=== PATIENT | female | born 1975 | race Caucasian/White ===

== ENCOUNTER 2020-12-31 07:31 | Outpatient (RCR) | payer OTHER, SELFPAY ==
--- NOTE | 2021-01-03 10:24 | PC.NURSE ---
Pt was scheduled to begin the PHP program today, 01/03/21. Pt was not present for community meeting at 9am. Pt was called by TW, phone went to voicemail, unable to leave message as voicemail full. TW called again, waking pt. Pt reported that she began a new medication and she is struggling with it. Tw explained that pt would need to be scheduled for a reassessment as she did not begin program. Pt understood and requested to call TW back once she was up and got herself together. TW will be expecting a call to schedule assessment should pt be interested in attending the program.
== END 2020-12-31 23:55 | disposition home or self-care (01) ==
LOC: HO.PHPA 07:31
PROVIDERS: Visit Provider Psychiatry & Neurology Psychiatry
DX: F31.81 Bipolar II disorder (principal); F43.10 Post-traumatic stress disorder, unspecified
CPT/HCPCS: 90791

== ENCOUNTER 2021-04-05 16:25 | Emergency (ER) | payer MEDICAID, SELFPAY ==
--- NOTE | 2021-04-05 16:53 | ED_ITS ---
HPI - Psych General Chief Complaint: Psychiatric Symptoms Stated Complaint: crisis Time Seen by Provider: 04/05/21 16:52 Source: patient Mode of arrival: ambulatory Limitations: no limitations History of Present Illness MD complaint: suicidal ideation and feels depressed Onset (ago): day(s) Duration: constant and getting worse History of same: Yes Relieving factors: none Exacerbating factors: none Context: significant life stressor Associated psychiatric symptoms: depression and suicidal ideation Associated symptoms: denies other symptoms If self harm: admits thoughts of self harm and has plan (overdose on her trazodone) Related Data Home Medications Medication Instructions Recorded Confirmed lamotrigine 2 tab PO DAILY 04/05/21 04/05/21 ropinirole 1 tab PO BEDTIME 04/05/21 04/05/21 Allergies Allergy/AdvReac Type Severity Reaction Status Date / Time Sulfa (Sulfonamide Allergy Unknown SHORTNESS Unverified 07/01/20 14:52 Antibiotics) OF BREATH [SULFA (SULFONAMIDE ANTIBIOTICS)] mirtazapine [From REMERON] AdvReac Unknown AGITATION Unverified 07/01/20 14:52 quetiapine [From SEROQUEL] AdvReac Unknown AGITATION Unverified 07/01/20 14:52 Review of Systems Review of Systems: Constitutional : No Fever, No Chills ENT/Mouth : No Ear Pain, No Nasal Congestion, No sore throat Eyes: No Eye Pain, No Swelling, No Redness Cardiovascular : No Chest Pain, No SOB Respiratory : No Cough, No Sputum, No Dyspnea Gastrointestinal : No Nausea, No Vomiting, No Diarrhea, No Hematochezia, No Melena Genitourinary : No Dysuria, No Urinary Frequency, No Hematuria Musculoskeletal : No Myalgias Skin : No Skin Lesions, No rash Neuro : No Weakness, No Numbness, No Paresthesias, No Dizziness, No Headache Psych : positive Anxiety, positive Depression, positive SI, no HI Heme/Lymph: No Lymphadenopathy Endocrine : No Polyuria, No Polydipsia All other systems reviewed and are negative [facility] Past Medical History Attestation statement: The following information was validated with the patient. Medical History (Updated 04/05/21 @ 17:29 by Yaquelin Guerrero DO) Depression Social History Social History (Updated 04/05/21 @ 17:26 by Yaquelin Guerrero DO) Household Members: None Alcohol intake: never Patient Tobacco Use Status: Never used Tobacco Advance Directives: No Advance Directives Information Provided: No Patient : No Physical Exam Vital Signs: Vital Signs: Last Vital Signs Temp 97.1 F 04/05/21 16:55 Pulse 67 04/05/21 16:55 Resp 15 04/05/21 16:55 BP 145/70 H 04/05/21 16:55 Pulse Ox 100 04/05/21 16:55 Body Mass Index 30.2 Appearance: Alert. Oriented X3. No acute distress. Eyes: Pupils equal, round and reactive to light. ENT: Pharynx normal. Neck: Normal inspection. Neck supple. CVS: Normal heart rate and rhythm. Pulses normal. Respiratory: No respiratory distress. Breath sounds normal. Abdomen: Soft and nontender. Skin: Skin warm and dry. Normal skin color. Normal skin turgor. Extremities: No lower extremity edema. No calf ttp Neuro: Oriented X 3. No motor deficit. No sensory deficit. CN2-12 intact Psych: pos depression, pos SI, no AH/VH Course Course Course Narrative: Physician observation started at 707pm Patient placed in physician observation because the patient needed more time to see [facility] for potential need for psych admission. At the time observation was started the patient's vitals were stable, patient is alert and oriented, Neuro: nonfocal, CV RRR, Lungs clear Patient seen and cleared by crisis with mom's help and safety robin, the patient doesn't want to go inpatient, declines respite at this time, she does not want to at this time, she is going to start partial on April 14, [facility] will call her at home, mom is on board and plans to stay with the patient. Plan is to follow up with therapist tomorrow. NAD, lungs clear, CV RRR, Abd nontender, Neuro intact. Disposition is for home. Plan to DC home in the AM so patient can be with mom. MDM - Psych MDM Narrative Medical decision making narrative: 46 yo female with prior hx of depression and inpatient mental health care here with depression and SI after losing employment and the loss of a relationship, she plans to overdose on her medications - at this time labs, COVID swab, [facility] consult Lab Data Result diagrams: 04/05/21 17:17 04/05/21 17:17 Labs: Lab Results 04/05/21 04/05/21 04/05/21 Range/Units 17:17 17:17 17:17 WBC 10.9 H (4.8-10.8) X10*3/uL RBC 4.79 (4.20-5.50) X10*6/uL Hgb 13.6 (12.0-16.0) g/dl Hct 41.1 (37-47) % MCV 85.8 (80-98) fL MCH 28.4 (27.0-33.0) pg MCHC 33.1 (31.0-35.0) g/dl RDW 12.5 (11.0-16.0) % Plt Count 314 (160-400) X10*3/uL MPV 9.9 (9.4-12.3) fL Immature Gran % (Auto) 0.4 (0.0-0.4) % Neut % (Auto) 67.7 (45-73) % Lymph % (Auto) 24.5 (20-40) % [place] % (Auto) 5.6 (2-11) % Eos % (Auto) 1.2 (0-4) % Baso % (Auto) 0.6 (0-2) % Lymph # (Auto) 2.7 (1.2-4.9) X10*3/uL [place] # (Auto) 0.6 (0.1-1.2) X10*3/uL Eos # (Auto) 0.1 (0.0-0.4) X10*3/uL Baso # (Auto) 0.1 (0.0-0.2) X10*3/uL Abs Immat Gran (auto) 0.04 H (0.00-0.03) X10*3/uL Absolute Neuts (auto) 7.4 (2.0-8.3) X10*3/uL Absolute Nucleated RBC 0.000 (0.0-0.012) X10*3/uL Nucleated RBC % (auto) 0.0 (0.0-0.2) /100WBC Sodium 139 (135-145) mmol/L Potassium 4.1 (3.3-5.1) mmol/L Chloride 104 (96-108) mmol/L Carbon Dioxide 27 (22-29) mmol/L Anion Gap 12 (12-20) BUN 12 (9-16) mg/dL Creatinine 0.76 (0.5-1.4) mg/dL Estim Creat Clear Calc 106.2 Estimated GFR > 60 Random Glucose 92 (60-115) mg/dL Calcium 9.2 (8.4-10.2) mg/dL Total Bilirubin 0.6 (0.0-1.0) mg/dL Direct Bilirubin 0.2 (0.0-0.5) mg/dL AST 14 (5-31) U/L ALT 9 (0-31) U/L Alkaline Phosphatase 91 (39-117) U/L Total Protein 6.7 (6.5-8.0) g/dL Albumin 3.9 (3.5-5.0) g/dL Ethyl Alcohol mg/dL COVID-19 (JAMIE) Negative (Negative) COVID-19 Clin Com See Note 04/05/21 Range/Units 17:17 WBC (4.8-10.8) X10*3/uL RBC (4.20-5.50) X10*6/uL Hgb (12.0-16.0) g/dl Hct (37-47) % MCV (80-98) fL MCH (27.0-33.0) pg MCHC (31.0-35.0) g/dl RDW (11.0-16.0) % Plt Count (160-400) X10*3/uL MPV (9.4-12.3) fL Immature Gran % (Auto) (0.0-0.4) % Neut % (Auto) (45-73) % Lymph % (Auto) (20-40) % [place] % (Auto) (2-11) % Eos % (Auto) (0-4) % Baso % (Auto) (0-2) % Lymph # (Auto) (1.2-4.9) X10*3/uL [place] # (Auto) (0.1-1.2) X10*3/uL Eos # (Auto) (0.0-0.4) X10*3/uL Baso # (Auto) (0.0-0.2) X10*3/uL Abs Immat Gran (auto) (0.00-0.03) X10*3/uL Absolute Neuts (auto) (2.0-8.3) X10*3/uL Absolute Nucleated RBC (0.0-0.012) X10*3/uL Nucleated RBC % (auto) (0.0-0.2) /100WBC Sodium (135-145) mmol/L Potassium (3.3-5.1) mmol/L Chloride (96-108) mmol/L Carbon Dioxide (22-29) mmol/L Anion Gap (12-20) BUN (9-16) mg/dL Creatinine (0.5-1.4) mg/dL Estim Creat Clear Calc Estimated GFR Random Glucose (60-115) mg/dL Calcium (8.4-10.2) mg/dL Total Bilirubin (0.0-1.0) mg/dL Direct Bilirubin (0.0-0.5) mg/dL AST (5-31) U/L ALT (0-31) U/L Alkaline Phosphatase (39-117) U/L Total Protein (6.5-8.0) g/dL Albumin (3.5-5.0) g/dL Ethyl Alcohol < 10 mg/dL COVID-19 (JAMIE) (Negative) COVID-19 Clin Com Discharge Plan Discharge Clinical Impression: Depression Qualifiers: Depression Type: other depression Qualified Code(s): F32.89 - Other specified depressive episodes Patient Disposition: Home, Self-Care Instructions: Depression (ED) Additional Instructions: return to ED for any worsening symptoms or concerns Prescriptions: No Action lamotrigine 25 mg tablet 2 tab PO DAILY RF: 0 ropinirole 0.5 mg tablet 1 tab PO BEDTIME RF: 0 Stand Alone Forms: Work/School Release
[2021-04-05 16:55] VITALS: BP 145/70; PULSE 67; RESP 15; TEMP 36.2; O2SAT 100
[2021-04-05 17:05] VITALS: BP 144/70; PULSE 70; O2SAT 98; BMI 30.2
[2021-04-05 17:24] LABS: MANUAL DIFF FLAG NO
[2021-04-05 17:27] LABS: Basophils Absolute Auto 0.1 X10*3/uL (0.0-0.2); Basophils Percent Auto 0.6 % (0-2); Eosinophils Absolute Auto 0.1 X10*3/uL (0.0-0.4); Eosinophils Percent Auto 1.2 % (0-4); Hematocrit 41.1 % (37-47); Hemoglobin 13.6 g/dl (12.0-16.0); Imm Gran Abs Auto 0.04 X10*3/uL (0.00-0.03); Imm Gran Pct Auto 0.4 % (0.0-0.4); Lymphocytes Absolute Auto 2.7 X10*3/uL (1.2-4.9); Lymphocytes Percent Auto 24.5 % (20-40); Mean Corpuscular HGB Conc 33.1 g/dl (31.0-35.0); Mean Corpuscular Hemoglobin 28.4 pg (27.0-33.0); Mean Corpuscular Volume 85.8 fL (80-98); Mean Platelet Volume 9.9 fL (9.4-12.3); Monocytes Absolute Auto 0.6 X10*3/uL (0.1-1.2); Monocytes Percent Auto 5.6 % (2-11); Neutrophils Absolute Auto 7.4 X10*3/uL (2.0-8.3); Neutrophils Percent Auto 67.7 % (45-73); Platelet Count 314 X10*3/uL (160-400); Red Blood Count 4.79 X10*6/uL (4.20-5.50); Red Cell Distribution Width 12.5 % (11.0-16.0); White Blood Count 10.9 X10*3/uL (4.8-10.8)
--- NOTE | 2021-04-05 17:35 | PC.NURSE ---
patient has appt with [facility] [place] PHP intake for 04/14/21
[2021-04-05 17:44] LABS: COVID-19 Test Negative (Negative); IDNOW Serial# 9DD0AD1C
[2021-04-05 17:52] LABS: Ethanol < 10 mg/dL
[2021-04-05 17:56] LABS: Alanine Aminotransferase 9 U/L (0-31); Albumin Level 3.9 g/dL (3.5-5.0); Alkaline Phosphatase 91 U/L (39-117); Anion Gap 12 (12-20); Aspartate Amino Transferase 14 U/L (5-31); Bilirubin Direct 0.2 mg/dL (0.0-0.5); Bilirubin Total 0.6 mg/dL (0.0-1.0); Blood Urea Nitrogen 12 mg/dL (9-16); Calcium 9.2 mg/dL (8.4-10.2); Carbon Dioxide 27 mmol/L (22-29); Chloride 104 mmol/L (96-108); Creatinine Clr Calc Pharmacy 106.2; Estimated Glomerular Filt Rate > 60; Glucose Random 92 mg/dL (60-115); Potassium 4.1 mmol/L (3.3-5.1); Sodium 139 mmol/L (135-145); Total Protein 6.7 g/dL (6.5-8.0)
--- NOTE | 2021-04-05 19:10 | PC.NURSE ---
Patient in bed appears sleeping, no distress observed/reported at this time, med rec completed/pending provider's approval, Nathan called/spoke with [facility],confirmed receipt of referral, clinician is on the way to assess the patient.
--- NOTE | 2021-04-05 19:38 | PC.NURSE ---
[facility] at bedside
--- NOTE | 2021-04-05 20:45 | PC.NURSE ---
JEFFERY completed the assessment, disposition updated, patient will be discharged in the morning, mother Maryam will come pick her up, patient will be doing her PHP which is scheduled on April 14, 2021. Patient and provider aware.
[2021-04-05 21:12] LABS: Amphetamine Screen Urine Not Detected (Not Detect); Barbiturates, Urine Not Detected (Not Detect); Benzodiazepines Screen Urine Not Detected (Not Detect); Cannabinoid Screen Urine POSITIVE (Not Detect); Cocaine Screen Urine Not Detected (Not Detect); Opiate Screen Urine Not Detected (Not Detect); Phencyclidine Screen Urine Not Detected (Not Detect)
[2021-04-05 23:43] VITALS: BP 126/58; PULSE 62; RESP 16; TEMP 36.7; O2SAT 100
--- NOTE | 2021-04-06 06:22 | PC.NURSE ---
Patient slept through the night, no distress observed/reported, Mother Maryam called/not responded/message left to call back with ride time, will continue to monitor.
--- NOTE | 2021-04-06 07:05 | PC.NURSE ---
Addendum entered by Pankaj Stringer 04/06/21 08:20: pt has pending partial placement* Original Note: report taken from miki adler pt here for reported si, seen by n crisis and awaiting follow up w pt mother regarding dc planning, pt has pending placement for psychiatric care 04/14/21. appears to be sleeping in bed att, rr even/unlabored. breakfast tray left at bedside.
--- NOTE | 2021-04-06 10:25 | MHC.CARE ---
Patient was assessed by N and cleared for discharge home. CARE Team was able to offer patient an earlier start date for PHP with an intake on 04/12 vs scheduled 04/14, she declined as she cannot wake in time for the 7:30 appointment. Patient?s mother was at bedside and is planning to stay with patient and help support/keep patient busy as long as necessary. They understand to call Crisis or CARE team if the situation becomes more acute.
== END 2021-04-06 09:02 | disposition home or self-care (01) ==
PROVIDERS: Emergency Provider Emergency Medicine; PCP Nurse Practitioner Family
DX: F32.89 Other specified depressive episodes (principal); Z79.899 Other long term (current) drug therapy; Z20.822 Contact with and (suspected) exposure to COVID-19
CPT/HCPCS: 36415; 80048; 80076; 80307; 82077; 85025; 87635; 99284; 99285

== ENCOUNTER 2021-08-21 13:30 | Emergency (ER) | payer MEDICAID, SELFPAY ==
--- NOTE | ~2021-08-21 | XR_ITS ---
EXAMINATION: CHEST 2 VIEWS CLINICAL INFORMATION: cough and weakness . COMPARISON: 12/04/2019. TECHNIQUE: PA and lateral views of the chest obtained. FINDINGS: The lungs are well expanded. No focal infiltrate, effusion, edema, or pneumothorax. Chain staple line at the right lung apex again noted. Cardiac and mediastinal silhouettes are within normal limits for technique. No acute bony abnormality seen XR/XR chest 2V IMPRESSION: No evidence of acute disease
[2021-08-21 13:47] VITALS: BP 140/75; PULSE 106; RESP 16; TEMP 36.5; O2SAT 98; BMI 28.8
--- NOTE | 2021-08-21 13:53 | ED.URI ---
HPI - URI/Sore Throat General Chief Complaint: Upper Respiratory Symptoms Stated Complaint: flu like Time Seen by Provider: 08/21/21 13:49 Source: patient Mode of arrival: ambulatory Limitations: no limitations History of Present Illness HPI Narrative: sore throat, headache, slight cough, with chest tightness for one week. Patient thought she had allergies. Now with bodyaches. Patient is both flu and COVID vaccinated. Patient with nausea and vomiting feels dehydrated. Denies fever at home MD elicited complaint: cough, sore throat and rhinorrhea Onset (ago): week(s) Consistency: constant Severity: moderate Able to tolerate fluids by mouth: No Associated symptoms: myalgias, sore throat, nausea and vomiting Related Data Home Medications Medication Instructions Recorded Confirmed lamotrigine 25 mg tablet 2 tab PO DAILY 04/05/21 04/05/21 ropinirole 0.5 mg tablet 1 tab PO BEDTIME 04/05/21 04/05/21 Previous Rx's Medication Instructions Recorded fluticasone propionate 50 1 spray INTRANASAL BID #16 g 08/21/21 mcg/actuation nasal spray,suspension (Flonase Allergy Relief) ondansetron HCl 4 mg tablet 4 mg PO Q8H PRN #10 tab 08/21/21 (Zofran) Allergies Allergy/AdvReac Type Severity Reaction Status Date / Time Sulfa (Sulfonamide Allergy Unknown SHORTNESS Unverified 07/01/20 14:52 Antibiotics) OF BREATH [SULFA (SULFONAMIDE ANTIBIOTICS)] mirtazapine [From REMERON] AdvReac Unknown AGITATION Unverified 07/01/20 14:52 quetiapine [From SEROQUEL] AdvReac Unknown AGITATION Unverified 07/01/20 14:52 Review of Systems Constitutional: Constitutional: Reports no additional constitutional complaints Eyes: Eyes: Reports no additional eye complaints ENT: Denies dizziness Cardiovascular: Cardiovascular: Reports no additional cardiovascular complaints Respiratory: Respiratory: Reports as per HPI Gastrointestinal: Gastrointestinal: Reports no additional gastrointestinal complaints Genitourinary: Genitourinary: Reports no additional female genitourinary complaints Musculoskeletal: Musculoskeletal: Reports no additional musculoskeletal complaints Integumentary/Breasts: Skin/Breast: Denies rash Neurologic: Reports system reviewed and no additional complaints, except as documented, Denies dizziness and Denies Sensory deficit (Neuro) Psychiatric: Psychiatric: Denies anxiety PMFSH Past Medical History Medical History Depression Social History Social History Household Members: None Alcohol intake: never Patient Tobacco Use Status: Never used Tobacco Use of substances other than those prescribed or required for medical reasons: No Advance Directives: No Physical Exam Vital Signs: Vital Signs: Last Vital Signs Temp 98.8 F 08/21/21 14:12 Pulse 80 08/21/21 14:12 Resp 18 08/21/21 14:12 BP 130/74 08/21/21 14:12 Pulse Ox 96 08/21/21 14:12 Body Mass Index 28.8 Const: General: healthy appearing Nutritional Appearance: average body habitus Orientation/consciousness: oriented to person and patient oriented x3 Limitations: no limitations HENMT: Other: right TM with effusion, no erythema Head: Yes normal to inspection Ears: external ears normal General nose exam: Normal external nose present Mouth: Normal oral and palatal mucosa present and oropharynx normal Throat: Yes posterior oropharynx normal Eyes: General: appearance normal, both eyes and all related structures Neck: Other: supple Neck: Yes normal visual inspection Chest: Chest palpation & inspection: normal inspection of the chest Resp: Auscultation: clear to auscultation bilaterally Cardio: Jugular venous distension: no JVD Rate: regular rate Rhythm: regular rhythm Heart sounds: S1 normal heart sound present and S2 normal heart sound present GI: Inspection: Yes normal to inspection Palpation (GI): Soft to palpation, nontender and No hepatosplenomegaly present Auscultation: normal bowel sounds : General: Yes no CVA tenderness Back/Spine/Pelvis: Back: no CVA tenderness Skin: General skin exam: no rashes or lesions noted Neuro: General: oriented to person and patient oriented x3 Cranial nerves: Yes CN's II-XII intact bilaterally Motor exam (neuro): 5/5 motor strength present throughout Sensory Exam: No Sensory deficit (Neuro) Extrem: General: Yes normal to inspection Psych: Appearance: grossly normal Course Reevaluation(s) Reevaluation #1: COVID negative, chest xray negative, good vitals, rehydrated will dc home on zofran and flonase for sinusitis Time: 15:38 MDM - URI/Sore Throat Lab Data Result diagrams: 11/07/21 14:24 08/21/21 14:24 Labs: Lab Results 08/21/21 08/21/21 08/21/21 Range/Units 14:24 14:24 14:24 WBC 6.1 (4.8-10.8) X10*3/uL RBC 4.57 (4.20-5.50) X10*6/uL Hgb 13.6 (12.0-16.0) g/dl Hct 39.2 (37.0-47.0) % MCV 85.8 (80.0-98.0) fL MCH 29.8 (27.0-33.0) pg MCHC 34.7 (31.0-35.0) g/dl RDW 12.9 (11.0-16.0) % Plt Count 238 (160-400) X10*3/uL MPV 9.8 (9.4-12.3) fL Immature Gran % (Auto) 0.2 (0.0-0.4) % Neut % (Auto) 57.4 (45-73) % Lymph % (Auto) 30.1 (20-40) % [place] % (Auto) 9.8 (2-11) % Eos % (Auto) 1.8 (0-4) % Baso % (Auto) 0.7 (0-2) % Lymph # (Auto) 1.9 (1.2-4.9) X10*3/uL [place] # (Auto) 0.6 (0.1-1.2) X10*3/uL Eos # (Auto) 0.1 (0.0-0.4) X10*3/uL Baso # (Auto) 0.0 (0.0-0.2) X10*3/uL Abs Immat Gran (auto) 0.01 (0.00-0.03) X10*3/uL Absolute Neuts (auto) 3.5 (2.0-8.3) x10*3/uL Absolute Nucleated RBC 0.000 (0.0-0.012) X10*3/uL Nucleated RBC % (auto) 0.0 (0.0-0.2) /100WBC Sodium 140 (135-145) mmol/L Potassium 4.1 (3.3-5.1) mmol/L Chloride 109 H (96-108) mmol/L Carbon Dioxide 24 (22-29) mmol/L Anion Gap 11 L (12-20) BUN 10 (9-16) mg/dL Creatinine 0.81 (0.5-1.4) mg/dL Estim Creat Clear Calc 100.6 Estimated GFR > 60 Random Glucose 122 H (60-115) mg/dL Calcium 8.9 (8.4-10.2) mg/dL Influenza Type A (PCR) NEGATIVE (Negative) Influenza Type B (PCR) NEGATIVE (Negative) RSV RNA Qual (PCR) NEGATIVE (Negative) SARS-CoV-2 RNA (RT-PCR) NEGATIVE (Negative) Imaging Data Chest x-ray: Radiologist's impression: IMPRESSION: No evidence of acute disease ? Discharge Plan Discharge Clinical Impression: Sinusitis Qualifiers: Sinusitis location: frontal Chronicity: subacute Qualified Code(s): J01.10 - Acute frontal sinusitis, unspecified Vomiting Qualifiers: Vomiting type: unspecified Vomiting Intractability: non-intractable Nausea presence: with nausea Qualified Code(s): R11.2 - Nausea with vomiting, unspecified Patient Disposition: Home, Self-Care Instructions: Sinusitis (ED), Acute Nausea and Vomiting (ED) Prescriptions: New ondansetron HCl [Zofran] 4 mg tablet 4 mg PO Q8H PRN (Reason: nausea and vomiting) Qty: 10 RF: 0 fluticasone propionate [Flonase Allergy Relief] 50 mcg/actuation spray,suspension 1 spray intranasal BID Qty: 16 RF: 0 No Action lamotrigine 25 mg tablet 2 tab PO DAILY RF: 0 ropinirole 0.5 mg tablet 1 tab PO BEDTIME RF: 0 Referrals: Mamta Guzmán, [facility] PAVER [Primary Care Provider] - 1 week
[2021-08-21 14:12] VITALS: BP 130/74; PULSE 80; RESP 18; TEMP 37.1; O2SAT 96
[2021-08-21 14:34] LABS: MANUAL DIFF FLAG NO
[2021-08-21 14:35] LABS: Basophils Percent Auto 0.7 % (0-2); Eosinophils Absolute Auto 0.1 X10*3/uL (0.0-0.4); Eosinophils Percent Auto 1.8 % (0-4); Hematocrit 39.2 % (37.0-47.0); Hemoglobin 13.6 g/dl (12.0-16.0); Imm Gran Abs Auto 0.01 X10*3/uL (0.00-0.03); Imm Gran Pct Auto 0.2 % (0.0-0.4); Lymphocytes Absolute Auto 1.9 X10*3/uL (1.2-4.9); Lymphocytes Percent Auto 30.1 % (20-40); Mean Corpuscular HGB Conc 34.7 g/dl (31.0-35.0); Mean Corpuscular Hemoglobin 29.8 pg (27.0-33.0); Mean Corpuscular Volume 85.8 fL (80.0-98.0); Mean Platelet Volume 9.8 fL (9.4-12.3); Monocytes Absolute Auto 0.6 X10*3/uL (0.1-1.2); Monocytes Percent Auto 9.8 % (2-11); Neutrophils Absolute Auto 3.5 x10*3/uL (2.0-8.3); Neutrophils Percent Auto 57.4 % (45-73); Platelet Count 238 X10*3/uL (160-400); Red Blood Count 4.57 X10*6/uL (4.20-5.50); Red Cell Distribution Width 12.9 % (11.0-16.0); White Blood Count 6.1 X10*3/uL (4.8-10.8)
--- NOTE | 2021-08-21 14:36 | PC.NURSE ---
intermittent dry cough, no SOB at rest. pt describes right sided anterior chest pain, intermittent dizziness, persistent fatigue. Skin pwd. nsr on monitor. aware of plan of care.
[2021-08-21] MEDS: ondansetron HCL 4 MG/2 ML VIAL IVPUSH (14:45)
[2021-08-21] MEDS: Ketorolac Tromethamine 15 MG/ML VIAL 30 MG IVPUSH (14:45)
[2021-08-21] MEDS: 0.9 % Sodium Chloride 1,000 ML 999 ML IVCONT (14:45)
[2021-08-21 14:46] LABS: Anion Gap 11 (12-20); Blood Urea Nitrogen 10 mg/dL (9-16); Calcium 8.9 mg/dL (8.4-10.2); Carbon Dioxide 24 mmol/L (22-29); Chloride 109 mmol/L (96-108); Creatinine Clr Calc Pharmacy 100.6; Estimated Glomerular Filt Rate > 60; Glucose Random 122 mg/dL (60-115); Potassium 4.1 mmol/L (3.3-5.1); Sodium 140 mmol/L (135-145)
[2021-08-21 15:21] LABS: Influenza A PCR NEGATIVE (Negative); Influenza B PCR NEGATIVE (Negative); Resp Syncy Virus RNA Qual PCR NEGATIVE (Negative); SARS COV2 PCR INHOUSE NEGATIVE (Negative)
[2021-08-21 15:49] VITALS: BP 134/63; PULSE 68; RESP 16; TEMP 36.7; O2SAT 99
== END 2021-08-21 16:18 | disposition home or self-care (01) ==
PROVIDERS: Emergency Provider Emergency Medicine; PCP Nurse Practitioner Family
DX: J01.10 Acute frontal sinusitis, unspecified (principal); R11.2 Nausea with vomiting, unspecified; J02.9 Acute pharyngitis, unspecified; Z20.822 Contact with and (suspected) exposure to COVID-19
CPT/HCPCS: 0241U; 36415; 71046; 80048; 85025; 96361; 96374; 96375; 99284; J1885; J2405

== ENCOUNTER 2021-09-13 23:46 | Inpatient (IN) | payer OTHER, MEDICAID, SELFPAY ==
--- NOTE | 2021-09-13 23:51 | ED_ITS ---
HPI - Psych General Chief Complaint: Psychiatric Symptoms Stated Complaint: si w/ plan (sec 12) Source: patient and EMS Mode of arrival: EMS Limitations: no limitations History of Present Illness HPI Narrative: 46-year-old female presents via EMS on section 12 for suicidal ideation with plan. MD complaint: suicidal ideation and feels depressed Onset (ago): unknown Duration: constant History of same: Yes Relieving factors: none Context: significant life stressor Associated psychiatric symptoms: depression and suicidal ideation Associated symptoms: denies other symptoms Treatments prior to arrival: placed on mental health hold If self harm: admits thoughts of self harm and has plan Related Data Home Medications Medication Instructions Recorded Confirmed duloxetine 60 mg capsule,delayed 1 cap PO DAILY 09/14/21 09/14/21 release lamotrigine 100 mg tablet 1 tab PO DAILY 09/14/21 09/14/21 Allergies Allergy/AdvReac Type Severity Reaction Status Date / Time Sulfa (Sulfonamide Allergy Unknown SHORTNESS Unverified 07/01/20 14:52 Antibiotics) OF BREATH [SULFA (SULFONAMIDE ANTIBIOTICS)] mirtazapine [From REMERON] AdvReac Unknown AGITATION Unverified 07/01/20 14:52 quetiapine [From SEROQUEL] AdvReac Unknown AGITATION Unverified 07/01/20 14:52 Review of Systems Review of Systems: Constitutional: No Fever, No Chills ENT/Mouth: No Ear Pain, No Nasal Congestion, No sore throat Eyes: No Eye Pain, No Swelling, No Redness Cardiovascular: No Chest Pain, No SOB Respiratory: No Cough, No Sputum, No Dyspnea Gastrointestinal: No Nausea, No Vomiting, No Diarrhea, No Hematochezia, No Melena Genitourinary: No Dysuria, No Urinary Frequency, No Hematuria Musculoskeletal: No Myalgias Skin: No Skin Lesions, No rash Neuro: No Weakness, No Numbness, No Paresthesias, No Dizziness, No Headache Psych: No Anxiety, positive Depression, positive SI Heme/Lymph: No Lymphadenopathy Endocrine: No Polyuria, No Polydipsia Yes all other systems are reviewed and are negative [facility] Past Medical History Attestation statement: The following information was validated with the patient. Source: old records reviewed Medical History Depression Social History Social History Household Members: None Alcohol intake: never Patient Tobacco Use Status: Never used Tobacco Advance Directives: No Advance Directives Information Provided: Yes Patient : No Physical Exam Vital Signs: Vital Signs: Last Vital Signs Temp 97.4 F 09/13/21 23:53 Pulse 65 09/13/21 23:53 Resp 16 09/13/21 23:53 BP 145/69 H 09/13/21 23:53 Pulse Ox 99 09/13/21 23:53 Body Mass Index 26.6 Appearance: Alert. Oriented X3. Moderate emotional distress. Eyes: Pupils equal, round and reactive to light. Sclera nonicteric ENT: Pharynx normal. Moist mucous membranes Neck: Normal inspection. Neck supple. CVS: Normal heart rate and rhythm. Pulses normal. Respiratory: No respiratory distress. Breath sounds normal. Abdomen: Soft and nontender. Skin: Skin warm and dry. Normal skin color. Normal skin turgor. Extremities: Gait well-balanced well coordinated. Neuro: No motor deficit. No sensory deficit. Cranial nerves 2-12 intact. Course Course Course Narrative: 46-year-old female presents via EMS for suicidal ideation with plan. States that she is going through significant life stressor, is in financial distress. Told her daughter earlier today that she was suicidal with plan to overdose on her medications. Patient does have prior history of depression with suicidal ideation and plan to overdose. Patient is on section 12, will order labs and crisis consult. 1:31 a.m. medically cleared. Physician observation started at this time. MDM - Psych Differential Diagnosis Differential diagnosis: Likely suicidal ideation and depression Medical Records Attestation: I reviewed the patient's medical records. Lab Data Attestation: I reviewed the patient's lab results. Result diagrams: 09/14/21 00:23 09/14/21 00:23 Labs: Lab Results 09/14/21 09/14/21 09/14/21 Range/Units 00:09 00:23 00:23 WBC 9.6 (4.8-10.8) X10*3/uL RBC 4.88 (4.20-5.50) X10*6/uL Hgb 14.0 (12.0-16.0) g/dl Hct 42.1 (37.0-47.0) % MCV 86.3 (80.0-98.0) fL MCH 28.7 (27.0-33.0) pg MCHC 33.3 (31.0-35.0) g/dl RDW 12.5 (11.0-16.0) % Plt Count 305 D (160-400) X10*3/uL MPV 10.0 (9.4-12.3) fL Immature Gran % (Auto) 0.2 (0.0-0.4) % Neut % (Auto) 54.0 (45-73) % Lymph % (Auto) 33.5 (20-40) % [place] % (Auto) 8.9 (2-11) % Eos % (Auto) 2.9 (0-4) % Baso % (Auto) 0.5 (0-2) % Lymph # (Auto) 3.2 (1.2-4.9) X10*3/uL [place] # (Auto) 0.9 (0.1-1.2) X10*3/uL Eos # (Auto) 0.3 (0.0-0.4) X10*3/uL Baso # (Auto) 0.1 (0.0-0.2) X10*3/uL Abs Immat Gran (auto) 0.02 (0.00-0.03) X10*3/uL Absolute Neuts (auto) 5.2 (2.0-8.3) x10*3/uL Absolute Nucleated RBC 0.000 (0.0-0.012) X10*3/uL Nucleated RBC % (auto) 0.0 (0.0-0.2) /100WBC Sodium 140 (135-145) mmol/L Potassium 3.9 (3.3-5.1) mmol/L Chloride 108 (96-108) mmol/L Carbon Dioxide 20 L (22-29) mmol/L Anion Gap 16 (12-20) BUN 9 (9-16) mg/dL Creatinine 0.76 (0.5-1.4) mg/dL Estim Creat Clear Calc 103.4 Estimated GFR > 60 Random Glucose 106 (60-115) mg/dL Calcium 9.2 (8.4-10.2) mg/dL Salicylates < 5.0 L (15-30) mg/dL Acetaminophen < 1 (<30) mcg/mL Ethyl Alcohol mg/dL COVID-19 (JAMIE) Negative (Negative) COVID-19 Clin Com See Note 09/14/21 Range/Units 00:23 WBC (4.8-10.8) X10*3/uL RBC (4.20-5.50) X10*6/uL Hgb (12.0-16.0) g/dl Hct (37.0-47.0) % MCV (80.0-98.0) fL MCH (27.0-33.0) pg MCHC (31.0-35.0) g/dl RDW (11.0-16.0) % Plt Count (160-400) X10*3/uL MPV (9.4-12.3) fL Immature Gran % (Auto) (0.0-0.4) % Neut % (Auto) (45-73) % Lymph % (Auto) (20-40) % [place] % (Auto) (2-11) % Eos % (Auto) (0-4) % Baso % (Auto) (0-2) % Lymph # (Auto) (1.2-4.9) X10*3/uL [place] # (Auto) (0.1-1.2) X10*3/uL Eos # (Auto) (0.0-0.4) X10*3/uL Baso # (Auto) (0.0-0.2) X10*3/uL Abs Immat Gran (auto) (0.00-0.03) X10*3/uL Absolute Neuts (auto) (2.0-8.3) x10*3/uL Absolute Nucleated RBC (0.0-0.012) X10*3/uL Nucleated RBC % (auto) (0.0-0.2) /100WBC Sodium (135-145) mmol/L Potassium (3.3-5.1) mmol/L Chloride (96-108) mmol/L Carbon Dioxide (22-29) mmol/L Anion Gap (12-20) BUN (9-16) mg/dL Creatinine (0.5-1.4) mg/dL Estim Creat Clear Calc Estimated GFR Random Glucose (60-115) mg/dL Calcium (8.4-10.2) mg/dL Salicylates (15-30) mg/dL Acetaminophen (<30) mcg/mL Ethyl Alcohol < 10 mg/dL COVID-19 (JAMIE) (Negative) COVID-19 Clin Com Discharge Plan Discharge Clinical Impression: Suicidal ideation Major depression Qualifiers: Major depression recurrence: recurrent Active/Remission status: currently active Major depression episode severity: severe Psychotic features: with psychotic features Qualified Code(s): F33.3 - Major depressive disorder, recurrent, severe with psychotic symptoms Prescriptions: No Action duloxetine 60 mg capsule,delayed release(DR/EC) 1 cap PO DAILY RF: 0 lamotrigine 100 mg tablet 1 tab PO DAILY RF: 0
[2021-09-13 23:53] VITALS: BP 145/69; PULSE 65; RESP 16; TEMP 36.3; O2SAT 99; BMI 26.6
[2021-09-14 00:27] LABS: MANUAL DIFF FLAG NO
[2021-09-14 00:29] LABS: Basophils Absolute Auto 0.1 X10*3/uL (0.0-0.2); Basophils Percent Auto 0.5 % (0-2); Eosinophils Absolute Auto 0.3 X10*3/uL (0.0-0.4); Eosinophils Percent Auto 2.9 % (0-4); Hematocrit 42.1 % (37.0-47.0); Imm Gran Abs Auto 0.02 X10*3/uL (0.00-0.03); Imm Gran Pct Auto 0.2 % (0.0-0.4); Lymphocytes Absolute Auto 3.2 X10*3/uL (1.2-4.9); Lymphocytes Percent Auto 33.5 % (20-40); Mean Corpuscular HGB Conc 33.3 g/dl (31.0-35.0); Mean Corpuscular Hemoglobin 28.7 pg (27.0-33.0); Mean Corpuscular Volume 86.3 fL (80.0-98.0); Monocytes Absolute Auto 0.9 X10*3/uL (0.1-1.2); Monocytes Percent Auto 8.9 % (2-11); Neutrophils Absolute Auto 5.2 x10*3/uL (2.0-8.3); Platelet Count 305 X10*3/uL (160-400); Red Blood Count 4.88 X10*6/uL (4.20-5.50); Red Cell Distribution Width 12.5 % (11.0-16.0); White Blood Count 9.6 X10*3/uL (4.8-10.8)
[2021-09-14 00:40] LABS: COVID-19 Test Negative (Negative)
[2021-09-14 00:56] LABS: Ethanol < 10 mg/dL
[2021-09-14 00:59] LABS: Acetaminophen LAB < 1 mcg/mL (<30); Anion Gap 16 (12-20); Blood Urea Nitrogen 9 mg/dL (9-16); Calcium 9.2 mg/dL (8.4-10.2); Carbon Dioxide 20 mmol/L (22-29); Chloride 108 mmol/L (96-108); Creatinine Clr Calc Pharmacy 103.4; Estimated Glomerular Filt Rate > 60; Glucose Random 106 mg/dL (60-115); Potassium 3.9 mmol/L (3.3-5.1); Salicylate < 5.0 mg/dL (15-30); Sodium 140 mmol/L (135-145)
[2021-09-14 04:10] LABS: Appearance Urine CLEAR; Color Urine YELLOW; Glucose Urine UA NEG (NEG); Leukocyte Esterase Urine NEG (NEG); Nitrite Urine NEG (NEG); Urine Blood NEG (NEG); Urine Ketones NEG (NEG); Urine Protein NEG (NEG-TRACE)
[2021-09-14 04:11] LABS: UPreg QC Valid YES; Urine Pregnancy NEGATIVE (NEGATIVE)
[2021-09-14 04:23] LABS: Amphetamine Screen Urine Not Detected (Not Detect); Barbiturates, Urine Not Detected (Not Detect); Benzodiazepines Screen Urine Not Detected (Not Detect); Cannabinoid Screen Urine POSITIVE (Not Detect); Cocaine Screen Urine Not Detected (Not Detect); Fentanyl, urine Not Detected (Not Detect); Opiate Screen Urine Not Detected (Not Detect); Phencyclidine Screen Urine Not Detected (Not Detect)
[2021-09-14 04:33] LABS: Mucus Urine 1+ /LPF; RBC Urine 0 /HPF (0); Squamous Epithelial Cell Urine 2+ /LPF; WBC Urine 0-2 /HPF (0-4)
--- NOTE | 2021-09-14 05:52 | PC.NURSE ---
Patient slept through the night, no distress observed/reported, patient was fully engaged with N during the evaluation, behavior calm, quiet, and appropriate, med rec completed, disposition per [facility] is section 12 inpatient bed search, patient and provider aware, VSS, will continue to monitor.
--- NOTE | 2021-09-14 10:01 | PC.NURSE ---
OOB TO BR. SECT 12 BEDSEARCH CONTINUES. ALERT AND ORIENTED. PT REFUSING MEDS THIS AM, STATES SHE TAKES THEM AT NIGHT. PHARMACY AWARE, TIMES CHANGED
--- NOTE | 2021-09-14 11:07 | PC.NURSE ---
NURSE TO NURSE TO M5
[2021-09-14 13:28] VITALS: BP 134/72; PULSE 102; RESP 16; TEMP 37.2; O2SAT 99
[2021-09-14] MEDS: Acetaminophen 325 MG TABLET 650 MG PO (14:08)
[2021-09-14 18:00] VITALS: BP 135/64; PULSE 78; RESP 16; TEMP 37.1; O2SAT 98
--- NOTE | 2021-09-14 19:58 | PC.ADMIT ---
46 yo female admitted to [facility] at 1440 today on a CV for psychiatric evaluation. Per crisis report, pt stated she is experiencing several stressors and is completely overwhelmed by it all. States she had broken her ankle in October and needed to be out of work as a result she is 3 months past due on her rent, car may be getting repossessed. States she had not been taking her mood stabilizers and in Oct 2020 stopped her antidepressant Cymbalta to see if she needed to stay on it. Started back on Cymbalta in April of 2021. Pt's mom developed a kidney infection which led her to the SI of overdosing on her pills. Pt texted her daughter I love you, but I cannot do this anymore. Pt's mother and daughter called police. Pt additionally texted daughter No matter what they say, one way or another, I am going to take my life. Pt is A&O, 4/10 anxiety, 8/10 depression, and tearful. Pt reports SI but acknowledges she cannot do anything here. Pt declined to elaborate on thoughts. Pt contracted for safety. Pt reports that she feels a burden to my family and feels as thought she has nothing to offer. Pt denies HI/AVH. Pt denies substance abuse issues. States she uses marijuana daily, 1 joint . Pt dx with Bipolar II, PTSD and Depression with SI. Pt states she has had previous psych admissions at [facility] at ages 16, 25. Pt requests assistance with finding a psychiatrist, a therapist and medications adjustment. Orders obtained, Pt is on 15 min safety checks.
[2021-09-14] MEDS: DULoxetine HCl 30 MG CAPSULE.DR PO (20:47)
[2021-09-14] MEDS: DULoxetine HCl 60 MG CAPSULE.DR PO (20:47)
[2021-09-15 08:39] LABS: Estimated Average Glucose 105 mg/dL; Hemoglobin A1c % 5.3 %
--- NOTE | 2021-09-15 09:06 | HO.PSYADMNOT ---
HPI Date of Service: 09/15/21 Chief Complaint: Recurrent Major Depression W/SI Sources of Information: patient interviewed, chart reviewed and crisis/core team assessment reviewed HPI Subjective Notes: Bucio Warning and Conditional Voluntary Narrative: Ms. Diallo is a 46 year-old woman with hx of MDD. She self presented to [facility] after reporting increased depression, suicidal ideation with plan to OD. In the ED her utox was positive for cannabinoids. This is her first inpatient psychiatric admission. On the unit, Ms. Diallo reports that she has been depressed probably since December of 2020. She reports she first notice avolition, depressed mood, anhedonia, poor sleep/appetite, feeling very tired. She decided to stop cymbalat back in summer because she thought she did not needed. She also had ankle injury that required surgical intervention back in 11/04 that prevent her from working for about 6 months. Pt reports she is behind in rent and car payment. She reports she received eviction notice due to rent being behind. She presents as very hopeless/helpless, does not think she can ever bounce back from current financial stressors. Note that severe depression preceded financial stressors. Pt reports long hx of depression but denies any suicide attempts. Pt denies Hx of VH/AH. She denies periods of increase energy, elated/grandiose mood, risk taking behaviors, decreased need for sleep to suggest s/s of hypomania or cinthia. Past Psychiatric History: Inp: none prior OP: none Suicide attempts: none Past medication trials: cymbalta, wellbutrin, effexor (headache and agitation), remeron, seroquel Medical Evaluation Reviewed: Yes low b12 levels <200, will give cyanocobalamin 1000mcg IM q weekly x 4 weeks. CBC with dif wnl; lipid panel/TSH wnl. A1c 5.3 [facility] Medical History Depression Family History: none Social History: lives alone. 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 Substance History: cannabis: daily. Pt denies use of alcohol, opioid, cocaine, amphetamines. utox neg. Trauma History: denies Diagnostics Vital Signs (24Hr): Vital Signs - 24 hr 09/14/21 18:00 Temperature 98.8 F Pulse Rate 78 Respiratory Rate 16 Blood Pressure 135/64 Pulse Oximetry 98 BMI result Body Mass Index 26.6 Labs Results: 09/14/21 00:23 09/14/21 00:23 Labs: Laboratory Results - last 48 hr 09/14/21 09/14/21 09/14/21 00:09 00:23 00:23 WBC 9.6 RBC 4.88 Hgb 14.0 Hct 42.1 MCV 86.3 MCH 28.7 MCHC 33.3 RDW 12.5 Plt Count 305 D MPV 10.0 Immature Gran % (Auto) 0.2 Neut % (Auto) 54.0 Lymph % (Auto) 33.5 [place] % (Auto) 8.9 Eos % (Auto) 2.9 Baso % (Auto) 0.5 Lymph # (Auto) 3.2 [place] # (Auto) 0.9 Eos # (Auto) 0.3 Baso # (Auto) 0.1 Abs Immat Gran (auto) 0.02 Absolute Neuts (auto) 5.2 Absolute Nucleated RBC 0.000 Nucleated RBC % (auto) 0.0 Sodium 140 Potassium 3.9 Chloride 108 Carbon Dioxide 20 L Anion Gap 16 BUN 9 Creatinine 0.76 Estim Creat Clear Calc 103.4 Estimated GFR > 60 Random Glucose 106 Estimat Average Glucose Hemoglobin A1c % Calcium 9.2 Magnesium Triglycerides Cholesterol LDL Cholesterol, Calc HDL Cholesterol Vitamin B12 Folate TSH Free T4 Urine Color Urine Appearance Urine pH Ur Specific [place] Urine Protein Urine Glucose (UA) Urine Ketones Urine Blood Urine Nitrite Ur Leukocyte Esterase Urine RBC Urine WBC Ur Squamous Epith Cells Urine Bacteria Urine Mucus Urine Test Salicylates < 5.0 L Urine Opiates Screen Urine Fentanyl Screen Acetaminophen < 1 Ur Barbiturates Screen Ur Phencyclidine Scrn Ur Amphetamines Screen U Benzodiazepines Scrn Urine Cocaine Screen U Marijuana (THC) Screen Ethyl Alcohol COVID-19 (JAMIE) Negative COVID-19 Clin Com See Note 09/14/21 09/14/21 09/14/21 00:23 03:50 03:50 WBC RBC Hgb Hct MCV MCH MCHC RDW Plt Count MPV Immature Gran % (Auto) Neut % (Auto) Lymph % (Auto) [place] % (Auto) Eos % (Auto) Baso % (Auto) Lymph # (Auto) [place] # (Auto) Eos # (Auto) Baso # (Auto) Abs Immat Gran (auto) Absolute Neuts (auto) Absolute Nucleated RBC Nucleated RBC % (auto) Sodium Potassium Chloride Carbon Dioxide Anion Gap BUN Creatinine Estim Creat Clear Calc Estimated GFR Random Glucose Estimat Average Glucose Hemoglobin A1c % Calcium Magnesium Triglycerides Cholesterol LDL Cholesterol, Calc HDL Cholesterol Vitamin B12 Folate TSH Free T4 Urine Color Urine Appearance Urine pH Ur Specific [place] Urine Protein Urine Glucose (UA) Urine Ketones Urine Blood Urine Nitrite Ur Leukocyte Esterase Urine RBC Urine WBC Ur Squamous Epith Cells Urine Bacteria Urine Mucus Urine Test NEGATIVE Salicylates Urine Opiates Screen Not Detected Urine Fentanyl Screen Not Detected Acetaminophen Ur Barbiturates Screen Not Detected Ur Phencyclidine Scrn Not Detected Ur Amphetamines Screen Not Detected U Benzodiazepines Scrn Not Detected Urine Cocaine Screen Not Detected U Marijuana (THC) Screen POSITIVE H Ethyl Alcohol < 10 COVID-19 (JAMIE) COVID-[employer] 09/14/21 09/15/21 09/15/21 03:50 08:05 08:05 WBC RBC Hgb Hct MCV MCH MCHC RDW Plt Count MPV Immature Gran % (Auto) Neut % (Auto) Lymph % (Auto) [place] % (Auto) Eos % (Auto) Baso % (Auto) Lymph # (Auto) [place] # (Auto) Eos # (Auto) Baso # (Auto) Abs Immat Gran (auto) Absolute Neuts (auto) Absolute Nucleated RBC Nucleated RBC % (auto) Sodium Potassium Chloride Carbon Dioxide Anion Gap BUN Creatinine Estim Creat Clear Calc Estimated GFR Random Glucose Estimat Average Glucose 105 Hemoglobin A1c % 5.3 Calcium Magnesium 2.1 Triglycerides 147 Cholesterol 203 LDL Cholesterol, Calc 118 HDL Cholesterol 56 Vitamin B12 Folate TSH 1.46 Free T4 0.77 Urine Color YELLOW Urine Appearance CLEAR Urine pH 6.0 Ur Specific [place] 1.020 Urine Protein NEG Urine Glucose (UA) NEG Urine Ketones NEG Urine Blood NEG Urine Nitrite NEG Ur Leukocyte Esterase NEG Urine RBC 0 Urine WBC 0-2 Ur Squamous Epith Cells 2+ Urine Bacteria NONE Urine Mucus 1+ Urine Test Salicylates Urine Opiates Screen Urine Fentanyl Screen Acetaminophen Ur Barbiturates Screen Ur Phencyclidine Scrn Ur Amphetamines Screen U Benzodiazepines Scrn Urine Cocaine Screen U Marijuana (THC) Screen Ethyl Alcohol COVID-19 (JAMIE) COVID-19 [employer] Com 09/15/21 08:05 WBC RBC Hgb Hct MCV MCH MCHC RDW Plt Count MPV Immature Gran % (Auto) Neut % (Auto) Lymph % (Auto) [place] % (Auto) Eos % (Auto) Baso % (Auto) Lymph # (Auto) [place] # (Auto) Eos # (Auto) Baso # (Auto) Abs Immat Gran (auto) Absolute Neuts (auto) Absolute Nucleated RBC Nucleated RBC % (auto) Sodium Potassium Chloride Carbon Dioxide Anion Gap BUN Creatinine Estim Creat Clear Calc Estimated GFR Random Glucose Estimat Average Glucose Hemoglobin A1c % Calcium Magnesium Triglycerides Cholesterol LDL Cholesterol, Calc HDL Cholesterol Vitamin B12 191 L Folate 17.9 TSH Free T4 Urine Color Urine Appearance Urine pH Ur Specific [place] Urine Protein Urine Glucose (UA) Urine Ketones Urine Blood Urine Nitrite Ur Leukocyte Esterase Urine RBC Urine WBC Ur Squamous Epith Cells Urine Bacteria Urine Mucus Urine Test Salicylates Urine Opiates Screen Urine Fentanyl Screen Acetaminophen Ur Barbiturates Screen Ur Phencyclidine Scrn Ur Amphetamines Screen U Benzodiazepines Scrn Urine Cocaine Screen U Marijuana (THC) Screen Ethyl Alcohol COVID-19 (JAMIE) COVID-19 Clin Com Meds/Allergies Meds Home Medications Acetaminophen (Acetaminophen 325 Mg Tablet) 650 mg PO Q6H PRN PRN Reason: Headache/Pain Mild Scale (1-3) Al Hydroxide/Mg Hydroxide (Magnesium Hydrox/Alum Hydrox 30 Ml Oral.Susp) 30 ml PO Q6H PRN PRN Reason: Heartburn/Nausea Cyanocobalamin (Cyanocobalamin (Vitamin B-12) 1,000 Mcg/Ml Vial) 1,000 mcg IM Q7D [facility] Stop: 10/06/21 17:16 Last Admin: 09/15/21 20:46 Dose: 1,000 mcg Documented by: Duloxetine HCl (Duloxetine Hcl 30 Mg Capsule.Dr) 90 mg PO BEDTIME [facility] Last Admin: 09/15/21 20:46 Dose: 90 mg Documented by: Hydroxyzine HCl (Hydroxyzine Hcl 25 Mg Tablet) 25 mg PO BEDTIME PRN PRN Reason: Anxiety [place] Carbonate ([place] Carbonate 300 Mg Tablet) 150 mg PO BID [facility] Last Admin: 09/16/21 08:53 Dose: 150 mg Documented by: Magnesium Hydroxide (Milk Of Magnesia 30 Ml Oral.Susp) 30 ml PO DAILY PRN PRN Reason: Constipation Trazodone HCl (Trazodone Hcl 50 Mg Tablet) 50 mg PO BEDTIME PRN PRN Reason: Insomnia Allergies Allergies Allergy/AdvReac Type Severity Reaction Status Date / Time lamotrigine [From Lamictal] Allergy Unknown Hives Verified 09/14/21 19:38 Sulfa (Sulfonamide Allergy Unknown SHORTNESS Verified 09/14/21 19:37 Antibiotics) OF BREATH [SULFA (SULFONAMIDE ANTIBIOTICS)] mirtazapine [From REMERON] AdvReac Unknown AGITATION Verified 09/14/21 19:37 quetiapine [From SEROQUEL] AdvReac Unknown AGITATION Verified 09/14/21 19:37 Mental Status Exam Mental Status Exam Narrative: Appearance: thin, casually groomed, fair hygiene in NAD Behavior:cooperative psychomotor:no agitation or retardation noted Speech:clear, normal rate/rhythm/volume, spontaneous Thought process:linear Thought content:no signs of psychosis, very hopeless, depressed, suicidal thoughts Mood: depressed Affect: tearful, blunted SI:passive HI:denies VH/AH:none Delusions:none Insight/judgment:fair x 2. Memory/cog: alert, oriented x 3. no formally tested, grossly intact to conversational testing. Assessment & Plan Assessment & Plan (1) MDD (major depressive disorder), recurrent severe, without psychosis: Status: Acute Code(s): F33.2 - Major depressive disorder, recurrent severe without psychotic features Assessment and Plan: Ms. Diallo is a 46 year-old woman with hx of MDD who self presented to [facility] reporting increased depressed mood, suicidal ideation with plan to OD, severely depressed for several months worsened by financial stressors. Pt had ankle surgery after accident at work that require surgery preventing her from working for 6 months. Pt reports as consequence she is behind payments in rent and car and recently received eviction notice. Pt presents as very hopeless, unable to see way to overcome financial stressors now that she was able to return to work. We discussed risks, benefits and alternative treatment options. Pt has had multiple antidepressant trials. Cymbalta partially effective. We disscussed lithium for resistant depression with suicidal thoughts. PLAN: 1. Admit to M5, 15 min checks, CV 2. Start [place] 150mg po BID 3. Continue cymbalta 90mg po qhs. may want to switch to day time if affecting sleep. 4. Obtain collateral information 5. Aftercare planning. Reason for continued inpatient stay Substantial Risk for: harm to self
[2021-09-15 09:18] LABS: Cholesterol 203 mg/dL; HDL Cholesterol 56 mg/dL; LDL Cholesterol Calculated 118 mg/dl; Magnesium 2.1 mg/dL (1.6-2.6); Triglycerides 147 mg/dL
[2021-09-15 09:39] LABS: Free T4 (Free Thyroxine) 0.77 ng/dL (0.71-1.85); Thyroid Stimulating Hormone 1.46 uIU/mL (0.32-4.0)
[2021-09-15 09:51] LABS: Folate 17.9 ng/mL (> or = 4.0); Vitamin B12 191 pg/mL (200-900)
[2021-09-15 18:00] VITALS: BP 134/66; PULSE 82; RESP 18; TEMP 36.1; O2SAT 98
[2021-09-15] MEDS: Lithium Carbonate 300 MG TABLET 150 MG PO (20:45)
[2021-09-15] MEDS: DULoxetine HCl 30 MG CAPSULE.DR 90 MG PO (20:46)
[2021-09-15] MEDS: Cyanocobalamin (Vitamin B-12) 1,000 MCG/ML VIAL 1000 MCG IM (20:46)
[2021-09-16 06:10] VITALS: BP 138/63; PULSE 88; RESP 17; TEMP 36.9; O2SAT 97
[2021-09-16] MEDS: Lithium Carbonate 300 MG TABLET 150 MG PO (08:53)
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
[2021-09-16 19:00] VITALS: BP 129/67; PULSE 74; RESP 16; TEMP 36.8; O2SAT 98
[2021-09-16] MEDS: DULoxetine HCl 30 MG CAPSULE.DR 90 MG PO (20:29)
[2021-09-16] MEDS: Lithium Carbonate ER 450 MG TABLET.ER PO (20:29)
[2021-09-17 06:00] VITALS: BP 141/63; PULSE 88; RESP 18; TEMP 36.6; O2SAT 99
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
[2021-09-17] MEDS: Lithium Carbonate ER 450 MG TABLET.ER PO (19:20)
[2021-09-17] MEDS: DULoxetine HCl 30 MG CAPSULE.DR 90 MG PO (19:20)
[2021-09-18 06:00] VITALS: BP 118/59; PULSE 76; RESP 18; TEMP 36.3; O2SAT 99
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
[2021-09-18 18:00] VITALS: BP 142/69; PULSE 75; RESP 16; TEMP 36.4; O2SAT 99
[2021-09-18] MEDS: Lithium Carbonate ER 450 MG TABLET.ER PO (20:43)
[2021-09-18] MEDS: DULoxetine HCl 30 MG CAPSULE.DR 90 MG PO (20:43)
[2021-09-19 06:00] VITALS: BP 120/83; PULSE 92; RESP 18; TEMP 36.4; O2SAT 99
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
[2021-09-19 18:00] VITALS: BP 140/59; PULSE 106; TEMP 36.9; O2SAT 99
[2021-09-19] MEDS: Lithium Carbonate ER 450 MG TABLET.ER 900 MG PO (21:21)
[2021-09-19] MEDS: DULoxetine HCl 30 MG CAPSULE.DR 90 MG PO (21:21)
[2021-09-20 06:00] VITALS: BP 130/64; PULSE 78; RESP 14; TEMP 36.6; O2SAT 98
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
[2021-09-20 19:20] VITALS: BP 130/61; PULSE 78; TEMP 36.8
[2021-09-20] MEDS: Lithium Carbonate ER 450 MG TABLET.ER 900 MG PO (20:25)
[2021-09-20] MEDS: DULoxetine HCl 30 MG CAPSULE.DR 90 MG PO (20:25)
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
[2021-09-21 18:00] VITALS: BP 129/62; PULSE 72; RESP 18; TEMP 36.4; O2SAT 98
[2021-09-21] MEDS: Lithium Carbonate ER 450 MG TABLET.ER 900 MG PO (20:10)
[2021-09-21] MEDS: DULoxetine HCl 30 MG CAPSULE.DR 90 MG PO (20:10)
== END 2021-09-22 13:39 | disposition home or self-care (01) | DRG 751 ==
LOC: HO.ED 09-14 11:36 → HO.PM5 09-14 13:44
PROVIDERS: Clinical Nurse Specialist Psychiatric/Mental Health, Adult; Nurse Practitioner Family; Admitting Provider Psychiatry & Neurology Psychiatry; Emergency Provider Student in an Organized Health Care Education/Training Program; Visit Provider Psychiatry & Neurology Psychiatry
DX: F33.2 Major depressive disorder, recurrent severe without psychotic features (principal); R45.851 Suicidal ideations; F43.10 Post-traumatic stress disorder, unspecified; Z20.822 Contact with and (suspected) exposure to COVID-19; Z88.2 Allergy status to sulfonamides; Z79.899 Other long term (current) drug therapy
CPT/HCPCS: 36415; 80048; 80061; 80143; 80179; 80307; 81001; 81025; 82077; 82607; 82746; 83036; 83735; 84439; 84443; 85025; 87635; 99285

== ENCOUNTER 2021-09-26 15:57 | Outpatient (REF) | payer MEDICAID, SELFPAY ==
[2021-09-26 16:51] LABS: Blood Urea Nitrogen 9 mg/dL (9-16); Estimated Glomerular Filt Rate > 60
[2021-09-26 16:57] LABS: Lithium 0.18 mmol/L (0.60-1.20)
[2021-09-26 17:13] LABS: TSH reflex Free T4 1.75 uIU/mL (0.32-4.0)
== END 2021-09-26 15:58 | disposition home or self-care (01) ==
LOC: HO.LAB 15:57
PROVIDERS: Psychiatry & Neurology Psychiatry; Visit Provider Colon & Rectal Surgery
DX: F33.2 Major depressive disorder, recurrent severe without psychotic features (principal); Z51.81 Encounter for therapeutic drug level monitoring; Z79.899 Other long term (current) drug therapy
CPT/HCPCS: 36415; 80178; 82565; 84443; 84520

== ENCOUNTER 2022-10-07 16:46 | Inpatient (IN) | payer MEDICAID, SELFPAY ==
--- NOTE | ~2022-10-07 | CT_ITS ---
EXAMINATION: CT ABDOMEN AND PELVIS WITHOUT CONTRAST CLINICAL INFORMATION: UTI, flank pain COMPARISON: None TECHNIQUE: Multidetector volumetric imaging was performed from the superior aspect of the liver through the pubic symphysis. Sagittal and coronal reformatted images were obtained on the technologist's workstation. This CT examination was performed using dose optimization techniques as appropriate, variously including the following: *Automated exposure control *Adjustment of mA and/or kV according to patient size (this includes techniques or standardized protocols for targeted exams where dose is matched to indication/reason for exam; i.e. extremities or head) *Use of iterative reconstruction technique DLP: 657 mGy-cm FINDINGS: LUNG BASES: Unremarkable. ABDOMINAL AND PELVIC WALL: Unremarkable. LIVER AND BILIARY TREE: Unremarkable. GALLBLADDER: Unremarkable. PANCREAS: Unremarkable. SPLEEN: Unremarkable. ADRENAL GLANDS: Unremarkable. KIDNEYS AND URETERS: There is left periureteral fat stranding. Lack of intravenous contrast limits assessment for pyelonephritis. No perinephric fluid collection. No hydronephrosis. No nephrolithiasis. Punctate nonobstructing left mid pole renal stone. GASTROINTESTINAL TRACT: Unremarkable. VASCULAR: Unremarkable. LYMPH NODES/PERITONEUM: No lymphadenopathy. FREE FLUID: None. BLADDER: Mild thickening of the bladder wall which can be seen in the setting of cystitis. PELVIC VISCERA: Unremarkable. OSSEOUS STRUCTURES: Unremarkable. CT/CT abdomen pelvis wo IV con IMPRESSION: Mild thickening of the bladder wall which could be seen in the setting of cholecystitis. There is left periureteral fat stranding without associated obstructing stone. Differential considerations could include ascending urinary tract infection or recently passed stone, recommend correlation with clinical symptoms. Lack of intravenous contrast limits evaluation for pyelonephritis. A punctate nonobstructing left midpole renal stone is seen.
[2022-10-07 16:58] VITALS: BP 148/84; PULSE 75; RESP 18; TEMP 36.6; O2SAT 99; BMI 27.8
[2022-10-07 17:23] LABS: MANUAL DIFF FLAG NO
[2022-10-07 17:36] LABS: Basophils Absolute Auto 0.1 X10*3/uL (0.0-0.2); Basophils Percent Auto 0.6 % (0-2); Eosinophils Absolute Auto 0.2 X10*3/uL (0.0-0.4); Eosinophils Percent Auto 1.6 % (0-4); Hematocrit 41.4 % (37.0-47.0); Hemoglobin 14.1 g/dl (12.0-16.0); Imm Gran Abs Auto 0.04 X10*3/uL (0.00-0.03); Imm Gran Pct Auto 0.3 % (0.0-0.4); Lymphocytes Absolute Auto 2.5 X10*3/uL (1.2-4.9); Lymphocytes Percent Auto 21.7 % (20-40); Mean Corpuscular HGB Conc 34.1 g/dl (31.0-35.0); Mean Corpuscular Hemoglobin 28.8 pg (27.0-33.0); Mean Corpuscular Volume 84.5 fL (80.0-98.0); Mean Platelet Volume 10.2 fL (9.4-12.3); Monocytes Absolute Auto 0.9 X10*3/uL (0.1-1.2); Monocytes Percent Auto 7.7 % (2-11); Neutrophils Absolute Auto 7.9 x10*3/uL (2.0-8.3); Neutrophils Percent Auto 68.1 % (45-73); Platelet Count 324 X10*3/uL (160-400); Red Cell Distribution Width 12.8 % (11.0-16.0); White Blood Count 11.6 X10*3/uL (4.8-10.8)
[2022-10-07 17:39] LABS: Appearance Urine Turbid; Color Urine Yellow; Glucose Urine UA Negative (Negative); Leukocyte Esterase Urine Large (3+) (Negative); Nitrite Urine Negative (Negative); PH 5.5 (5.0-9.0); Specific Gravity - Urine 1.015 (1.005-1.025); UMIC TRIGGER UACC YES; Urine Blood Large (3+) (Negative); Urine Ketones Negative (Negative); Urine Protein 300 (3+) mg/dL (Neg-Trace)
[2022-10-07 17:45] LABS: UPreg QC Valid YES; Urine Pregnancy NEGATIVE (NEGATIVE)
[2022-10-07 17:53] LABS: Alanine Aminotransferase 16 U/L (0-31); Albumin Level 4.3 g/dL (3.5-5.0); Alkaline Phosphatase 81 U/L (39-117); Anion Gap 11 (12-20); Aspartate Amino Transferase 14 U/L (5-31); Bilirubin Direct 0.5 mg/dL (0.0-0.5); Bilirubin Total 1.6 mg/dL (0.0-1.0); Blood Urea Nitrogen 14 mg/dL (9-16); Calcium 9.6 mg/dL (8.4-10.2); Carbon Dioxide 25 mmol/L (22-29); Chloride 105 mmol/L (96-108); Creatinine Clr Calc Pharmacy 94.9; Estimated Glomerular Filt Rate > 60; Glucose Random 105 mg/dL (60-115); Lipase 9 U/L (8-78); Potassium 4.1 mmol/L (3.3-5.1); Sodium 137 mmol/L (135-145); Total Protein 6.9 g/dL (6.5-8.0)
[2022-10-07 18:20] LABS: Bacteria Urine 1+ (None Seen); Hyaline Casts Urine 0-2 /LPF (0-2); RBC Urine >20 /HPF (0-2); UACC Culture Trigger YES; WBC Urine >50 /HPF (0-5)
--- NOTE | 2022-10-07 19:22 | ED.FEMALEGU ---
HPI - Female Genitourinary General Chief complaint: Urogenital-Female Stated complaint: uti, kidney and back pain Time Seen by Provider: 10/07/22 19:22 Source: patient Mode of arrival: ambulatory Limitations: no limitations History of Present Illness HPI Narrative: 47-year-old female presents with 1 week of bilateral flank pain, and urinary symptoms. She states that she has a constant burning pain and pressure in her bladder and her urine is foggy. She is tired, feels nauseous, and is overall unwell. She does not quite describe a fever, but she cannot get comfortable. MD elicited complaint: UTI and flank pain Onset (ago): week(s) (1) Location of symptoms: suprapubic and flank Severity: severe Severity scale (1-10): 9 Quality of pain: burning and aching Consistency: progressively worsening Vaginal discharge: none Vaginal bleeding: none Urinary symptoms: Dysuria, Urgency, Frequency, Foul Smelling Urine, Difficulty Urinating and Flank Pain Exacerbating factors: urination, movement and palpation Relieving factors: none Associated symptoms: abdominal pain, loss of appetite, chills, nausea and back pain Sexual activity: No Patient : No Related Data Home Medications Medication Instructions Recorded Confirmed duloxetine 30 mg capsule,delayed 1 cap PO QAM 10/07/22 10/07/22 release duloxetine 60 mg capsule,delayed 1 cap PO DAILY 10/07/22 10/07/22 release Allergies Allergy/AdvReac Type Severity Reaction Status Date / Time lamotrigine [From Lamictal] Allergy Unknown Hives Verified 09/14/21 19:38 Sulfa (Sulfonamide Allergy Unknown SHORTNESS Verified 09/14/21 19:37 Antibiotics) OF BREATH [SULFA (SULFONAMIDE ANTIBIOTICS)] mirtazapine [From REMERON] AdvReac Unknown AGITATION Verified 09/14/21 19:37 quetiapine [From SEROQUEL] AdvReac Unknown AGITATION Verified 09/14/21 19:37 Review of Systems Review of Systems: Constitutional: No Fever, positive Chills Cardiovascular: No Chest Pain, No SOB Respiratory: No Cough, No Sputum, No Wheezing Gastrointestinal: positive Nausea, no Vomiting, No Diarrhea, positive abdominal pain Genitourinary: positive Dysuria, positive urinary frequency, no Hematuria, positive Flank Pain, positive hesitancy Musculoskeletal: No joint pain, No Myalgias Skin: No Skin Lesions, No rash Neuro: No Weakness, No Numbness, No Headache Psych: No Anxiety/Panic, No Depression Yes all other systems are reviewed and are negative PMFSH Past Medical History Attestation statement: The following information was validated with the patient. Source: old records reviewed Medical History Depression PTSD (post-traumatic stress disorder) Social History Social History Household Members: None Housing: Apartment Do you presently have visiting nurse or other home services: No Alcohol intake: never Patient Tobacco Use Status: Never used Tobacco Smoked in Last 30 Days: No e-Cigarette/Vaping Use: Never Used Second Hand Smoke Exposure: No Use of substances other than those prescribed or required for medical reasons: No Substance Use Type: Marijuana Substance Use Frequency: Occasionally Last Used Substance: Days (ago) Advance Directives: No Advance Directives Information Provided: No Patient : No service: No Sexual orientation: Did not discuss Physical Exam Vital Signs: Vital Signs: Last Vital Signs Temp 97.8 F 10/07/22 16:58 Pulse 75 10/07/22 16:58 Resp 14 10/07/22 20:00 BP 148/84 H 10/07/22 16:58 Pulse Ox 99 10/07/22 16:58 O2 Del Method 10/07/22 16:58 BMI result Body Mass Index 27.8 Appearance: Alert. Oriented X3. Moderate distress. Eyes: Pupils equal, round and reactive to light. Sclera nonicteric ENT: Pharynx normal. Neck: Normal inspection. Neck supple. CVS: Normal heart rate and rhythm. Pulses normal. Respiratory: No respiratory distress. Breath sounds normal. Abdomen: Soft and diffusely tender no rebound or rigidity, bilateral CVA tenderness noted. Skin: Skin warm and dry. Normal skin color. Normal skin turgor. Extremities: No lower extremity edema. Gait well-balanced well coordinated. Neuro: No motor deficit. No sensory deficit. Cranial nerves 2-12 intact. Course Course Course Narrative: 47-year-old female presents with 1 week of urinary symptoms and bilateral flank pain. Patient looks tired and uncomfortable, patient is unable to get comfortable while sitting in her stretcher. Physical exam indicates suprapubic tenderness and bilateral CVA tenderness. CT scan abdomen pelvis is pending labs drawn while patient was in the emergency department waiting room, positive for UTI however there are no nitrites so I have a high suspicion for pyelonephritis. 19:20 patient visibly uncomfortable. Order for morphine, Zofran. White count 11.6, urinalysis positive for UTI versus pyelo. Fluids and ceftriaxone infusing. Lactic 0.8, patient is not septic. 20:00 CT scan indicates pyelo which is consistent with physical exam and presentation. I did discuss plan for admission with this patient, she agrees. Discussion with hospitalist, plan to admit for pyelonephritis. Consultations Consultation #1: Shandra Time: 20:00 Medications Administered Generic Name Dose Route Start Last Admin Trade Name Freq PRN Reason Stop Dose Admin Enoxaparin Sodium 40 mg 10/07/22 23:00 10/07/22 22:23 Enoxaparin Sodium 40 Mg/0.4 Ml Syringe SUBCUT 40 mg Q24H VERO Administration Discontinued Medications Generic Name Dose Route Start Last Admin Trade Name Freq PRN Reason Stop Dose Admin Sodium Chloride 1,000 mls @ 999 mls/hr 10/07/22 19:30 10/07/22 21:45 Ns IVCONT 10/07/22 20:30 Infused .Q1H1M VERO Infusion Ceftriaxone Sodium 1 gm/ 50 mls @ 100 mls/hr 10/07/22 19:23 10/07/22 20:31 Sodium Chloride IV 10/07/22 19:52 Infused ONCE ONE Infusion Morphine Sulfate 4 mg 10/07/22 19:36 10/07/22 20:00 Morphine Sulfate 4 Mg/Ml Cartridge IVPUSH 10/07/22 19:37 4 mg ONCE ONE Administration Protocol Ondansetron HCl 4 mg 10/07/22 19:36 10/07/22 20:00 Ondansetron Hcl 4 Mg/2 Ml Vial IVPUSH 10/07/22 19:37 4 mg ONCE ONE Administration Medical Decision Making Differential Diagnosis Differential Diagnoses: The differential diagnosis associated with the presentation includes UTI, pyelo, acute abdomen Admission/Observation Consideration of admission/observation: Escalation of care including admission/observation considered Patient will be admitted. Consult Healthcare Provider Management of the patient was discussed with: Hospitalist Lab Data MDM Lab Attestation statement: I reviewed the patient's lab results. Result Diagrams: 10/07/22 17:11 10/07/22 17:11 Labs: Lab Results 10/07/22 10/07/22 10/07/22 Range/Units 17:11 17:11 17:11 WBC 11.6 H (4.8-10.8) X10*3/uL RBC 4.90 (4.20-5.50) X10*6/uL Hgb 14.1 (12.0-16.0) g/dl Hct 41.4 (37.0-47.0) % MCV 84.5 (80.0-98.0) fL MCH 28.8 (27.0-33.0) pg MCHC 34.1 (31.0-35.0) g/dl RDW 12.8 (11.0-16.0) % Plt Count 324 (160-400) X10*3/uL MPV 10.2 (9.4-12.3) fL Immature Gran % (Auto) 0.3 (0.0-0.4) % Neut % (Auto) 68.1 (45-73) % Lymph % (Auto) 21.7 (20-40) % [place] % (Auto) 7.7 (2-11) % Eos % (Auto) 1.6 (0-4) % Baso % (Auto) 0.6 (0-2) % Lymph # (Auto) 2.5 (1.2-4.9) X10*3/uL [place] # (Auto) 0.9 (0.1-1.2) X10*3/uL Eos # (Auto) 0.2 (0.0-0.4) X10*3/uL Baso # (Auto) 0.1 (0.0-0.2) X10*3/uL Abs Immat Gran (auto) 0.04 H (0.00-0.03) X10*3/uL Absolute Neuts (auto) 7.9 (2.0-8.3) x10*3/uL Absolute Nucleated RBC 0.000 (0.0-0.012) X10*3/uL Nucleated RBC % (auto) 0.0 (0.0-0.2) /100WBC Sodium 137 (135-145) mmol/L Potassium 4.1 (3.3-5.1) mmol/L Chloride 105 (96-108) mmol/L Carbon Dioxide 25 (22-29) mmol/L Anion Gap 11 L (12-20) BUN 14 D (9-16) mg/dL Creatinine 0.81 (0.5-1.4) mg/dL Estim Creat Clear Calc 94.9 Estimated GFR > 60 Random Glucose 105 (60-115) mg/dL Lactic Acid (0.5-2.0) mmol/L Calcium 9.6 (8.4-10.2) mg/dL Total Bilirubin 1.6 H (0.0-1.0) mg/dL Direct Bilirubin 0.5 (0.0-0.5) mg/dL AST 14 (5-31) U/L ALT 16 (0-31) U/L Alkaline Phosphatase 81 (39-117) U/L Total Protein 6.9 (6.5-8.0) g/dL Albumin 4.3 (3.5-5.0) g/dL Lipase 9 (8-78) U/L Urine Color Yellow Urine Appearance Turbid Urine pH 5.5 (5.0-9.0) Ur Specific [place] 1.015 (1.005-1.025) Urine Protein 300 (3+) H (Neg-Trace) mg/dL Urine Glucose (UA) Negative (Negative) mg/dL Urine Ketones Negative (Negative) mg/dL Urine Blood Large (3+) H (Negative) Urine Nitrite Negative (Negative) Ur Leukocyte Esterase Large (3+) H (Negative) Urine RBC >20 H (0-2) /HPF Urine WBC >50 H (0-5) /HPF Ur Squamous Epith Cells 3-5 (0-2) /HPF Urine Bacteria 1+ (None Seen) Hyaline Casts 0-2 (0-2) /LPF Urine Test (NEGATIVE) 10/07/22 10/07/22 Range/Units 17:11 19:46 WBC (4.8-10.8) X10*3/uL RBC (4.20-5.50) X10*6/uL Hgb (12.0-16.0) g/dl Hct (37.0-47.0) % MCV (80.0-98.0) fL MCH (27.0-33.0) pg MCHC (31.0-35.0) g/dl RDW (11.0-16.0) % Plt Count (160-400) X10*3/uL MPV (9.4-12.3) fL Immature Gran % (Auto) (0.0-0.4) % Neut % (Auto) (45-73) % Lymph % (Auto) (20-40) % Preston % (Auto) (2-11) % Eos % (Auto) (0-4) % Baso % (Auto) (0-2) % Lymph # (Auto) (1.2-4.9) X10*3/uL Preston # (Auto) (0.1-1.2) X10*3/uL Eos # (Auto) (0.0-0.4) X10*3/uL Baso # (Auto) (0.0-0.2) X10*3/uL Abs Immat Gran (auto) (0.00-0.03) X10*3/uL Absolute Neuts (auto) (2.0-8.3) x10*3/uL Absolute Nucleated RBC (0.0-0.012) X10*3/uL Nucleated RBC % (auto) (0.0-0.2) /100WBC Sodium (135-145) mmol/L Potassium (3.3-5.1) mmol/L Chloride (96-108) mmol/L Carbon Dioxide (22-29) mmol/L Anion Gap (12-20) BUN (9-16) mg/dL Creatinine (0.5-1.4) mg/dL Estim Creat Clear Calc Estimated GFR Random Glucose (60-115) mg/dL Lactic Acid 0.8 (0.5-2.0) mmol/L Calcium (8.4-10.2) mg/dL Total Bilirubin (0.0-1.0) mg/dL Direct Bilirubin (0.0-0.5) mg/dL AST (5-31) U/L ALT (0-31) U/L Alkaline Phosphatase (39-117) U/L Total Protein (6.5-8.0) g/dL Albumin (3.5-5.0) g/dL Lipase (8-78) U/L Urine Color Urine Appearance Urine pH (5.0-9.0) Ur Specific [place] (1.005-1.025) Urine Protein (Neg-Trace) mg/dL Urine Glucose (UA) (Negative) mg/dL Urine Ketones (Negative) mg/dL Urine Blood (Negative) Urine Nitrite (Negative) Ur Leukocyte Esterase (Negative) Urine RBC (0-2) /HPF Urine WBC (0-5) /HPF Ur Squamous Epith Cells (0-2) /HPF Urine Bacteria (None Seen) Hyaline Casts (0-2) /LPF Urine Test NEGATIVE (NEGATIVE) Independent Interpretation I performed an independent interpretation of an: CT Scan Radiology Impression Discussion of test interpretation with radiology: I have reviewed the radiologist's reading. Radiologist Impression: FINDINGS: LUNG BASES: Unremarkable.? ABDOMINAL AND PELVIC WALL:? Unremarkable.? LIVER AND BILIARY TREE: Unremarkable.? GALLBLADDER: Unremarkable.? PANCREAS: Unremarkable.? SPLEEN: Unremarkable.? ADRENAL GLANDS: Unremarkable.? KIDNEYS AND URETERS: There is left periureteral fat stranding. Lack of intravenous contrast limits assessment for pyelonephritis. No perinephric fluid collection. No hydronephrosis. No nephrolithiasis. Punctate nonobstructing left mid pole renal stone.? GASTROINTESTINAL TRACT: Unremarkable. VASCULAR: Unremarkable. LYMPH NODES/PERITONEUM: No lymphadenopathy. FREE FLUID: None. BLADDER: Mild thickening of the bladder wall which can be seen in the setting of cystitis.? PELVIC VISCERA: Unremarkable. OSSEOUS STRUCTURES: Unremarkable.? CT/CT abdomen pelvis wo IV con IMPRESSION: ? Mild thickening of the bladder wall which could be seen in the setting of cholecystitis. There is left periureteral fat stranding without associated obstructing stone. Differential considerations could include ascending urinary tract infection or recently passed stone, recommend correlation with clinical symptoms. Lack of intravenous contrast limits evaluation for pyelonephritis. ? A punctate nonobstructing left midpole renal stone is seen. External Record Review External record reviewed: Inpatient record and Outpatient record Discharge Plan Discharge Clinical Impression: Pyelonephritis Patient Disposition: Admitted As Inpatient
--- NOTE | 2022-10-07 19:24 | PC.NURSE ---
Patient is alert and oriented x4, VSS. Patient is afebrile. She reports pain in b/l flank and burning discomfort in suprapubic area for 7 days. Patient oriented to room, encouraged to use a call light if needed assistance. Patient awaiting evaluation by ED provider. Labs and urine specimen obtained at the time of triage.
[2022-10-07 20:00] VITALS: RESP 14
[2022-10-07 20:11] LABS: Lactic Acid 0.8 mmol/L (0.5-2.0)
--- NOTE | 2022-10-07 22:10 | PM.IMHP ---
History of Present Illness Date of Service: 10/07/22 Chief Complaint: UTI 47-year-old female with past medical history of major depression disorder presents to the hospital with complaints of urinary symptoms as well as bilateral flank pain. Patient reports that her symptoms started about a week ago, she has urinary frequency, urgency, as well as dysuria for 1 week. She reports recurrent UTIs in the past that have sometimes resolved spontaneously but this time the pain has now traveled to her back associated with nausea, vomiting, no diarrhea. Denies any abdominal pain, reports no fever but has chills. She reports no headache or change in vision and no lower extremity edema. on arrival to the ED patient hemodynamically stable with slightly elevated blood pressure labs are significant for WBC count of 11.6, UA positive for leukocyte Estrace and WBC, Abdominal pelvic CT shows mild thickening of the bladder, as well as periureteral fat stranding without associated obstructing stone patient started on IV antibiotics will be admitted for further management Review of Systems Review of Systems: Yes all other systems are reviewed and are negative [facility] Medical History Depression Pneumothorax PTSD (post-traumatic stress disorder) Family History Father Heart disease Surgical History No pertinent past surgical history Social History Household Members: None Housing: Apartment Do you presently have visiting nurse or other home services: No Alcohol intake: never Patient Tobacco Use Status: Never used Tobacco Smoked in Last 30 Days: No e-Cigarette/Vaping Use: Never Used Second Hand Smoke Exposure: No Use of substances other than those prescribed or required for medical reasons: No Substance Use Type: Marijuana Substance Use Frequency: Occasionally Last Used Substance: Days (ago) Advance Directives: No Advance Directives Information Provided: No Patient : No service: No Sexual orientation: Did not discuss Meds Allergies Allergy/AdvReac Type Severity Reaction Status Date / Time lamotrigine [From Lamictal] Allergy Unknown Hives Verified 09/14/21 19:38 Sulfa (Sulfonamide Allergy Unknown SHORTNESS Verified 09/14/21 19:37 Antibiotics) OF BREATH [SULFA (SULFONAMIDE ANTIBIOTICS)] mirtazapine [From REMERON] AdvReac Unknown AGITATION Verified 09/14/21 19:37 quetiapine [From SEROQUEL] AdvReac Unknown AGITATION Verified 09/14/21 19:37 Home Medications Medication Instructions Recorded Confirmed Last Taken Type duloxetine 30 mg capsule,delayed 1 cap PO QAM 10/07/22 10/07/22 Unknown History release duloxetine 60 mg capsule,delayed 1 cap PO DAILY 10/07/22 10/07/22 Unknown History release Physical Exam Vital Signs and Narrative: Vital Signs: Last Vital Signs Temp 97.8 F 10/07/22 16:58 Pulse 75 10/07/22 16:58 Resp 14 10/07/22 20:00 BP 148/84 H 10/07/22 16:58 Pulse Ox 99 10/07/22 16:58 O2 Del Method 10/07/22 16:58 BMI result Body Mass Index 27.8 Const: General: cooperative and no acute distress Orientation/consciousness: patient oriented x3 Eyes: General: appearance normal, both eyes and all related structures Resp: Effort & Inspection: normal respiratory effort Auscultation: clear to auscultation bilaterally Cardio: Rate: regular rate Rhythm: regular rhythm GI: Other: or abdomen self, nontender, no no rebound or guarding Palpation (GI): Soft to palpation Auscultation: normal bowel sounds : Other: CVA tenderness bilaterally Skin: General skin exam: no rashes or lesions noted Neuro: General: patient oriented x3 Cognition (Neuro): normal cognition Extrem: General: Yes normal to inspection and Yes no pedal edema Results Labs CBC and Chem 7: 10/07/22 17:11 10/07/22 17:11 Labs: Laboratory Results - last 24 hr 10/07/22 10/07/22 10/07/22 17:11 17:11 17:11 MCV 84.5 MCH 28.8 MCHC 34.1 RDW 12.8 Plt Count 324 MPV 10.2 Immature Gran % (Auto) 0.3 Neut % (Auto) 68.1 Lymph % (Auto) 21.7 [place] % (Auto) 7.7 Eos % (Auto) 1.6 Baso % (Auto) 0.6 Lymph # (Auto) 2.5 [place] # (Auto) 0.9 Eos # (Auto) 0.2 Baso # (Auto) 0.1 Abs Immat Gran (auto) 0.04 H Absolute Neuts (auto) 7.9 Absolute Nucleated RBC 0.000 Nucleated RBC % (auto) 0.0 Anion Gap 11 L Estim Creat Clear Calc 94.9 Estimated GFR > 60 Random Glucose 105 Lactic Acid Calcium 9.6 Total Bilirubin 1.6 H Direct Bilirubin 0.5 AST 14 ALT 16 Alkaline Phosphatase 81 Total Protein 6.9 Albumin 4.3 Lipase 9 Urine Color Yellow Urine Appearance Turbid Urine pH 5.5 Ur Specific [place] 1.015 Urine Protein 300 (3+) H Urine Glucose (UA) Negative Urine Ketones Negative Urine Blood Large (3+) H Urine Nitrite Negative Ur Leukocyte Esterase Large (3+) H Urine RBC >20 H Urine WBC >50 H Ur Squamous Epith Cells 3-5 Urine Bacteria 1+ Hyaline Casts 0-2 Urine Test 10/07/22 10/07/22 17:11 19:46 MCV MCH MCHC RDW Plt Count MPV Immature Gran % (Auto) Neut % (Auto) Lymph % (Auto) [place] % (Auto) Eos % (Auto) Baso % (Auto) Lymph # (Auto) [place] # (Auto) Eos # (Auto) Baso # (Auto) Abs Immat Gran (auto) Absolute Neuts (auto) Absolute Nucleated RBC Nucleated RBC % (auto) Anion Gap Estim Creat Clear Calc Estimated GFR Random Glucose Lactic Acid 0.8 Calcium Total Bilirubin Direct Bilirubin AST ALT Alkaline Phosphatase Total Protein Albumin Lipase Urine Color Urine Appearance Urine pH Ur Specific [place] Urine Protein Urine Glucose (UA) Urine Ketones Urine Blood Urine Nitrite Ur Leukocyte Esterase Urine RBC Urine WBC Ur Squamous Epith Cells Urine Bacteria Hyaline Casts Urine Test NEGATIVE Imaging Radiologist's Impressions: Impressions Abdomen/Pelvis CT 10/07/22 19:23 IMPRESSION: Mild thickening of the bladder wall which could be seen in the setting of cholecystitis. There is left periureteral fat stranding without associated obstructing stone. Differential considerations could include ascending urinary tract infection or recently passed stone, recommend correlation with clinical symptoms. Lack of intravenous contrast limits evaluation for pyelonephritis. A punctate nonobstructing left midpole renal stone is seen. Assessment and Plan (1) Pyelonephritis: Status: Acute (2) Acute UTI: Status: Acute Plan this is a 47-year-old female with no significant past medical history except for major depression disorder presents to the hospital with urinary symptoms found to have pyelonephritis # acute pyelonephritis - has CVA tenderness, CT evidence of possible pyelonephritis - afebrile, has leukocytosis - will treat with IV antibiotics - follow cultures # acute UTI - IV antibiotic - follow cultures # depression - continue home duloxetine DVT prophylaxis : Lovenox given patient's acute pyelonephritis requiring IV antibiotics patient requires minimal 2 night inpatient hospital stay for further management and monitoring Time Spent With Patient Time: Total time managing care of this patient today ____ minutes. Quality Stroke Does the patient have a stroke diagnosis?: No VTE Prior VTE?: No VTE Risk Level:: Medical - moderate - high VTE Device Contraindication: Treatment Not Indicated VTE Drug Contraindication: N/A - Med Ordered
[2022-10-07] MEDS: Enoxaparin Sodium 40 MG/0.4 ML SYRINGE SUBCUT (22:23)
[2022-10-08] VITALS (7 sets, daily range): BP systolic 118–154; BP diastolic 58–86; PULSE 62–85; RESP 16–20; TEMP 36.1–37.1; O2SAT 98–99; BMI 28.3
[2022-10-08 02:50] LABS: COVID-19 Test Negative (Negative); IDNOW Serial# BCCEAD1C
--- NOTE | 2022-10-08 05:30 | PC.NURSE ---
Nurse to nurse report give to S3 nurse. Patient to be transported to s3 BY sUMMER, assistant media planner.
[2022-10-08] MEDS: DULoxetine HCl 30 MG CAPSULE.DR PO (07:26)
[2022-10-08] MEDS: 0.9 % Sodium Chloride Flush 3 ML SYRINGE IVFLUSH ×3 (07:27→19:27)
[2022-10-08] MEDS: DULoxetine HCl 60 MG CAPSULE.DR PO (07:27)
[2022-10-08 07:32] LABS: MANUAL DIFF FLAG NO
[2022-10-08 07:37] LABS: Basophils Absolute Auto 0.1 X10*3/uL (0.0-0.2); Basophils Percent Auto 0.6 % (0-2); Eosinophils Absolute Auto 0.1 X10*3/uL (0.0-0.4); Eosinophils Percent Auto 1.3 % (0-4); Hematocrit 37.1 % (37.0-47.0); Hemoglobin 12.5 g/dl (12.0-16.0); Imm Gran Abs Auto 0.03 X10*3/uL (0.00-0.03); Imm Gran Pct Auto 0.3 % (0.0-0.4); Lymphocytes Absolute Auto 1.9 X10*3/uL (1.2-4.9); Lymphocytes Percent Auto 20.8 % (20-40); Mean Corpuscular HGB Conc 33.7 g/dl (31.0-35.0); Mean Corpuscular Hemoglobin 29.1 pg (27.0-33.0); Mean Corpuscular Volume 86.5 fL (80.0-98.0); Mean Platelet Volume 10.1 fL (9.4-12.3); Monocytes Percent Auto 11.3 % (2-11); Neutrophils Absolute Auto 5.9 x10*3/uL (2.0-8.3); Neutrophils Percent Auto 65.7 % (45-73); Platelet Count 243 X10*3/uL (160-400); Red Blood Count 4.29 X10*6/uL (4.20-5.50); Red Cell Distribution Width 12.8 % (11.0-16.0); White Blood Count 8.9 X10*3/uL (4.8-10.8)
[2022-10-08 07:55] LABS: Anion Gap 9 (12-20); Blood Urea Nitrogen 12 mg/dL (9-16); Calcium 8.8 mg/dL (8.4-10.2); Carbon Dioxide 25 mmol/L (22-29); Chloride 107 mmol/L (96-108); Creatinine Clr Calc Pharmacy 103.3; Estimated Glomerular Filt Rate > 60; Glucose Random 102 mg/dL (60-115); Sodium 137 mmol/L (135-145)
--- NOTE | 2022-10-08 09:12 | PHA.MEDREC ---
Pharmacy Consult ? Medication Reconciliation Pharmacy has completed the medication reconciliation. Confirmed with patient the dosing on her duloxetine is 90 mg daily (60 mg & 30 mg). Med rec was done by overnight nurse. Patient usually takes medication in the evening but nurse put in for morning dosing and patient already was given dose of duloxetine this morning.
--- NOTE | 2022-10-08 10:08 | HO.PM.IMPN ---
Subjective Subjective Date of Service: 10/08/22 Interval History: Seen in follow up for pyelonephritis Interval history: Reports 5/10 bilateral flank pain. No abd pain. Has nausea improves with ondansetron, no vomiting. Tolerating diet. Still with dysuria,suprapubic pressure, cloudy/malodorous urine Review of Systems General: No fevers, malaise, unintentional weight loss Cardiovascular: No chest pain, palpitations, or leg edema Respiratory: No shortness of breath, wheezing, cough GI: +abdominal pain, +nausea. No vomiting, diarrhea : +dysuria, +malodorous urine, +b/l flank pain. No hematuria, increased urinary frequency, decreased urinary output MSK: No myalgia, back pain Neuro: No headaches, weakness, paresthesias Skin: No rashes or lesions Physical Exam Vital Signs: Vital Signs: Last Vital Signs Temp 98.0 F 10/08/22 08:00 Pulse 74 10/08/22 08:00 Resp 16 10/08/22 08:00 BP 118/59 L 10/08/22 08:00 Pulse Ox 99 10/08/22 08:00 O2 Del Method 10/08/22 08:00 BMI result Body Mass Index 28.3 Constitutional - Awake and Alert, No apparent distress Eyes - PERRLA, EOMI Cardiovascular - S1S2, RRR, No edema Respiratory - Normal lung expansion, Normal respiratory effort, No respiratory distress, CTA bilaterally Gastrointestinal - NT / ND; +BS; No rebound or guarding - MIld b/l CVA tenderness Extremities - no calf tenderness bilaterally, no swelling Skin - Warm/Dry Neurological - Alert & oriented x3 Psychological - Appropriate affect Objective Data Active Medications Acetaminophen (Acetaminophen 325 Mg Tablet) 650 mg PO Q6H PRN PRN Reason: Pain, Mild (Pain Scale 1-3) Docusate Sodium (Docusate Sodium 100 Mg Capsule) 100 mg PO DAILY PRN PRN Reason: Constipation Duloxetine HCl (Duloxetine Hcl 30 Mg Capsule.) 30 mg PO DAILY [facility] Last Admin: 10/08/22 07:26 Dose: 30 mg Documented By: CHIO Duloxetine HCl (Duloxetine Hcl 60 Mg Capsule.) 60 mg PO DAILY [facility] Last Admin: 10/08/22 07:27 Dose: 60 mg Documented By: CHIO Enoxaparin Sodium (Enoxaparin Sodium 40 Mg/0.4 Ml Syringe) 40 mg SUBCUT Q24H [facility] Last Admin: 10/07/22 22:23 Dose: 40 mg Documented By: ELIANE Ceftriaxone Sodium 1 gm/ (Sodium Chloride) 50 mls @ 100 mls/hr IV Q24H [facility] Ondansetron HCl (Ondansetron Hcl 4 Mg/2 Ml Vial) 4 mg IVPUSH Q8H PRN PRN Reason: Nausea and Vomiting Last Admin: 10/08/22 06:41 Dose: 4 mg Documented By: RAYRAY Sodium Chloride (0.9 % Sodium Chloride Flush 3 Ml Syringe) 3 ml IVFLUSH QSHIFT [facility] Last Admin: 10/08/22 07:27 Dose: 3 ml Documented By: CHIO Labs CBC & Chem 7: 10/08/22 07:05 10/08/22 07:05 Labs: Laboratory Results - last 24 hr 10/07/22 10/07/22 10/07/22 17:11 17:11 17:11 MCV 84.5 MCH 28.8 MCHC 34.1 RDW 12.8 Plt Count 324 MPV 10.2 Immature Gran % (Auto) 0.3 Neut % (Auto) 68.1 Lymph % (Auto) 21.7 [place] % (Auto) 7.7 Eos % (Auto) 1.6 Baso % (Auto) 0.6 Lymph # (Auto) 2.5 [place] # (Auto) 0.9 Eos # (Auto) 0.2 Baso # (Auto) 0.1 Abs Immat Gran (auto) 0.04 H Absolute Neuts (auto) 7.9 Absolute Nucleated RBC 0.000 Nucleated RBC % (auto) 0.0 Anion Gap 11 L Estim Creat Clear Calc 94.9 Estimated GFR > 60 Random Glucose 105 Lactic Acid Calcium 9.6 Total Bilirubin 1.6 H Direct Bilirubin 0.5 AST 14 ALT 16 Alkaline Phosphatase 81 Total Protein 6.9 Albumin 4.3 Lipase 9 Urine Color Yellow Urine Appearance Turbid Urine pH 5.5 Ur Specific [place] 1.015 Urine Protein 300 (3+) H Urine Glucose (UA) Negative Urine Ketones Negative Urine Blood Large (3+) H Urine Nitrite Negative Ur Leukocyte Esterase Large (3+) H Urine RBC >20 H Urine WBC >50 H Ur Squamous Epith Cells 3-5 Urine Bacteria 1+ Hyaline Casts 0-2 Urine Test COVID-19 (JAMIE) COVID-19 Clin Com 10/07/22 10/07/22 10/08/22 17:11 19:46 02:31 MCV MCH MCHC RDW Plt Count MPV Immature Gran % (Auto) Neut % (Auto) Lymph % (Auto) [place] % (Auto) Eos % (Auto) Baso % (Auto) Lymph # (Auto) [place] # (Auto) Eos # (Auto) Baso # (Auto) Abs Immat Gran (auto) Absolute Neuts (auto) Absolute Nucleated RBC Nucleated RBC % (auto) Anion Gap Estim Creat Clear Calc Estimated GFR Random Glucose Lactic Acid 0.8 Calcium Total Bilirubin Direct Bilirubin AST ALT Alkaline Phosphatase Total Protein Albumin Lipase Urine Color Urine Appearance Urine pH Ur Specific [place] Urine Protein Urine Glucose (UA) Urine Ketones Urine Blood Urine Nitrite Ur Leukocyte Esterase Urine RBC Urine WBC Ur Squamous Epith Cells Urine Bacteria Hyaline Casts Urine Test NEGATIVE COVID-19 (JAMIE) Negative COVID-19 Clin Com See Note 10/08/22 10/08/22 07:05 07:05 MCV 86.5 MCH 29.1 MCHC 33.7 RDW 12.8 Plt Count 243 MPV 10.1 Immature Gran % (Auto) 0.3 Neut % (Auto) 65.7 Lymph % (Auto) 20.8 [place] % (Auto) 11.3 H Eos % (Auto) 1.3 Baso % (Auto) 0.6 Lymph # (Auto) 1.9 [place] # (Auto) 1.0 Eos # (Auto) 0.1 Baso # (Auto) 0.1 Abs Immat Gran (auto) 0.03 Absolute Neuts (auto) 5.9 Absolute Nucleated RBC 0.000 Nucleated RBC % (auto) 0.0 Anion Gap 9 L Estim Creat Clear Calc 103.3 Estimated GFR > 60 Random Glucose 102 Lactic Acid Calcium 8.8 D Total Bilirubin Direct Bilirubin AST ALT Alkaline Phosphatase Total Protein Albumin Lipase Urine Color Urine Appearance Urine pH Ur Specific [place] Urine Protein Urine Glucose (UA) Urine Ketones Urine Blood Urine Nitrite Ur Leukocyte Esterase Urine RBC Urine WBC Ur Squamous Epith Cells Urine Bacteria Hyaline Casts Urine Test COVID-19 (JAMIE) COVID-19 Clin Com Microbiology Microbiology Results: Microbiology 10/07/22 Unknown Urine Culture - Preliminary Urine clean catch - Urine holland top Gram negative buck Assessment and Plan (1) Acute UTI: Status: Acute (2) Pyelonephritis: Status: Acute Plan ?this is a 47-year-old female with no significant past medical history except for major depression disorder presents to the hospital with urinary symptoms found to have pyelonephritis #? acute pyelonephritis - Continue ceftriaxone - afebrile, leukocytosis resolved -?UC gram stain with gram negative rods. Await final cultures -?BC pending - Ondansetron prn n/v - pain management #? acute UTI -? IV antibiotic -? follow cultures #? depression -? continue home duloxetine ?DVT prophylaxis : Lovenox Pt requires ongoing inpt stay for management of acute pyelonephritis requiring IV antibiotics and pain management with possible discharge later today pending PO tolerance and pain tolerance Quality Stroke Does the patient have a stroke diagnosis?: No VTE Prior VTE?: No VTE Risk Level:: Medical - moderate - high VTE Device Contraindication: Treatment Not Indicated VTE Drug Contraindication: N/A - Med Ordered
--- NOTE | 2022-10-08 12:51 | MHC.CM.PN ---
CM MET WITH PT AT BEDSIDE. LIVES WITH DAUGHTER IN A SINGLE FAMILY HOME. INDEPENDENT AT BASELINE. UNEMPLOYED. NO SERVICES OR DME PRIOR. + COVID VAX X2, NO HCP, DECLINES AT THIS TIME. PCP JD RAMÍREZ. DP: HOME, NO SERVICES ANTICIPATED. PT HAS OWN CAR IN LOT. CM WILL CONTINUE TO FOLLOW.
[2022-10-08] MEDS: cefTRIAXone sodium 1 GM in 0.9 % Sodium Chloride 50 ML IV (19:27)
[2022-10-08] MEDS: Enoxaparin Sodium 40 MG/0.4 ML SYRINGE SUBCUT (23:08)
--- NOTE | 2022-10-09 02:53 | PC.NURSE ---
Pt c/o bilat flank pain 5/10 unrelieved with Tylenol, Dr. Gooden was notified, Oxycodone 5 mg po given, pt verbalized relief and was able to rest and sleep.
[2022-10-09 04:00] VITALS: BP 120/59; PULSE 90; RESP 18; TEMP 36.6; O2SAT 100
[2022-10-09 06:53] VITALS: BP 115/56; PULSE 78; RESP 16; TEMP 36.6; O2SAT 98
[2022-10-09] MEDS: 0.9 % Sodium Chloride Flush 3 ML SYRINGE IVFLUSH ×3 (08:03→19:40)
[2022-10-09] MEDS: DULoxetine HCl 60 MG CAPSULE.DR PO (08:03)
[2022-10-09] MEDS: DULoxetine HCl 30 MG CAPSULE.DR PO (08:03)
--- NOTE | 2022-10-09 12:29 | PM.EVENT ---
Event Note Date of Service: 10/09/22 Event Note: Notified by nurse that patient having panic attack. Given 1mg ativan which she takes at home prn. She then reported SI to nurse. Spoke with patient in presence of pt's daughter, Karissa, and nurse Sowmya. Pt reports history of SI with attempt with hospitalization on M5 last yea and describes her depression as treatment resistance . She states for the last month has had worsening depressive symptoms and her therapist has recommended inpt treatment but patient has been putting this off according to her. However, today is reporting she doesn't want to be here , why dont they just let me . Vocalizes that if she goes home she will attempt suicide with plan to take all of her medications. Pt reports not feeling safe. medically she does still have occassional nausea, but is medically cleared at this time. Stat consult placed to [facility] crisis for evaluation, sitter ordered. Patient is tearful on exam with mild hyperventilation, rocking and holding legs. Discussed deep breathing techniques. Nursing supervisor bleach plant also notified by nursing staff.
--- NOTE | 2022-10-09 12:45 | PC.NURSE ---
Patient called this RN to room due to panic attack, pt reported when this happens at home she takes 1mg ativan and it helps. Tory HICKMAN made aware, one time order for 1mg ativan ordered and given. While giving the ativan pt reported she doesn't want to be here and why don't they just let me pt daughter is at bedside and reported pt had a similar episode with a suicide attempt and hospitalization last year. Tory HICKMAN made aware and at bedside to assess patient. Pt stated SI with a plan to this nurse and Tory HICKMAN. Stat BHN consult, Nursing paint crew supervisor made aware and Sitter at bedside.
--- NOTE | 2022-10-09 14:45 | HO.PM.IMPN ---
Subjective Subjective Date of Service: 10/09/22 Interval History: Seen in follow up for pyelonephritis Interval history: Denies any pain. Still with nausea, anorexia. Ate half a banana, tolerating fluids. No vomiting. Improvement in dysuria. Reexamined several hours later. Pt having panic attack. Reports depression, SI, has a plan to take all of her medications to kill herself if she leaves. States depression has been worsening over last month. Review of Systems General: No fevers, malaise, unintentional weight loss Cardiovascular: No chest pain, palpitations, or leg edema Respiratory: No shortness of breath, wheezing, cough GI: +nausea. No abd pain, vomiting, diarrhea : No dysuria, hematuria, increased urinary frequency, decreased urinary output MSK: No myalgia, back pain Neuro: No headaches, weakness, paresthesias Psych: +depression, +SI w/ plan, +anxiety, +panic attack Skin: No rashes or lesions Physical Exam Vital Signs: Vital Signs: Last Vital Signs Temp 97.9 F 10/09/22 06:53 Pulse 78 10/09/22 06:53 Resp 16 10/09/22 06:53 BP 115/56 L 10/09/22 06:53 Pulse Ox 98 10/09/22 06:53 O2 Del Method 10/09/22 06:53 BMI result Body Mass Index 28.3 Constitutional - Awake and Alert, No apparent distress Eyes - PERRLA, EOMI Cardiovascular - S1S2, RRR, No edema Respiratory - Normal lung expansion, Normal respiratory effort, No respiratory distress, CTA bilaterally Gastrointestinal - NT / ND; +BS; No rebound or guarding - No CVA tenderness Extremities - no calf tenderness bilaterally, no swelling Skin - Warm/Dry Neurological - Alert & oriented x3 Psychological - Very anxious, reporting depression/SI Objective Data Active Medications Acetaminophen (Acetaminophen 325 Mg Tablet) 650 mg PO Q6H PRN PRN Reason: Pain, Mild (Pain Scale 1-3) Last Admin: 10/08/22 16:26 Dose: 650 mg Documented By: CHIO Docusate Sodium (Docusate Sodium 100 Mg Capsule) 100 mg PO DAILY PRN PRN Reason: Constipation Duloxetine HCl (Duloxetine Hcl 30 Mg Capsule.) 30 mg PO DAILY [facility] Last Admin: 10/09/22 08:03 Dose: 30 mg Documented By: CE Duloxetine HCl (Duloxetine Hcl 60 Mg Capsule.Dr) 60 mg PO DAILY [facility] Last Admin: 10/09/22 08:03 Dose: 60 mg Documented By: CE Enoxaparin Sodium (Enoxaparin Sodium 40 Mg/0.4 Ml Syringe) 40 mg SUBCUT Q24H [facility] Last Admin: 10/08/22 23:08 Dose: 40 mg Documented By: NICOLEILValeri Ceftriaxone Sodium 1 gm/ (Sodium Chloride) 50 mls @ 100 mls/hr IV Q24H [facility] Last Infusion: 10/08/22 20:32 Dose: 0 mls/hr Documented By: HARIS Ondansetron HCl (Ondansetron Hcl 4 Mg/2 Ml Vial) 4 mg IVPUSH Q8H PRN PRN Reason: Nausea and Vomiting Last Admin: 10/08/22 16:26 Dose: 4 mg Documented By: KODOSJUAN ANTONIO Sodium Chloride (0.9 % Sodium Chloride Flush 3 Ml Syringe) 3 ml IVFLUSH QSHIFT [facility] Last Admin: 10/09/22 08:03 Dose: 3 ml Documented By: CE Labs CBC & Chem 7: 10/08/22 07:05 10/08/22 07:05 Microbiology Microbiology Results: Microbiology 10/07/22 Unknown Urine Culture - Final Urine clean catch - Urine holland top Escherichia coli 10/07/22 19:46 Blood Culture - Preliminary Blood - Venous No growth after 24 hours. 10/07/22 19:46 Blood Culture - Preliminary Blood - Venous No growth after 24 hours. Assessment and Plan (1) Acute UTI: Status: Acute (2) Pyelonephritis: Status: Acute Plan ?this is a 47-year-old female with no significant past medical history except for major depression disorder presents to the hospital with urinary symptoms found to have pyelonephritis #? acute pyelonephritis - Continue ceftriaxone. Will change to PO cefuroxime on discharge - afebrile, leukocytosis resolved -?UC with e.coli susceptible to ceftriaxone -?BC pending - Ondansetron prn n/v - pain management #? acute UTI -? IV antibiotic -? follow cultures #? depression/anxiety -? continue home duloxetine - Pt now reporting SI with plan. N consulted and called. Will eval pt today as she is medically cleared - Lorazepam 1mg prn ?DVT prophylaxis : Lovenox Pt requires ongoing inpt stay for management of acute pyelonephritis requiring IV antibiotics and pain management with possible discharge later today pending PO tolerance and pain tolerance Time Spent With Patient Time: Total time managing care of this patient today ____ minutes. Quality Stroke Does the patient have a stroke diagnosis?: No VTE Prior VTE?: No VTE Risk Level:: Medical - moderate - high VTE Device Contraindication: Treatment Not Indicated VTE Drug Contraindication: N/A - Med Ordered
[2022-10-09 15:13] VITALS: BP 120/56; PULSE 88; RESP 18; TEMP 37.2; O2SAT 99
[2022-10-09] MEDS: cefTRIAXone sodium 1 GM in 0.9 % Sodium Chloride 50 ML IV (19:40)
[2022-10-09 20:00] VITALS: BP 150/67; PULSE 82; RESP 18; TEMP 36.6; O2SAT 98
--- NOTE | 2022-10-09 20:21 | MHC.CARE ---
CARE team completed crisis evaluation with pt, plan is for inpt psychiatric admission. No beds are available this evening and pt will remain on the med floor pending placement. A section 12a has been signed by this card writer hand and placed in pt's chart.
[2022-10-09] MEDS: Enoxaparin Sodium 40 MG/0.4 ML SYRINGE SUBCUT (22:53)
[2022-10-10 04:00] VITALS: BP 121/64; PULSE 86; RESP 18; TEMP 36.6; O2SAT 100
[2022-10-10 07:49] VITALS: BP 123/58; PULSE 88; RESP 17; TEMP 37.3; O2SAT 99
[2022-10-10] MEDS: DULoxetine HCl 30 MG CAPSULE.DR PO (08:15)
[2022-10-10] MEDS: DULoxetine HCl 60 MG CAPSULE.DR PO (08:15)
[2022-10-10] MEDS: 0.9 % Sodium Chloride Flush 3 ML SYRINGE IVFLUSH ×3 (08:15→19:43)
--- NOTE | 2022-10-10 12:29 | MHC.CM.PN ---
CURRENTLY AWAITING INPATIENT PSYCHIATRIC BED AVAILABILITY
[2022-10-10 16:13] VITALS: BP 115/58; PULSE 59; RESP 18; TEMP 35.7; O2SAT 98
--- NOTE | 2022-10-10 17:02 | P.PNIM_ITS ---
Subjective Subjective Date of Service: 10/10/22 Interval History: Seen in follow up for pyelonephritis Interval history: No complaints. No pain. Still little appetite, but tolerating PO. Awaiting inpt psych bed. Review of Systems General: No fevers, malaise, unintentional weight loss Cardiovascular: No chest pain, palpitations, or leg edema Respiratory: No shortness of breath, wheezing, cough GI: No abd pain, nausea, vomiting, diarrhea : No dysuria, hematuria, increased urinary frequency, decreased urinary output MSK: No myalgia, back pain Neuro: No headaches, weakness, paresthesias Psych: +depression, +SI w/ plan, +anxiety Skin: No rashes or lesions Physical Exam Vital Signs: Vital Signs: Last Vital Signs Temp 96.2 F L 10/10/22 16:13 Pulse 59 10/10/22 16:13 Resp 18 10/10/22 16:13 BP 115/58 L 10/10/22 16:13 Pulse Ox 98 10/10/22 16:13 O2 Del Method 10/10/22 16:13 BMI result Body Mass Index 28.3 Constitutional - Awake and Alert, No apparent distress Eyes - PERRLA, EOMI Cardiovascular - S1S2, RRR, No edema Respiratory - Normal lung expansion, Normal respiratory effort, No respiratory distress, CTA bilaterally Gastrointestinal - NT / ND; +BS; No rebound or guarding - No CVA tenderness Extremities - no calf tenderness bilaterally, no swelling Skin - Warm/Dry Neurological - Alert & oriented x3 Psychological - Appropriate affect Objective Data Active Medications Acetaminophen (Acetaminophen 325 Mg Tablet) 650 mg PO Q6H PRN PRN Reason: Pain, Mild (Pain Scale 1-3) Last Admin: 10/08/22 16:26 Dose: 650 mg Documented By: CHIO Docusate Sodium (Docusate Sodium 100 Mg Capsule) 100 mg PO DAILY PRN PRN Reason: Constipation Duloxetine HCl (Duloxetine Hcl 30 Mg Capsule.) 30 mg PO DAILY [facility] Last Admin: 10/10/22 08:15 Dose: 30 mg Documented By: COTEMA Duloxetine HCl (Duloxetine Hcl 60 Mg Capsule.) 60 mg PO DAILY [facility] Last Admin: 10/10/22 08:15 Dose: 60 mg Documented By: COTEMA Enoxaparin Sodium (Enoxaparin Sodium 40 Mg/0.4 Ml Syringe) 40 mg SUBCUT Q24H [facility] Last Admin: 10/09/22 22:53 Dose: 40 mg Documented By: HARIS Ceftriaxone Sodium 1 gm/ (Sodium Chloride) 50 mls @ 100 mls/hr IV Q24H [facility] Last Infusion: 10/09/22 20:30 Dose: 0 mls/hr Documented By: HARIS Lorazepam (Lorazepam 1 Mg Tablet) 1 mg PO Q6H PRN PRN Reason: panic attack Ondansetron HCl (Ondansetron Hcl 4 Mg/2 Ml Vial) 4 mg IVPUSH Q8H PRN PRN Reason: Nausea and Vomiting Last Admin: 10/08/22 16:26 Dose: 4 mg Documented By: CHIO Sodium Chloride (0.9 % Sodium Chloride Flush 3 Ml Syringe) 3 ml IVFLUSH QSHIFT [facility] Last Admin: 10/10/22 15:03 Dose: 3 ml Documented By: COTEMA Labs CBC & Chem 7: 10/08/22 07:05 10/08/22 07:05 Microbiology Microbiology Results: Microbiology 10/07/22 19:46 Blood Culture - Preliminary Blood - Venous No growth after 48 hours. 10/07/22 19:46 Blood Culture - Preliminary Blood - Venous No growth after 48 hours. Assessment and Plan (1) Acute UTI: Status: Acute (2) Pyelonephritis: Status: Acute Plan ?this is a 47-year-old female with no significant past medical history except for major depression disorder presents to the hospital with urinary symptoms found to have pyelonephritis #? acute pyelonephritis - Continue ceftriaxone. Will change to PO cefuroxime on discharge - afebrile, leukocytosis resolved -?UC with e.coli susceptible to ceftriaxone (D4) -?BC pending - Ondansetron prn n/v - pain management #? acute UTI -? IV antibiotic -? follow cultures #? depression/anxiety -? continue home duloxetine - No female inpt psych bed available today per crisis - Continue sitter - Lorazepam 1mg prn ?DVT prophylaxis : Lovenox Pt requires ongoing inpt stay awaiting placement to inpt psych requiring 1:1 motinoring due to SI with plan that cannot be achieved in lower level of care Time Spent With Patient Time: Total time managing care of this patient today ____ minutes. Quality Stroke Does the patient have a stroke diagnosis?: No VTE Prior VTE?: No VTE Risk Level:: Medical - moderate - high VTE Device Contraindication: Treatment Not Indicated VTE Drug Contraindication: N/A - Med Ordered
[2022-10-10 19:24] VITALS: BP 107/51; PULSE 72; RESP 18; TEMP 36.3; O2SAT 98
[2022-10-10] MEDS: cefTRIAXone sodium 1 GM in 0.9 % Sodium Chloride 50 ML IV (20:22)
[2022-10-10] MEDS: Enoxaparin Sodium 40 MG/0.4 ML SYRINGE SUBCUT (22:25)
[2022-10-11 04:00] VITALS: BP 110/55; PULSE 60; RESP 18; TEMP 37.1; O2SAT 98
[2022-10-11] MEDS: DULoxetine HCl 30 MG CAPSULE.DR PO (07:31)
[2022-10-11] MEDS: DULoxetine HCl 60 MG CAPSULE.DR PO (07:31)
[2022-10-11] MEDS: 0.9 % Sodium Chloride Flush 3 ML SYRINGE IVFLUSH (07:31)
[2022-10-11 08:00] VITALS: BP 119/59; PULSE 77; RESP 17; TEMP 36.3; O2SAT 98
--- NOTE | 2022-10-11 10:32 | HO.PM.IMPN ---
Subjective Subjective Date of Service: 10/11/22 Interval History: Seen in follow up for pyelonephritis, now with depression with SI Interval history: Poor appetite, depressed with SI. Awaiting in psych bed. No other complaints Review of Systems General: No fevers, malaise, unintentional weight loss Cardiovascular: No chest pain, palpitations, or leg edema Respiratory: No shortness of breath, wheezing, cough GI: No abd pain, nausea, vomiting, diarrhea : No dysuria, hematuria, increased urinary frequency, decreased urinary output Neuro: No headaches, weakness, paresthesias Psych: +depression, +SI w/ plan, +anxiety, +anorexia Skin: No rashes or lesions Physical Exam Vital Signs: Vital Signs: Last Vital Signs Temp 97.3 F 10/11/22 08:00 Pulse 77 10/11/22 08:00 Resp 17 10/11/22 08:00 BP 119/59 L 10/11/22 08:00 Pulse Ox 98 10/11/22 08:00 O2 Del Method 10/11/22 08:00 BMI result Body Mass Index 28.3 Constitutional - Awake and Alert, No apparent distress Eyes - PERRLA, EOMI Cardiovascular - S1S2, RRR, No edema Respiratory - Normal lung expansion, Normal respiratory effort, No respiratory distress, CTA bilaterally Gastrointestinal - NT / ND; +BS; No rebound or guarding Extremities - no calf tenderness bilaterally, no swelling Skin - Warm/Dry Neurological - Alert & oriented x3 Psychological - depressed affect Objective Data Active Medications Acetaminophen (Acetaminophen 325 Mg Tablet) 650 mg PO Q6H PRN PRN Reason: Pain, Mild (Pain Scale 1-3) Last Admin: 10/08/22 16:26 Dose: 650 mg Documented By: CHIO Docusate Sodium (Docusate Sodium 100 Mg Capsule) 100 mg PO DAILY PRN PRN Reason: Constipation Duloxetine HCl (Duloxetine Hcl 30 Mg Capsule.) 30 mg PO DAILY [facility] Last Admin: 10/11/22 07:31 Dose: 30 mg Documented By: YARIEL Duloxetine HCl (Duloxetine Hcl 60 Mg Capsule.) 60 mg PO DAILY [facility] Last Admin: 10/11/22 07:31 Dose: 60 mg Documented By: YARIEL Enoxaparin Sodium (Enoxaparin Sodium 40 Mg/0.4 Ml Syringe) 40 mg SUBCUT Q24H [facility] Last Admin: 10/10/22 22:25 Dose: 40 mg Documented By: BRITTNEE Ceftriaxone Sodium 1 gm/ (Sodium Chloride) 50 mls @ 100 mls/hr IV Q24H [facility] Last Infusion: 10/10/22 20:57 Dose: 0 mls/hr Documented By: BRITTNEE Lorazepam (Lorazepam 1 Mg Tablet) 1 mg PO Q6H PRN PRN Reason: panic attack Ondansetron HCl (Ondansetron Hcl 4 Mg/2 Ml Vial) 4 mg IVPUSH Q8H PRN PRN Reason: Nausea and Vomiting Last Admin: 10/08/22 16:26 Dose: 4 mg Documented By: CHIO Sodium Chloride (0.9 % Sodium Chloride Flush 3 Ml Syringe) 3 ml IVFLUSH QSHIFT [facility] Last Admin: 10/11/22 07:31 Dose: 3 ml Documented By: BREANN-RIVLA Labs CBC & Chem 7: 10/08/22 07:05 10/08/22 07:05 Assessment and Plan (1) Acute UTI: Status: Acute (2) Pyelonephritis: Status: Acute Plan ?this is a 47-year-old female with no significant past medical history except for major depression disorder presents to the hospital with urinary symptoms found to have pyelonephritis #? acute pyelonephritis- resolving - Continue ceftriaxone. Will change to PO cefuroxime on discharge (total duration therapy 10 days) - afebrile, leukocytosis resolved -?UC with e.coli susceptible to ceftriaxone (D5) -?BC negative - Ondansetron prn n/v - pain management #? acute UTI -? IV antibiotic -? follow cultures #? depression/anxiety with SI and plan -? continue home duloxetine - Inpt psych bed search underway - Continue sitter - Lorazepam 1mg prn - On Section 12 ?DVT prophylaxis : Lovenox Pt requires ongoing inpt stay awaiting placement to inpt psych requiring 1:1 motinoring due to SI with plan on section 12 Quality Stroke Does the patient have a stroke diagnosis?: No VTE Prior VTE?: No VTE Risk Level:: Medical - moderate - high VTE Device Contraindication: Treatment Not Indicated VTE Drug Contraindication: N/A - Med Ordered
--- NOTE | 2022-10-11 11:28 | MHC.CARE ---
Jovanna was accepted to for inpatient psychiatric admission, doc to doc to be completed prior to transfer.
--- NOTE | 2022-10-11 12:08 | MHC.CM.PN ---
pt to be transferred to psych facility
--- NOTE | 2022-10-11 12:25 | P.DS_ITS ---
DS: Providers Provider Date of Service: 10/11/22 Date of admission: 10/07/22 22:08 Primary care physician: Mamta Guzmán NP Consults: 10/09/22 12:27 BHN [Consult to Crisis] Stat Reason for consultation: panic, SI with plan Consult for Sitter Routine Reason for consultation: SI with plan DS: Diagnosis Discharge Diagnosis (1) Acute UTI: Status: Acute (2) Pyelonephritis: Status: Acute DS: Summary Hospital Course Hospital Course: HPI on admission by Dr. Devi 10/07/22: 47-year-old female with past medical history of major depression disorder pres ents to the hospital with complaints of urinary symptoms as well as bilateral flank pain.? Patient reports that her symptoms started about a week ago, she has urinary frequency, urgency, as well as dysuria for 1 week.? She reports recurrent UTIs in the past that have sometimes resolved spontaneously but this time the pain has now traveled to her back associated with nausea, vomiting, no diarrhea.? Denies any abdominal pain, reports no fever but has chills.? She reports no headache or change in vision and no lower extremity edema.? ?on arrival to the ED patient hemodynamically stable with slightly elevated blood pressure labs are significant for? WBC count of 11.6, UA positive for leukocyte Estrace and WBC, Abdominal pelvic CT shows mild thickening of the bladder, as well as periureteral fat stranding without associated obstructing stone ?patient started on IV antibiotics will be admitted for further management Hospital Course: Hospital course uneventful. Admitted for acute pyelonephritis and treated with IV ceftriaxone with improvement in symptoms. UC grew ecoli sensitive to ceftriaxone. Blood cultures negative x 2. Vitals stable throughout admission, pt afebrile. On day D3, patient was medically cleared for discharge but had a significant panic attack, expressing worsening depression over the last month with SI and plan to ingest medications upon discharge. She was given PO lorazepam and placed on Section 12. 1:1 sitter ordered. Crisis consult placed and inpt psych bed search initiated. Pt discharged and transferred to accepted by Dr. Martinez in psychiatry. Transfer discussed with accepting provider. She will continue on PO ceftin for additional 12 doses to treat her pyelonephritis. Status at Discharge Functional status at discharge: independent ambulation Overall status at discharge: patient is back to baseline Time Spent with Patient Time attestation: Total time managing care of this patient today ____ minutes. Discharge coordination time: Greater than 30 minutes Quality: Safe Use of Opioids Does Pt have an Active Cancer Diagnosis on the Problem List?: No Quality: Stroke Does the patient have a stroke diagnosis?: No Physical Exam Vital Signs: Vital Signs: Last Vital Signs Temp 97.3 F 10/11/22 08:00 Pulse 77 10/11/22 08:00 Resp 17 10/11/22 08:00 BP 119/59 L 10/11/22 08:00 Pulse Ox 98 10/11/22 08:00 O2 Del Method 10/11/22 08:00 BMI result Body Mass Index 28.3 Constitutional - Awake and Alert, No apparent distress Eyes - PERRLA, EOMI Cardiovascular - S1S2, RRR, No edema Respiratory - Normal lung expansion, Normal respiratory effort, No respiratory distress, CTA bilaterally Gastrointestinal - NT / ND; +BS; No rebound or guarding Extremities - no calf tenderness bilaterally, no swelling Skin - Warm/Dry Neurological - Alert & oriented x3 Psychological - Appropriate affect DS: Data Data Completed and Pending Labs on day of discharge: Preliminary micro results at discharge 10/07/22 19:46 Blood Culture - Preliminary Blood - Venous No growth after 48 hours. 10/07/22 19:46 Blood Culture - Preliminary Blood - Venous No growth after 48 hours. Discharge Plan Discharge Anticipated Discharge Date/Time: 10/11/22 11:46 Patient Disposition: Xfer Psychiatric Hosp Discharge Diagnosis: Acute UTI/pyelonephritis Referrals: Mamta Guzmán, [employer] [Primary Care Provider] - 1 Week Discharge Medications: New lorazepam 1 mg Tablet 1 mg PO TID PRN (Reason: anxiety) Qty: 10 0RF cefuroxime axetil 250 mg Tablet 250 mg PO Q12H Qty: 12 0RF Continued duloxetine 30 mg capsule,delayed release(DR/EC) 1 cap PO QAM duloxetine 60 mg capsule,delayed release(DR/EC) 1 cap PO DAILY Discharge Orders: Discharge Order (Routine); Ordered 10/11/22 Ordered By: Tory Lanier Diet: Regular diet Activity on Discharge: As tolerated Stand Alone Forms: Patient Portal Discharge page Care Plan Goals: Complete treatment for UTI/pyelonephritis Evaluation by N for worsening depression with suicidal ideation Health Concerns: Acute pyelonephritis Panic attacks Worsening depression with suicidal ideation with plan Plan of Treatment: Acute pyelonephritis -your urine culture was positive for E coli which is sensitive to the ceftriaxone antibiotic he received while admitted. You should continue taking oral cefpodoxime 200 mg twice daily for an additional 7 days to complete course of treatment Depression/anxiety with SI -You expressed suicidal ideation on day of discharge. BHN was called to further evaluate your depression and make recommendations for further treatment Follow up with PCP and mental health care teams Assessment: as above Discharge Date/Time: 10/11/22 13:43
--- NOTE | 2022-10-11 13:43 | PC.NURSE ---
PATIENT BEING TRANSFERRED TO [facility] FOR INPATIENT PSYCHIATRIC LEVEL OF CARE AT THIS TIME.
[2022-10-11 14:01] LABS: Amphetamine Screen Urine Not Detected (Not Detect); Barbiturates, Urine Not Detected (Not Detect); Benzodiazepines Screen Urine Not Detected (Not Detect); Cannabinoid Screen Urine POSITIVE (Not Detect); Cocaine Screen Urine Not Detected (Not Detect); Fentanyl, urine Not Detected (Not Detect); Opiate Screen Urine Not Detected (Not Detect); Phencyclidine Screen Urine Not Detected (Not Detect)
== END 2022-10-11 13:43 | DRG 463 ==
LOC: HO.ED 22:16 → HO.EDOVER 22:34 → HO.S3 10-08 04:24
PROVIDERS: Nurse Practitioner Family; Admitting Provider Internal Medicine; Emergency Provider Emergency Medicine; PCP Nurse Practitioner Family; Visit Provider Physician Assistant
DX: N10 Acute pyelonephritis (principal); R45.851 Suicidal ideations; F41.0 Panic disorder [episodic paroxysmal anxiety]; F32.A Depression, unspecified; B96.20 Unspecified Escherichia coli [E. coli] as the cause of diseases classified elsewhere; F43.10 Post-traumatic stress disorder, unspecified; Z20.822 Contact with and (suspected) exposure to COVID-19; Z56.0 Unemployment, unspecified; Z88.2 Allergy status to sulfonamides; Z88.8 Allergy status to other drugs, medicaments and biological substances; Z79.899 Other long term (current) drug therapy
CPT/HCPCS: 36415; 74176; 80048; 80053; 80307; 81001; 81025; 82248; 83605; 83690; 85025; 87040; 87086; 87088; 87186; 87635; 99285; J0696; J1650; J2270; J2405

== ENCOUNTER 2022-10-11 13:58 | Inpatient (IN) | payer OTHER, MEDICAID, SELFPAY ==
--- OUTSIDE RECORDS SUMMARY | 2022-10-11 14:04 | XMS_ITS | Continuity of Care Document ---
:1975 Author Organization [facility] Adult Address [address] [place] [address]- Care Team Providers Name Role Phone Arielle Mamta SAWYER Primary Care Physician Encounter [facility] Date(s): 08/27/20 - 09/26/20 [facility] [address] [place] [address]- Attending Physician: Admtr, Ar8 Allergies, Adverse Reactions, Alerts Substance Reaction Severity Status sulfamethoxazole rash Active Remeron Active Bactrim rash Active SEROquel Active Immunizations Given and Recorded Vaccine Date Status Refusal Reason influenza virus vaccine, inactivated1 07/15/18 Recorded influenza virus vaccine, inactivated2 09/12/17 Given FluLaval (oldterm) 10/23/12 Given tetanus/diphtheria/pertussis, acel(Tdap) 10/23/12 Given Tetanus Toxoid Vaccine (oldterm) 05/15/01 Given 1Location History: at [id number] Comment: [09/12/2017] [facility] [id number] Medications Annovera 0.15 mg-0.013 mg/24 hours vaginal ring 0 Refills, Maintenance, 11/14/19 13:38:00 EST Start Date: 11/14/19 Status: OrderedAtivan 1 mg oral tablet 1 tablet = 1 mg, By Mouth, Daily, PRN as needed for anxiety, use sparingly, # 10 tablet, 0 Refills, Maintenance, 05/07/20 13:20:00 EDT, Tablet, [id number], 172.5, cm, 05/07/20 13:02:00 EDT, Height Start Date: 05/07/20 Status: OrderedClindagel 1% topical gel 1 application, Topically, 2 times a day, # 30 Gm, 0 Refills, Maintenance, 06/19/19 11:20:43 EDT, Gel, 1 application Topically 2 times a day Start Date: 06/19/19 Status: OrderedDitropan XL 5 mg/24 hours oral tablet, extended release 1 tablet = 5 mg, By Mouth, Daily, # 30 tablet, 3 Refills, Maintenance, 05/29/19 14:12:45 EDT, ER Tablet Start Date: 05/29/19 Status: OrderedFlovent HFA 110 mcg/inh inhalation aerosol 2 puffs, Inhalation, 2 times a day, rinse mouth and throat after use, # 1 each, 5 Refills, Maintenance, 01/26/20 9:49:00 EDT, [facility] #[id number], 172.5, cm, 11/14/19 13:11:00 EST, Height Start Date: 01/26/20 Status: OrderedHibiclens 4% soap See Instructions, 1 application Topically 2 times a day, # 240 mL, 0 Refills, Soft Stop, 06/19/19 11:21:10 EDT, 1 application Topically 2 times a day Start Date: 06/19/19 Status: Orderedlamotrigine 25 mg oral tablet 2, tablet, By Mouth, Daily, office visit required for further refills, # 60 tablet, Refills 2, Tot. Refills 2, Maintenance, 08/23/20 13:34:00 EST, Route to Pharmacy Electronically, [facility]/pharmacy #[id number], 172.5, cm, 06/17/20 9:11:00 EDT, Height Start Date: 08/23/20 Status: Orderedoxybutynin 5 mg/24 hours oral tablet, extended release 1 tablet, By Mouth, Daily, # 30 tablet, 3 Refills, Maintenance, 03/19/20 11:24:00 EDT, [id number], 172.5, cm, 11/14/19 13:11:00 EST, Height Start Date: 03/19/20 Status: OrderedrOPINIRole 0.5 mg oral tablet 1 tablet = 0.5 mg, By Mouth, Daily at bedtime, # 30 tablet, 5 Refills, Maintenance, 11/14/19 13:35:00 EST, [facility]/pharmacy #[id number], 172.5, cm, 11/14/19 13:11:00 EST, Height Start Date: 10/14/18 Status: Orderedtopiramate 25 mg oral tablet See Instructions, TAKE 1 TABLET BY MOUTH EVERYDAY AT BEDTIME, # 30 tablet, 1 Refills, Maintenance, [id number], 172.5, cm, 11/14/19 13:11:00 EST, Height Start Date: 01/28/20 Status: Ordered Problem List Condition Effective Dates Status Health Status Informant Anxiety(Confirmed) Active Bipolar 2 disorder(Confirmed) Active Overactive bladder(Confirmed) Active Chronic sinusitis(Confirmed) Active Suppurative hidradenitis(Confirmed) Active Migraine(Confirmed) Active Post traumatic stress disorder Active (PTSD)(Confirmed) Depression, major, Active recurrent(Confirmed) Restless leg syndrome(Confirmed) Active Social History Social History Type Response Smoking Status Never smoker entered on: 09/12/17 Sex
--- OUTSIDE RECORDS SUMMARY | 2022-10-11 14:04 | XMS_ITS | Continuity of Care Document ---
:1975 Author Organization [facility] Adult Address [address] [place] [address]- Care Team Providers Name Role Phone Arielle [employer] MANAGERMamta Primary Care Physician Encounter [facility] Date(s): 08/23/21 - 09/22/21 [facility] [address] [place] [address]- Allergies, Adverse Reactions, Alerts Substance Reaction Severity Status sulfamethoxazole rash Active Remeron Active Bactrim rash Active SEROquel Active Immunizations Given and Recorded Vaccine Date Status Refusal Reason hepatitis B adult vaccine1 08/09/21 Given influenza virus vaccine, inactivated2 08/09/21 Given influenza virus vaccine, inactivated 10/20/20 Given influenza virus vaccine, inactivated3 07/15/18 Recorded influenza virus vaccine, inactivated4 09/12/17 Given influenza virus vaccine, inactivated 09/11/16 Recorded SARS-CoV-2 (COVID-19) mRNA-1273 vaccine5 03/23/21 Recorde d SARS-CoV-2 (COVID-19) mRNA-1273 vaccine 02/18/21 Recorded pneumococcal 23-valent vaccine 10/20/20 Given FluLaval (oldterm) 10/23/12 Given tetanus/diphtheria/pertussis, acel(Tdap) 10/23/12 Given Tetanus Toxoid Vaccine (oldterm) 05/15/01 Given 1Result Comment: [facility]: [id number] Comment: [facility]: [id number] History: at [id number] Comment: [09/12/2017] [facility] [id number] Comment: left deltoid lot [id number] exp 10-[facility]29 [facility] Medications duloxetine 30 mg oral enteric coated capsule 1 capsule, By Mouth, Daily in AM, for 30 days, to be taken with 60mg dose for total daily dose of 90mg, # 30 capsule, 5 Refills, Physician Stop 02/05/22 23:16:00 EDT, 08/09/21 23:16:00 EDT, [facility]/pharmacy #[id number], Do NOT administer more than 30 days at a... Start Date: 08/09/21 Stop Date: 02/05/22 Status: Orderedduloxetine 60 mg oral enteric coated capsule 1 capsule, By Mouth, Daily, for 30 days, total daily dose 90mg, # 30 capsule, 5 Refills, Physician Stop 02/05/22 23:16:00 EDT, 08/09/21 23:16:00 EDT, [id number], administer 30 days at a time, 175, cm, 08/09/21 11:17:00 EDT, Height, 81, kg, 01/... Start Date: 08/09/21 Stop Date: 02/05/22 Status: Orderedfluticasone 50 mcg/inh nasal spray See Instructions, SPRAY 1 SPRAY INTO EACH NOSTRIL TWICE A DAY, # 16 mL, 0 Refills, [id number], 30, SPRAY 1 SPRAY INTO EACH NOSTRIL TWICE A DAY, 175, cm, 08/23/21 14:56:00 EST, Height, 81, kg, 10/18/20 23:19:00 EST, Dry Weight Start Date: 09/14/21 Status: Orderedlamotrigine 100 mg oral tablet 100 mg, 1, tablet, By Mouth, Daily, for 30 days, # 30 tablet, Refills 5, Tot. Refills 5, Acute 02/05/22 23:15:00 EDT, 08/09/21 23:15:00 EDT, Route to Pharmacy Electronically, [facility]/pharmacy #[id number], ONLY administer 30 days at a time, 175, cm, 08/09/21 11:... Start Date: 08/09/21 Stop Date: 02/05/22 Status: OrderedMultivitamin Tablet 1 tablet, By Mouth, Daily, 0 Refills, Maintenance, 10/21/20 12:38:00 EST, Tablet, Partial fill upon patient request if the prescription is for a schedule II opioid drug. Start Date: 10/21/20 Status: OrderedNuvaRing 0.015 mg-0.120 mg vaginal ring 1 each, Vaginally, 0 Refills, Maintenance, 08/09/21 11:41:00 EDT Start Date: 08/09/21 Status: OrderedSplint See Instructions, # 2 each, Maintenance, Bilateral wrist splints DX- CTS, 08/09/21 11:39:00 EDT, Supply, 175, cm, 08/09/21 11:17:00 EDT, Height, 81, kg, 10/18/20 23:19:00 EST, Dry Weight Start Date: 08/09/21 Status: Ordered Problem List Condition Effective Dates Status Health Status Informant Anxiety(Confirmed) Active Bipolar 2 disorder(Confirmed) Active Overactive bladder(Confirmed) Active Bilateral carpal tunnel Active syndrome(Confirmed) Chronic sinusitis(Confirmed) Active Suppurative hidradenitis(Confirmed) Active Migraine(Confirmed) Active Post traumatic stress disorder Active (PTSD)(Confirmed) Depression, major, Active recurrent(Confirmed) Restless leg syndrome(Confirmed) Active Social History Social History Type Response Smoking Status Never smoker entered on: 09/12/17 Sex
--- OUTSIDE RECORDS SUMMARY | 2022-10-11 14:04 | XMS_ITS | Continuity of Care Document ---
:1975 Author Organization [facility] [place] Adult Address [address] [place] [address]- Care Team Providers Name Role Phone Arielle SILVERIO, Mamta Villatoro Primary [id number] 12[facility]16/[facility] - 01/16/20 [facility] [place] [facility] [address] [place] [address]- [facility] Attending Physician: Not on Staff, Attending MD Allergies, Adverse Reactions, Alerts Substance Reaction Severity Status sulfamethoxazole rash Active Remeron Active Bactrim rash Active SEROquel Active Immunizations Given and Recorded Vaccine Date Status Refusal Reason influenza virus vaccine, inactivated1 07/15/18 Recorded influenza virus vaccine, inactivated2 09/12/17 Given FluLaval (oldterm) 10/23/12 Given tetanus/diphtheria/pertussis, acel(Tdap) 10/23/12 Given Tetanus Toxoid Vaccine (oldterm) 05/15/01 Given 1Location History: at [id number] Comment: [09/12/2017] [facility] [place] 28151-066-83 Medications Annovera 0.15 mg-0.013 mg/24 hours vaginal ring 0 Refills, Maintenance, 11/14/19 13:38:00 EST Start Date: 11/14/19 Status: OrderedAtivan 1 mg oral tablet 1 tablet = 1 mg, By Mouth, 0 Refills, Maintenance, 04/02/18 9:48:11 EDT Start Date: 04/02/18 Status: OrderedClindagel 1% topical gel 1 application, Topically, 2 times a day, # 30 Gm, 0 Refills, Maintenance, 06/19/19 11:20:43 EDT, Gel, 1 application Topically 2 times a day Start Date: 06/19/19 Status: Orderedduloxetine 60 mg oral enteric coated capsule 1 capsule = 60 mg, By Mouth, Daily, for a total of 90mg QAM OFFICE VISIT REQUIRED FOR FURTHER REFILLS, # 30 capsule, 0 Refills, Maintenance, 12/03/19 9:03:00 EST, EC Capsule, [facility]/pharmacy #[id number], 172.5,cm, 11/14/19 13:11:00 EST, Height Start Date: 10/14/18 Status: OrderedFlovent HFA 110 mcg/inh inhalation aerosol 2 puffs, Inhalation, 2 times a day, rinse mouth and throat after use, # 1 each, 0 Refills, Maintenance, 01/01/20 14:16:00 EDT, [facility]/pharmacy #[id number], 172.5, cm, 11/14/19 13:11:00 EST, Height Start Date: 01/01/20 Status: OrderedHibiclens 4% soap See Instructions, 1 application Topically 2 times a day, # 240 mL, 0 Refills, Soft Stop, 06/19/19 11:21:10 EDT, 1 application Topically 2 times a day Start Date: 06/19/19 Status: Orderedlamotrigine 25 mg oral tablet 50 mg, 2, tablet, By Mouth, Daily, 250mg daily total dose, # 60 tablet, Refills 2, Tot. Refills 2, Maintenance, 01/05/20 11:02:00 EDT, Route to Pharmacy Electronically, [facility]/pharmacy #[id number], 172.5, cm, 11/14/19 13:11:00 EST, Height Start Date: 10/14/18 Status: OrderedrOPINIRole 0.5 mg oral tablet 1 tablet = 0.5 mg, By Mouth, Daily at bedtime, # 30 tablet, 5 Refills, Maintenance, 11/14/19 13:35:00 EST, [facility]/pharmacy #[id number], 172.5, cm, 11/14/19 13:11:00 EST, Height Start Date: 10/14/18 Status: Ordered Problem List Condition Effective Dates Status Health Status Informant Anxiety(Confirmed) Active Bipolar 2 disorder(Confirmed) Active Overactive bladder(Confirmed) Active Chronic sinusitis(Confirmed) Active Suppurative hidradenitis(Confirmed) Active Migraine(Confirmed) Active Post traumatic stress disorder Active (PTSD)(Confirmed) Depression, major, Active recurrent(Confirmed) Restless leg syndrome(Confirmed) Active Social History Social History Type Response Smoking Status Never smoker entered on: 09/12/17 Sex
--- OUTSIDE RECORDS SUMMARY | 2022-10-11 14:04 | XMS_ITS | Continuity of Care Document ---
:1975 Author Organization [facility] Adult Address [address] [place] [address]- Care Team Providers Name Role Phone Arielle Mamta SAWYER Primary Care Physician [place] [facility] [place]20 - 05/15/20 [facility] Adult [address] [place] [address]- [facility] Allergies, Adverse Reactions, Alerts Substance Reaction Severity Status sulfamethoxazole rash Active Remeron Active Bactrim rash Active SEROquel Active Immunizations Given and Recorded Vaccine Date Status Refusal Reason influenza virus vaccine, inactivated1 07/15/18 Recorded influenza virus vaccine, inactivated2 09/12/17 Given FluLaval (oldterm) 10/23/12 Given tetanus/diphtheria/pertussis, acel(Tdap) 10/23/12 Given Tetanus Toxoid Vaccine (oldterm) 05/15/01 Given 1Location History: at [id number] Comment: [09/12/2017] [facility] [place] [id number] Medications Annovera 0.15 mg-0.013 mg/24 hours vaginal [...] each, 5 Refills, Maintenance, 01/26/20 9:49:00 EDT, [id number], 172.5, cm, 11/14/19 13:11:00 EST, Height Start Date: 01/26/20 Status: OrderedHibiclens 4% soap See Instructions, 1 application Topically 2 times a day, # 240 mL, 0 Refills, Soft Stop, 06/19/19 11:21:10 EDT, 1 application Topically 2 times a day Start Date: 06/19/19 Status: Orderedoxybutynin 5 mg/24 hours oral tablet, extended release 1 tablet, By Mouth, Daily, # 30 tablet, 3 Refills, Maintenance, 03/19/20 11:24:00 EDT, [facility], 172.5, cm, 11/14/19 13:11:00 EST, Height Start Date: 03/19/20 Status: OrderedrOPINIRole 0.5 mg oral tablet 1 tablet = 0.5 mg, By Mouth, Daily at bedtime, # 30 tablet, 5 Refills, Maintenance, 11/14/19 13:35:00 EST, [id number], 172.5, cm, 11/14/19 13:11:00 EST, Height Start Date: 10/14/18 Status: Orderedtopiramate 25 mg oral tablet See Instructions, TAKE 1 TABLET BY MOUTH EVERYDAY AT BEDTIME, # 30 tablet, 1 Refills, Maintenance, [facility], 172.5, cm, 11/14/19 13:11:00 EST, Height Start [...]
--- OUTSIDE RECORDS SUMMARY | 2022-10-11 14:04 | XMS_ITS | Continuity of Care Document ---
:1975 Author Organization [facility] Adult Address [address] [place] [address]- Care Team Providers Name Role Phone Arielle SILVERIO, Mamta Villatoro Primary Care Physician Encounter [facility] [place] Date(s): 02/16/21 - 03/18/21 [facility] Adult [address] [place] [address]- Attending Physician: Admtr, Ar8 Allergies, Adverse Reactions, Alerts Substance Reaction Severity Status sulfamethoxazole rash Active Remeron Active Bactrim rash Active SEROquel Active Immunizations Given and Recorded Vaccine Date Status Refusal Reason pneumococcal 23-valent vaccine 10/20/20 Given influenza virus vaccine, inactivated 10/20/20 Given influenza virus vaccine, inactivated1 07/15/18 Recorded influenza virus vaccine, inactivated2 09/12/17 Given FluLaval (oldterm) 10/23/12 Given tetanus/diphtheria/pertussis, acel(Tdap) 10/23/12 Given Tetanus Toxoid Vaccine (oldterm) 05/15/01 Given 1Location History: at [id number] Comment: [09/12/2017] [facility] [id number] Medications albuterol CFC free 90 mcg/inh inhalation aerosol 180 mcg, 2, puffs, Inhalation, Every 4 hours, PRN, Refills 0, Maintenance, 10/21/20 12:38:00 EST, Inhaler Start Date: 10/21/20 Status: OrderedAnnovera 0.15 mg-0.013 mg/24 hours vaginal ring 0 Refills, Maintenance, 11/14/19 13:38:00 EST Start Date: 11/14/19 Status: Orderedascorbic acid 250 mg oral tablet = 250 mg, By Mouth, 2 times a day with meals, 0 Refills, Maintenance, 10/21/20 12:38:00 EST, Tablet,Partial fill upon patient request if the prescription is for a schedule II opioid drug. Start Date: 10/21/20 Status: Orderedbisacodyl 10 mg rectal suppository 1 supp = 10 mg, Rectally, Daily, PRN Constipation, 0 Refills, Maintenance, 10/21/20 12:38:00 EST, Suppository, Partial fill upon patient request if the prescription is for a schedule II opioid drug. Start Date: 10/21/20 Status: Orderedcholecalciferol 1000 intl units oral tablet 1 tablet = 1,000 International_Units, By Mouth, Daily, 0 Refills, Maintenance, 10/21/20 12:38:00 EST, Tablet, Partial fill upon patient request if the prescription is for a schedule II opioid drug. Start Date: 10/21/20 Status: OrderedColace sodium 100 mg oral capsule 100 mg, 1, capsule, By Mouth, 2 times a day, # 60 capsule, Refills 0, Tot. Refills 0, Maintenance, 10/21/20 12:33:00 EST, Route to Pharmacy Electronically, [facility], Partial fill upon patient request if the prescription is for a schedu... Start Date: 10/21/20 Status: OrderedMiraLax Powder 1 pack/packet = 17 Gm, By Mouth, Daily, 0 Refills, Maintenance, 10/21/20 12:38:00 EST, Powder, Partial fill upon patient request if the prescription is for a schedule II opioid drug. Start Date: 10/21/20 Status: OrderedMOM Liquid 30 mL, By Mouth, Daily, PRN Constipation, 0 Refills, Maintenance, 10/21/20 12:38:00 EST, Suspension,Partial fill upon patient request if the prescription is for a schedule II opioid drug. Start Date: 10/21/20 Status: OrderedMultivitamin Tablet 1 tablet, By Mouth, Daily, 0 Refills, Maintenance, 10/21/20 12:38:00 EST, Tablet, Partial fill upon patient request if the prescription is for a schedule II opioid drug. Start Date: 10/21/20 Status: OrderedSenna 8.6 mg oral tablet 8.6 mg, 1, tablet, By Mouth, Daily, Refills 0, Maintenance, 10/21/20 12:38:00 EST, Tablet, Partial fill upon patient request if the prescription is for a schedule II opioid drug. Start Date: 10/21/20 Status: Ordered Problem List Condition Effective Dates Status Health Status Informant Anxiety(Confirmed) Active Bipolar 2 disorder(Confirmed) Active Overactive bladder(Confirmed) Active Chronic sinusitis(Confirmed) Active Suppurative hidradenitis(Confirmed) Active Migraine(Confirmed) Active Post traumatic stress disorder Active (PTSD)(Confirmed) Depression, major, Active recurrent(Confirmed) Restless leg syndrome(Confirmed) Active Social History Social History Type Response Smoking Status Never smoker entered on: 09/12/17 Sex
--- OUTSIDE RECORDS SUMMARY | 2022-10-11 14:04 | XMS_ITS | Continuity of Care Document ---
:1975 Author Organization [facility] Adult Address [address] [place] [address]- Care Team Providers Name Role Phone Mamta Guzmán NP Primary Care Physician Encounter [facility] [place] Date(s): 12/30/20 - 01/06/21 [facility] Adult [address] [place] [address]- Encounter Diagnosis Anxiety (Discharge Diagnosis) - 12/30/20 Bipolar 2 disorder (Discharge Diagnosis) - 12/30/20 Depression, major, recurrent (Discharge Diagnosis) - 12/30/20 Attending Physician: Bubba Vo MD Referring Physician: Mamta Guzmán NP Allergies, Adverse Reactions, Alerts Substance Reaction Severity [...] Vaccine (oldterm) 05/15/01 Given 1Location History: at [id number] Comment: [09/12/2017] [facility] [id number] Medications albuterol CFC free 90 mcg/inh inhalation [...] II opioid drug. Start Date: 10/21/20 Status: OrderedAtivan 1 mg oral tablet 1 tablet = 1 mg, By Mouth, Daily, PRN as needed for anxiety, use sparingly, # 10 tablet, 0 Refills, Maintenance, 12/30/20 8:31:00 EDT, Tablet, [facility]/pharmacy #[id number], 175, cm, 10/21/20 15:42:00 EST, Height, 81, kg, 10/18/20 23:19:00 EST, Dry Weight Start Date: 12/30/20 Status: Orderedbisacodyl 10 mg rectal suppository 1 [...] 10/21/20 12:33:00 EST, Route to Pharmacy Electronically, [facility], Partial fill upon patient request if the prescription is for a schedu... Start Date: 10/21/20 Status: OrderedDitropan XL 5 mg/24 hours oral tablet, extended release 1 tablet = 5 mg, By Mouth, Daily, # 30 tablet, 1 Refills, Maintenance, 09/29/20 8:48:00 EST, ER Tablet, [facility]/pharmacy #[id number], 172.5, cm, 09/29/20 8:26:00 EST, Height Start Date: 09/29/20 Status: Orderedduloxetine 30 mg oral enteric coated capsule 1 capsule, By Mouth, Daily in AM, INSTR:TOTAL DAILY DOSE OF 90MG, # 30 capsule, 1 Refills, Maintenance, 12/24/20 15:21:00 EST, [facility], 175, cm, 10/21/20 15:42:00 EST, Height, 81, kg, 10/18/20 23:19:00 EST, Dry Weight Start Date: 12/24/20 Status: Orderedduloxetine 60 mg oral enteric coated capsule 1 capsule, By Mouth, Daily, INSTR:FOR A TOTAL OF 90MG. OFFICE VISIT REQUIRED FOR FURTHER REFILLS, # 30 capsule, 1 Refills, Maintenance, 12/24/20 15:21:00 EST, [facility], 175, cm, 10/21/20 15:42:00 EST, Height, 81, kg, 10/18/20 23:19:00 EST, Dry... Start Date: 12/24/20 Status: OrderedhydrOXYzine hydrochloride 25 mg oral tablet See Instructions, PRN for anxiety, Take 1-2 tablets daily at bedtime as needed for anxiety, # 50 tablet, 0 Refills, Acute 02/01/21 8:30:00 EDT, 12/30/20 8:29:00 EDT, Tablet, [facility]/pharmacy #[id number], 175, cm, 10/21/20 15:42:00 EST, Height, 81, kg, 10/18/20... Start Date: 12/30/20 Stop Date: 02/01/21 Status: Orderedlamotrigine 200 mg oral tablet 1 tablet, By Mouth, Daily, TOTAL DOSE., # 30 tablet, 1 Refills, Maintenance, 09/29/20 8:48:00 EST, [id number], 172.5, cm, 09/29/20 8:26:00 EST, Height Start Date: 09/29/20 Status: Orderedlamotrigine 25 mg oral tablet 2, tablet, By Mouth, Daily, office visit required for further refills, # 60 tablet, Refills 1, Tot. Refills 1, Maintenance, 09/29/20 8:48:00 EST, Route to Pharmacy Electronically, [facility]/pharmacy #[id number], 172.5, cm, 09/29/20 8:26:00 EST, Height Start Date: 09/29/20 Status: OrderedMiraLax Powder 1 pack/packet = 17 [...] II opioid drug. Start Date: 10/21/20 Status: OrderedrOPINIRole 0.5 mg oral tablet 1 tablet, By Mouth, Daily at bedtime, # 30 tablet, 0 Refills, Maintenance, 12/13/20 7:00:00 EST, [facility], 175, cm, 10/21/20 15:42:00 EST, Height, 81, kg, 10/18/20 23:19:00 EST, Dry Weight Start Date: 12/13/20 Status: OrderedSenna 8.6 mg oral tablet 8.6 [...] major, Active recurrent(Confirmed) Restless leg syndrome(Confirmed) Active Diagnosis Diagnosis Type Effective Dates Health Status Clinical In formant Service Anxiety Discharge 12/30/20 Diagnosis Bipolar 2 Discharge 12/30/20 disorder Diagnosis Depression, Discharge 12/30/20 major, recurrent Diagnosis Social History Social History Type Response Smoking Status Never smoker entered on: 09/12/17 Sex
--- OUTSIDE RECORDS SUMMARY | 2022-10-11 14:04 | XMS_ITS | Continuity of Care Document ---
:1975 Author Organization [facility] Adult Address [address] [place] [address]- Care Team Providers Name Role Phone Arielle Mamta SAWYER Primary Care Physician [place] [facility] [place](s): 06/29/20 - 07/29/20 [facility] Adult [address] [place] [address]- [facility] Allergies, Adverse Reactions, Alerts Substance Reaction Severity Status sulfamethoxazole rash Active Remeron Active Bactrim rash Active SEROquel Active Immunizations Given and Recorded Vaccine Date Status Refusal Reason influenza virus vaccine, inactivated1 07/15/18 Recorded influenza virus vaccine, inactivated2 09/12/17 Given FluLaval (oldterm) 10/23/12 Given tetanus/diphtheria/pertussis, acel(Tdap) 10/23/12 Given Tetanus Toxoid Vaccine (oldterm) 05/15/01 Given 1Location History: at [id number] Comment: [09/12/2017] [facility] [id number] Medications Annovera 0.15 mg-0.013 mg/24 hours vaginal [...] Refills, Maintenance, 03/19/20 11:24:00 EDT, [facility], 172.5, cm, 11/14/19 13:11:00 EST, Height Start [...] 30 tablet, 1 Refills, Maintenance, [facility], 172.5, cm, 11/14/19 13:11:00 EST, Height Start [...]
--- OUTSIDE RECORDS SUMMARY | 2022-10-11 14:04 | XMS_ITS | Continuity of Care Document ---
:1975 Author Organization [facility] Address [address] [facility], [address] [address]- Care Team Providers Name Role Phone Arielle SAWYER, Mamta Villatoro Primary Care Physician Encounter 08/26/21 - 11/16/21 [facility] [address], [address] [address]- Attending Physician: Mamta Guzmán NP Admitting Physician: Mamta Guzmán NP Referring Physician: Mamta Guzmán NP Allergies, Adverse Reactions, Alerts Substance Reaction Severity Status sulfamethoxazole rash Active SEROquel Active Remeron Active Bactrim rash Active Immunizations Given and Recorded Vaccine Date [...] Toxoid Vaccine (oldterm) 05/15/01 Given 1Result Comment: [facility]: [id number] Comment: [facility]: [id number] History: at [id number] Comment: [09/12/2017] [facility] [id number] Comment: left deltoid lot [id number] exp 10-14-2029 [facility] Medications duloxetine 30 mg oral enteric coated capsule 1 capsule, By Mouth, Daily in AM, for 30 days, to be taken with 60mg dose for total daily dose of 90mg, # 30 capsule, 5 Refills, Physician Stop 02/05/22 23:16:00 EDT, 08/09/21 23:16:00 EDT, [facility]/pharmacy #[id number], Do NOT administer more than 30 days at a... Start Date: 08/09/21 Stop Date: 02/05/22 Status: Orderedduloxetine 60 mg oral enteric coated capsule 1 capsule, By Mouth, Daily, for 30 days, total daily dose 90mg, # 30 capsule, 5 Refills, Physician Stop 02/05/22 23:16:00 EDT, 08/09/21 23:16:00 EDT, [facility]/pharmacy #[id number], administer 30 days at a time, 175, cm, 08/09/21 11:17:00 EDT, Height, 81, kg, ... Start Date: 08/09/21 Stop Date: 02/05/22 Status: Orderedfluticasone 50 mcg/inh nasal spray See Instructions, SPRAY 1 SPRAY INTO EACH NOSTRIL TWICE A DAY, # 16 mL, 0 Refills, [facility], 30, SPRAY 1 SPRAY INTO EACH NOSTRIL TWICE A DAY, 175, cm, 08/23/21 14:56:00 EST, Height, 81, kg, 10/18/20 23:19:00 EST, Dry Weight Start Date: 09/14/21 Status: Orderedlithium 300 mg oral capsule 1 capsule = 300 mg, By Mouth, 3 times a day, # 90 capsule, 0 Refills, Maintenance, 09/23/21 10:15:00EST, Capsule Start Date: 09/23/21 Status: OrderedMultivitamin Tablet 1 tablet, By Mouth, [...]
--- OUTSIDE RECORDS SUMMARY | 2022-10-11 14:04 | XMS_ITS | Continuity of Care Document ---
:1975 Author Organization [facility] Adult Address [address] [place] [address]- Care Team Providers Name Role Phone Arielle Mamta SAWYER Primary Care Physician [place] [facility] [place] 05/07/20 - 05/14/20 [facility] Adult [address] [place] [address]- [facility] Encounter Diagnosis Bipolar 2 disorder (Discharge Diagnosis) - 05/07/20 Anxiety (Discharge Diagnosis) - 05/07/20 Depression, major, recurrent (Discharge Diagnosis) - 05/07/20 Attending Physician: Not on Staff, Attending MD Allergies, Adverse Reactions, Alerts Substance Reaction Severity Status sulfamethoxazole rash Active Remeron Active Bactrim rash Active SEROquel Active Immunizations Given and Recorded Vaccine Date Status Refusal Reason influenza virus vaccine, inactivated1 07/15/18 Recorded influenza virus vaccine, inactivated2 09/12/17 Given FluLaval (oldterm) 10/23/12 Given tetanus/diphtheria/pertussis, acel(Tdap) 10/23/12 Given Tetanus Toxoid Vaccine (oldterm) 05/15/01 Given 1Location History: at [id number] Comment: [09/12/2017] [facility] [id number] Medications Annovera 0.15 mg-0.013 mg/24 hours vaginal [...] each, 5 Refills, Maintenance, 01/26/20 9:49:00 EDT, [facility]/pharmacy #[id number], 172.5, cm, 11/14/19 13:11:00 EST, [...] Refills, Maintenance, 03/19/20 11:24:00 EDT, [facility], 172.5, cm, 11/14/19 13:11:00 EST, Height Start [...] 30 tablet, 1 Refills, Maintenance, [facility], 172.5, cm, 11/14/19 13:11:00 EST, Height Start Date: 01/28/20 Status: Ordered Problem List Condition Effective Dates Status Health Status Informant Anxiety(Confirmed) Active Bipolar 2 disorder(Confirmed) Active Overactive bladder(Confirmed) Active Chronic sinusitis(Confirmed) Active Suppurative hidradenitis(Confirmed) Active Migraine(Confirmed) Active Post traumatic stress disorder Active (PTSD)(Confirmed) Depression, major, Active recurrent(Confirmed) Restless leg syndrome(Confirmed) Active Diagnosis Diagnosis Type Effective Dates [facility] B[facility] 2 Discharge 05/07/20 disorder Diagnosis Anxiety Discharge 05/07/20 Diagnosis Depression, Discharge 05/07/20 major, recurrent Diagnosis Vital Signs Most recent to oldest [Reference Range]: 1 Height 172.5 cm (05/07/20 1:02 PM) Weight 83.9 kg (05/07/20 1:02 PM) Oxygen Saturation [94-100 %] 99 % (05/07/20 1:02 PM) Pulse Rate [55-90 bpm] 102 bpm *H* (05/07/20 1:02 PM) Body Mass Index [18.5-24.99] 28.2 *H* (05/07/20 1:02 PM) Blood Pressure [90-138/55-84 mm Hg] 124/82 mm Hg (05/07/20 1:02 PM) Temperature [96.8-100.4 DegF] 98.4 DegF (05/07/20 1:02 PM) Mode of Delivery (Oxygen) Room air (05/07/20 1:02 PM) Blood pressure sites Arm, right (05/07/20 1:02 PM) Temperature Route Oral (05/07/20 1:02 PM) Weight Obtained Via Standing scale (05/07/20 1:02 PM) Social History Social History Type Response Smoking Status Never smoker entered on: 09/12/17 Sex
--- OUTSIDE RECORDS SUMMARY | 2022-10-11 14:04 | XMS_ITS | Continuity of Care Document ---
:1975 Author Organization [facility] [place] Adult Address [address] [place] [address]- Care Team Providers Name Role Phone Arielle DIAPER MACHINE TENDER, Mamta Villatoro Primary Care Physician [place] [facility] [place](s): 04/04/22 - 05/04/22 [facility] [place] Adult [address] [place] [address]- Attending Physician: Admtr, Ar8 Allergies, Adverse Reactions, [...] Toxoid Vaccine (oldterm) 05/15/01 Given 1Result Comment: [facility]: [id number] Comment: [facility]: [id number] History: at [id number] Comment: [09/12/2017] [facility] [id number] Comment: left deltoid lot [id number] exp 10-14-[address] [facility] Medications ARIPiprazole 5 mg oral tablet TAKE 1/2 TABLET BY MOUTH DAILY FOR 14 DAYS, THEN INCREASE TO 1 TABLET BY MOUTH DAILY IF TOLERATED Start Date: 02/08/22 Status: Orderedcyclobenzaprine 5 mg oral tablet See Instructions, Take 1 tablet every 8 hours as needed for muscle spasm, # 21 capsule, 0 Refills, Maintenance, 04/04/22 14:33:00 EDT, Tablet, [facility]/pharmacy #[id number], Partial fill upon patient request if the prescription is for a schedule II opioid drug.,... Start Date: 04/04/22 Status: Orderedduloxetine 30 mg oral enteric coated capsule TAKE 1 CAPSULE BY MOUTH EVERY MORNING WITH 60MG DOSE FOR TOTAL DAILY DOSE OF 90MG Start Date: 02/08/22 Status: Orderedfluticasone 50 mcg/inh nasal spray See Instructions, SPRAY 1 SPRAY INTO EACH NOSTRIL TWICE A DAY, # 16 mL, 0 Refills, [facility], 30, SPRAY 1 SPRAY INTO EACH NOSTRIL TWICE A DAY, 175, cm, 08/23/21 14:56:00 EST, Height, 81, kg, 10/18/20 23:19:00 EST, Dry Weight Start Date: 09/14/21 Status: OrderedhydrOXYzine hydrochloride 25 mg oral tablet 1 TABLET BY MOUTH TWICE A DAY NEEDED ANXIETY Start Date: 02/08/22 Status: Orderedibuprofen 600 mg oral tablet 600 mg, 1, tablet, By Mouth, Every 6 hours, PRN, Take with food, # 20 tablet, Refills 0, Tot. Refills 0, Maintenance, for pain, 04/04/22 14:33:00 EDT, Route to Pharmacy Electronically, [facility]/pharmacy #[id number], Partial fill upon patient request if the presc... Start Date: 04/04/22 Status: Orderedlithium 300 mg oral capsule 1 capsule = 300 mg, By Mouth, 3 times a day, # 90 capsule, 0 Refills, Maintenance, 09/23/21 10:15:00EST, Capsule Start Date: 09/23/21 Status: OrderedLORazepam 1 mg oral tablet TAKE 1 TABLET BY MOUTH EVERY DAY NEEDED FOR ANXIETY. USE SPARINGLY Start Date: 02/08/22 Status: OrderedMultivitamin Tablet 1 tablet, By Mouth, [...]
--- OUTSIDE RECORDS SUMMARY | 2022-10-11 14:04 | XMS_ITS | Continuity of Care Document ---
:[address] [facility] Adult Address [address] [place] [address]- Care Team Providers Name Role Phone Mamta Guzmán NP Primary Care Physician Encounter [facility] Date(s): 09/29/20 - 03/18/21 [facility] Adult [address] [place] [address]- Encounter Diagnosis Annual physical exam (Discharge Diagnosis) - 02/15/21 Attending Physician: Mamta Guzmán NP Allergies, Adverse Reactions, [...] Vaccine (oldterm) 05/15/01 Given 1Location History: at [id number] Comment: [09/12/2017] [facility] [id number] Medications albuterol CFC free 90 mcg/inh inhalation [...] 10/21/20 12:33:00 EST, Route to Pharmacy Electronically, [facility] 3, Partial fill upon patient request [...] Dates Health Status Clinical In formant Service Annual physical Discharge 02/15/21 exam Diagnosis Social History Social History Type Response Smoking Status Never smoker entered on: 09/12/17 Sex
--- OUTSIDE RECORDS SUMMARY | 2022-10-11 14:04 | XMS_ITS | Continuity of Care Document ---
:1975 Author Organization [facility] Adult Address [address] [place] [address]- Care Team Providers Name Role Phone Arielle Mamta SAWYER Primary Care Physician [place] [facility] Date(s): 12/30/20 - 01/29/21 [facility] Adult [address] [place] [address]- Attending Physician: Admtr, Ar8 Allergies, Adverse Reactions, [...] Vaccine (oldterm) 05/15/01 Given 1Location History: at [id number] Comment: [09/12/2017] [facility] 60762-603-27 Medications albuterol CFC free 90 mcg/inh inhalation [...] 0 Refills, Maintenance, 12/30/20 8:31:00 EDT, Tablet, [facility]/pharmacy #[id number], 175, cm, 10/21/20 15:42:00 EST, Height, [...] 10/21/20 12:33:00 EST, Route to Pharmacy Electronically, [facility], Partial fill upon patient request if the prescription is for a schedu... Start Date: 10/21/20 Status: OrderedDitropan XL 5 mg/24 hours oral tablet, extended release 1 tablet = 5 mg, By Mouth, Daily, # 30 tablet, 1 Refills, Maintenance, 09/29/20 8:48:00 EST, ER Tablet, [facility]/pharmacy #7111, 172.5, cm, 09/29/20 8:26:00 EST, Height Start Date: 09/29/20 Status: Orderedduloxetine 30 mg oral enteric coated capsule 1 capsule, By Mouth, Daily in AM, INSTR:TOTAL DAILY DOSE OF 90MG, # 30 capsule, 1 Refills, Maintenance, 12/24/20 15:21:00 EST, [facility], 175, cm, 10/21/20 15:42:00 EST, Height, 81, kg, 10/18/20 23:19:00 EST, Dry Weight Start Date: 12/24/20 Status: Orderedduloxetine 60 mg oral enteric coated capsule 1 capsule, By Mouth, Daily, INSTR:FOR A TOTAL OF 90MG. OFFICE VISIT REQUIRED FOR FURTHER REFILLS, # 30 capsule, 1 Refills, Maintenance, 12/24/20 15:21:00 EST, [facility], 175, cm, 10/21/20 15:42:00 EST, Height, 81, kg, 10/18/20 23:19:00 EST, Dry... Start Date: 12/24/20 Status: OrderedhydrOXYzine hydrochloride 25 mg oral tablet See Instructions, PRN for anxiety, Take 1-2 tablets daily at bedtime as needed for anxiety, # 50 tablet, 0 Refills, Acute 02/01/21 8:30:00 EDT, 12/30/20 8:29:00 EDT, Tablet, [facility]/pharmacy #7111, 175, cm, 10/21/20 15:42:00 EST, Height, 81, kg, 10/18/20... Start Date: 12/30/20 Stop Date: 02/01/21 Status: Orderedlamotrigine 200 mg oral tablet 1 tablet, By Mouth, Daily, TOTAL DOSE., # 30 tablet, 1 Refills, Maintenance, 09/29/20 8:48:00 EST, [facility]/pharmacy #[id number], 172.5, cm, 09/29/20 8:26:00 EST, Height Start Date: 09/29/20 Status: Orderedlamotrigine 25 mg oral tablet 2, tablet, By Mouth, Daily, office visit required for further refills, # 60 tablet, Refills 1, Tot. Refills 1, Maintenance, 09/29/20 8:48:00 EST, Route to Pharmacy Electronically, [facility]/pharmacy #[id number], 172.5, cm, 09/29/20 8:26:00 EST, Height [...] Mouth, Daily at bedtime, # 30 tablet, 3 Refills, Maintenance, 01/17/21 15:44:00 EDT, [facility], 175, cm, 10/21/20 15:42:00 EST, Height, 81, kg, 10/18/20 23:19:00 EST, Dry Weight Start Date: 01/17/21 Status: OrderedSenna 8.6 mg oral tablet 8.6 [...]
--- OUTSIDE RECORDS SUMMARY | 2022-10-11 14:04 | XMS_ITS | Continuity of Care Document ---
:1975 Author Organization [facility] Adult Address [address] [place] [address]- Care Team Providers Name Role Phone Arielle FOOD AND DRUG INSPECTOR, Mamta Villatoro Primary Care Physician [id number] Date[facility] 12/17/19 - 12/27/19 [facility] Adult [address] [place] [address]- [facility] Attending Physician: AdmtrMargaret Allergies, Adverse Reactions, Alerts Substance Reaction Severity Status sulfamethoxazole rash Active Remeron Active Bactrim rash Active SEROquel Active Immunizations Given and Recorded Vaccine Date Status Refusal Reason influenza virus vaccine, inactivated1 07/15/18 Recorded influenza virus vaccine, inactivated2 09/12/17 Given FluLaval (oldterm) 10/23/12 Given tetanus/diphtheria/pertussis, acel(Tdap) 10/23/12 Given Tetanus Toxoid Vaccine (oldterm) 05/15/01 Given 1Location History: at [id number] Comment: [09/12/2017] [facility] 84374-182-42 Medications Annovera 0.15 mg-0.013 mg/24 hours vaginal [...] Refills, Maintenance, 12/03/19 9:03:00 EST, EC Capsule, [facility]/pharmacy #[id number], 172.5,cm, 11/14/19 13:11:00 EST, Height Start Date: 10/14/18 Status: OrderedHibiclens 4% soap See Instructions, 1 application Topically 2 times a day, # 240 mL, 0 Refills, Soft Stop, 06/19/19 11:21:10 EDT, 1 application Topically 2 times a day Start Date: 06/19/19 Status: OrderedrOPINIRole 0.5 mg oral tablet 1 tablet = 0.5 mg, By Mouth, Daily at bedtime, # 30 tablet, 5 Refills, Maintenance, 11/14/19 13:35:00 EST, [facility]/pharmacy #[id number], 172.5, cm, 11/14/19 13:11:00 EST, Height [...]
--- OUTSIDE RECORDS SUMMARY | 2022-10-11 14:04 | XMS_ITS | Continuity of Care Document ---
:1975 Author Organization [facility] Adult Address [address] [place] [address]- Care Team Providers Name Role Phone Mamta Guzmán NP Primary Care Physician Encounter [facility] [place] Date(s): 06/29/20 - 09/26/20 [facility] [address] [place] [address]- Encounter Diagnosis Annual physical exam (Discharge Diagnosis) - 08/17/20 Cervical cancer screening (Discharge Diagnosis) - 08/17/20 Depression, major, recurrent (Discharge Diagnosis) - 08/17/20 Anxiety (Discharge Diagnosis) - 08/17/20 Bipolar 2 disorder (Discharge Diagnosis) - 08/17/20 Migraine (Discharge Diagnosis) - 08/17/20 Attending Physician: Gilda FOWLER, Bubba Murrell Referring Physician: Mamta Guzmán NP Allergies, Adverse Reactions, Alerts Substance Reaction Severity Status sulfamethoxazole rash Active Remeron Active Bactrim rash Active SEROquel Active Immunizations Given and Recorded Vaccine Date Status Refusal Reason influenza virus vaccine, inactivated1 07/15/18 Recorded influenza virus vaccine, inactivated2 09/12/17 Given FluLaval (oldterm) 10/23/12 Given tetanus/diphtheria/pertussis, acel(Tdap) 10/23/12 Given Tetanus Toxoid Vaccine (oldterm) 05/15/01 Given 1Location History: at [id number] Comment: [09/12/2017] [facility] 26595-120-05 Medications Annovera 0.15 mg-0.013 mg/24 hours vaginal ring 0 Refills, Maintenance, 11/14/19 13:38:00 EST Start Date: 11/14/19 Status: OrderedAtivan 1 mg oral tablet 1 tablet = 1 mg, By Mouth, Daily, PRN as needed for anxiety, use sparingly, # 10 tablet, 0 Refills, Maintenance, 05/07/20 13:20:00 EDT, Tablet, [facility]/pharmacy #[id number], 172.5, cm, 05/07/20 13:02:00 EDT, Height [...] each, 5 Refills, Maintenance, 01/26/20 9:49:00 EDT, [facility]/pharmacy #[id number], 172.5, cm, 11/14/19 13:11:00 EST, Height [...] 08/23/20 13:34:00 EST, Route to Pharmacy Electronically, [facility]/pharmacy #[id number], 172.5, cm, 06/17/20 9:11:00 EDT, Height Start Date: 08/23/20 Status: Orderedoxybutynin 5 mg/24 hours oral tablet, extended release 1 tablet, By Mouth, Daily, # 30 tablet, 3 Refills, Maintenance, 03/19/20 11:24:00 EDT, [facility] 319[facility], 172.5, cm, 11/14/19 13:11:00 EST, Height Start [...] 30 tablet, 1 Refills, Maintenance, [facility], 172.5, cm, 11/14/19 13:11:00 EST, Height Start [...] Clinical In formant Service Annual physical Discharge 08/17/20 exam Diagnosis Cervical cancer Discharge 08/17/20 screening Diagnosis Bipolar 2 Discharge 08/17/20 disorder Diagnosis Anxiety Discharge 08/17/20 Diagnosis Depression, Discharge 08/17/20 major, recurrent Diagnosis Migraine Discharge 08/17/20 Diagnosis Social History Social History Type Response Smoking Status Never smoker entered on: 09/12/17 Sex
--- OUTSIDE RECORDS SUMMARY | 2022-10-11 14:04 | XMS_ITS | Continuity of Care Document ---
:1975 Author Organization [facility] Adult Address [address] [place] [address]- Care Team Providers Name Role Phone Mamta Guzmán NP Primary Care Physician Encounter [facility] Date(s): 03/24/21 - 04/28/21 [facility] Adult [address] [place] [address]- Attending Physician: Mamta Guzmán NP Allergies, Adverse Reactions, Alerts Substance Reaction Severity Status sulfamethoxazole rash Active Remeron Active Bactrim rash Active SEROquel Active Immunizations Given and Recorded Vaccine Date Status Refusal Reason SARS-CoV-2 (COVID-19) mRNA-1273 vaccine1 03/23/21 Recorde d SARS-CoV-2 (COVID-19) mRNA-1273 vaccine 02/18/21 Recorded pneumococcal 23-valent vaccine 10/20/20 Given influenza virus vaccine, inactivated 10/20/20 Given influenza virus vaccine, inactivated2 07/15/18 Recorded influenza virus vaccine, inactivated3 09/12/17 Given influenza virus vaccine, inactivated 09/11/16 Recorded FluLaval (oldterm) 10/23/12 Given tetanus/diphtheria/pertussis, acel(Tdap) 10/23/12 Given Tetanus Toxoid Vaccine (oldterm) 05/15/01 Given 1Result Comment: left deltoid lot [id number] exp 10-14-2029 [id number] History: at [id number] Comment: [09/12/2017] [facility] 27178-513-76 Medications albuterol CFC free 90 mcg/inh inhalation [...] 10/21/20 12:33:00 EST, Route to Pharmacy Electronically, [facility] 3, Partial fill upon patient request if [...]
--- OUTSIDE RECORDS SUMMARY | 2022-10-11 14:04 | XMS_ITS | Continuity of Care Document ---
:1975 Author Organization [facility] Adult Address [address] [place] [address]- Care Team Providers Name Role Phone Arielle Mamta SAWYER Primary Care Physician Encounter [facility] [place] Date(s): 03/22/21 - 04/21/21 [facility] Adult [address] [place] [address]- Allergies, Adverse Reactions, Alerts Substance Reaction Severity [...] 05/15/01 Given 1Result Comment: left deltoid lot [id number] exp 10-14-2029 [id number] History: at [id number] Comment: [09/12/2017] [facility] 28117-308-03 Medications albuterol CFC free 90 mcg/inh inhalation [...] 10/21/20 12:33:00 EST, Route to Pharmacy Electronically, [facility], Partial fill upon patient request if the prescription is for a schedu... Start Date: 10/21/20 Status: OrderedhydrOXYzine hydrochloride 25 mg oral tablet See Instructions, TAKE 1-2 TABLETS DAILY AT BEDTIME NEEDED FOR ANXIETY, # 50 tablet, 0 Refills, Acute, [facility], 175, cm, 10/21/20 15:42:00 EST, Height, 81, kg, 10/18/20 23:19:00 EST, Dry Weight Start Date: 03/23/21 Status: OrderedMiraLax Powder 1 pack/packet = 17 [...]
--- OUTSIDE RECORDS SUMMARY | 2022-10-11 14:04 | XMS_ITS | Continuity of Care Document ---
:1975 Author Organization [facility] Adult Address [address] [place] [address]- Care Team Providers Name Role Phone Arielle GIRL FRIDAY, Mamta Villatoro Primary Care Physician Encounter [facility] [place] Date(s): 06/23/22 - 07/23/22 [facility] Adult [address] [place] [address]- Attending Physician: Admtr, Ar8 Allergies, Adverse Reactions, [...] Toxoid Vaccine (oldterm) 05/15/01 Given 1Result Comment: [facility]: [id number] Comment: [facility]: [id number] History: at [id number] Comment: [09/12/2017] [facility] [id number] Comment: left deltoid lot [id number] exp 10-14-2029 [facility] Medications ARIPiprazole 5 mg oral tablet TAKE 1/2 TABLET BY MOUTH DAILY FOR 14 DAYS, THEN INCREASE TO 1 TABLET BY MOUTH DAILY IF TOLERATED Start Date: 02/08/22 Status: Orderedcyclobenzaprine 5 mg oral tablet See Instructions, Take 1 tablet every 8 hours as needed for muscle spasm, # 21 capsule, 0 Refills, Maintenance, 04/04/22 14:33:00 EDT, Tablet, [facility]/pharmacy #[id number], Partial fill upon patient request if [...] A DAY, # 16 mL, 0 Refills, [facility] 24116, 30, SPRAY 1 SPRAY INTO EACH NOSTRIL [...] 04/04/22 14:33:00 EDT, Route to Pharmacy Electronically, [facility]/pharmacy #[id number], Partial fill upon patient request if [...] Date: 08/09/21 Status: Ordered Problem List Condition Confirmation Course Effective Dates Status Health Stat us Informant Anxiety Confirmed Active Bipolar 2 disorder Confirmed Active Overactive bladder Confirmed Active Bilateral carpal Confirmed Active tunnel syndrome Chronic sinusitis Confirmed Active Suppurative Confirmed Active hidradenitis Migraine Confirmed Active Post traumatic Confirmed Active stress disorder (PTSD) Depression, major, Confirmed Active recurrent Restless leg Confirmed Active syndrome Social History Social History Type Response Smoking Status Never smoker entered on: 09/12/17 Sex Patient Care team information PersonnelName: Mamta Guzmán NP Address: Address: [address] [place] [address]
--- OUTSIDE RECORDS SUMMARY | 2022-10-11 14:04 | XMS_ITS | Continuity of Care Document ---
:1975 Author Organization [facility] Adult Address [address] [place] [address]- Care Team Providers Name Role Phone Mamta Guzmán NP Primary Care [id number] - 12/11/19 [facility] Adult [address] [place] [address]- [facility] Attending Physician: Mamta Guzmán NP Allergies, Adverse Reactions, Alerts Substance Reaction Severity Status sulfamethoxazole rash Active Remeron Active Bactrim rash Active SEROquel Active Immunizations Given and Recorded Vaccine Date Status Refusal Reason influenza virus vaccine, inactivated1 07/15/18 Recorded influenza virus vaccine, inactivated2 09/12/17 Given FluLaval (oldterm) 10/23/12 Given tetanus/diphtheria/pertussis, acel(Tdap) 10/23/12 Given Tetanus Toxoid Vaccine (oldterm) 05/15/01 Given 1Location History: at [id number] Comment: [09/12/2017] [facility] [id number] Medications Annovera 0.15 mg-0.013 mg/24 hours vaginal [...] Refills, Maintenance, 12/03/19 9:03:00 EST, EC Capsule, [id number], 172.5,cm, 11/14/19 13:11:00 EST, Height Start [...] tablet, 5 Refills, Maintenance, 11/14/19 13:35:00 EST, [facility]/pharmacy #[id number], 172.5, cm, 11/14/19 13:11:00 [...]
--- OUTSIDE RECORDS SUMMARY | 2022-10-11 14:05 | XMS_ITS | Continuity of Care Document ---
:1975 Author Organization [facility] Adult Address [address] [place] [address]- Care Team Providers Name Role Phone Arielle MECHANICAL COMMISSIONING ENGINEER, Mamta Villatoro Primary Care Physician [place] [facility] [place] - 03/11/22 [facility] Adult [address] [place] [address]- Attending Physician: Admtr, Ar8 Allergies, Adverse Reactions, [...] Toxoid Vaccine (oldterm) 05/15/01 Given 1Result Comment: [facility]: [id number] Comment: [facility]: [id number] History: at [id number] Comment: [09/12/2017] [facility] [id number] Comment: left deltoid lot [id number] exp 10-14-2029 [facility] Medications ARIPiprazole 5 mg oral tablet TAKE 1/2 TABLET BY MOUTH DAILY FOR 14 DAYS, THEN INCREASE TO 1 TABLET BY MOUTH DAILY IF TOLERATED Start Date: 02/08/22 Status: Orderedduloxetine 30 mg oral enteric coated capsule TAKE 1 CAPSULE BY MOUTH EVERY MORNING WITH 60MG DOSE FOR TOTAL DAILY DOSE OF 90MG Start Date: 02/08/22 Status: Orderedfluticasone 50 mcg/inh nasal spray See Instructions, SPRAY 1 SPRAY INTO EACH NOSTRIL TWICE A DAY, # 16 mL, 0 Refills, [facility] 83[facility], 30, SPRAY 1 SPRAY INTO EACH NOSTRIL TWICE A DAY, 175, cm, 08/23/21 14:56:00 EST, Height, 81, kg, 10/18/20 23:19:00 EST, Dry Weight Start Date: 09/14/21 Status: OrderedhydrOXYzine hydrochloride 25 mg oral tablet 1 TABLET BY MOUTH TWICE A DAY NEEDED ANXIETY Start Date: 02/08/22 Status: Orderedlithium 300 mg oral capsule 1 [...] 10/18/20 23:19:00 EST, Dry Weight Start Date: 10/26/21 Status: Ordered Problem List Condition Effective Dates [...]
--- OUTSIDE RECORDS SUMMARY | 2022-10-11 14:05 | XMS_ITS | Continuity of Care Document ---
:1975 Author Organization [facility] Adult Address [address] [place] [address]- Care Team Providers Name Role Phone Arielle LIFELINE REPRESENTATIVES, Mamta Villatoro [id number] - 01/03/20 [facility] Adult [address] [place] [address]- [facility] Attending Physician: Froilan Mosqueda MD Allergies, Adverse Reactions, Alerts Substance Reaction Severity Status sulfamethoxazole rash Active Remeron Active Bactrim rash Active SEROquel Active Immunizations Given and Recorded Vaccine Date Status Refusal Reason influenza virus vaccine, inactivated1 07/15/18 Recorded influenza virus vaccine, inactivated2 09/12/17 Given FluLaval (oldterm) 10/23/12 Given tetanus/diphtheria/pertussis, acel(Tdap) 10/23/12 Given Tetanus Toxoid Vaccine (oldterm) 05/15/01 Given 1Location History: at [id number] Comment: [09/12/2017] [facility] 65476-911-86 Medications Annovera 0.15 mg-0.013 mg/24 hours vaginal [...] each, 0 Refills, Maintenance, 01/01/20 14:16:00 EDT, [id number], 172.5, cm, 11/14/19 13:11:00 [...] tablet, 5 Refills, Maintenance, 11/14/19 13:35:00 EST, [facility]/pharmacy #[id number], 172.5, cm, 11/14/19 13:11:00 [...]
--- OUTSIDE RECORDS SUMMARY | 2022-10-11 14:05 | XMS_ITS | Continuity of Care Document ---
:1975 Author Organization [facility] Adult Address [address] [place] [address]- Care Team Providers Name Role Phone Mamta Guzmán NP Primary Care Physician [id number] Date(s[facility] 11/11/21 - 03/11/22 [facility] [address] [place] [address]- Encounter Diagnosis Bipolar 2 disorder (Discharge Diagnosis) - 02/08/22 Depression, major, recurrent (Discharge Diagnosis) - 02/08/22 Anxiety (Discharge Diagnosis) - 02/08/22 Overactive bladder (Discharge Diagnosis) - 02/08/22 Attending Physician: Mamta Guzmán NP Referring Physician: Bubba Vo MD Allergies, Adverse Reactions, Alerts Substance Reaction [...] 05/15/01 Given 1Result Comment: [facility]: [id number] Comment: [facility]: [id number] History: at [id number] Comment: [09/12/2017] [facility] [id number] Comment: left deltoid lot [id number] exp 10-14-2029 [facility] Medications ARIPiprazole 5 mg oral tablet TAKE [...] A DAY, # 16 mL, 0 Refills, [facility] 83138, 30, SPRAY 1 SPRAY INTO EACH NOSTRIL [...] Active Diagnosis Diagnosis Type Effective Dates Health Clinical Infor mant Status Service Bipolar 2 Discharge 02/08/22 disorder Diagnosis Depression, Discharge 02/08/22 major, recurrent Diagnosis Anxiety Discharge 02/08/22 Diagnosis Overactive Discharge 02/08/22 bladder Diagnosis Social History Social History Type Response Smoking Status Never smoker entered on: 09/12/17 Sex
--- OUTSIDE RECORDS SUMMARY | 2022-10-11 14:05 | XMS_ITS | Continuity of Care Document ---
:1975 Author Organization [facility] Address [address] [place] [address]- Care Team Providers Name Role Phone Arielle Mamta SAWYER Primary Care Physician Encounter [facility] [place] Date(s): 10/20/20 - 11/19/[address] [address] Attending Physician: Not on Staff, Attending MD Admitting Physician: Not on Staff, Admitting MD Referring Physician: Not on Staff, Referring MD Allergies, Adverse Reactions, Alerts Substance Reaction [...] Vaccine (oldterm) 05/15/01 Given 1Location History: at [id number] Comment: [09/12/2017] [facility] [id number] Medications albuterol CFC free 90 mcg/inh inhalation [...] 10/21/20 12:33:00 EST, Route to Pharmacy Electronically, [facility] 3, Partial fill upon patient request [...]
--- OUTSIDE RECORDS SUMMARY | 2022-10-11 14:05 | XMS_ITS | Continuity of Care Document ---
:1975 Author Organization [facility] Adult Address [address] [place] [address]- Care Team Providers Name Role Phone Arielle Mamta SAWYER Primary Care Physician [place] [facility] Date(s): 12/02/20 - 01/01/21 [facility] Adult [address] [place] [address]- Allergies, Adverse Reactions, Alerts Substance Reaction Severity [...] Vaccine (oldterm) 05/15/01 Given 1Location History: at [id number] Comment: [09/12/2017] [facility] [id number] Medications albuterol CFC free 90 mcg/inh inhalation [...] 0 Refills, Maintenance, 12/30/20 8:31:00 EDT, Tablet, [facility]/pharmacy #[id number], 175, cm, 10/21/20 15:42:00 EST, [...] 12:33:00 EST, Route to Pharmacy Electronically, [facility], Partial fill upon patient request if the prescription is for a schedu... Start Date: 10/21/20 Status: OrderedDitropan XL 5 mg/24 hours oral tablet, extended release 1 tablet = 5 mg, By Mouth, Daily, # 30 tablet, 1 Refills, Maintenance, 09/29/20 8:48:00 EST, ER Tablet, [facility]/pharmacy #[id number], 172.5, cm, 09/29/20 8:26:00 EST, Height Start Date: 09/29/20 Status: Orderedduloxetine 30 mg oral enteric coated capsule 1 capsule, By Mouth, Daily in AM, INSTR:TOTAL DAILY DOSE OF 90MG, # 30 capsule, 1 Refills, Maintenance, 12/24/20 15:21:00 EST, [facility], 175, cm, 10/21/20 15:42:00 EST, Height, 81, kg, 10/18/20 23:19:00 EST, Dry Weight Start Date: 12/24/20 Status: Orderedduloxetine 60 mg oral enteric coated capsule 1 capsule, By Mouth, Daily, INSTR:FOR A TOTAL OF 90MG. OFFICE VISIT REQUIRED FOR FURTHER REFILLS, # 30 capsule, 1 Refills, Maintenance, 12/24/20 15:21:00 EST, [facility], 175, cm, 10/21/20 15:42:00 EST, Height, 81, kg, 10/18/20 23:19:00 EST, Dry... Start Date: 12/24/20 Status: OrderedhydrOXYzine hydrochloride 25 mg oral tablet See Instructions, PRN for anxiety, Take 1-2 tablets daily at bedtime as needed for anxiety, # 50 tablet, 0 Refills, Acute 02/01/21 8:30:00 EDT, 12/30/20 8:29:00 EDT, Tablet, [facility]/pharmacy #[id number], 175, cm, 10/21/20 15:42:00 EST, Height, 81, kg, 10/18/20... Start Date: 12/30/20 Stop Date: 02/01/21 Status: Orderedlamotrigine 200 mg oral tablet 1 tablet, By Mouth, Daily, TOTAL DOSE., # 30 tablet, 1 Refills, Maintenance, 09/29/20 8:48:00 EST, [facility]/pharmacy #[id number], 172.5, cm, 09/29/20 8:26:00 EST, Height Start Date: 09/29/20 Status: Orderedlamotrigine 25 mg oral tablet 2, tablet, By Mouth, Daily, office visit required for further refills, # 60 tablet, Refills 1, Tot. Refills 1, Maintenance, 09/29/20 8:48:00 EST, Route to Pharmacy Electronically, [facility]/pharmacy #[id number], 172.5, cm, 09/29/20 8:26:00 EST, [...] 0 Refills, Maintenance, 12/13/20 7:00:00 EST, [facility], 175, cm, 10/21/20 15:42:00 EST, Height, 81, [...]
--- OUTSIDE RECORDS SUMMARY | 2022-10-11 14:05 | XMS_ITS | Continuity of Care Document ---
:1975 Author Organization [facility] Adult Address [address] [place] [address]- Care Team Providers Name Role Phone Arielle LANDSCAPE PHOTOGRAPHER, Mamta Villatoro Primary Care Physician [place] [facility] Date(s): 10/06/21 - 11/05/21 [facility] Adult [address] [place] [address]- Attending Physician: Admtr, Ar8 Allergies, Adverse Reactions, [...] Toxoid Vaccine (oldterm) 05/15/01 Given 1Result Comment: [facility]: [id number] Comment: [facility]: [id number] History: at [id number] Comment: [09/12/2017] [facility] [phone] Comment: left deltoid lot [id number] exp 10-14-[facility] Medications duloxetine 30 mg oral enteric coated capsule 1 capsule, By Mouth, Daily in AM, for 30 days, to be taken with 60mg dose for total daily dose of 90mg, # 30 capsule, 5 Refills, Physician Stop 02/05/22 23:16:00 EDT, 08/09/21 23:16:00 EDT, [facility]/pharmacy #[id number], Do NOT administer more than 30 days at a... Start Date: 08/09/21 Stop Date: 02/05/22 Status: Orderedduloxetine 60 mg oral enteric coated capsule 1 capsule, By Mouth, Daily, for 30 days, total daily dose 90mg, # 30 capsule, 5 Refills, Physician Stop 02/05/22 23:16:00 EDT, 08/09/21 23:16:00 EDT, [facility]/pharmacy #[id number], administer 30 days at a time, 175, cm, 08/09/21 11:17:00 EDT, Height, 81, kg, ... Start Date: 08/09/21 Stop Date: 02/05/22 Status: Orderedfluticasone 50 mcg/inh nasal spray See Instructions, SPRAY 1 SPRAY INTO EACH NOSTRIL TWICE A DAY, # 16 mL, 0 Refills, [facility], 30, SPRAY 1 SPRAY INTO EACH NOSTRIL [...]
--- OUTSIDE RECORDS SUMMARY | 2022-10-11 14:05 | XMS_ITS | Continuity of Care Document ---
:1975 Author Organization [facility] Adult Address [address] [place] [address]- Care Team Providers Name Role Phone Arielle TIPPLE GREASER, Mamta Villatoro Primary Care Physician [facility] Date(s): 06/22/22 - 07/22/22 [facility] Adult [address] [place] [address]- Allergies, Adverse Reactions, Alerts Substance Reaction Severity [...] Comment: [facility]: [id number] Comment: [facility]: [id number] History: at [id number] Comment: [09/12/2017] [facility] [id number] Comment: left deltoid lot [id number] exp [facility]29 [facility] Medic[facility] ARIPiprazole 5 mg oral tablet TAKE 1/2 TABLET BY MOUTH DAILY FOR 14 DAYS, THEN INCREASE TO 1 TABLET BY MOUTH DAILY IF TOLERATED Start Date: 02/08/22 Status: Orderedcyclobenzaprine 5 mg oral tablet See Instructions, Take 1 tablet every 8 hours as needed for muscle spasm, # 21 capsule, 0 Refills, Maintenance, 04/04/22 14:33:00 EDT, Tablet, [facility]/pharmacy #7111, Partial fill upon patient request if [...] A DAY, # 16 mL, 0 Refills, [facility], 30, SPRAY 1 SPRAY INTO EACH NOSTRIL [...] 04/04/22 14:33:00 EDT, Route to Pharmacy Electronically, [facility]/pharmacy #7111, Partial fill upon patient request if [...] information PersonnelName: Mamta Guzmán NP Address: Address: [address] [place] [id number]
--- OUTSIDE RECORDS SUMMARY | 2022-10-11 14:05 | XMS_ITS | Continuity of Care Document ---
:1975 Author Organization [facility] Adult Address [address] [place] [address]- Care Team Providers Name Role Phone Arielle COMPRESS MACHINE OPERATOR, Mamta Villatoro Primary Care Physician Encounter [facility] Date(s): 04/07/22 - 05/07/22 [facility] Adult [address] [place] [address]- Allergies, Adverse Reactions, Alerts Substance Reaction Severity [...] Toxoid Vaccine (oldterm) 05/15/01 Given 1Result Comment: [facility]: [id number] Comment: [facility]: [phone] History: at [id number] Comment: [09/12/2017] [facility] [id number] Comment: left deltoid lot [id number] exp 10-14-[facility]29 [facility] Medic[facility] ARIPiprazole 5 mg oral tablet TAKE 1/2 TABLET BY MOUTH DAILY FOR 14 DAYS, THEN INCREASE TO 1 TABLET BY MOUTH DAILY IF TOLERATED Start Date: 02/08/22 Status: Orderedcyclobenzaprine 5 mg oral tablet See Instructions, Take 1 tablet every 8 hours as needed for muscle spasm, # 21 capsule, 0 Refills, Maintenance, 04/04/22 14:33:00 EDT, Tablet, [facility]/pharmacy #[id number], Partial fill upon patient [...] A DAY, # 16 mL, 0 Refills, [facility], 30, SPRAY 1 SPRAY INTO EACH NOSTRIL [...] 04/04/22 14:33:00 EDT, Route to Pharmacy Electronically, [facility]/pharmacy #[id number], Partial fill upon patient [...]
--- OUTSIDE RECORDS SUMMARY | 2022-10-11 14:05 | XMS_ITS | Continuity of Care Document ---
:1975 Author Organization [facility] Adult Address [address] [place] [address]- Care Team Providers Name Role Phone Arielle SILVERIO, Mamta Villatoro Primary Care Physician [id number] Date[facility] 01/01/20 - 01/08/20 [facility] Adult [address] [place] [address]- [facility] Encounter Diagnosis Cough (Discharge Diagnosis) - 01/02/20 Attending Physician: Not on Staff, Attending MD Allergies, Adverse Reactions, Alerts Substance Reaction Severity Status sulfamethoxazole rash Active Remeron Active Bactrim rash Active SEROquel Active Immunizations Given and Recorded Vaccine Date Status Refusal Reason influenza virus vaccine, inactivated1 07/15/18 Recorded influenza virus vaccine, inactivated2 09/12/17 Given FluLaval (oldterm) 10/23/12 Given tetanus/diphtheria/pertussis, acel(Tdap) 10/23/12 Given Tetanus Toxoid Vaccine (oldterm) 05/15/01 Given 1Location History: at [id number] Comment: [facility]09/12/2017[facility] [id number] Medications Annovera 0.15 mg-0.013 mg/24 hours vaginal [...] Refills, Maintenance, 12/03/19 9:03:00 EST, EC Capsule, [facility]/pharmacy #[id number], 172.5,cm, 11/14/19 13:11:00 EST, Height Start Date: 10/14/18 Status: OrderedFlovent HFA 110 mcg/inh inhalation aerosol 2 puffs, Inhalation, 2 times a day, rinse mouth and throat after use, # 1 each, 0 Refills, Maintenance, 01/01/20 14:16:00 EDT, [facility]/pharmacy #[id number], 172.5, cm, 11/14/19 13:11:00 EST, [...] 01/05/20 11:02:00 EDT, Route to Pharmacy Electronically, [facility]/pharmacy #[id number], 172.5, cm, 11/14/19 13:11:00 EST, Height Start Date: 10/14/18 Status: OrderedrOPINIRole 0.5 mg oral tablet 1 tablet = 0.5 mg, By Mouth, Daily at bedtime, # 30 tablet, 5 Refills, Maintenance, 11/14/19 13:35:00 EST, [facility]/pharmacy #[id number], 172.5, cm, 11/14/19 13:11:00 EST, Height Start Date: 10/14/18 Status: Ordered Problem List Condition Effective Dates Status Health Status Informant Anxiety(Confirmed) Active Bipolar 2 disorder(Confirmed) Active Overactive bladder(Confirmed) Active Chronic sinusitis(Confirmed) Active Suppurative hidradenitis(Confirmed) Active Migraine(Confirmed) Active Post traumatic stress disorder Active (PTSD)(Confirmed) Depression, major, Active recurrent(Confirmed) Restless leg syndrome(Confirmed) Active Diagnosis Diagnosis Type Effective Dates Health Status Clinical Serv ice Informant Cough Discharge 01/02/20 Diagnosis Social History Social History Type Response Smoking Status Never smoker entered on: 09/12/17 Sex
--- OUTSIDE RECORDS SUMMARY | 2022-10-11 14:05 | XMS_ITS | Continuity of Care Document ---
:1975 Author Organization [facility] Adult Address [address] [place] [address]- Care Team Providers Name Role Phone Arielle SILVERIO, Mamta Villatoro Primary Care Physician [id number] Date(s): 11/14/19 - 11/21/19 [facility] Adult [address] [place] [address]- [facility] Encounter Diagnosis Bipolar 2 disorder (Discharge Diagnosis) - 11/14/19 Depression, major, recurrent (Discharge Diagnosis) - 11/14/19 Anxiety (Discharge Diagnosis) - 11/14/19 Post traumatic stress disorder (PTSD) (Discharge Diagnosis) - 11/14/19 Sinusitis (Discharge Diagnosis) - 11/20/19 Attending Physician: Not on Staff, Attending MD Allergies, Adverse Reactions, Alerts Substance Reaction Severity Status sulfamethoxazole rash Active Remeron Active Bactrim rash Active SEROquel Active Immunizations Given and Recorded Vaccine Date Status Refusal Reason influenza virus vaccine, inactivated1 07/15/18 Recorded influenza virus vaccine, inactivated2 09/12/17 Given FluLaval (oldterm) 10/23/12 Given tetanus/diphtheria/pertussis, acel(Tdap) 10/23/12 Given Tetanus Toxoid Vaccine (oldterm) 05/15/01 Given 1Location History: at [id number] Comment: [09/12/2017] [facility] [id number] Medications Annovera 0.15 mg-0.013 mg/24 hours vaginal [...] times a day Start Date: 06/19/19 Status: OrderedHibiclens 4% soap See Instructions, 1 application Topically 2 times a day, # 240 mL, 0 Refills, Soft Stop, 06/19/19 11:21:10 EDT, 1 application Topically 2 times a day Start Date: 06/19/19 Status: OrderedrOPINIRole 0.5 mg oral tablet 1 tablet = 0.5 mg, By Mouth, Daily at bedtime, # 30 tablet, 5 Refills, Maintenance, 11/14/19 13:35:00 EST, [facility]/pharmacy #[id number], 172.5, cm, 11/14/19 13:11:00 EST, [...] Dates Health Status Clinical In formant Service Bipolar 2 Discharge 11/14/19 disorder Diagnosis Depression, Discharge 11/14/19 major, recurrent Diagnosis Anxiety Discharge 11/14/19 Diagnosis Post traumatic Discharge 11/14/19 stress disorder Diagnosis (PTSD) Sinusitis Discharge 11/20/19 Diagnosis Vital Signs Most recent to oldest [Reference Range]: 1 Height 172.5 cm (11/14/19 1:11 PM) Weight 77.6 kg (11/14/19 1:11 PM) Oxygen Saturation [94-100 %] 98 % (11/14/19 1:11 PM) Pulse Rate [55-90 bpm] 80 bpm (11/14/19 1:11 PM) Body Mass Index [18.5-24.99] 26.08 *H* (11/14/19 1:11 PM) Blood Pressure [90-138/55-84 mm Hg] 126/84 mm Hg (11/14/19 1:11 PM) Temperature [96.8-100.4 DegF] 98.2 DegF (11/14/19 1:11 PM) Mode of Delivery (Oxygen) Room air (11/14/19 1:11 PM) Blood pressure sites Arm, right (11/14/19 1:11 PM) Temperature Route Oral (11/14/19 1:11 PM) Weight Obtained Via Standing scale (11/14/19 1:11 PM) Social History Social History Type Response Smoking Status Never smoker entered on: 09/12/17 Sex
--- OUTSIDE RECORDS SUMMARY | 2022-10-11 14:05 | XMS_ITS | Continuity of Care Document ---
:1975 Author Organization [facility] Adult Address [address] [place] [address]- Care Team Providers Name Role Phone Mamta Guzmán NP Primary Care Physician Encounter [facility] [place] Date(s): 08/09/21 - 08/16/21 [facility] Adult [address] [place] [address]- Encounter Diagnosis Annual physical exam (Discharge Diagnosis) - 08/09/21 Depression, major, recurrent (Discharge Diagnosis) - 08/09/21 Bipolar 2 disorder (Discharge Diagnosis) - 08/09/21 Ganglion cyst of right foot (Discharge Diagnosis) - 08/09/21 Attending Physician: Not on Staff, Attending MD Referring Physician: Mamta Guzmán NP Allergies, [...] Vaccine (oldterm) 05/15/01 Given 1Result Comment: [facility]: [id number] Comment: [facility]: [id number] History: at [id number] Comment: [09/12/2017] [facility] [id number] Comment: left deltoid lot [id number] exp 10-14-2029 [facility] Medications duloxetine 30 mg oral enteric coated capsule 1 capsule, By Mouth, Daily in AM, for 30 days, to be taken with 60mg dose for total daily dose of 90mg, # 30 capsule, 5 Refills, Physician Stop 02/05/22 23:16:00 EDT, 08/09/21 23:16:00 EDT, [facility]/pharmacy #[id number], Do NOT administer more than 30 days at a... Start Date: 08/09/21 Stop Date: 02/05/22 Status: Orderedduloxetine 60 mg oral enteric coated capsule 1 capsule, By Mouth, Daily, for 30 days, total daily dose 90mg, # 30 capsule, 5 Refills, Physician Stop 02/05/22 23:16:00 EDT, 08/09/21 23:16:00 EDT, [facility]/pharmacy #[id number], administer 30 days at a time, 175, cm, 08/09/21 11:17:00 EDT, Height, 81, kg, ... Start Date: 08/09/21 Stop Date: 02/05/22 Status: Orderedlamotrigine 100 mg oral tablet 100 mg, 1, tablet, By Mouth, Daily, for 30 days, # 30 tablet, Refills 5, Tot. Refills 5, Acute 02/05/22 23:15:00 EDT, 08/09/21 23:15:00 EDT, Route to Pharmacy Electronically, [facility]/pharmacy #[id number], ONLY administer 30 days at a [...] Clinical In formant Service Annual physical Discharge 08/09/21 exam Diagnosis Depression, Discharge 08/09/21 major, recurrent Diagnosis Ganglion cyst of Discharge 08/09/21 right foot Diagnosis Bipolar 2 Discharge 08/09/21 disorder Diagnosis Vital Signs Most recent to oldest [Reference Range]: 1 Height 175 cm (08/09/21 11:17 AM) Weight 90.6 kg (08/09/21 11:17 AM) Oxygen Saturation [94-100 %] 98 % (08/09/21 11:17 AM) Pulse Rate [55-90 bpm] 82 bpm (08/09/21 11:17 AM) Body Mass Index [18.5-24.99] 29.58 *H* (08/09/21 11:17 AM) Blood Pressure [90-138/55-84 mm Hg] 128/64 mm Hg (08/09/21 11:17 AM) Respiratory Rate [16-30 br/min] 16 br/min (08/09/21 11:17 AM) Temperature [96.8-100.4 DegF] 98.3 DegF (08/09/21 11:17 AM) Mode of Delivery (Oxygen) Room air (08/09/21 11:17 AM) Blood pressure sites Arm, right (08/09/21 11:17 AM) Temperature Route Oral (08/09/21 11:17 AM) Weight Obtained Via Standing scale (08/09/21 11:17 AM) Social History Social History Type Response Smoking Status Never smoker entered on: 09/12/17 Sex
--- OUTSIDE RECORDS SUMMARY | 2022-10-11 14:06 | XMS_ITS | Continuity of Care Document ---
:1975 Author Organization [facility] Adult Address [address] [place] [address]- Care Team Providers Name Role Phone Arielle Mamta SAWYER Primary Care Physician Encounter [facility] Date(s): 04/21/20 - 05/21/20 [facility] Adult [address] [place] [address]- [facility] Allergies, Adverse Reactions, Alerts Substance Reaction Severity Status sulfamethoxazole rash Active Remeron Active Bactrim rash Active SEROquel Active Immunizations Given and Recorded Vaccine Date Status Refusal Reason influenza virus vaccine, inactivated1 07/15/18 Recorded influenza virus vaccine, inactivated2 09/12/17 Given FluLaval (oldterm) 10/23/12 Given tetanus/diphtheria/pertussis, acel(Tdap) 10/23/12 Given Tetanus Toxoid Vaccine (oldterm) 05/15/01 Given 1Location History: at [id number] Comment: [09/12/2017] [facility] [id number] Medications Annovera 0.15 mg-0.013 mg/24 hours vaginal [...] Refills, Maintenance, 03/19/20 11:24:00 EDT, [facility], 172.5, cm, 11/14/19 13:11:00 EST, Height Start [...] 30 tablet, 1 Refills, Maintenance, [facility], 172.5, cm, 11/14/19 13:11:00 EST, Height Start [...]
--- OUTSIDE RECORDS SUMMARY | 2022-10-11 14:06 | XMS_ITS | Continuity of Care Document ---
:1975 Author Organization [facility] [place] Adult Address [address] [place] [address]- Care Team Providers Name Role Phone Arielle PROFESSIONAL DEVELOPMENT DIRECTORMamta Primary Care Physician [facility]counter [facility] Date(s): 07/13/21 - 08/12/21 [facility] Adult [address] [place] [address]- Allergies, Adverse Reactions, Alerts Substance Reaction Severity [...] Toxoid Vaccine (oldterm) 05/15/01 Given 1Result Comment: [facility]: [id number] Comment: [facility]: [id number] History: at [id number] Comment: [09/12/2017] [facility] [id number] Comment: left deltoid lot [id number] [facility]29 [facility] Medications duloxetine 30 mg oral enteric coated capsule 1 capsule, By Mouth, Daily in AM, for 30 days, to be taken with 60mg dose for total daily dose of 90mg, # 30 capsule, 5 Refills, Physician Stop 02/05/22 23:16:00 EDT, 08/09/21 23:16:00 EDT, [facility]/pharmacy #[id number], Do NOT administer more than 30 days at a... Start Date: 08/09/21 Stop Date: 02/05/22 Status: Orderedduloxetine 60 mg oral enteric coated capsule 1 capsule, By Mouth, Daily, for 30 days, total daily dose 90mg, # 30 capsule, 5 Refills, Physician Stop 02/05/22 23:16:00 EDT, 08/09/21 23:16:00 EDT, [facility]/pharmacy #[id number], administer 30 days at a time, 175, cm, 08/09/21 11:17:00 EDT, Height, 81, kg, ... Start Date: 08/09/21 Stop Date: 02/05/22 Status: Orderedlamotrigine 100 mg oral tablet 100 mg, 1, tablet, By Mouth, Daily, for 30 days, # 30 tablet, Refills 5, Tot. Refills 5, Acute 02/05/22 23:15:00 EDT, 08/09/21 23:15:00 EDT, Route to Pharmacy Electronically, [facility]/pharmacy #[id number], ONLY administer 30 days at a [...]
--- OUTSIDE RECORDS SUMMARY | 2022-10-11 14:06 | XMS_ITS | Continuity of Care Document ---
:1975 Author Organization [facility] Adult Address [address] [place] [address]- Care Team Providers Name Role Phone Arielle Mamta SAWYER Primary Care Physician [place] [facility] [place]s): 05/07/20 - 06/06/20 [facility] Adult [address] [place] [address]- [facility] Attending Physician: Admtr, Ar8 Allergies, Adverse Reactions, Alerts Substance Reaction Severity Status sulfamethoxazole rash Active Remeron Active Bactrim rash Active SEROquel Active Immunizations Given and Recorded Vaccine Date Status Refusal Reason influenza virus vaccine, inactivated1 07/15/18 Recorded influenza virus vaccine, inactivated2 09/12/17 Given FluLaval (oldterm) 10/23/12 Given tetanus/diphtheria/pertussis, acel(Tdap) 10/23/12 Given Tetanus Toxoid Vaccine (oldterm) 05/15/01 Given 1Location History: at [id number] Comment: [09/12/2017] [facility] 58254-798-16 Medications Annovera 0.15 mg-0.013 mg/24 hours vaginal [...] each, 5 Refills, Maintenance, 01/26/20 9:49:00 EDT, [facility]/pharmacy #[id number], 172.5, cm, 11/14/19 13:11:00 EST, [...] Refills, Maintenance, 03/19/20 11:24:00 EDT, [facility], 172.5, cm, 11/14/19 13:11:00 EST, Height Start [...] 30 tablet, 1 Refills, Maintenance, [facility], 172.5, cm, 11/14/19 13:11:00 EST, Height Start [...]
--- OUTSIDE RECORDS SUMMARY | 2022-10-11 14:06 | XMS_ITS | Continuity of Care Document ---
:1975 Author Organization [facility] Adult Address [address] [place] [address]- Care Team Providers Name Role Phone Arielle FRONT TENDER, Mamta Villatoro Primary Care Physician [id number] Date(s[facility] 11/14/19 - 11/24/19 [facility] Adult [address] [place] [address]- [facility] Attending Physician: AdmtrMargaret Allergies, Adverse Reactions, Alerts Substance Reaction Severity Status sulfamethoxazole rash Active Remeron Active Bactrim rash Active SEROquel Active Immunizations Given and Recorded Vaccine Date Status Refusal Reason influenza virus vaccine, inactivated1 07/15/18 Recorded influenza virus vaccine, inactivated2 09/12/17 Given FluLaval (oldterm) 10/23/12 Given tetanus/diphtheria/pertussis, acel(Tdap) 10/23/12 Given Tetanus Toxoid Vaccine (oldterm) 05/15/01 Given 1Location History: at [id number] Comment: [09/12/2017] [facility] [id number] Medications Annovera 0.15 mg-0.013 mg/24 hours vaginal [...] tablet, 5 Refills, Maintenance, 11/14/19 13:35:00 EST, [facility]/pharmacy #[id number], 172.5, cm, 11/14/19 [...]
--- OUTSIDE RECORDS SUMMARY | 2022-10-11 14:06 | XMS_ITS | Continuity of Care Document ---
:1975 Author Organization [facility] Adult Address [address] [place] [address]- Care Team Providers Name Role Phone Mamta Guzmán NP Primary Care Physician Encounter [facility] Date(s): 03/29/21 - 05/25/21 [facility] Adult [address] [place] [address]- Encounter Diagnosis Bipolar 2 disorder (Discharge Diagnosis) - 04/24/21 Depression, major, recurrent (Discharge Diagnosis) - 04/24/21 Anxiety (Discharge Diagnosis) - 04/24/21 Migraine (Discharge Diagnosis) - 04/24/21 Overactive bladder (Discharge Diagnosis) - 04/24/21 Attending Physician: Not on Staff, Attending MD [...] 05/15/01 Given 1Result Comment: left deltoid lot [id number] exp 10-14-2029 [id number] History: at [id number] Comment: [09/12/2017] [facility] 22182-389-23 Medications albuterol CFC free 90 mcg/inh inhalation [...] 10/21/20 12:33:00 EST, Route to Pharmacy Electronically, [facility], Partial fill upon patient request [...] Infor mant Status Service Bipolar 2 Discharge 04/24/21 disorder Diagnosis Depression, Discharge 04/24/21 major, recurrent Diagnosis Anxiety Discharge 04/24/21 Diagnosis Migraine Discharge 04/24/21 Diagnosis Overactive Discharge 04/24/21 bladder Diagnosis Social History Social History Type Response Smoking Status Never smoker entered on: 09/12/17 Sex
--- OUTSIDE RECORDS SUMMARY | 2022-10-11 14:06 | XMS_ITS | Continuity of Care Document ---
:1975 Author Organization [facility] Adult Address [address] [place] [address]- Care Team Providers Name Role Phone Arielle [employer] SWITCH[employer] OPERATORMamta Primary Care Physician [facility]counter [facility] Date(s): 07/14/21 - 08/13/21 [facility] Adult [address] [place] [address]- Allergies, Adverse Reactions, Alerts Substance Reaction Severity [...] Vaccine (oldterm) 05/15/01 Given 1Result Comment: [facility]: [id number] Comment: [facility]: [phone] History: at [id number] Comment: [09/12/2017] [facility] [phone] Comment: left deltoid lot [id number] exp 10-14-2029 [facility] Medications duloxetine 30 mg oral enteric coated capsule 1 capsule, By Mouth, Daily in AM, for 30 days, to be taken with 60mg dose for total daily dose of 90mg, # 30 capsule, 5 Refills, Physician Stop 02/05/22 23:16:00 EDT, 08/09/21 23:16:00 EDT, [facility]/pharmacy #[id number], Do NOT administer more than 30 days at a... Start Date: 08/09/21 Stop Date: 02/05/22 Status: Orderedduloxetine 60 mg oral enteric coated capsule 1 capsule, By Mouth, Daily, for 30 days, total daily dose 90mg, # 30 capsule, 5 Refills, Physician Stop 02/05/22 23:16:00 EDT, 08/09/21 23:16:00 EDT, [facility]/pharmacy #[id number], administer 30 days at a time, 175, cm, 08/09/21 11:17:00 EDT, Height, 81, kg, ... Start Date: 08/09/21 Stop Date: 02/05/22 Status: Orderedlamotrigine 100 mg oral tablet 100 mg, 1, tablet, By Mouth, Daily, for 30 days, # 30 tablet, Refills 5, Tot. Refills 5, Acute 02/05/22 23:15:00 EDT, 08/09/21 23:15:00 EDT, Route to Pharmacy Electronically, [facility]/pharmacy #[id number], ONLY administer 30 days at [...]
--- OUTSIDE RECORDS SUMMARY | 2022-10-11 14:06 | XMS_ITS | Continuity of Care Document ---
:1975 Author Organization [facility] Adult Address [address] [place] [address]- Care Team Providers Name Role Phone Arielle Mamta SAWYER Primary Care Physician Encounter [facility] Date(s): 09/29/20 - 10/06/20 [facility] Adult [address] [place] [address]- Encounter Diagnosis Blepharitis (Discharge Diagnosis) - 09/29/20 Bipolar 2 disorder (Discharge Diagnosis) - 09/29/20 Depression, major, recurrent (Discharge Diagnosis) - 09/29/20 Overactive bladder (Discharge Diagnosis) - 09/29/20 Attending Physician: Not on Staff, Attending MD Allergies, Adverse Reactions, Alerts Substance Reaction Severity Status sulfamethoxazole rash Active Remeron Active Bactrim rash Active SEROquel Active Immunizations Given and Recorded Vaccine Date Status Refusal Reason influenza virus vaccine, inactivated1 07/15/18 Recorded influenza virus vaccine, inactivated2 09/12/17 Given FluLaval (oldterm) 10/23/12 Given tetanus/diphtheria/pertussis, acel(Tdap) 10/23/12 Given Tetanus Toxoid Vaccine (oldterm) 05/15/01 Given 1Location History: at [id number] Comment: [09/12/2017] [facility] [id number] Medications Annovera 0.15 mg-0.013 mg/24 hours vaginal [...] Refills, Maintenance, 09/29/20 8:48:00 EST, ER Tablet, [facility]/pharmacy #[id number], 172.5, cm, 09/29/20 8:26:00 EST, Height Start Date: 09/29/20 Status: OrderedDitropan XL 5 mg/24 hours oral tablet, extended release 1 tablet = 5 mg, By Mouth, Daily, # 30 tablet, 3 Refills, Maintenance, 05/29/19 14:12:45 EDT, ER Tablet Start Date: 05/29/19 Status: Orderedduloxetine 30 mg oral enteric coated capsule 1 capsule, By Mouth, Daily in AM, TOTAL DAILY DOSE OF 90MG, # 30 capsule, 0 Refills, Maintenance, 09/29/20 8:46:00 EST, [facility]/pharmacy #[id number], 172.5, cm, 09/29/20 8:26:00 EST, Height Start Date: 09/29/20 Status: Orderedduloxetine 60 mg oral enteric coated capsule 1 capsule = 60 mg, By Mouth, Daily, for a total of 90mg QAM OFFICE VISIT REQUIRED FOR FURTHER REFILLS, # 30 capsule, 0 Refills, Maintenance, 09/29/20 8:46:00 EST, EC Capsule, [facility]/pharmacy #[id number], 172.5,cm, 09/29/20 8:26:00 EST, Height Start Date: 10/14/18 Status: Orderederythromycin 0.5% ophthalmic ointment 0.5 inches, Eye, Left, 4 times a day, for 10 days, # 3.5 Gm, 0 Refills, Acute 10/09/20 8:53:00 EST, 09/29/20 8:53:00 EST, Ophth Ointment, [facility]/pharmacy #[id number], 0.5 inches Eye, Left 4 times a day,x10 days, 172.5, cm, 09/29/20 8:26:00 EST, Height Start Date: 09/29/20 Stop Date: 10/09/20 Status: OrderedFlovent HFA 110 mcg/inh inhalation aerosol 2 puffs, Inhalation, 2 times a day, rinse mouth and throat after use, # 1 each, 5 Refills, Maintenance, 01/26/20 9:49:00 EDT, [facility]/pharmacy #[id number], 172.5, cm, 11/14/19 13:11:00 EST, Height Start Date: 01/26/20 Status: OrderedHibiclens 4% soap See Instructions, 1 application Topically 2 times a day, # 240 mL, 0 Refills, Soft Stop, 06/19/19 11:21:10 EDT, 1 application Topically 2 times a day Start Date: 06/19/19 Status: Orderedlamotrigine 200 mg oral tablet 1 tablet, By Mouth, Daily, TOTAL DOSE., # 30 tablet, 1 Refills, Maintenance, 09/29/20 8:48:00 EST, [facility]/pharmacy #[id number], 172.5, cm, 09/29/20 8:26:00 EST, Height Start Date: 09/29/20 Status: Orderedlamotrigine 25 mg oral tablet 2, tablet, By Mouth, Daily, office visit required for further refills, # 60 tablet, Refills 1, Tot. Refills 1, Maintenance, 09/29/20 8:48:00 EST, Route to Pharmacy Electronically, [facility]/pharmacy #[id number], 172.5, cm, 09/29/20 8:26:00 EST, Height Start Date: 09/29/20 Status: OrderedrOPINIRole 0.5 mg oral tablet 1 tablet = 0.5 mg, By Mouth, Daily at bedtime, # 30 tablet, 5 Refills, Maintenance, 11/14/19 13:35:00 EST, [facility]/pharmacy #[id number], 172.5, cm, 11/14/19 13:11:00 EST, Height Start Date: 10/14/18 Status: Ordered Problem List Condition Effective Dates Status Health Status Informant Anxiety(Confirmed) Active Bipolar 2 disorder(Confirmed) Active Overactive bladder(Confirmed) Active Chronic sinusitis(Confirmed) Active Suppurative hidradenitis(Confirmed) Active Migraine(Confirmed) Active Post traumatic stress disorder Active (PTSD)(Confirmed) Depression, major, Active recurrent(Confirmed) Restless leg syndrome(Confirmed) Active Diagnosis Diagnosis Type Effective Dates Health Clinical Infor [facility] Status Service Blepharitis Discharge 09/29/20 Diagnosis Bipolar 2 disorder Discharge 09/29/20 Diagnosis Depression, major, Discharge 09/29/20 recurrent Diagnosis Overactive bladder Discharge 09/29/20 Diagnosis Vital Signs Most recent to oldest [Reference Range]: 1 Height 172.5 cm (09/29/20 8:26 AM) Weight 83.1 kg (09/29/20 8:26 AM) Oxygen Saturation [94-100 %] 98 % (09/29/20 8:26 AM) Pulse Rate [55-90 bpm] 64 bpm (09/29/20 8:26 AM) Body Mass Index [18.5-24.99] 27.93 *H* (09/29/20 8:26 AM) Blood Pressure [90-138/55-84 mm Hg] 118/74 mm Hg (09/29/20 8:26 AM) Temperature [96.8-100.4 DegF] 98.6 DegF (09/29/20 8:26 AM) Blood pressure sites Arm, left (09/29/20 8:26 AM) Temperature Route Oral (09/29/20 8:26 AM) Social History Social History Type Response Smoking Status Never smoker entered on: 09/12/17 Sex
--- OUTSIDE RECORDS SUMMARY | 2022-10-11 14:06 | XMS_ITS | Continuity of Care Document ---
:1975 Author Organization [facility] Adult Address [address] [place] [address]- Care Team Providers Name Role Phone Mamta Guzmán NP Primary Care Physician Encounter [facility] Date(s): 09/22/21 - 11/05/21 [facility] Adult [address] [place] [address]- Attending Physician: Mamta Guzmán NP Allergies, Adverse [...] Toxoid Vaccine (oldterm) 05/15/01 Given 1Result Comment: [facility]: [id number] Comment: [facility]: [phone] History: at [id number] Comment: [09/12/2017] [facility] [id number] Comment: left deltoid lot [id number] exp 10-14-2029 [facility] Medications duloxetine 30 mg oral enteric coated capsule 1 capsule, By Mouth, Daily in AM, for 30 days, to be taken with 60mg dose for total daily dose of 90mg, # 30 capsule, 5 Refills, Physician Stop 02/05/22 23:16:00 EDT, 08/09/21 23:16:00 EDT, [facility]/pharmacy #[id number], Do NOT administer more than 30 days at a... Start Date: 08/09/21 Stop Date: 02/05/22 Status: Orderedduloxetine 60 mg oral enteric coated capsule 1 capsule, By Mouth, Daily, for 30 days, total daily dose 90mg, # 30 capsule, 5 Refills, Physician Stop 02/05/22 23:16:00 EDT, 08/09/21 23:16:00 EDT, [facility]/pharmacy #[id number], administer 30 days at a time, 175, cm, 08/09/21 11:17:00 EDT, Height, 81, kg, ... Start Date: 08/09/21 Stop Date: 02/05/22 Status: Orderedfluticasone 50 mcg/inh nasal spray See Instructions, SPRAY 1 SPRAY INTO EACH NOSTRIL TWICE A DAY, # 16 mL, 0 Refills, [facility] STORE 720[facility], 30, SPRAY 1 SPRAY INTO EACH NOSTRIL [...]
--- OUTSIDE RECORDS SUMMARY | 2022-10-11 14:06 | XMS_ITS | Continuity of Care Document ---
:1975 Author Organization [facility] Adult Address [address] [place] [address]- Care Team Providers Name Role Phone Arielle DRY CHAIN PULLER, Mamta Villatoro Primary Care Physician [facility]counter [facility] Date(s): 03/31/22 - 04/30/22 [facility] Adult [address] [place] [address]- Allergies, Adverse Reactions, Alerts Substance Reaction Severity [...] Toxoid Vaccine (oldterm) 05/15/01 Given 1Result Comment: [facility]: [id number] Comment: [facility]: [phone] History: at [id number] Comment: [09/12/2017] [facility] [phone] Comment: left deltoid lot [id number] exp 10-14-2029 [facility] Medications ARIPiprazole 5 mg oral tablet TAKE 1/2 TABLET BY MOUTH DAILY FOR 14 DAYS, THEN INCREASE TO 1 TABLET BY MOUTH DAILY IF TOLERATED Start Date: 02/08/22 Status: Orderedcyclobenzaprine 5 mg oral tablet See Instructions, Take 1 tablet every 8 hours as needed for muscle spasm, # 21 capsule, 0 Refills, Maintenance, 04/04/22 14:33:00 EDT, Tablet, [facility]/pharmacy #[id number], Partial fill upon patient request if [...] A DAY, # 16 mL, 0 Refills, [facility] STORE [id number], 30, SPRAY 1 SPRAY INTO EACH NOSTRIL [...] 04/04/22 14:33:00 EDT, Route to Pharmacy Electronically, [facility]/pharmacy #[id number], Partial fill upon patient request if [...]
--- OUTSIDE RECORDS SUMMARY | 2022-10-11 14:06 | XMS_ITS | Continuity of Care Document ---
:1975 Author Organization [facility] Adult Address [address] [place] [address]- Care Team Providers Name Role Phone Arielle Mamta SAWYER Primary Care Physician Encounter [facility] Date(s): 12/28/20 - 01/27/21 [facility] Adult [address] [place] [address]- Allergies, Adverse Reactions, Alerts Substance Reaction Severity [...] Vaccine (oldterm) 05/15/01 Given 1Location History: at [id number] Comment: [09/12/2017] [facility] [id number] Medications albuterol CFC free 90 mcg/inh inhalation [...] 0 Refills, Maintenance, 12/30/20 8:31:00 EDT, Tablet, [facility]/pharmacy #[id number], 175, cm, 10/21/20 15:42:00 EST, [...] 10/21/20 12:33:00 EST, Route to Pharmacy Electronically, [facility], Partial fill upon patient request if the prescription is for a schedu... Start Date: 10/21/20 Status: OrderedDitropan XL 5 mg/24 hours oral tablet, extended release 1 tablet = 5 mg, By Mouth, Daily, # 30 tablet, 1 Refills, Maintenance, 09/29/20 8:48:00 EST, ER Tablet, [facility]/pharmacy #[id number], 172.5, cm, 09/29/20 8:26:00 EST, Height Start Date: 09/29/20 Status: Orderedduloxetine 30 mg oral enteric coated capsule 1 capsule, By Mouth, Daily in AM, INSTR:TOTAL DAILY DOSE OF 90MG, # 30 capsule, 1 Refills, Maintenance, 12/24/20 15:21:00 EST, [facility], 175, cm, 10/21/20 15:42:00 EST, Height, 81, kg, 10/18/20 23:19:00 EST, Dry Weight Start Date: 12/24/20 Status: Orderedduloxetine 60 mg oral enteric coated capsule 1 capsule, By Mouth, Daily, INSTR:FOR A TOTAL OF 90MG. OFFICE VISIT REQUIRED FOR FURTHER REFILLS, # 30 capsule, 1 Refills, Maintenance, 12/24/20 15:21:00 EST, [facility] STORE 35251, 175, cm, 10/21/20 15:42:00 EST, Height, 81, kg, 10/18/20 23:19:00 EST, Dry... Start Date: 12/24/20 Status: OrderedhydrOXYzine hydrochloride 25 mg oral tablet See Instructions, PRN for anxiety, Take 1-2 tablets daily at bedtime as needed for anxiety, # 50 tablet, 0 Refills, Acute 02/01/21 8:30:00 EDT, 12/30/20 8:29:00 EDT, Tablet, [facility]/pharmacy #[id number], 175, cm, 10/21/20 15:42:00 EST, Height, 81, kg, 10/18/20... Start Date: 12/30/20 Stop Date: 02/01/21 Status: Orderedlamotrigine 200 mg oral tablet 1 tablet, By Mouth, Daily, TOTAL DOSE., # 30 tablet, 1 Refills, Maintenance, 09/29/20 8:48:00 EST, [facility]/pharmacy #[id number], 172.5, cm, 09/29/20 8:26:00 EST, Height Start Date: 09/29/20 Status: Orderedlamotrigine 25 mg oral tablet 2, tablet, By Mouth, Daily, office visit required for further refills, # 60 tablet, Refills 1, Tot. Refills 1, Maintenance, 09/29/20 8:48:00 EST, Route to Pharmacy Electronically, [facility]/pharmacy #[id number], 172.5, cm, 09/29/20 8:26:00 EST, [...] tablet, 3 Refills, Maintenance, 01/17/21 15:44:00 EDT, [facility] STORE [id number], 175, cm, 10/21/20 15:42:00 EST, Height, 81, [...]
--- OUTSIDE RECORDS SUMMARY | 2022-10-11 14:06 | XMS_ITS | Continuity of Care Document ---
:1975 Author Organization [facility] Adult Address [address] [place] [address]- Care Team Providers Name Role Phone Arielle [employer] FI[employer] AGENTMamta Primary Care Physician [facility]counter [facility] Date(s): 08/12/21 - 09/11/21 [facility] Adult [address] [place] [address]- Allergies, Adverse Reactions, Alerts Substance Reaction Severity [...] Given 1Result Comment: [facility]: [phone] Comment: [facility]: [id number] History: at [id number] Comment: [09/12/2017] [facility] [id number] Comment: left deltoid lot [id number] exp 10-14-2029 [facility] Medications duloxetine 30 mg oral enteric coated capsule 1 capsule, By Mouth, Daily in AM, for 30 days, to be taken with 60mg dose for total daily dose of 90mg, # 30 capsule, 5 Refills, Physician Stop 02/05/22 23:16:00 EDT, 08/09/21 23:16:00 EDT, [facility]/pharmacy #[id number], Do NOT administer more than 30 days at a... Start Date: 08/09/21 Stop Date: 02/05/22 Status: Orderedduloxetine 60 mg oral enteric coated capsule 1 capsule, By Mouth, Daily, for 30 days, total daily dose 90mg, # 30 capsule, 5 Refills, Physician Stop 02/05/22 23:16:00 EDT, 08/09/21 23:16:00 EDT, [facility]/pharmacy #[id number], administer 30 days at a time, 175, cm, 08/09/21 11:17:00 EDT, Height, 81, kg, ... Start Date: 08/09/21 Stop Date: 02/05/22 Status: Orderedlamotrigine 100 mg oral tablet 100 mg, 1, tablet, By Mouth, Daily, for 30 days, # 30 tablet, Refills 5, Tot. Refills 5, Acute 02/05/22 23:15:00 EDT, 08/09/21 23:15:00 EDT, Route to Pharmacy Electronically, [facility]/pharmacy #[id number], ONLY administer 30 days at [...]
--- OUTSIDE RECORDS SUMMARY | 2022-10-11 14:06 | XMS_ITS | Continuity of Care Document ---
:1975 Author Organization [facility] Adult Address [address] [place] [address]- Care Team Providers Name Role Phone Arielle WORKPLACE REHABILITATION OFFICER, Mmata Villatoro Primary Care Physician [place] [facility] Date[place]s): 08/23/21 - 08/30/21 [facility] Adult [address] [place] [address]- Encounter Diagnosis Acute maxillary sinusitis (Discharge Diagnosis) - 08/23/21 Attending Physician: Adrienne Samaniego NP Allergies, Adverse Reactions, Alerts Substance Reaction [...] 05/15/01 Given 1Result Comment: [facility]: [phone] Comment: [facility]: [phone] History: at [id number] Comment: [09/12/2017] [facility] [phone] Comment: left deltoid lot [id number] exp 10-14-2029 [facility] Medications duloxetine 30 mg oral enteric coated capsule 1 capsule, By Mouth, Daily in AM, for 30 days, to be taken with 60mg dose for total daily dose of 90mg, # 30 capsule, 5 Refills, Physician Stop 02/05/22 23:16:00 EDT, 08/09/21 23:16:00 EDT, [facility]/pharmacy #[id number], Do NOT administer more than 30 days at a... Start Date: 08/09/21 Stop Date: 02/05/22 Status: Orderedduloxetine 60 mg oral enteric coated capsule 1 capsule, By Mouth, Daily, for 30 days, total daily dose 90mg, # 30 capsule, 5 Refills, Physician Stop 02/05/22 23:16:00 EDT, 08/09/21 23:16:00 EDT, [facility]/pharmacy #[id number], administer 30 days at a time, 175, cm, 08/09/21 11:17:00 EDT, Height, 81, kg, ... Start Date: 08/09/21 Stop Date: 02/05/22 Status: Orderedlamotrigine 100 mg oral tablet 100 mg, 1, tablet, By Mouth, Daily, for 30 days, # 30 tablet, Refills 5, Tot. Refills 5, Acute 02/05/22 23:15:00 EDT, 08/09/21 23:15:00 EDT, Route to Pharmacy Electronically, [facility]/pharmacy #[id number], ONLY administer 30 days at [...] Dates Health Status Clinical In formant Service Acute maxillary Discharge 08/23/21 sinusitis Diagnosis Vital Signs Most recent to oldest [Reference Range]: 1 Height 175 cm (08/23/21 2:56 PM) Social History Social History Type Response Smoking Status Never smoker entered on: 09/12/17 Sex
--- OUTSIDE RECORDS SUMMARY | 2022-10-11 14:06 | XMS_ITS | Continuity of Care Document ---
:1975 Author Organization [address] [place] [address]- Care Team Providers Name Role Phone Mamta Guzmán NP [id number] - 01/11/[address] [place] [address]- [facility] Attending Physician: Michael Read MD Referring Physician: Mamta Guzmán NP Allergies, Adverse Reactions, Alerts Substance Reaction Severity Status sulfamethoxazole rash Active Remeron Active Bactrim rash Active SEROquel Active Immunizations Given and Recorded Vaccine Date Status Refusal Reason influenza virus vaccine, inactivated1 07/15/18 Recorded influenza virus vaccine, inactivated2 09/12/17 Given FluLaval (oldterm) 10/23/12 Given tetanus/diphtheria/pertussis, acel(Tdap) 10/23/12 Given Tetanus Toxoid Vaccine (oldterm) 05/15/01 Given 1Location History: at [id number] Comment: [09/12/2017] [facility] [id number] Medications Annovera 0.15 mg-0.013 mg/24 hours vaginal [...] Refills, Maintenance, 12/03/19 9:03:00 EST, EC Capsule, [facility]/pharmacy #[id number], 172.5,cm, 11/14/19 13:11:00 EST, Height Start Date: 10/14/18 Status: OrderedFlovent HFA 110 mcg/inh inhalation aerosol 2 puffs, Inhalation, 2 times a day, rinse mouth and throat after use, # 1 each, 0 Refills, Maintenance, 01/01/20 14:16:00 EDT, [facility]/pharmacy #[id number], 172.5, cm, 11/14/19 13:11:00 EST, [...] 01/05/20 11:02:00 EDT, Route to Pharmacy Electronically, [facility]/pharmacy #[id number], 172.5, cm, 11/14/19 13:11:00 EST, [...]
--- OUTSIDE RECORDS SUMMARY | 2022-10-11 14:06 | XMS_ITS | Continuity of Care Document ---
:1975 Author Organization [facility] Adult Address [address] [place] [address]- Care Team Providers Name Role Phone Arielle Mamta SAWYER Primary Care Physician Encounter [facility] Date(s): 06/17/20 - 06/24/20 [facility] Adult [address] [place] [address]- [facility] Encounter Diagnosis Viral URI (Discharge Diagnosis) - 06/17/20 Attending Physician: Not on Staff, Attending MD Allergies, Adverse Reactions, Alerts Substance Reaction Severity Status sulfamethoxazole rash Active Remeron Active Bactrim rash Active SEROquel Active Immunizations Given and Recorded Vaccine Date Status Refusal Reason influenza virus vaccine, inactivated1 07/15/18 Recorded influenza virus vaccine, inactivated2 09/12/17 Given FluLaval (oldterm) 10/23/12 Given tetanus/diphtheria/pertussis, acel(Tdap) 10/23/12 Given Tetanus Toxoid Vaccine (oldterm) 05/15/01 Given 1Location History: at [id number] Comment: [09/12/2017] [facility] [id number] Medications Annovera 0.15 mg-0.013 mg/24 hours vaginal ring 0 Refills, Maintenance, 11/14/19 13:38:00 EST Start Date: 11/14/19 Status: OrderedAtivan 1 mg oral tablet 1 tablet = 1 mg, By Mouth, Daily, PRN as needed for anxiety, use sparingly, # 10 tablet, 0 Refills, Maintenance, 05/07/20 13:20:00 EDT, Tablet, [id number], 172.5, cm, 05/07/20 13:02:00 EDT, Height Start Date: 05/07/20 Status: OrderedAugmentin 875 mg-125 mg oral tablet 1 tablet, By Mouth, Every 12 hours, for 7 days, # 14 tablet, 0 Refills, Acute 06/29/20 16:33:00 EDT,06/22/20 16:33:00 EDT, Tablet, [facility]/pharmacy #[id number], 172.5, cm, 06/17/20 9:11:00 EDT, Height Start Date: 06/22/20 Stop Date: 06/29/20 Status: OrderedClindagel 1% topical gel 1 application, [...] each, 5 Refills, Maintenance, 01/26/20 9:49:00 EDT, [facility]/pharmacy #[id number], 172.5, cm, 11/14/19 13:11:00 EST, [...] Refills, Maintenance, 03/19/20 11:24:00 EDT, [facility], 172.5, cm, 11/14/19 13:11:00 EST, Height Start [...] 30 tablet, 1 Refills, Maintenance, [facility], 172.5, cm, 11/14/19 13:11:00 EST, Height Start Date: 01/28/20 Status: Ordered Problem List Condition Effective Dates Status Health Status Informant Anxiety(Confirmed) Active Bipolar 2 disorder(Confirmed) Active Overactive bladder(Confirmed) Active Chronic sinusitis(Confirmed) Active Suppurative hidradenitis(Confirmed) Active Migraine(Confirmed) Active Post traumatic stress disorder Active (PTSD)(Confirmed) Depression, major, Active recurrent(Confirmed) Restless leg syndrome(Confirmed) Active Diagnosis Diagnosis Type Effective Dates Health Status Clinical Serv ice Informant Viral URI Discharge 06/17/20 Diagnosis Vital Signs Most recent to oldest [Reference Range]: 1 Height 172.5 cm (06/17/20 9:11 AM) Social History Social History Type Response Smoking Status Never smoker entered on: 09/12/17 Sex
--- OUTSIDE RECORDS SUMMARY | 2022-10-11 14:06 | XMS_ITS | Continuity of Care Document ---
:1975 Author Organization [facility] Adult Address [address] [place] [address]- Care Team Providers Name Role Phone Arielle MARINE TOWER OPERATOR, Mamta Villatoro Primary Care Phys[id number] Date(s): 09/24/19 - 10/01/19 [facility] [address] [place] [address]- [facility] Encounter Diagnosis Acute maxillary sinusitis (Discharge Diagnosis) - 09/24/19 Suppurative hidradenitis (Discharge Diagnosis) - 09/24/19 Attending Physician: Gilda FOWLER, Bubba Murrell Allergies, Adverse Reactions, Alerts Substance Reaction Severity Status sulfamethoxazole rash Active Remeron Active Bactrim rash Active SEROquel Active Immunizations Given and Recorded Vaccine Date Status Refusal Reason influenza virus vaccine, inactivated1 07/15/18 Recorded influenza virus vaccine, inactivated2 09/12/17 Given FluLaval (oldterm) 10/23/12 Given tetanus/diphtheria/pertussis, acel(Tdap) 10/23/12 Given Tetanus Toxoid Vaccine (oldterm) 05/15/01 Given 1Location History: at [id number] Comment: [09/12/2017] [facility] 25348-328-53 Medications Ativan 1 mg oral tablet 1 tablet = 1 mg, By Mouth, 0 Refills, Maintenance, 04/02/18 9:48:11 EDT Start Date: 04/02/18 Status: OrderedClindagel 1% topical gel 1 application, Topically, 2 times a day, # 30 Gm, 0 Refills, Maintenance, 06/19/19 11:20:43 EDT, Gel, 1 application Topically 2 times a day Start Date: 06/19/19 Status: OrderedCymbalta 30 mg oral enteric coated capsule 1 capsule = 30 mg, By Mouth, Daily, for a total of 90mg QAM, # 30 capsule, 3 Refills, Maintenance, 07/17/19 12:57:11 EDT, Capsule Start Date: 10/14/18 Status: Orderedduloxetine 60 mg oral enteric coated capsule 1 capsule = 60 mg, By Mouth, Daily, for a total of 90mg QAM OFFICE VISIT REQUIRED FOR FURTHER REFILLS, # 30 capsule, 0 Refills, Maintenance, 08/08/19 15:35:02 EDT, EC Capsule Start Date: 10/14/18 Status: OrderedHibiclens 4% soap See Instructions, 1 application Topically 2 times a day, # 240 mL, 0 Refills, Soft Stop, 06/19/19 11:21:10 EDT, 1 application Topically 2 times a day Start Date: 06/19/19 Status: Orderedlamotrigine 200 mg oral tablet 1 tablet = 200 mg, By Mouth, Daily, 250mg total dose, # 30 tablet, 3 Refills, Maintenance, 05/29/19 14:12:57 EDT, Tablet Start Date: 10/14/18 Status: Orderedlamotrigine 25 mg oral tablet 50 mg, 2, tablet, By Mouth, Daily, 250mg daily total dose, # 60 tablet, Refills 3, Tot. Refills 3, Maintenance, 05/29/19 14:12:45 EDT, Route to Pharmacy Electronically, [id number], [facility]/pharmacy #[id number] Start Date: 10/14/18 Status: OrderedNuvaRing 1 each, Vaginally, 0 Refills, Maintenance, 09/12/17 8:48:56 Start Date: 09/12/17 Status: OrderedrOPINIRole 0.5 mg oral tablet 1 tablet = 0.5 mg, By Mouth, Daily at bedtime, # 30 tablet, 5 Refills, Maintenance, 08/14/19 10:20:12 EDT Start Date: 10/14/18 Status: OrderedtraZODone 50 mg oral tablet 50 mg, 1, tablet, By Mouth, Daily at bedtime, OFFICE VISIT REQUIRED FOR FURTHER REFILLS, # 30 tablet, Refills 0, Tot. Refills 0, Maintenance, 05/29/19 21:28:57 EDT, Route to Pharmacy Electronically, [id number], [facility]... Start Date: 05/29/19 Status: Ordered Problem List Condition Effective Dates Status Health Status Informant Anxiety(Confirmed) Active Bipolar 2 disorder(Confirmed) Active Overactive bladder(Confirmed) Active Chronic sinusitis(Confirmed) Active Suppurative hidradenitis(Confirmed) Active Migraine(Confirmed) Active Post traumatic stress disorder Active (PTSD)(Confirmed) Depression, major, Active recurrent(Confirmed) Restless leg syndrome(Confirmed) Active Diagnosis Diagnosis Type Effective Dates Health Clinical Infor mant Status Service Acute maxillary Discharge 09/24/19 sinusitis Diagnosis Suppurative Discharge 09/24/19 hidradenitis Diagnosis Vital Signs Most recent to oldest [Reference Range]: 1 Height 172.5 cm (09/24/19 10:50 AM) Weight 77.5 kg (09/24/19 10:50 AM) Oxygen Saturation [94-100 %] 98 % (09/24/19 10:50 AM) Pulse Rate [55-90 bpm] 76 bpm (09/24/19 10:50 AM) Body Mass Index [18.5-24.99] 26.04 *H* (09/24/19 10:50 AM) Blood Pressure [90-138/55-84 mm Hg] 130/84 mm Hg (09/24/19 10:50 AM) Temperature [96.8-100.4 DegF] 98.7 DegF (09/24/19 10:50 AM) Mode of Delivery (Oxygen) Room air (09/24/19 10:50 AM) Blood pressure sites Arm, right (09/24/19 10:50 AM) Temperature Route Oral (09/24/19 10:50 AM) Weight Obtained Via Standing scale (09/24/19 10:50 AM) Social History Social History Type Response Smoking Status Never smoker entered on: 09/12/17 Sex
--- OUTSIDE RECORDS SUMMARY | 2022-10-11 14:06 | XMS_ITS | Continuity of Care Document ---
:1975 Author Organization [facility] Adult Address [address] [place] [address]- Care Team Providers Name Role Phone Arielle SILVERIO, Mamta Villatoro [facility] Phys[id number] Date(s): 09/24/19 - 10/04/19 [facility] [address] [place] [address]- [facility] Attending Physician: Admtr, Margaret Allergies, Adverse Reactions, Alerts Substance Reaction Severity Status sulfamethoxazole rash Active Remeron Active Bactrim rash Active SEROquel Active Immunizations Given and Recorded Vaccine Date Status Refusal Reason influenza virus vaccine, inactivated1 07/15/18 Recorded influenza virus vaccine, inactivated2 09/12/17 Given FluLaval (oldterm) 10/23/12 Given tetanus/diphtheria/pertussis, acel(Tdap) 10/23/12 Given Tetanus Toxoid Vaccine (oldterm) 05/15/01 Given 1Location History: at [id number] Comment: [09/12/2017] [facility] 77236-767-16 Medications Ativan 1 mg oral tablet 1 [...] 05/29/19 14:12:45 EDT, Route to Pharmacy Electronically, [id number], [facility]/pharmacy #[id number] Start Date: 10/14/18 Status: OrderedNuvaRing [...] 05/29/19 21:28:57 EDT, Route to Pharmacy Electronically, [id number], [facility]... Start Date: 05/29/19 Status: Ordered [...]
--- OUTSIDE RECORDS SUMMARY | 2022-10-11 14:06 | XMS_ITS | Continuity of Care Document ---
:1975 Author Organization [facility] [place] Address [address] [place] [address]- Care Team Providers Name Role Phone Arielle RAMP BOSS, Mamta Villatoro Primary Care Physician [place] [facility] [place] 04/11/22 [facility] [place] [address] [place] [address]- Encounter Diagnosis Right shoulder pain (Discharge Diagnosis) - 04/04/22 Attending Physician: Gilda FOWLER, Bubba Murrell Referring Physician: Nikki Mckeon NP Allergies, Adverse Reactions, Alerts Substance Reaction [...] Toxoid Vaccine (oldterm) 05/15/01 Given 1Result Comment: [facility]: [id number] Comment: [facility]: [id number] History: at [id number] Comment: [09/12/2017] [facility] [id number] Comment: left deltoid lot [id number] exp 10-14-20[facility] Medications ARIPiprazole 5 mg oral tablet TAKE 1/2 TABLET BY MOUTH DAILY FOR 14 DAYS, THEN INCREASE TO 1 TABLET BY MOUTH DAILY IF TOLERATED Start Date: 02/08/22 Status: Orderedcyclobenzaprine 5 mg oral tablet See Instructions, Take 1 tablet every 8 hours as needed for muscle spasm, # 21 capsule, 0 Refills, Maintenance, 04/04/22 14:33:00 EDT, Tablet, [facility]/pharmacy #[id number], Partial fill upon patient [...] A DAY, # 16 mL, 0 Refills, [facility] STORE [id number], 30, SPRAY 1 SPRAY INTO EACH NOSTRIL [...] 04/04/22 14:33:00 EDT, Route to Pharmacy Electronically, [facility]/pharmacy #[id number], Partial fill upon patient [...] Dates Health Status Clinical In formant Service Right shoulder Discharge 04/04/22 pain Diagnosis Vital Signs Most recent to oldest [Reference Range]: 1 Height 175 cm (04/04/22 10:53 AM) Social History Social History Type Response Smoking Status Never smoker entered on: 09/12/17 Sex
--- OUTSIDE RECORDS SUMMARY | 2022-10-11 14:06 | XMS_ITS | Continuity of Care Document ---
:1975 Author Organization [facility] Adult Address [address] [place] [address]- Care Team Providers Name Role Phone Mamta Guzmán NP Primary Care Physician Encounter [facility] Date(s): 06/22/22 - 07/23/22 [facility] [address] [place] [address]- Attending Physician: Mamta Guzmán NP Allergies, Adverse [...] Toxoid Vaccine (oldterm) 05/15/01 Given 1Result Comment: [facility] [place] [id number] Comment: [facility] [place]: [phone] History: at [id number] Comment: [09/12/2017] [facility] [place] [id number] Comment: left deltoid lot [id number] exp 10-14-2029 [facility] Medications ARIPiprazole 5 mg oral tablet TAKE 1/2 TABLET BY MOUTH DAILY FOR 14 DAYS, THEN INCREASE TO 1 TABLET BY MOUTH DAILY IF TOLERATED Start Date: 02/08/22 Status: Orderedcyclobenzaprine 5 mg oral tablet See Instructions, Take 1 tablet every 8 hours as needed for muscle spasm, # 21 capsule, 0 Refills, Maintenance, 04/04/22 14:33:00 EDT, Tablet, [facility]/pharmacy #[id number], Partial fill upon patient request [...] A DAY, # 16 mL, 0 Refills, [facility] STORE [id number], 30, SPRAY 1 SPRAY INTO EACH NOSTRIL [...] 04/04/22 14:33:00 EDT, Route to Pharmacy Electronically, [facility]/pharmacy #[id number], Partial fill upon patient request [...] information PersonnelName: Mamta Guzmán NP Address: Address: [address] [place] [id number]
--- OUTSIDE RECORDS SUMMARY | 2022-10-11 14:06 | XMS_ITS | Continuity of Care Document ---
:1975 Author Organization [facility] Address [address] [place] [address]- Care Team Providers Name Role Phone Arielle Mamta SAWYER Primary Care Phys[place] [facility] [place]17[place] - 10/21/[address] [address]- Encounter Diagnosis Closed trimalleolar fracture of right ankle (Discharge Diagnosis) - 10/19/20 Trimalleolar fracture of right ankle (Final) - 10/20/20 Discharge Disposition: A-Transfer VNA/Home Health Attending Physician: Keagan Napoles MD Admitting Physician: Keagan Napoles MD Referring Physician: Not on Staff, Referring [...] Vaccine (oldterm) 05/15/01 Given 1Location History: at [id number] Comment: [09/12/2017] [facility] [place] [id number] Medications albuterol CFC free 90 mcg/inh inhalation [...] 0 Refills, Maintenance, 05/07/20 13:20:00 EDT, Tablet, [facility]/pharmacy #[id number], 172.5, cm, 05/07/20 13:02:00 EDT, Height Start Date: 05/07/20 Status: Orderedbisacodyl 10 mg rectal suppository 1 [...] 10/21/20 12:33:00 EST, Route to Pharmacy Electronically, [facility], Partial fill upon patient request if the prescription is for a schedu... Start Date: 10/21/20 Status: OrderedDilaudid 2 mg oral tablet 2 mg, Tablet, By Mouth, Every 3 hours, PRN for Pain , Severe, Routine, 10/20/20 1:45:00 EST Start Date: 10/20/20 Stop Date: 10/22/20 Status: DiscontinuedDilaudid 2 mg oral tablet See Instructions, PRN Pain , Severe, 1 tablet By Mouth Every 3-6 hours prn pain, # 40 tablet, 0 Refills, Acute 10/28/20 12:34:00 EST, 10/21/20 12:34:00 EST, Tablet, [facility], Partial fill upon patient request if the prescription is for... Start Date: 10/21/20 Stop Date: 10/28/20 Status: OrderedDitropan XL 5 mg/24 hours oral tablet, extended release 1 tablet = 5 mg, By Mouth, Daily, # 30 tablet, 1 Refills, Maintenance, 09/29/20 8:48:00 EST, ER Tablet, [facility]/pharmacy #[id number], 172.5, cm, 09/29/20 8:26:00 [...] capsule, 0 Refills, Maintenance, 09/29/20 8:46:00 EST, [facility]pharm[facility] #[id number], 172.5, cm, 09/29/20 8:26:00 EST, Height Start Date: 09/29/20 Status: Orderedduloxetine 60 mg oral enteric coated capsule 1 capsule = 60 mg, By Mouth, Daily, for a total of 90mg QAM OFFICE VISIT REQUIRED FOR FURTHER REFILLS, # 30 capsule, 0 Refills, Maintenance, 09/29/20 8:46:00 EST, EC Capsule, [facility]/pharmacy #[id number], 172.5,cm, 09/29/20 8:26:00 EST, Height Start Date: 10/14/18 Status: Orderedenoxaparin 40 mg/0.4 mL injectable solution 0.4 mL = 40 mg, Subcutaneous Injection, Daily, for 14 days, # 5.6 mL, 0 Refills, Acute 11/04/20 12:33:00 EST, 10/21/20 12:33:00 EST, Injection, [facility], Partial fill upon patient request if the prescription is for a schedule II opioid... Start Date: 10/21/20 Stop Date: 11/04/20 Status: Orderedlamotrigine 200 mg oral tablet 1 tablet, By Mouth, Daily, TOTAL DOSE., # 30 tablet, 1 Refills, Maintenance, 09/29/20 8:48:00 EST, [facility]/pharmacy #[id number], 172.5, cm, 09/29/20 8:26:00 EST, Height Start Date: 09/29/20 Status: Orderedlamotrigine 25 mg oral tablet 2, tablet, By Mouth, Daily, office visit required for further refills, # 60 tablet, Refills 1, Tot. Refills 1, Maintenance, 09/29/20 8:48:00 EST, Route to Pharmacy Electronically, [facility]/pharmacy #[id number], 172.5, cm, 09/29/20 8:26:00 [...] 13:11:00 EST, Height Start Date: 10/14/18 Status: OrderedSenna 8.6 mg oral tablet 8.6 mg, 1, tablet, By Mouth, Daily, Refills 0, Maintenance, 10/21/20 12:38:00 EST, Tablet, Partial fill upon patient request if the prescription is for a schedule II opioid drug. Start Date: 10/21/20 Status: OrderedTylenol 325 mg oral tablet 650 mg, 2, tablet, By Mouth, Every 6 hours, # 60 tablet, Refills 0, Tot. Refills 0, Acute 10/28/20 12:33:00 EST, 10/21/20 12:32:00 EST, Route to Pharmacy Electronically, [facility], Partial fill upon patient request if the prescription i... Start Date: 10/21/20 Stop Date: 10/28/20 Status: Ordered Problem List Condition Effective Dates Status Health Status Informant Anxiety(Confirmed) Active Bipolar 2 disorder(Confirmed) Active Overactive bladder(Confirmed) Active Chronic sinusitis(Confirmed) Active Suppurative hidradenitis(Confirmed) Active Migraine(Confirmed) Active Post traumatic stress disorder Active (PTSD)(Confirmed) Depression, major, Active recurrent(Confirmed) Restless leg syndrome(Confirmed) Active Diagnosis Diagnosis Type Effective Dates Health Clinical Infor mant Status Service Closed trimalleolar Discharge 10/19/20 Non-Specified fracture of right Diagnosis ankle Procedures Procedure Date Related Diagnosis Body Site Status Open treatment of trimalleolar ankle 10/18/20 Completed fracture, includes internal fixation, when performed, medial and/or lateral malleolus; with fixation of posterior lip1 1synthes 10 hole 1/3 tubular plate laterally, with 2 lag screws outside of the plate. 4 hole one third tubular plate medially for coronal split in the medial malleolus, and single 4.0 cannulated screw front to back in posterior malleolar fragment. Results Radiology Reports Exam Date Time Procedure Performing Provider Status 10/18/20 1:03 PM Ankle Min 3 Views Right Heidi Ferro; Wil ( Verified) Notes:(Ankle Min 3 Views Right) Reason For Exam: right ankle ORIFRESULT: Ankle Min 3 Views Right Ankle Min 3 Views Right Reason: right ankle ORIF; Special Instructions: TT 1 hour 10min, FT 1 min 11 sec, 3.5494mGy. COMPARISON: Yesterday FINDINGS: Several intraoperative spot views show placement of medial and lateral malleolar plates and screws. Improved position and alignment. Intact ankle mortise. IMPRESSION: See above. WSN: [id number] Ordering Physician: Keagan Napoles MD Dictated By: Jose Alejandro Chris MD Dictated Date/Time: 10/20/20 1:42 pm Reviewed By: Jose Alejandro Chris MD Signed By: Jose Alejandro Chris MD Signed Date/Time: 10/20/20 1:42 pm Transcribed By: SAULO Transcribed Date/Time: 10/20/20 1:40 pm Exam Date Time Procedure Performing Provider Status 10/18/20 1:03 PM C-Arm > 1 Hour Deni Ferro (Verified ) Notes:(C-Arm > 1 Hour) Reason For Exam: right ankle ORIFRESULT: C-Arm > 1 Hour C-Arm > 1 Hour INDICATION: Reason: right ankle ORIF; Special Instructions: TT 1 hour 10min, FT 1min 11 sec, 3.5494mGy COMPARISONS: None TECHNIQUE: Fluoroscopy support was provided. There was no radiologist in attendance. Fluoroscopy time: 1 minute, 11 seconds Technologist time: 1 hour, 10 minutes FINDINGS: Fluoroscopy support was provided. There was no radiologist in attendance. IMPRESSION: See above. WSN: [id number] Ordering Physician: Keagan Napoles MD Dictated By: Yovany Pena MD Dictated Date/Time: 10/19/20 9:43 am Reviewed By: Yovany Pena MD Signed By: Yovany Pena MD Signed Date/Time: 10/19/20 9:43 am Transcribed By: SAULO Transcribed Date/Time: 10/18/20 9:56 pm Exam Date Time Procedure Performing Provider Status 10/17/20 10:31 PM Ankle 2 Views Right Tray Finch ([facility] ed) Notes:(Ankle 2 Views Right) Reason For Exam: Post-ReductionRESULT: Ankle 2 Views Right Ankle 2 Views Right at 2224 Reason: Post-Reduction; Clinical Question(s): Dislocation. COMPARISON: 2140 same evening FINDINGS: Although the change could be projectional, there appears to be slightly improved alignment of the ankle mortise with less medial clear space widening. IMPRESSION: See above. WSN: [id number] Ordering Physician: Benito Raza Dictated By: Jose Alejandro Chris MD Dictated Date/Time: 10/17/20 10:53 p Reviewed By: Jose Alejandro Chris MD Signed By: Jose Alejandro Chris MD Signed Date/Time: 10/17/20 10:53 pm Transcribed By: SAULO Transcribed Date/Time: 10/17/20 10:50 pm Exam Date Time Procedure Performing Provider Status 10/17/20 9:43 PM Ankle Min 3 Views Right Germaine Boss; Wil (Ve rified) Notes:(Ankle Min 3 Views Right) Reason For Exam: Post-ReductionRESULT: Ankle Min 3 Views Right Right ankle 3 views at 214 Hx of Present Illness: Postreduction COMPARISON: 2050 earlier same day FINDINGS: New fiberglass splint. Improved position and alignment, primarily manifested as reduction of the posterior dislocation. IMPRESSION: Improved position and alignment in a new splint. WSN: [id number] Ordering Physician: Benito Raza Dictated By: Jose Alejandro Chris MD Dictated Date/Time: 10/17/20 9:54 pm Reviewed By: Jose Alejandro Chris MD Signed By: Jose Alejandro Chris MD Signed Date/Time: 10/17/20 9:54 pm Transcribed By: SAULO Transcribed Date/Time: 10/17/20 9:52 pm Exam Date Time Procedure Performing Provider Status 10/17/20 9:07 PM Foot Min 3 Views Right Hui Finch; Wil (Boom ified) Notes:(Foot Min 3 Views Right) Reason For Exam: TraumaRESULT: Foot Min 3 Views Right Ankle Min 3 Views Right, Tibia/Fibula 2 Views Right, Foot Min 3 Views Right HPI: Fall from standing, slipped on snow, + deformity to right ankle with tenderness to foot. INDICATION: Trauma. CLINICAL QUESTION: Fracture. COMPARISON: None. FINDINGS: Mildly comminuted oblique fracture of the distal fibula (Felix type C) with up to one bone width's displacement and anterior angulation. Impacted, minimally displaced fracture of the distal tibia involving the medial malleolus. Normal tarsals, metatarsals, and phalanges Widening of the ankle mortise with displacement of the tibiotalar joint. No arthritic changes. Mild soft tissue swelling. IMPRESSION: Trimalleolar fractures as detailed above with widening of the ankle mortise and tibiotalar joint dislocation. Results were discussed via telephone by Dr. Riley with Perry Centeno DO on 10/17/2020 at 9:24 PM with understanding voiced back. I have personally reviewed the images and I agree with this report. WSN: [id number] Ordering Physician: Perry Centeno Dictated By: Tomas Riley MD Dictated Date/Time: 10/17/20 9:30 pm Reviewed By: Chilango Brenner MD Signed By: Chilango Brenner MD Signed Date/Time: 10/17/20 9:35 pm Transcribed By: SAULO Transcribed Date/Time: 10/17/20 9:25 pm Exam Date Time Procedure Performing Provider Status 10/17/20 9:07 PM Tibia/Fibula 2 Views Right Tray Finch (Verified) Notes:(Tibia/Fibula 2 Views Right) Reason For Exam: TraumaRESULT: Tibia/Fibula 2 Views Right Ankle Min 3 Views Right, Tibia/Fibula 2 Views Right, Foot Min 3 Views Right HPI: Fall from standing, slipped on snow, + deformity to right ankle with tenderness to foot. INDICATION: Trauma. CLINICAL QUESTION: Fracture. COMPARISON: None. FINDINGS: Mildly comminuted oblique fracture of the distal fibula (Felix type C) with up to one bone width's displacement and anterior angulation. Impacted, minimally displaced fracture of the distal tibia involving the medial malleolus. Normal tarsals, metatarsals, and phalanges Widening of the ankle mortise with displacement of the tibiotalar joint. No arthritic changes. Mild soft tissue swelling. IMPRESSION: Trimalleolar fractures as detailed above with widening of the ankle mortise and tibiotalar joint dislocation. Results were discussed via telephone by Dr. Riley with Perry Centeno DO on 10/17/2020 at 9:24 PM with understanding voiced back. I have personally reviewed the images and I agree with this report. WSN: [id number] Ordering Physician: Perry Centeno Dictated By: Tomas Riley MD Dictated Date/Time: 10/17/20 9:30 pm Reviewed By: Chilango Brenner MD Signed By: Chilango Brenner MD Signed Date/Time: 10/17/20 9:35 pm Transcribed By: SAULO Transcribed Date/Time: 10/17/20 9:25 pm Exam Date Time Procedure Performing Provider Status 10/17/20 9:07 PM Ankle Min 3 Views Right Hui Finch; Wil (Ve rified) Notes:(Ankle Min 3 Views Right) Reason For Exam: TraumaRESULT: Ankle Min 3 Views Right Ankle Min 3 Views Right, Tibia/Fibula 2 Views Right, Foot Min 3 Views Right HPI: Fall from standing, slipped on snow, + deformity to right ankle with tenderness to foot. INDICATION: Trauma. CLINICAL QUESTION: Fracture. COMPARISON: None. FINDINGS: Mildly comminuted oblique fracture of the distal fibula (Felix type C) with up to one bone width's displacement and anterior angulation. Impacted, minimally displaced fracture of the distal tibia involving the medial malleolus. Normal tarsals, metatarsals, and phalanges Widening of the ankle mortise with displacement of the tibiotalar joint. No arthritic changes. Mild soft tissue swelling. IMPRESSION: Trimalleolar fractures as detailed above with widening of the ankle mortise and tibiotalar joint dislocation. Results were discussed via telephone by Dr. Riley with Perry Centeno DO on 10/17/2020 at 9:24 PM with understanding voiced back. I have personally reviewed the images and I agree with this report. WSN: [id number] Ordering Physician: Perry Centeno Dictated By: Tomas Riley MD Dictated Date/Time: 10/17/20 9:30 pm Reviewed By: Chilango Brenner MD Signed By: Chilango Brenner MD Signed Date/Time: 10/17/20 9:35 pm Transcribed By: SAULO Transcribed Date/Time: 10/17/20 9:25 pm Vital Signs Most recent to oldest 1 2 3 [Reference Range]: Height 175 cm 175 cm 175 cm (10/21/20 3:42 PM) (10/21/20 11:09 AM) (10/21/20 7:26 AM) Weight 81 kg 81 kg (10/18/20 11:18 PM) (10/18/20 9:56 AM) Oxygen Saturation [94-100 100 % 99 % 100 % %] (10/21/20 3:42 PM) (10/21/20 11:09 AM) (10/21/20 7:26 AM) Pulse Rate [55-90 bpm] 71 bpm 84 bpm 78 bpm (10/21/20 3:42 PM) (10/21/20 11:09 AM) (10/21/20 7:26 AM) Body Mass Index 26.45 26.45 [18.5-24.99] *H* *H* (10/18/20 11:18 PM) (10/18/20 9:56 AM) Blood Pressure 117/60 mm Hg 115/44 mm Hg 124/62 mm Hg [90-138/55-84 mm Hg] (10/21/20 3:42 PM) (10/21/20 11:09 AM) (10/21/20 7:26 AM) Respiratory Rate [16-30 18 br/min 16 br/min 18 br/mi n br/min] (10/21/20 5:47 PM) (10/21/20 3:42 PM) (10/21/20 12:14 PM) Temperature [96.8-100.4 98.0 DegF 98.6 DegF 98.6 Deg F DegF] (10/21/20 3:42 PM) (10/21/20 11:09 AM) (10/21/20 7:26 AM) Liters per Minute 2 L/min 2 L/min (10/18/20 10:40 AM) (10/18/20 10:35 AM) Mode of Delivery (Oxygen) Room air Room air Room a ir (10/21/20 3:42 PM) (10/21/20 11:09 AM) (10/21/20 7:26 AM) Blood pressure sites Arm, right Arm, right Arm, right (10/21/20 3:42 PM) (10/21/20 11:09 AM) (10/21/20 7:26 AM) Temperature Route Oral Oral Oral (10/21/20 3:42 PM) (10/21/20 11:09 AM) (10/21/20 7:26 AM) Dry Weight 81 kg (10/18/20 11:18 PM) Weight Obtained Via Patient/family stated (10/18/20 11:18 PM) Social History Social History Type Response Smoking Status Never smoker entered on: 09/12/17 Sex
--- OUTSIDE RECORDS SUMMARY | 2022-10-11 14:06 | XMS_ITS | Continuity of Care Document ---
:1975 Author Organization [facility] Address [address] [place] [address] Drive [address] [place] [address]- Care Team Providers Name Role Phone Arielle SILVERIO, Mamta Villatoro Primary Care Physician Encounter [facility] R [id number] Date(s): 12/12/19 - 12/22/[address] [place] [address]- [facility] Attending Physician: Margaret Castañeda Admitting Physician: Margaret Castañeda Referring Physician: Margaret Castañeda Allergies, Adverse Reactions, Alerts Substance Reaction Severity Status sulfamethoxazole rash Active Remeron Active Bactrim rash Active SEROquel Active Immunizations Given and Recorded Vaccine Date Status Refusal Reason influenza virus vaccine, inactivated1 07/15/18 Recorded influenza virus vaccine, inactivated2 09/12/17 Given FluLaval (oldterm) 10/23/12 Given tetanus/diphtheria/pertussis, acel(Tdap) 10/23/12 Given Tetanus Toxoid Vaccine (oldterm) 05/15/01 Given 1Location History: at [id number] Comment: [09/12/2017] [facility] [id number] Medications Annovera 0.15 mg-0.013 mg/24 hours vaginal [...] Refills, Maintenance, 12/03/19 9:03:00 EST, EC Capsule, [facility]/pharmacy #[id number], 172.5,cm, 11/14/19 13:11:00 EST, Height Start [...] tablet, 5 Refills, Maintenance, 11/14/19 13:35:00 EST, [facility]/pharmacy #[id number], 172.5, cm, 11/14/19 13:11:00 EST, Height [...]
--- NOTE | 2022-10-11 17:10 | PC.NURSE ---
Jovanna was admitted to at 1415 from [place] [address] Med Surg on for treatment of MDD and PTSD. She was admitted to med surg on 10/07 for treatment of pyelonephritis which has resolved with treatment. Jovanna notes that she has been in a depressive episode for months and that she has been compliant with meds but they are unhelpful. Recently pt's daughter, with whom she lives, has asked patient to find other housing noting that living with her is not working out. Pt reports this is a major stressor. She notes the goals of her admission are to get on meds that actually do something or do TMS. Jovanna is alert, fully oriented, pleasant and cooperative with the admission process. She is tearful at times noting, this is my last hope. Mood is depressed, affect is sad and anxious. Jovanna denies ever having hallucinations of any kind. Thought Process is organized. Speech is normal rate rhythm and prosody. Jovanna denies ideation plan or intent to harm others and states she will not harm herself on the unit. She reports having multiple suicide attempts in the past Appetite is poor with a 13 lb weight loss. Sleep is reportedly broken but all the sleeping pills give me nightmares. Focus is good. Substance Issues include smoking marijuana more when depressed and alcohol socially 4 servings around twice per month. Medical Issues?include recent pyelonephritis but patient denies current symptoms. She denies physical complaint of any kind. Jovanna is on 15 minute checks for safety.
[2022-10-11] MEDS: Acetaminophen 325 MG TABLET 650 MG PO (19:00)
[2022-10-11 20:15] VITALS: BP 129/58; PULSE 72; RESP 16; TEMP 36.6; O2SAT 99
[2022-10-12 09:55] VITALS: BP 141/84; PULSE 139; RESP 20; TEMP 36.4; O2SAT 98
[2022-10-12] MEDS: DULoxetine HCl 60 MG CAPSULE.DR PO (10:00)
[2022-10-12] MEDS: DULoxetine HCl 30 MG CAPSULE.DR PO ×2 (10:00→15:15)
[2022-10-12 11:57] VITALS: BP 129/69; PULSE 92; RESP 18; O2SAT 99
--- NOTE | 2022-10-12 12:38 | HO.PSYADMNOT ---
HPI Date of Service: 10/12/22 Chief Complaint: SI Sources of Information: patient interviewed, chart reviewed and crisis/core team assessment reviewed HPI Subjective Notes: [place] Warning and Conditional Voluntary Narrative: Patient is a 47-year-old female with history of MDD, PTSD, chronic intermittent passive SI who presents for worsening depression and SI with a plan to overdose, following treatment for pyelonephritis/secondary to UTI. Patient reports that it has been a tough year. She says that after leaving the hospital last year, she continued with lithium however started getting side effects, feeling dizzy and it was discontinued. She has remained on Cymbalta which she takes regularly and has a good rapport with her therapist. Patient reports that fall and winter of always been challenging for her however this past year she has found herself getting depressed even and other seasons. Patient reports that about 3 times this past year she has had severe depression, lasting for 2 weeks for she does not get out of bed at all, does not attend ADLs, feels hopeless, no energy, not eating and with passive SI. These depressive episodes do resolve on their own however they have been interfering with work and she is now without a job. Patient says this current depressive episode is the worst in quite a long time and it has been going on for several months. Her passive SI developed into having a plan to overdose on her medication. She currently does not want to and wants help however SI remains. -No alcohol/drug abuse -PTSD symptoms overall minimal. Past Psychiatric History: Inp: [facility] M5 September 2021 OP: none Currently has therapist Suicide attempts: none Past medication trials: cymbalta, wellbutrin, effexor (headache and agitation), remeron, seroquel [place]: Caused lightheadedness and dizziness Lamictal: No effect Medical Evaluation Reviewed: Yes [facility] Medical History Depression Pneumothorax PTSD (post-traumatic stress disorder) Surgical History No pertinent past surgical history Family History: Son: Schizophrenia Social History: daughter; son Substance History: Denies Trauma History: Extensive trauma in childhood Diagnostics Vital Signs (24Hr): Vital Signs - 24 hr 10/11/22 20:15 10/12/22 09:55 10/12/22 11:57 Temperature 97.9 F 97.6 F Pulse Rate 72 139 H 92 Respiratory Rate 16 20 18 Blood Pressure 129/58 L 141/84 H 129/69 Pulse Oximetry 99 98 99 Oxygen Delivery Method Room Air Room Air Room Air Meds/Allergies Meds Home Medications Medication Instructions Recorded Confirmed Type duloxetine 30 mg capsule,delayed 1 cap PO QAM 10/07/22 10/11/22 History release duloxetine 60 mg capsule,delayed 1 cap PO DAILY 10/07/22 10/11/22 History release Allergies Allergies Allergy/AdvReac Type Severity Reaction Status Date / Time Sulfa (Sulfonamide Allergy Unknown SHORTNESS Verified 09/14/21 19:37 Antibiotics) OF BREATH [SULFA (SULFONAMIDE ANTIBIOTICS)] mirtazapine [From REMERON] AdvReac Unknown AGITATION Verified 09/14/21 19:37 quetiapine [From SEROQUEL] AdvReac Unknown AGITATION Verified 09/14/21 19:37 Mental Status Exam Mental Status Exam Narrative: Pt is alert and oriented; behavior is cooperative, calm; dressed in casual attire, well groomed, with good hygiene; mood is described depressed affect congruent; appropriate eye contact; Speech is soft, but normal rate and prosody and not pressured;? some psychomotor retardation present; thought process is organized and goal directed; Thought content is wishing she were , but also on working to be hopeful and wanting treatment; otherwise, pertinent to relevant topics and without any delusional content, paranoid ideations or grandiosity; active SI to overdose but safe on unit; no HI. There is no evidence of perceptual disturbance; no AVH;? Patients insight and judgment are impaired. Assessment & Plan Assessment & Plan (1) MDD (major depressive disorder), recurrent severe, without psychosis: Status: Acute Code(s): F33.2 - Major depressive disorder, recurrent severe without psychotic features (2) PTSD (post-traumatic stress disorder): Status: Acute Code(s): F43.10 - Post-traumatic stress disorder, unspecified (3) Pyelonephritis: Status: Acute Code(s): N12 - Tubulo-interstitial nephritis, not specified as acute or chronic Plan Patient is a 47-year-old female with history of MDD, PTSD, chronic intermittent passive SI who presents for worsening depression and SI with a plan to overdose, following treatment for pyelonephritis/secondary to UTI. Preliminary formulation Patient has history of MDD and PTSD and severe trauma hx; also borderline traits. Patient had 1 episode where for a week she had a psychotic symptoms and was afraid to sleep. 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 That said, patient has only been partially treated by typical antidepressants. If one were to see bipolar disorder as a spectrum, it remains possible that she could have just a touch of bipolar depression and may very well benefit from mood stabilizing medications such as Vraylar or Latuda; patient seem to benefit from lithium at least while she was on the unit; it is noteworthy that her son has schizophrenia. Patient is also very interested in TMS. Currently patient wants to 1st increase Cymbalta to see if that is helpful. A otherwise would like to try either Latuda or Vraylar. PLAN: CV Q 15 minute checks Increase Cymbalta to 60 mg b.i.d. (up from 90 mg total daily dose) Will add clonidine q.h.s. for trouble sleeping (trazodone causes vivid nightmares) T MS consult Patient will consider Vraylar or Latuda Continue antibiotic for UTI/pyelonephritis Patient educated on: diagnosis, medication risk/benefits, therapeutic strategies and medical condition Informed Consent: understands Reason for continued inpatient stay Substantial Risk for: harm to self and rapid decompensation Statement Statement: I have reviewed the history and physical and performed a pertinent examination on my patient. No changes have occurred unless specified. If the History and Physical was not performed prior to admission, the Hospitalist's service will be consulted for completing the admission physical. Time Spent With Patient Time: Total time managing care of this patient today ____ minutes.
[2022-10-12 18:00] VITALS: BP 123/57; PULSE 75; RESP 16; TEMP 36.1; O2SAT 100
[2022-10-12] MEDS: cloNIDine HCL 0.1 MG TABLET PO (22:24)
[2022-10-13 09:10] VITALS: BP 116/89; PULSE 81; RESP 20; TEMP 36.3; O2SAT 100
[2022-10-13] MEDS: DULoxetine HCl 60 MG CAPSULE.DR PO ×2 (09:10→21:19)
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
[2022-10-13 21:00] VITALS: BP 109/59; PULSE 68; TEMP 36.3; O2SAT 100
[2022-10-14] MEDS: Lurasidone HCl 20 MG TABLET PO (08:51)
[2022-10-14] MEDS: DULoxetine HCl 60 MG CAPSULE.DR PO ×2 (08:52→22:38)
[2022-10-14 09:33] LABS: Vitamin B12 511 pg/mL (200-900)
[2022-10-14 09:46] VITALS: BP 115/53; PULSE 66; TEMP 36.4; O2SAT 100
--- NOTE | 2022-10-14 13:15 | P.PNPSI_ITS ---
Subjective Subjective Date of Service: 10/14/22 Reason For Visit: SI Interim History: Patient reports she is feeling well today. She has just has a recent increase in her medications. She is toleratin those well. She has no side effects. She denies SI. Hopeful changes will be effective. Denies SI. Mental Status Exam Mental Status Exam Narrative: Pt is alert and oriented; behavior is cooperative, calm; dressed in casual attire, well groomed, with good hygiene; mood is described depressed affect congruent; appropriate eye contact; Speech is soft, but normal rate and prosody and not pressured;? some psychomotor retardation present; thought process is organized and goal directed; Thought content is wishing she were , but also on working to be hopeful and wanting treatment; otherwise, pertinent to relevant topics and without any delusional content, paranoid ideations or grandiosity; active SI to overdose but safe on unit; no HI. There is no evidence of perceptual disturbance; no AVH;? Patients insight and judgment are impaired. Patient Appearance: Well Grooomed Patient Orientation: Person, Place, Time and Situation Level of Consciousness: Awake Patient Behavior: Appropriate Mood Description: Appropriate, Depressed, Anxious and Apprehensive Affect Description: Constricted and Depressed Patient Cognition Impaired: No Ability to Follow Directions: Good Diagnostics Vital Signs (24Hr): Vital Signs - 24 hr 10/13/22 21:00 10/14/22 09:46 Temperature 97.3 F 97.6 F Pulse Rate 68 66 Blood Pressure 109/59 L 115/53 L Pulse Oximetry 100 100 Oxygen Delivery Method Room Air Room Air Labs Labs: Laboratory Results - last 48 hr 10/14/22 08:26 Vitamin B12 511 Folate 11.0 Medications Medications Current Medications Acetaminophen (Acetaminophen 325 Mg Tablet) 650 mg PO Q6H PRN PRN Reason: Headache/Pain Mild Scale (1-3) Last Admin: 10/11/22 19:00 Dose: 650 mg Al Hydroxide/Mg Hydroxide (Magnesium Hydrox/Alum Hydrox 30 Ml Oral.Susp) 30 ml PO Q6H PRN PRN Reason: Heartburn/Nausea Cefuroxime Axetil (Cefuroxime Axetil 250 Mg Tablet) 250 mg PO BID VERO Last Admin: 10/14/22 08:51 Dose: 250 mg Chlorpromazine HCl (Chlorpromazine Hcl 25 Mg Tablet) 25 mg PO BEDTIME PRN PRN Reason: Insomnia Duloxetine HCl (Duloxetine Hcl 60 Mg Capsule.Dr) 60 mg PO BID [facility] Last Admin: 10/14/22 08:52 Dose: 60 mg Hydroxyzine HCl (Hydroxyzine Hcl 25 Mg Tablet) 25 mg PO Q6H PRN PRN Reason: Anxiety Lorazepam (Lorazepam 1 Mg Tablet) 1 mg PO TID PRN PRN Reason: anxiety Lurasidone HCl (Lurasidone Hcl 20 Mg Tablet) 20 mg PO DAILY [facility] Last Admin: 10/14/22 08:51 Dose: 20 mg Magnesium Hydroxide (Milk Of Magnesia 30 Ml Oral.Susp) 30 ml PO DAILY PRN PRN Reason: Constipation Allergies Allergies Allergy/AdvReac Type Severity Reaction Status Date / Time Sulfa (Sulfonamide Allergy Unknown SHORTNESS Verified 09/14/21 19:37 Antibiotics) OF BREATH [SULFA (SULFONAMIDE ANTIBIOTICS)] mirtazapine [From REMERON] AdvReac Unknown AGITATION Verified 09/14/21 19:37 quetiapine [From SEROQUEL] AdvReac Unknown AGITATION Verified 09/14/21 19:37 Assessment & Plan Assessment & Plan (1) MDD (major depressive disorder), recurrent severe, without psychosis: Status: Acute Code(s): F33.2 - Major depressive disorder, recurrent severe without psychotic features (2) PTSD (post-traumatic stress disorder): Status: Acute Code(s): F43.10 - Post-traumatic stress disorder, unspecified Plan pt with hx of recurrent depression ptsd on inc cymbalta 120 mg start latuda 20 mg augmentation discussed tms esketamine ect would benefit from php 10/14 Continue tx plan. Reason for contiued inpatient stay Substantial Risk for: harm to self and inability to function Time Spent With Patient Time: Total time managing care of this patient today ____ minutes.
[2022-10-14 22:42] VITALS: BP 125/66; PULSE 66; TEMP 36.6; O2SAT 100
[2022-10-15] MEDS: DULoxetine HCl 60 MG CAPSULE.DR PO ×2 (09:03→21:27)
[2022-10-15] MEDS: Lurasidone HCl 20 MG TABLET PO (09:03)
[2022-10-15 09:08] VITALS: BP 120/58; PULSE 77; RESP 16; TEMP 36.6; O2SAT 99
--- NOTE | 2022-10-15 14:20 | P.PNPSI_ITS ---
Subjective Subjective Date of Service: 10/15/22 Reason For Visit: SI Interim History: Patient reports she is feeling well today. . She is tolerating medications well. She has no side effects. She denies SI. Hopeful changes will be effective. Sleeping well Visible in the milieu Mental Status Exam Mental Status Exam Narrative: Pt is alert and oriented; behavior is cooperative, calm; dressed in casual attire, well groomed, with good hygiene; mood is described depressed affect congruent; appropriate eye contact; Speech is soft, but normal rate and prosody and not pressured;? some psychomotor retardation present; thought process is organized and goal directed; Thought content is wishing she were , but also on working to be hopeful and wanting treatment; otherwise, pertinent to relevant topics and without any delusional content, paranoid ideations or grandiosity; active SI to overdose but safe on unit; no HI. There is no evidence of perceptual disturbance; no AVH;? Patients insight and judgment are improved. Patient Appearance: Well Grooomed Patient Orientation: Person, Place, Time and Situation Level of Consciousness: Awake Patient Behavior: Appropriate Mood Description: Appropriate, Depressed, Anxious and Apprehensive Affect Description: Constricted and Depressed Patient Cognition Impaired: No Ability to Follow Directions: Good Diagnostics Vital Signs (24Hr): Vital Signs - 24 hr 10/14/22 22:42 10/15/22 09:08 Temperature 97.8 F 97.9 F Pulse Rate 66 77 Respiratory Rate 16 Blood Pressure 125/66 120/58 L Pulse Oximetry 100 99 Oxygen Delivery Method Room Air Room Air Labs Labs: Laboratory Results - last 48 hr 10/14/22 08:26 Vitamin B12 511 Folate 11.0 Medications Medications Current Medications Acetaminophen (Acetaminophen 325 Mg Tablet) 650 mg PO Q6H PRN PRN Reason: Headache/Pain Mild Scale (1-3) Last Admin: 10/11/22 19:00 Dose: 650 mg Al Hydroxide/Mg Hydroxide (Magnesium Hydrox/Alum Hydrox 30 Ml Oral.Susp) 30 ml PO Q6H PRN PRN Reason: Heartburn/Nausea Cefuroxime Axetil (Cefuroxime Axetil 250 Mg Tablet) 250 mg PO BID VERO Last Admin: 10/15/22 09:03 Dose: 250 mg Chlorpromazine HCl (Chlorpromazine Hcl 25 Mg Tablet) 25 mg PO BEDTIME PRN PRN Reason: Insomnia Duloxetine HCl (Duloxetine Hcl 60 Mg Capsule.Dr) 60 mg PO BID [facility] Last Admin: 10/15/22 09:03 Dose: 60 mg Hydroxyzine HCl (Hydroxyzine Hcl 25 Mg Tablet) 25 mg PO Q6H PRN PRN Reason: Anxiety Lorazepam (Lorazepam 1 Mg Tablet) 1 mg PO TID PRN PRN Reason: anxiety Lurasidone HCl (Lurasidone Hcl 20 Mg Tablet) 20 mg PO DAILY [facility] Last Admin: 10/15/22 09:03 Dose: 20 mg Magnesium Hydroxide (Milk Of Magnesia 30 Ml Oral.Susp) 30 ml PO DAILY PRN PRN Reason: Constipation Allergies Allergies Allergy/AdvReac Type Severity Reaction Status Date / Time Sulfa (Sulfonamide Allergy Unknown SHORTNESS Verified 09/14/21 19:37 Antibiotics) OF BREATH [SULFA (SULFONAMIDE ANTIBIOTICS)] mirtazapine [From REMERON] AdvReac Unknown AGITATION Verified 09/14/21 19:37 quetiapine [From SEROQUEL] AdvReac Unknown AGITATION Verified 09/14/21 19:37 Assessment & Plan Assessment & Plan (1) MDD (major depressive disorder), recurrent severe, without psychosis: Status: Acute Code(s): F33.2 - Major depressive disorder, recurrent severe without psychotic features (2) PTSD (post-traumatic stress disorder): Status: Acute Code(s): F43.10 - Post-traumatic stress disorder, unspecified Plan pt with hx of recurrent depression ptsd on inc cymbalta 120 mg start latuda 20 mg augmentation discussed tms esketamine ect would benefit from php 10/14 Continue tx plan. 10/15 Continue current treatment plan. Reason for contiued inpatient stay Substantial Risk for: harm to self and inability to function Time Spent With Patient Time: Total time managing care of this patient today ____ minutes.
[2022-10-15 21:15] VITALS: BP 137/60; PULSE 68; RESP 16; TEMP 36.6; O2SAT 100
[2022-10-16 06:00] VITALS: BP 116/58; PULSE 67; RESP 16; TEMP 36.4; O2SAT 98
[2022-10-16] MEDS: Lurasidone HCl 20 MG TABLET PO (09:02)
[2022-10-16] MEDS: DULoxetine HCl 60 MG CAPSULE.DR PO ×2 (09:02→21:18)
--- NOTE | 2022-10-16 11:56 | HO.PSYCHPN ---
Subjective Subjective Date of Service: 10/16/22 Reason For Visit: SI Interim History: Staff with some concern about patient isolating. Patient reports she is feeling well today. She is tired because she isn't getting a good night sleep because of discomfort on the mattress. I am no where as nearly depressed as I was. Because she is tired she stays more in her room during the day and tries to get out when she can, and emphasizes it's not depression. Anxiety is better. She is tolerating medications well. She has no side effects. She denies SI. Mental Status Exam Mental Status Exam Narrative: Pt is alert and oriented; behavior is cooperative, calm; dressed in casual attire, well groomed, with good hygiene; mood is described depressed affect congruent; appropriate eye contact; Speech is soft, but normal rate and prosody and not pressured;? some psychomotor retardation present; thought process is organized and goal directed; Thought content is wishing she were , but also on working to be hopeful and wanting treatment; otherwise, pertinent to relevant topics and without any delusional content, paranoid ideations or grandiosity; active SI to overdose but safe on unit; no HI. There is no evidence of perceptual disturbance; no AVH;? Patients insight and judgment are improved. Patient Appearance: Well Grooomed Patient Orientation: Person, Place, Time and Situation Level of Consciousness: Awake Patient Behavior: Appropriate Mood Description: Appropriate, Depressed, Anxious and Apprehensive Affect Description: Constricted and Depressed Patient Cognition Impaired: No Ability to Follow Directions: Good Diagnostics Vital Signs (24Hr): Vital Signs - 24 hr 10/15/22 21:15 10/16/22 06:00 Temperature 97.9 F 97.6 F Pulse Rate 68 67 Respiratory Rate 16 16 Blood Pressure 137/60 116/58 L Pulse Oximetry 100 98 Oxygen Delivery Method Room Air Room Air Medications Medications Current Medications Acetaminophen (Acetaminophen 325 Mg Tablet) 650 mg PO Q6H PRN PRN Reason: Headache/Pain Mild Scale (1-3) Last Admin: 10/11/22 19:00 Dose: 650 mg Al Hydroxide/Mg Hydroxide (Magnesium Hydrox/Alum Hydrox 30 Ml Oral.Susp) 30 ml PO Q6H PRN PRN Reason: Heartburn/Nausea Cefuroxime Axetil (Cefuroxime Axetil 250 Mg Tablet) 250 mg PO BID VERO Stop: 10/17/22 10:00 Last Admin: 10/16/22 09:02 Dose: 250 mg Chlorpromazine HCl (Chlorpromazine Hcl 25 Mg Tablet) 25 mg PO BEDTIME PRN PRN Reason: Insomnia Duloxetine HCl (Duloxetine Hcl 60 Mg Capsule.Dr) 60 mg PO BID [facility] Last Admin: 10/16/22 09:02 Dose: 60 mg Hydroxyzine HCl (Hydroxyzine Hcl 25 Mg Tablet) 25 mg PO Q6H PRN PRN Reason: Anxiety Lorazepam (Lorazepam 1 Mg Tablet) 1 mg PO TID PRN PRN Reason: anxiety Lurasidone HCl (Lurasidone Hcl 20 Mg Tablet) 20 mg PO DAILY [facility] Last Admin: 10/16/22 09:02 Dose: 20 mg Magnesium Hydroxide (Milk Of Magnesia 30 Ml Oral.Susp) 30 ml PO DAILY PRN PRN Reason: Constipation Allergies Allergies Allergy/AdvReac Type Severity Reaction Status Date / Time Sulfa (Sulfonamide Allergy Unknown SHORTNESS Verified 09/14/21 19:37 Antibiotics) OF BREATH [SULFA (SULFONAMIDE ANTIBIOTICS)] mirtazapine [From REMERON] AdvReac Unknown AGITATION Verified 09/14/21 19:37 quetiapine [From SEROQUEL] AdvReac Unknown AGITATION Verified 09/14/21 19:37 Assessment & Plan Assessment & Plan (1) MDD (major depressive disorder), recurrent severe, without psychosis: Status: Acute Code(s): F33.2 - Major depressive disorder, recurrent severe without psychotic features (2) PTSD (post-traumatic stress disorder): Status: Acute Code(s): F43.10 - Post-traumatic stress disorder, unspecified Plan pt with hx of recurrent depression ptsd on inc cymbalta 120 mg start latuda 20 mg augmentation discussed tms esketamine ect would benefit from php 10/14 Continue tx plan. 10/15 Continue current treatment plan. 10/16 Continue treatment plan. Reason for contiued inpatient stay Substantial Risk for: harm to self and rapid decompensation Time Spent With Patient Time: Total time managing care of this patient today ____ minutes.
[2022-10-16 21:00] VITALS: BP 138/63; PULSE 72; RESP 16; TEMP 36.4; O2SAT 99
[2022-10-17 09:30] VITALS: BP 146/66; PULSE 86; RESP 20; TEMP 36.6; O2SAT 98
[2022-10-17] MEDS: DULoxetine HCl 60 MG CAPSULE.DR PO ×2 (09:37→20:51)
--- NOTE | 2022-10-17 15:56 | HO.PSYCHPN ---
Subjective Subjective Date of Service: 10/17/22 Reason For Visit: SI Interim History: feeling well, thinking of discharge. interested in PHP and TMS. no anxiety, no panic. depression minimal. feeling hopeful. plan to DC . per staff, pleasant, sleeping well. isolative, napping. missing fiancee. active, appropriate. new meds helpful but make her tired. denies SI/HI/AVH. Mental Status Exam Mental Status Exam Narrative: Pt is alert and oriented; behavior is cooperative, calm; dressed in casual attire, well groomed, with good hygiene; depression is described as minimal, affect full range; appropriate eye contact; Speech is soft, but normal rate and prosody and not pressured;? no psychomotor retardation present; thought process is organized and goal directed; Thought content is lacking in psychotic Sx; denies SI/HI/AVH; Patients insight and judgment are improved. Diagnostics Vital Signs (24Hr): Vital Signs - 24 hr 10/16/22 21:00 10/17/22 09:30 Temperature 97.6 F 97.8 F Pulse Rate 72 86 Respiratory Rate 16 20 Blood Pressure 138/63 146/66 H Pulse Oximetry 99 98 Oxygen Delivery Method Room Air Room Air Medications Medications Current Medications Acetaminophen (Acetaminophen 325 Mg Tablet) 650 mg PO Q6H PRN PRN Reason: Headache/Pain Mild Scale (1-3) Last Admin: 10/11/22 19:00 Dose: 650 mg Al Hydroxide/Mg Hydroxide (Magnesium Hydrox/Alum Hydrox 30 Ml Oral.Susp) 30 ml PO Q6H PRN PRN Reason: Heartburn/Nausea Chlorpromazine HCl (Chlorpromazine Hcl 25 Mg Tablet) 25 mg PO BEDTIME PRN PRN Reason: Insomnia Duloxetine HCl (Duloxetine Hcl 60 Mg Capsule.Dr) 60 mg PO BID VERO Last Admin: 10/17/22 09:37 Dose: 60 mg Hydroxyzine HCl (Hydroxyzine Hcl 25 Mg Tablet) 25 mg PO Q6H PRN PRN Reason: Anxiety Lurasidone HCl (Lurasidone Hcl 20 Mg Tablet) 20 mg PO DAILY@1800 VERO Magnesium Hydroxide (Milk Of Magnesia 30 Ml Oral.Susp) 30 ml PO DAILY PRN PRN Reason: Constipation Allergies Allergies Allergy/AdvReac Type Severity Reaction Status Date / Time Sulfa (Sulfonamide Allergy Unknown SHORTNESS Verified 09/14/21 19:37 Antibiotics) OF BREATH [SULFA (SULFONAMIDE ANTIBIOTICS)] mirtazapine [From REMERON] AdvReac Unknown AGITATION Verified 09/14/21 19:37 quetiapine [From SEROQUEL] AdvReac Unknown AGITATION Verified 09/14/21 19:37 Assessment & Plan Assessment & Plan (1) MDD (major depressive disorder), recurrent severe, without psychosis: Status: Acute Code(s): F33.2 - Major depressive disorder, recurrent severe without psychotic features (2) PTSD (post-traumatic stress disorder): Status: Acute Code(s): F43.10 - Post-traumatic stress disorder, unspecified Plan pt with hx of recurrent depression ptsd on inc cymbalta 120 mg start latuda 20 mg augmentation discussed tms esketamine ect would benefit from php 10/14 Continue tx plan. 10/15 Continue current treatment plan. 10/16 Continue treatment plan. 10/17: much improved, planning for D/C to pursue TMS on . Reason for contiued inpatient stay Substantial Risk for: inability to function and rapid decompensation Time Spent With Patient Time: Total time managing care of this patient today __25__ minutes.
[2022-10-17] MEDS: Lurasidone HCl 20 MG TABLET PO (18:08)
[2022-10-18 08:40] VITALS: BP 130/60; PULSE 74; RESP 20; TEMP 36.3; O2SAT 99
[2022-10-18] MEDS: DULoxetine HCl 60 MG CAPSULE.DR PO ×2 (09:20→21:03)
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
[2022-10-18] MEDS: Lurasidone HCl 20 MG TABLET PO (18:29)
[2022-10-18 20:27] VITALS: BP 112/55; PULSE 84; RESP 14; TEMP 36.6; O2SAT 98
[2022-10-19] MEDS: DULoxetine HCl 60 MG CAPSULE.DR PO (08:19)
[2022-10-19 08:20] VITALS: BP 134/65; PULSE 78; RESP 20; TEMP 36.6; O2SAT 100
--- NOTE | 2022-10-19 10:50 | PC.NURSE ---
Pt states shes happy to be going home. she will be staying with daughter and son in law. She denies SI/HI/AH/VH . Discharge instructions reviewed with Patient., she verbalized understanding of meds and appointments. Patient has appointment with [facility] for intake review at 1030 this am. Pt states her mother will be picking her up. Pt walked off unit with staff member.
== END 2022-10-19 10:10 | disposition home or self-care (01) | DRG 751 ==
PROVIDERS: Psychiatry & Neurology Psychiatry; Admitting Provider Psychiatry & Neurology Psychiatry; Visit Provider Psychiatry & Neurology Psychiatry
DX: F33.2 Major depressive disorder, recurrent severe without psychotic features (principal); R45.851 Suicidal ideations; N12 Tubulo-interstitial nephritis, not specified as acute or chronic; F43.10 Post-traumatic stress disorder, unspecified; Z23 Encounter for immunization; Z56.0 Unemployment, unspecified; Z88.2 Allergy status to sulfonamides; Z88.8 Allergy status to other drugs, medicaments and biological substances; Z79.899 Other long term (current) drug therapy
CPT/HCPCS: 36415; 82607; 82746; 90686; 99214

== ENCOUNTER 2023-01-06 07:59 | Outpatient (REF) | payer MEDICAID, SELFPAY ==
--- NOTE | ~2023-01-06 | MM_ITS ---
EXAMINATION: MM SCREENING DIGITAL BREAST TOMOSYNTHESIS, BILATERAL CLINICAL INFORMATION: Screening. Asymptomatic. Family history breast cancer. No prior breast imaging. The lifetime risk of breast cancer based on the Tyrer-Cuzick Model is 22%. COMPARISON: None (current study represents initial baseline exam). TECHNIQUE: Digital breast tomosynthesis is performed in both the craniocaudal and mediolateral oblique views along with computer-aided detection (CAD). Synthesized 2D images are generated from the tomosynthesis. FINDINGS: There are scattered areas of fibroglandular density (ACR BI-RADS breast composition Category b). Breast tissue composition borders on heterogeneously dense. No architectural abnormality. There are no significant masses, abnormal calcifications, or other abnormalities. Incidental intramammary node mid upper outer left breast. The axilla and skin contours are unremarkable. MM/MM tomosynthesis screening BI IMPRESSION: No mammographic evidence of malignancy. ASSESSMENT: BI-RADS 2: Benign RECOMMENDATION: Routine annual mammography screening. This patient's information was entered into a reminder system with a target due date for their next mammogram.
== END 2023-01-06 08:00 | disposition home or self-care (01) ==
LOC: HO.MAMMO 07:59
PROVIDERS: PCP Nurse Practitioner Family; Visit Provider Nurse Practitioner Family
DX: Z12.31 Encounter for screening mammogram for malignant neoplasm of breast (principal)
CPT/HCPCS: 77063; 77067

== ENCOUNTER 2023-08-24 20:32 | Inpatient (IN) | payer OTHER, SELFPAY ==
[2023-08-24 20:37] VITALS: BP 128/59; PULSE 73; RESP 16; TEMP 36.2; O2SAT 98; BMI 28.1
--- NOTE | 2023-08-24 20:53 | PC.NURSE ---
pt came in for SI, has a plan but came in for help. pt very tearful and slightly vague in responses. pt reports she was in [place] with fiance. pt is no longer engaged and came home. she reports being homeless, living in her car. states she can't do this anymore . pt denies drug use, denies pain.
--- NOTE | 2023-08-24 21:27 | ED.PSYCH ---
HPI - Psych General Chief Complaint: Psychiatric Symptoms Stated Complaint: SI Time Seen by Provider: 08/24/23 20:54 Source: patient Mode of arrival: ambulatory Limitations: no limitations History of Present Illness HPI Narrative: 48 yo female with PTSD and depression here with c/o SI and plan. No ingestions, self harm or attempts prior to arrival. Has no medical complaints MD complaint: suicidal ideation and feels depressed Onset (ago): day(s) Duration: getting worse History of same: Yes Relieving factors: none Exacerbating factors: other Context: significant life stressor Associated psychiatric symptoms: depression and suicidal ideation Associated symptoms: denies other symptoms Treatments prior to arrival: none If self harm: admits thoughts of self harm and has plan Related Data Previous Rx's Medication Instructions Recorded duloxetine 60 mg capsule,delayed 60 mg PO BID 30 days #60 caps 10/18/22 release lorazepam 1 mg tablet 1 mg PO DAILY PRN anxiety 30 days 10/18/22 #10 tabs lurasidone 20 mg tablet (Latuda) 20 mg PO DAILY@1800 30 days #30 10/18/22 tabs Allergies Allergy/AdvReac Type Severity Reaction Status Date / Time Sulfa (Sulfonamide Allergy Unknown SHORTNESS Verified 09/14/21 19:37 Antibiotics) OF BREATH [SULFA (SULFONAMIDE ANTIBIOTICS)] mirtazapine [From REMERON] AdvReac Unknown AGITATION Verified 09/14/21 19:37 quetiapine [From SEROQUEL] AdvReac Unknown AGITATION Verified 09/14/21 19:37 Review of Systems Review of Systems: Constitutional : No Fever, No Chills ENT/Mouth : No Ear Pain, No Nasal Congestion, No sore throat Eyes: No Eye Pain, No Swelling, No Redness Cardiovascular : No Chest Pain, No SOB Respiratory : No Cough, No Sputum, No Dyspnea Gastrointestinal : No Nausea, No Vomiting, No Diarrhea, No Hematochezia, No Melena Genitourinary : No Dysuria, No Urinary Frequency, No Hematuria Musculoskeletal : No Myalgias Skin : No Skin Lesions, No rash Neuro : No Weakness, No Numbness, No Paresthesias, No Dizziness, No Headache Psych : positive Anxiety, positive Depression, positive SI no HI Heme/Lymph: No Lymphadenopathy Endocrine : No Polyuria, No Polydipsia All other systems reviewed and are negative [facility] Past Medical History Attestation statement: The following information was validated with the patient. Source: old records reviewed Medical History Pneumothorax PTSD (post-traumatic stress disorder) Depression Surgical History No pertinent past surgical history Family History Family History Father Heart disease Social History Social History Household Members: Family Household Members Other:: daughter and daughter's boyfriend Housing: House Do you presently have visiting nurse or other home services: No Alcohol intake: current Alcohol intake frequency: holidays/special occasions only Alcohol type: beer and wine Patient Tobacco Use Status: Never used Tobacco Smoked in Last 30 Days: No e-Cigarette/Vaping Use: Never Used Second Hand Smoke Exposure: No Use of substances other than those prescribed or required for medical reasons: Yes Substance Use Type: Marijuana Substance Use Frequency: Occasionally Last Used Substance: Days (ago) Advance Directives: No Advance Directives Information Provided: No service: No Current occupational status: unemployed Sexual orientation: Straight/Heterosexual Physical Exam Vital Signs: Vital Signs: Last Vital Signs Temp 97.1 F 08/24/23 20:37 Pulse 73 08/24/23 20:37 Resp 16 08/24/23 20:37 BP 128/59 L 08/24/23 20:37 Pulse Ox 98 08/24/23 20:37 O2 Del Method Room Air 08/24/23 20:37 BMI result Body Mass Index 28.1 Appearance: Alert. Oriented X3. No acute distress. Calm and cooperative Eyes: Pupils equal, round and reactive to light. ENT: Pharynx normal. Neck: Normal inspection. Neck supple. CVS: Normal heart rate and rhythm. Pulses normal. Respiratory: No respiratory distress. Breath sounds normal. Abdomen: Soft and nontender. Skin: Skin warm and dry. Normal skin color. Normal skin turgor. Extremities: No lower extremity edema. No calf ttp Neuro: Oriented X 3. No motor deficit. No sensory deficit. CN2-12 intact Course Course Course Narrative: Physician observation started at 941pm. Patient placed in physician observation because the patient needed more time for CARE team to assess the need for psych admission. At the time observation was started the patient's vitals were stable, patient is alert and oriented, Neuro: nonfocal, CV RRR, Lungs clear Medical Decision Making Medical Decision Making [facility] Narrative: 48 yo female with PMH of anxiety, depression here with SI and plan denies any self harm or ingestion at this time labs and CARE team consult ordered. Differential Diagnosis Differential Diagnoses: The differential diagnosis associated with the presentation includes SI, depression Admission/Observation Consideration of admission/observation: Escalation of care including admission/observation considered observe until CARE team sees patient Consult Healthcare Provider Management of the patient was discussed with: Behavioral Health Provider Lab Data [facility] Lab Attestation statement: I reviewed the patient's lab results. External Record Review External record reviewed: Inpatient record Discharge Plan Discharge Clinical Impression: Suicidal ideation Patient Disposition: Still a Patient Prescriptions: No Action duloxetine 60 mg Capsule,Delayed Release(Dr/Ec) 60 mg PO BID 30 Days Qty: 60 0RF Latuda 20 mg Tablet 20 mg PO DAILY@1800 30 Days Qty: 30 0RF lorazepam 1 mg Tablet 1 mg PO DAILY PRN (Reason: anxiety) 30 Days Qty: 10 0RF Interventions: [place]-Suicide Risk Severity Scale Last Done: 08/24/23 20:51
[2023-08-24 21:35] LABS: MANUAL DIFF FLAG NO
[2023-08-24 21:40] LABS: Basophils Absolute Auto 0.1 X10*3/uL (0.0-0.2); Basophils Percent Auto 0.6 % (0-2); Eosinophils Absolute Auto 0.2 X10*3/uL (0.0-0.4); Eosinophils Percent Auto 2.3 % (0-4); Hematocrit 35.5 % (37.0-47.0); Hemoglobin 11.9 g/dl (12.0-16.0); Imm Gran Abs Auto 0.01 X10*3/uL (0.00-0.03); Imm Gran Pct Auto 0.1 % (0.0-0.4); Lymphocytes Percent Auto 37.7 % (20-40); Mean Corpuscular HGB Conc 33.5 g/dl (31.0-35.0); Mean Corpuscular Hemoglobin 28.3 pg (27.0-33.0); Mean Corpuscular Volume 84.5 fL (80.0-98.0); Monocytes Absolute Auto 0.8 X10*3/uL (0.1-1.2); Monocytes Percent Auto 9.6 % (2-11); Neutrophils Absolute Auto 3.9 x10*3/uL (2.0-8.3); Neutrophils Percent Auto 49.7 % (45-73); Platelet Count 265 X10*3/uL (160-400); Red Cell Distribution Width 12.6 % (11.0-16.0); White Blood Count 7.9 X10*3/uL (4.8-10.8)
--- NOTE | 2023-08-24 21:46 | MHC.EDTECH ---
Pt aware we need to obtain an urine sample. Patient is drinking water. SG
[2023-08-24 21:50] LABS: COVID-19 Test Negative (Negative); IDNOW Serial# 08D9AD1C
[2023-08-24 21:58] LABS: Acetaminophen LAB < 3 mcg/mL (<30); Alanine Aminotransferase 15 U/L (0-31); Albumin Level 3.8 g/dL (3.5-5.0); Alkaline Phosphatase 76 U/L (39-117); Anion Gap 10 (12-20); Aspartate Amino Transferase 16 U/L (5-31); Bilirubin Direct 0.2 mg/dL (0.0-0.5); Bilirubin Total 0.6 mg/dL (0.0-1.0); Blood Urea Nitrogen 11 mg/dL (9-16); Calcium 9.5 mg/dL (8.4-10.2); Carbon Dioxide 27 mmol/L (22-29); Chloride 107 mmol/L (96-108); Creatinine Clr Calc Pharmacy 94.3; Estimated Glomerular Filt Rate > 60; Ethanol < 10 mg/dL; Glucose Random 104 mg/dL (60-115); Potassium 3.5 mmol/L (3.3-5.1); Sodium 140 mmol/L (135-145); Total Protein 6.4 g/dL (6.5-8.0)
[2023-08-24 23:30] LABS: Amphetamine Screen Urine Not Detected (Not Detect); Barbiturates, Urine Not Detected (Not Detect); Benzodiazepines Screen Urine Not Detected (Not Detect); Cannabinoid Screen Urine POSITIVE (Not Detect); Cocaine Screen Urine Not Detected (Not Detect); Fentanyl, urine Not Detected (Not Detect); Opiate Screen Urine Not Detected (Not Detect); Phencyclidine Screen Urine Not Detected (Not Detect)
--- NOTE | 2023-08-25 00:06 | PC.NURSE ---
care team at bedside
--- NOTE | 2023-08-25 02:19 | PC.NURSE ---
pt resting comfortably in bed with eyes closed, breathing even and unlabored. no apparent distress noted.
[2023-08-25 03:39] VITALS: RESP 14
[2023-08-25 06:19] VITALS: BP 114/51; PULSE 65; RESP 14; TEMP 36.2; O2SAT 99
[2023-08-25 08:15] LABS: Appearance Urine Clear; Color Urine Yellow; Glucose Urine UA Negative (Negative); Leukocyte Esterase Urine Large (3+) (Negative); Nitrite Urine Negative (Negative); PH 5.5 (5.0-9.0); UMIC TRIGGER UACC YES; Urine Blood Negative (Negative); Urine Ketones Negative (Negative); Urine Protein Negative (Neg-Trace)
[2023-08-25 08:16] LABS: UPreg QC Valid YES; Urine Pregnancy NEGATIVE (NEGATIVE)
[2023-08-25 08:17] LABS: Bacteria Urine None Seen (None Seen); Hyaline Casts Urine 0-2 /LPF (0-2); RBC Urine 0-2 /HPF (0-2); Squamous Epithelial Cell Urine >20 /HPF (0-2); UACC Culture Trigger YES; WBC Urine >50 /HPF (0-5)
--- NOTE | 2023-08-25 10:10 | ECG_ITS ---
Test Reason : QT INTERVAL Blood Pressure : / mmHG Vent. Rate : 064 BPM Atrial Rate : 064 BPM P-R Int : 136 ms QRS Dur : 084 ms QT Int : 412 ms P-R-T Axes : 072 068 062 degrees QTc Int : 425 ms Normal sinus rhythm with sinus arrhythmia Normal ECG When compared with ECG of 09-OCT-2012 17:11, No significant change was found Referred By: Rony Zhou Electronically Signed By:DEVIN REYES MD
[2023-08-25] MEDS: DULoxetine HCl 60 MG CAPSULE.DR 120 MG PO (11:08)
[2023-08-25] MEDS: Lurasidone HCl 20 MG TABLET PO (11:08)
--- NOTE | 2023-08-25 17:25 | PC.NURSE ---
Patient remained in her room sleeping in bed for most of the shift. No c/o pain, si, hi, ah. Patient transferred to inpatient bed on M3.
--- NOTE | 2023-08-25 18:20 | PC.NURSE ---
Jovanna was admitted to at 1730 from [facility] Pod on CV for treatment of mood disorder and SI with a plan? Patient had moved to [place] to live with her fiance but was unable to obtain mental health care or psych meds there. Although she wanted to stay in [place] she became profoundly depressed off her meds. [place] the [place] on 08[place]22[place]23 but is homeless and has no supports or providers. She refilled and restarted her duloxetine and latuda but still feels hopeless and wants to . She came to the ED seeking treatment including meds, referrals to providers and help getting respit or fpc bed. She also wants a [facility] referral. Jovanna is alert and fully oriented. Mood is depressed. Affect is sad. She denies perceptual disturbance and no s/s psychosis noted. Thought Process is organized. Although she has SI with a plan she reports she will not harm herself on the unit. She denies ideation, plan or intent to harm others. Appetite is poor. She has had a 20 lb weight loss over the past month and reports not eating for 2 days after her return to the [place]. Jovanna reports trouble falling and staying asleep. She reports trazodone gives her unpleasant dreams. Jovanna denies substance Issues -but reports using marijuana on occasion. She reports sinus pain and pressure but denies other physical complaint Jovanna is on 15 minute checks for safety.
[2023-08-25 19:16] VITALS: BMI 26.5
[2023-08-25 20:26] VITALS: BP 136/60; PULSE 72; RESP 15; TEMP 36.9; O2SAT 98
[2023-08-26 06:00] VITALS: BP 129/58; PULSE 71; TEMP 36.3; O2SAT 95
[2023-08-26 07:37] LABS: Estimated Average Glucose 105 mg/dL; Hemoglobin A1c % 5.3 % (<6.0)
[2023-08-26 07:54] LABS: Cholesterol 155 mg/dL (<200); HDL Cholesterol 39 mg/dL (>40); LDL Cholesterol Calculated 100 mg/dL (<100); Triglycerides 83 mg/dL (<150)
[2023-08-26 08:09] LABS: Free T4 (Free Thyroxine) 0.82 ng/dL (0.71-1.85); Thyroid Stimulating Hormone 0.95 uIU/mL (0.32-4.0)
[2023-08-26 08:23] LABS: Folate 4.8 ng/mL (> or = 4.0); Vitamin B12 237 pg/mL (200-900)
[2023-08-26] MEDS: DULoxetine HCl 60 MG CAPSULE.DR 120 MG PO (09:21)
[2023-08-26] MEDS: Lurasidone HCl 20 MG TABLET PO (09:21)
[2023-08-26] MEDS: LORazepam 1 MG TABLET PO (09:38)
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
[2023-08-26 21:05] VITALS: BP 108/57; PULSE 82; RESP 14; TEMP 36.6; O2SAT 98
[2023-08-27 07:45] VITALS: BP 122/60; PULSE 79; RESP 14; TEMP 36.4; O2SAT 98
[2023-08-27] MEDS: Lurasidone HCl 20 MG TABLET PO (08:58)
[2023-08-27] MEDS: DULoxetine HCl 60 MG CAPSULE.DR 120 MG PO (08:58)
[2023-08-27] MEDS: LORazepam 1 MG TABLET PO (13:10)
--- NOTE | 2023-08-27 15:03 | HO.PSYCHPN ---
Subjective Subjective Date of Service: 08/27/23 Reason For Visit: SI Interim History: tearful, upset she cannot be supplied with housing from the inpatient mental health unit. otherwise no complaints re regimen. per staff, as above. Mental Status Exam Mental Status Exam Narrative: Pt is alert and oriented; behavior is cooperative, calm; dressed in casual attire, well groomed, with good hygiene; mood depressed; affect constricted, tearful; appropriate eye contact; Speech is soft, but normal rate and prosody and not pressured;? no psychomotor retardation present; thought process is organized and goal directed; Thought content is lacking in psychotic Sx; endorses SI, active, to overdose, upon discharge; no HI/AVH expressed; Patients insight and judgment are fair. Diagnostics Vital Signs (24Hr): Vital Signs - 24 hr 08/26/23 21:05 08/27/23 07:45 Temperature 97.9 F 97.6 F Pulse Rate 82 79 Respiratory Rate 14 14 Blood Pressure 108/57 L 122/60 Pulse Oximetry 98 98 Oxygen Delivery Method Room Air Room Air BMI result Body Mass Index 26.5 Labs 08/24/23 21:30 08/24/23 21:30 Labs: Laboratory Results - last 48 hr 08/26/23 07:07 Estimat Average Glucose 105 Hemoglobin A1c % 5.3 Triglycerides 83 Cholesterol 155 LDL Cholesterol, Calc 100 H HDL Cholesterol 39 L Vitamin B12 237 Folate 4.8 TSH 0.95 Free T4 0.82 Medications Medications Current Medications Acetaminophen (Acetaminophen 325 Mg Tablet) 650 mg PO Q6H PRN PRN Reason: Headache/Pain Mild Scale (1-3) Al Hydroxide/Mg Hydroxide (Magnesium Hydrox/Alum Hydrox 30 Ml Oral.Susp) 30 ml PO Q6H PRN PRN Reason: Heartburn/Nausea Duloxetine HCl (Duloxetine Hcl 60 Mg Capsule.Dr) 120 mg PO DAILY [facility] Last Admin: 08/27/23 08:58 Dose: 120 mg Hydroxyzine HCl (Hydroxyzine Hcl 25 Mg Tablet) 25 mg PO Q6H PRN PRN Reason: Anxiety Hydroxyzine HCl (Hydroxyzine Hcl 50 Mg Tablet) 50 mg PO BEDTIME PRN PRN Reason: insomnia Lorazepam (Lorazepam 1 Mg Tablet) 1 mg PO DAILY PRN PRN Reason: anxiety Last Admin: 08/27/23 13:10 Dose: 1 mg Lurasidone HCl (Lurasidone Hcl 20 Mg Tablet) 20 mg PO DAILY [facility] Last Admin: 08/27/23 08:58 Dose: 20 mg Magnesium Hydroxide (Milk Of Magnesia 30 Ml Oral.Susp) 30 ml PO DAILY PRN PRN Reason: Constipation Nicotine Polacrilex (Nicotine Polacrilex 2 Mg Gum) 4 mg BUCCAL Q2H PRN PRN Reason: Nicotine Cravings Allergies Allergies Allergy/AdvReac Type Severity Reaction Status Date / Time Sulfa (Sulfonamide Allergy Unknown SHORTNESS Verified 09/14/21 19:37 Antibiotics) OF BREATH [SULFA (SULFONAMIDE ANTIBIOTICS)] mirtazapine [From REMERON] AdvReac Unknown AGITATION Verified 09/14/21 19:37 quetiapine [From SEROQUEL] AdvReac Unknown AGITATION Verified 09/14/21 19:37 Assessment & Plan Assessment & Plan (1) MDD (major depressive disorder), recurrent severe, without psychosis: Status: Acute Code(s): F33.2 - Major depressive disorder, recurrent severe without psychotic features (2) PTSD (post-traumatic stress disorder): Status: Acute Code(s): F43.10 - Post-traumatic stress disorder, unspecified (3) Suicidal ideation: Status: Acute Code(s): R45.851 - Suicidal ideations Plan 08/26: restart prior regimen of latuda 20 mg daily, cymbalta 120 mg daily, and ativan 1 mg daily PRN. refer for TMS upon discharge. explore options for housing and financial assistance. 08/27: tearful, upset she cannot get housing through the hospital. continue current mgmt. espousing SI with plan to overdose should she be discharged without housing. Reason for continued inpatient stay Substantial Risk for: harm to self, inability to function and rapid decompensation Time Spent With Patient Time: Total time managing care of this patient today __35__ minutes.
--- NOTE | 2023-08-27 15:04 | MHC.CLN ---
NUTRITION CONSULT FOR REPORTED 20# WEIGHT LOSS X 2 MONTHS. PATIENT RECENTLY OUT OF THE COUNTRY X 2 MONTHS. RETURNED AND IS HOMELESS. ASKED PATIENT ABOUT MEAL INTAKE AND RESPONDED, I'M FINE . OFFERED ENSURE SUPPLEMENT OR FORTIFIED ICE CREAM AND DECLINED. AWARE THAT CAN MAKE OWN FOOD CHOICES AND THAT SNACKS ARE AVAILABLE ON THE UNIT. RD AVAILABLE BY CONSULT NEEDED.
[2023-08-27 20:47] VITALS: BP 125/60; PULSE 71; TEMP 37.2; O2SAT 98
[2023-08-27] MEDS: hydrOXYzine HCL 50 MG TABLET PO (22:04)
[2023-08-28 06:00] VITALS: BP 113/53; PULSE 80; TEMP 36.9; O2SAT 100
[2023-08-28] MEDS: DULoxetine HCl 60 MG CAPSULE.DR 120 MG PO (09:32)
[2023-08-28] MEDS: Lurasidone HCl 20 MG TABLET PO (09:32)
--- NOTE | 2023-08-28 13:31 | HO.PSYCHPN ---
Subjective Subjective Date of Service: 08/28/23 Reason For Visit: SI Interim History: seen with LIN brennan. discuss Tx goals while in hospital, arrive at conclusion that attainable goals have been met and dispo needs to be pursued. set tentative DC date of . understands we cannot get her housing. understands medication may take some weeks to become effective. per staff, sleeping well, using ativan PRN. saying she will OD if discharged. had PRN hydroxyzine for sleep last NOC. Mental Status Exam Mental Status Exam Narrative: Pt is alert and oriented; behavior is cooperative, calm; dressed in casual attire, well groomed, with good hygiene; mood depressed; affect constricted; appropriate eye contact; Speech is soft, but normal rate and prosody and not pressured;? no psychomotor retardation present; thought process is organized and goal directed; Thought content is lacking in psychotic Sx; no SI/HI/AVH expressed; Patients insight and judgment are fair. Diagnostics Vital Signs (24Hr): Vital Signs - 24 hr 08/27/23 20:47 08/28/23 06:00 Temperature 98.9 F 98.4 F Pulse Rate 71 80 Blood Pressure 125/60 113/53 L Pulse Oximetry 98 100 Oxygen Delivery Method Room Air Room Air BMI result Body Mass Index 26.5 Labs 08/24/23 21:30 08/24/23 21:30 Medications Medications Current Medications Acetaminophen (Acetaminophen 325 Mg Tablet) 650 mg PO Q6H PRN PRN Reason: Headache/Pain Mild Scale (1-3) Al Hydroxide/Mg Hydroxide (Magnesium Hydrox/Alum Hydrox 30 Ml Oral.Susp) 30 ml PO Q6H PRN PRN Reason: Heartburn/Nausea Duloxetine HCl (Duloxetine Hcl 60 Mg Capsule.Dr) 120 mg PO DAILY [facility] Last Admin: 08/28/23 09:32 Dose: 120 mg Hydroxyzine HCl (Hydroxyzine Hcl 25 Mg Tablet) 25 mg PO Q6H PRN PRN Reason: Anxiety Hydroxyzine HCl (Hydroxyzine Hcl 50 Mg Tablet) 50 mg PO BEDTIME PRN PRN Reason: insomnia Last Admin: 08/27/23 22:04 Dose: 50 mg Lorazepam (Lorazepam 1 Mg Tablet) 1 mg PO DAILY PRN PRN Reason: anxiety Last Admin: 08/27/23 13:10 Dose: 1 mg Lurasidone HCl (Lurasidone Hcl 20 Mg Tablet) 20 mg PO DAILY [facility]ERO Last Admin: 08/28/23 09:32 Dose: 20 mg Magnesium Hydroxide (Milk Of Magnesia 30 Ml Oral.Susp) 30 ml PO DAILY PRN PRN Reason: Constipation Nicotine Polacrilex (Nicotine Polacrilex 2 Mg Gum) 4 mg BUCCAL Q2H PRN PRN Reason: Nicotine Cravings Allergies Allergies Allergy/AdvReac Type Severity Reaction Status Date / Time Sulfa (Sulfonamide Allergy Unknown SHORTNESS Verified 09/14/21 19:37 Antibiotics) OF BREATH [SULFA (SULFONAMIDE ANTIBIOTICS)] mirtazapine [From REMERON] AdvReac Unknown AGITATION Verified 09/14/21 19:37 quetiapine [From SEROQUEL] AdvReac Unknown AGITATION Verified 09/14/21 19:37 Assessment & Plan Assessment & Plan (1) MDD (major depressive disorder), recurrent severe, without psychosis: Status: Acute Code(s): F33.2 - Major depressive disorder, recurrent severe without psychotic features (2) PTSD (post-traumatic stress disorder): Status: Acute Code(s): F43.10 - Post-traumatic stress disorder, unspecified (3) Suicidal ideation: Status: Acute Code(s): R45.851 - Suicidal ideations Plan 08/26: restart prior regimen of latuda 20 mg daily, cymbalta 120 mg daily, and ativan 1 mg daily PRN. refer for TMS upon discharge. explore options for housing and financial assistance. 08/27: tearful, upset she cannot get housing through the hospital. continue current mgmt. espousing SI with plan to overdose should she be discharged without housing. 08/28: calm, cooperative. resigned to the fact she cannot get housing through being here. [facility]. will obtain aftercare and plan to discharge . Reason for continued inpatient stay Substantial Risk for: inability to function and rapid decompensation Time Spent With Patient Time: Total time managing care of this patient today _35___ minutes.
[2023-08-28 20:45] VITALS: BP 132/61; PULSE 85; RESP 18; TEMP 36.3; O2SAT 97
[2023-08-28] MEDS: LORazepam 1 MG TABLET PO (23:04)
[2023-08-29] MEDS: Lurasidone HCl 20 MG TABLET PO (09:14)
[2023-08-29] MEDS: DULoxetine HCl 60 MG CAPSULE.DR 120 MG PO (09:14)
[2023-08-29 09:15] VITALS: BP 108/62; PULSE 70; RESP 16; TEMP 36.6; O2SAT 99
--- NOTE | 2023-08-29 10:08 | HO.PSYCHPN ---
Subjective Subjective Date of Service: 08/29/23 Reason For Visit: SI Subjective Notes: Conditional Voluntary Interim History: Reviewed in team and . Met with pt and her daughter, Nichelle. Pt continues anxious regarding placement after respite, pt reports feeling suicidal if I'm going to be homeless .; daughter reports she has filled out [employer] application for pt and has been contacting multiple locations for an apartment. According to the daughter, the plan is for the patient to go to respite and then move into an apartment with Nichelle's grandmother; daughter provided patient with reassurance that they would never allow her to be homeless . Patient stated she was happy with this and hopeful about the future. Pt stated she plans on following up with TMS and outpatient providers once discharged. Denies SI/HI/VH/AH. Medication Compliance: Yes Side effects from medications: No Diagnostics Vital Signs (24Hr): Vital Signs - 24 hr 08/28/23 20:45 08/29/23 09:15 Temperature 97.4 F 97.8 F Pulse Rate 85 70 Respiratory Rate 18 16 Blood Pressure 132/61 108/62 Pulse Oximetry 97 99 Oxygen Delivery Method Room Air Room Air BMI result Body Mass Index 26.5 Labs 08/24/23 21:30 08/24/23 21:30 Medications Medications Current Medications Acetaminophen (Acetaminophen 325 Mg Tablet) 650 mg PO Q6H PRN PRN Reason: Headache/Pain Mild Scale (1-3) Al Hydroxide/Mg Hydroxide (Magnesium Hydrox/Alum Hydrox 30 Ml Oral.Susp) 30 ml PO Q6H PRN PRN Reason: Heartburn/Nausea Duloxetine HCl (Duloxetine Hcl 60 Mg Capsule.) 120 mg PO DAILY [facility] Last Admin: 08/29/23 09:14 Dose: 120 mg Hydroxyzine HCl (Hydroxyzine Hcl 25 Mg Tablet) 25 mg PO Q6H PRN PRN Reason: Anxiety Hydroxyzine HCl (Hydroxyzine Hcl 50 Mg Tablet) 50 mg PO BEDTIME PRN PRN Reason: insomnia Last Admin: 08/27/23 22:04 Dose: 50 mg Lorazepam (Lorazepam 1 Mg Tablet) 1 mg PO DAILY PRN PRN Reason: anxiety Last Admin: 08/28/23 23:04 Dose: 1 mg Lurasidone HCl (Lurasidone Hcl 20 Mg Tablet) 20 mg PO DAILY [facility] Last Admin: 08/29/23 09:14 Dose: 20 mg Magnesium Hydroxide (Milk Of Magnesia 30 Ml Oral.Susp) 30 ml PO DAILY PRN PRN Reason: Constipation Nicotine Polacrilex (Nicotine Polacrilex 2 Mg Gum) 4 mg BUCCAL Q2H PRN PRN Reason: Nicotine Cravings Allergies Allergies Allergy/AdvReac Type Severity Reaction Status Date / Time Sulfa (Sulfonamide Allergy Unknown SHORTNESS Verified 09/14/21 19:37 Antibiotics) OF BREATH [SULFA (SULFONAMIDE ANTIBIOTICS)] mirtazapine [From REMERON] AdvReac Unknown AGITATION Verified 09/14/21 19:37 quetiapine [From SEROQUEL] AdvReac Unknown AGITATION Verified 09/14/21 19:37 Assessment & Plan Assessment & Plan (1) MDD (major depressive disorder), recurrent severe, without psychosis: Status: Acute Code(s): F33.2 - Major depressive disorder, recurrent severe without psychotic features (2) PTSD (post-traumatic stress disorder): Status: Acute Code(s): F43.10 - Post-traumatic stress disorder, unspecified (3) Suicidal ideation: Status: Acute Code(s): R45.851 - Suicidal ideations Plan 08/26: restart prior regimen of latuda 20 mg daily, cymbalta 120 mg daily, and ativan 1 mg daily PRN. refer for TMS upon discharge. explore options for housing and financial assistance. 08/27: tearful, upset she cannot get housing through the hospital. continue current mgmt. espousing SI with plan to overdose should she be discharged without housing. 08/28: calm, cooperative. resigned to the fact she cannot get housing through being here. [facility]. will obtain aftercare and plan to discharge . 08/29: Met with pt and her daughter, Nichelle. Pt continues anxious regarding placement after respite, pt reports feeling suicidal if I'm going to be homeless .; daughter reports she has filled out [employer] application for pt and has been contacting multiple locations for an apartment. According to the daughter, the plan is for the patient to go to respite and then move into an apartment with Nichelle's grandmother; daughter provided patient with reassurance that they would never allow her to be homeless . Patient stated she was happy with this and hopeful about the future. Pt stated she plans on following up with TMS and outpatient providers once discharged. Denies SI/HI/VH/AH. Patient educated on: diagnosis, medication risk/benefits and therapeutic strategies Guardian/Caregiver educated on: diagnosis, medication risk/benefits and therapeutic strategies Informed Consent: understands Reason for continued inpatient stay Substantial Risk for: stable for discharge Time Spent With Patient Time: Total time managing care of this patient today _30___ minutes.
[2023-08-29 10:12] LABS: COVID-19 Test Negative (Negative); IDNOW Serial# BCCEAD1C
[2023-08-29 20:00] VITALS: BP 147/69; PULSE 86; RESP 18; TEMP 36.4; O2SAT 98
[2023-08-29] MEDS: LORazepam 1 MG TABLET PO (22:35)
[2023-08-30 07:20] VITALS: BP 124/61; PULSE 74; RESP 12; TEMP 36.5; O2SAT 98
[2023-08-30] MEDS: Lurasidone HCl 20 MG TABLET PO (09:09)
[2023-08-30] MEDS: DULoxetine HCl 60 MG CAPSULE.DR 120 MG PO (09:09)
--- NOTE | 2023-08-30 09:45 | PM.PSYDC ---
DS: Providers Provider Date of Service: 08/30/23 Date of admission: 08/25/23 16:50 Date of discharge: 08/30/23 Primary care physician: Mamta Guzmán NP Attending physician on admission: Randolph Martinez Attending physician on discharge: Pardeep Escalera Discharging clinician: Lynn Guzman DS: Diagnosis Discharge Diagnosis (1) MDD (major depressive disorder), recurrent severe, without psychosis: Status: Acute (2) PTSD (post-traumatic stress disorder): Status: Acute (3) Suicidal ideation: Status: Acute DS: Medications Discharge Medications Home Medications: Previous Rx's Medication Instructions Recorded duloxetine 60 mg capsule,delayed 120 mg (2 x 60 mg) PO DAILY 30 08/30/23 release days #60 caps hydroxyzine HCl 50 mg tablet 50 mg PO BEDTIME PRN insomnia 30 08/30/23 days #30 tabs lorazepam 1 mg tablet 1 mg PO DAILY PRN anxiety 14 days 08/30/23 #14 tabs lurasidone 20 mg tablet (Latuda) 20 mg PO DAILY 30 days #30 tabs 08/30/23 Mental Status Exam Mental Status Exam Narrative: Pt is alert and oriented; behavior is cooperative and calm; dressed in casual attire; mood is described as good ; eye contact appropriate; Speech is normal rate, volume and prosody and not pressured; no psychomotor agitation/retardation present; thought process is organized and goal directed; Thought content is on tx; otherwise pertinent to relevant topics and without any delusional content, paranoid ideations or grandiosity; denies SI/HI. There is no evidence of perceptual disturbance. Patients insight and judgment are fair. Data Data Completed and Pending Completed studies during hospitalization [Text1]: 08/24/23 08/24/23 08/26/23 21:30 23:18 07:07 WBC 7.9 RBC 4.20 Hgb 11.9 L Hct 35.5 L MCV 84.5 MCH 28.3 MCHC 33.5 RDW 12.6 Plt Count 265 MPV 10.0 Immature Gran % (Auto) 0.1 Neut % (Auto) 49.7 Lymph % (Auto) 37.7 [place] % (Auto) 9.6 Eos % (Auto) 2.3 Baso % (Auto) 0.6 Lymph # (Auto) 3.0 [place] # (Auto) 0.8 Eos # (Auto) 0.2 Baso # (Auto) 0.1 Abs Immat Gran (auto) 0.01 Absolute Neuts (auto) 3.9 Absolute Nucleated RBC 0.000 Nucleated RBC % (auto) 0.0 Sodium 140 Potassium 3.5 Chloride 107 Carbon Dioxide 27 Anion Gap 10 L BUN 11 Creatinine 0.81 Estim Creat Clear Calc 94.3 Estimated GFR > 60 Random Glucose 104 Estimat Average Glucose 105 Hemoglobin A1c % 5.3 Calcium 9.5 D Magnesium 2.0 Total Bilirubin 0.6 Direct Bilirubin 0.2 AST 16 ALT 15 Alkaline Phosphatase 76 Total Protein 6.4 L Albumin 3.8 Triglycerides 83 Cholesterol 155 LDL Cholesterol, Calc 100 H HDL Cholesterol 39 L Vitamin B12 237 Folate 4.8 TSH 0.95 Free T4 0.82 Urine Color Yellow Urine Appearance Clear Urine pH 5.5 Ur Specific [place] 1.010 Urine Protein Negative Urine Glucose (UA) Negative Urine Ketones Negative Urine Blood Negative Urine Nitrite Negative Ur Leukocyte Esterase Large (3+) H Urine RBC 0-2 Urine WBC >50 H Ur Squamous Epith Cells >20 Urine Bacteria None Seen Hyaline Casts 0-2 Urine Test NEGATIVE Urine Opiates Screen Not Detected Urine Fentanyl Screen Not Detected Acetaminophen < 3 Ur Barbiturates Screen Not Detected Ur Phencyclidine Scrn Not Detected Ur Amphetamines Screen Not Detected U Benzodiazepines Scrn Not Detected Urine Cocaine Screen Not Detected U Marijuana (THC) Screen POSITIVE H Ethyl Alcohol < 10 COVID-19 (JAMIE) Negative COVID-19 Clin Com See Note 08/29/23 09:51 WBC RBC Hgb Hct MCV MCH MCHC RDW Plt Count MPV Immature Gran % (Auto) Neut % (Auto) Lymph % (Auto) [place] % (Auto) Eos % (Auto) Baso % (Auto) Lymph # (Auto) [place] # (Auto) Eos # (Auto) Baso # (Auto) Abs Immat Gran (auto) Absolute Neuts (auto) Absolute Nucleated RBC Nucleated RBC % (auto) Sodium Potassium Chloride Carbon Dioxide Anion Gap BUN Creatinine Estim Creat Clear Calc Estimated GFR Random Glucose Estimat Average Glucose Hemoglobin A1c % Calcium Magnesium Total Bilirubin Direct Bilirubin AST ALT Alkaline Phosphatase Total Protein Albumin Triglycerides Cholesterol LDL Cholesterol, Calc HDL Cholesterol Vitamin B12 Folate TSH Free T4 Urine Color Urine Appearance Urine pH Ur Specific [place] Urine Protein Urine Glucose (UA) Urine Ketones Urine Blood Urine Nitrite Ur Leukocyte Esterase Urine RBC Urine WBC Ur Squamous Epith Cells Urine Bacteria Hyaline Casts Urine Test Urine Opiates Screen Urine Fentanyl Screen Acetaminophen Ur Barbiturates Screen Ur Phencyclidine Scrn Ur Amphetamines Screen U Benzodiazepines Scrn Urine Cocaine Screen U Marijuana (THC) Screen Ethyl Alcohol COVID-19 (JAMIE) Negative COVID-19 Clin Com See Note 08/25/23 Unknown Urine clean catch - Urine holland top Urine Culture - Final Strep agalactiae (Grp B) DS: Summary Hospital Course Hospital Course: per CARE team neftaly pt presented to ED c/o worsened depression with SI with plan to overdose on medications. she reports having been in [place] for the past 2 months, without all of her medications, visiting her SO. she returned several days ago and is homeless, without income, and without supports. she endorsed insomnia, anorexia, hopelessness, amotivation, anhedonia, SI, guilt. on interview with MD on mental health unit, medications and recent Hx reviewed. pt had been off of latuda for some weeks and felt that the cymbalta was inadequate without the latuda. she has since restarted her medications and feels confident in her current regimen. she is requesting to F/U with TMS after discharge and is also asking for referral to [facility] [place] with the aim of getting into a long-term respite. she reports having used cannabis once since returning from [place]. she also reports having felt extremely anxious her last several weeks in [place] and taking ativan 2-3 mg daily rather than her prescribed 1 mg daily. she denies use of alcohol in months. she c/o depression and passive SI presently. During hospital stay, restarted prior regimen of latuda 20 mg daily, cymbalta 120 mg daily, and ativan 1 mg daily PRN. refer for TMS upon discharge. explore options for housing and financial assistance. pt tearful, upset she cannot get housing through the hospital. SI with plan to overdose should she be discharged without housing. pt presents calm, cooperative. resigned to the fact she cannot get housing through being here. [facility]. will obtain aftercare and plan to discharge . Met with pt and her daughter, Nichelle. Pt continues anxious regarding placement after respite, pt reports feeling suicidal if I'm going to be homeless .; daughter reports she has filled out [employer] application for pt and has been contacting multiple locations for an apartment. According to the daughter, the plan is for the patient to go to respite and then move into an apartment with Nichelle's grandmother; daughter provided patient with reassurance that they would never allow her to be homeless . Patient stated she was happy with this and hopeful about the future. Pt stated she plans on following up with TMS and outpatient providers once discharged. Denies SI/HI/VH/AH. Time spent discussing smoking cessation with patient: 3 to 10 minutes Status at Discharge Cognitive/behavioral status at discharge: Patient has insight and demonstrates good judgment in terms of wanting to pursue treatment. Patient is not in imminent risk of harm to self or others and has a safety plan that includes presenting to the closest ER or calling 911 if feeling unsafe. Patient has been observed closely by nursing and unit staff throughout admission; patient has not engaged in any behaviors that suggest dangerousness to self or others and has demonstrated appropriate behaviors and impulse control. Functional status at discharge: independent ambulation Overall status at discharge: patient is back to baseline Time Spent with Patient Time attestation: Total time managing care of this patient today _30___ minutes. Time spent: Less than 30 minutes Discharge Plan Discharge Anticipated Discharge Date/Time: 08/30/23 10:30 Patient Disposition: Xfer to Respite Facility Discharge Diagnosis: MDD, PTSD Referrals: Xin Raza (Therapy) [Other] - 09/05/23 1:00 pm (IN OFFICE APPOINTMENT -Please arrive fifteen minutes early to your appointment in order to fill out necessary paperwork. ) Toña Smith (Psychiatry) [Other] - 10/03/23 1:00 pm (TELEHEALTH APPOINTMENT -Psychiatric Evaluation ) Toña Smith (Psychiatry) [Other] - 11/05/23 12:00 pm (TELEHEALTH APPOINTMENT -Medication Management ) Department of Mental Health ([facility] [place]) [Other] - 1 Week (An application has been submitted on your behalf to [facility]. If you have any questions reach out to the phone number listed above) Mamta Guzmán NP [Primary Care Provider] - 1 Week Discharge Medications: New lurasidone [Latuda] 20 mg Tablet 20 mg PO DAILY 30 Days Qty: 30 0RF duloxetine 60 mg Capsule,Delayed Release(Dr/Ec) 120 mg PO DAILY 30 Days Qty: 60 0RF hydroxyzine HCl 50 mg Tablet 50 mg PO BEDTIME PRN (Reason: insomnia) 30 Days Qty: 30 0RF Continued lorazepam 1 mg Tablet 1 mg PO DAILY PRN (Reason: anxiety) 14 Days Qty: 14 1RF Discontinued duloxetine 60 mg capsule,delayed release(DR/EC) 120 mg PO DAILY lurasidone [Latuda] 20 mg tablet 20 mg PO DAILY Discharge Orders: Discharge Order (Routine); Ordered 08/30/23 Ordered By: Lynn Guzman Diet: Regular diet Activity on Discharge: As tolerated Stand Alone Forms: Patient Portal Discharge page, Community Support Care Plan Goals: Maintain mood and safe behaviors Take medications as prescribed Practice coping skills Continue with outpatient providers and reach out to them as needed Health Concerns: Mood stability and behaviors Plan of Treatment: Follow up with your PCP, psychiatric provider and other outpatient providers regarding above concerns Take medications as prescribed Assessment: Patient has insight and demonstrates good judgment in terms of wanting to pursue treatment. Patient is not in imminent risk of harm to self or others and has a safety plan that includes presenting to the closest ER or calling 911 if feeling unsafe. Patient has been observed closely by nursing and unit staff throughout admission; patient has not engaged in any behaviors that suggest dangerousness to self or others and has demonstrated appropriate behaviors and impulse control. Discharge Date/Time: 08/30/23 10:33
--- NOTE | 2023-08-30 09:55 | PC.NURSE ---
Jovanna is alert, fully oriented, pleasant and cooperative with care. She will be transported to respite by her daughter. Pt states she is safe for this transition and although she has current SI she denies plan or intent to harm self or others. Pt states she has some hope for the future. She denies current physical complaint.
== END 2023-08-30 10:33 | DRG 751 ==
LOC: HO.ED 08-25 07:06 → HO.PADLT16 08-25 17:15
PROVIDERS: Emergency Medicine; Psychiatry & Neurology Psychiatry; Admitting Provider Psychiatry & Neurology Psychiatry; Emergency Provider Emergency Medicine Emergency Medical Services; PCP Nurse Practitioner Family; Visit Provider Psychiatry & Neurology Psychiatry
DX: F33.2 Major depressive disorder, recurrent severe without psychotic features (principal); R45.851 Suicidal ideations; Z23 Encounter for immunization; Z59.02 Unsheltered homelessness; Z20.822 Contact with and (suspected) exposure to COVID-19; Z79.899 Other long term (current) drug therapy
CPT/HCPCS: 36415; 80048; 80061; 80076; 80143; 80307; 81001; 81025; 82607; 82746; 83036; 83735; 84439; 84443; 85025; 87086; 87147; 87635; 90686; 93005; 99285; S9485

== ENCOUNTER → 2023-08-25 16:50 | Outpatient (BNV) | payer OTHER, SELFPAY | PROVIDERS: Admitting Provider Psychiatry & Neurology Psychiatry; Emergency Provider Emergency Medicine Emergency Medical Services; PCP Nurse Practitioner Family; Visit Provider Psychiatry & Neurology Psychiatry | DX: F33.2 Major depressive disorder, recurrent severe without psychotic features (principal); R45.851 Suicidal ideations; F43.11 Post-traumatic stress disorder, acute | CPT/HCPCS: 99232; 99233 ==

== ENCOUNTER → 2023-08-25 16:50 | Outpatient (BNV) | payer OTHER, SELFPAY | PROVIDERS: Admitting Provider Psychiatry & Neurology Psychiatry; Emergency Provider Emergency Medicine Emergency Medical Services; PCP Nurse Practitioner Family; Visit Provider Psychiatry & Neurology Psychiatry | DX: F33.2 Major depressive disorder, recurrent severe without psychotic features (principal); R45.851 Suicidal ideations; F43.11 Post-traumatic stress disorder, acute | CPT/HCPCS: 99231; 99232 ==

== ENCOUNTER → 2023-10-29 10:30 | Outpatient (BNV) | payer OTHER, SELFPAY | PROVIDERS: Visit Provider Psychiatry & Neurology Psychiatry | DX: F33.2 Major depressive disorder, recurrent severe without psychotic features (principal); F43.10 Post-traumatic stress disorder, unspecified | CPT/HCPCS: 90867; 90868 ==

== ENCOUNTER 2023-11-22 11:00 | Outpatient (RCR) | payer OTHER, SELFPAY ==
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
--- NOTE | 2023-10-29 10:42 | P.PNPS_ITS ---
TMS Daily Progress Note Daily TMS Progress Note Date of Service: 10/29/23 Week #: 1 Treatment #(11-13): 1 PHQ-9 Pre-Treatment (11-10): 21 PHQ-9 Most Recent (11-10): 18 Reviewed: TMS Mapping/Re-mapping completed Verification: I have reviewed the TMS Sequins Winder Note and agree with the contents. The patient remains a candidate to continue TMS treatment per protocol. Assessment and Plan (1) MDD (major depressive disorder), recurrent severe, without psychosis: Status: Acute (2) PTSD (post-traumatic stress disorder): Status: Acute Plan Patient seen for initial mapping. Procedure again explained patient tolerated mapping in initial treatment without difficulty. Mapping completed with standard protocol no difficulty side effects noted. Treatment 1 completed
--- NOTE | 2023-10-30 15:42 | HO.TMSDAILY2 ---
TMS Daily Progress Note Daily TMS Progress Note Date of Service: 10/30/23 Week #: 1 Treatment #(11-13): 2 PHQ-9 Pre-Treatment (11-10): 21 PHQ-9 Most Recent (11-10): 18 Reviewed: TMS Tech Note Reviewed Verification: I have reviewed the TMS Casualty Insurance Claim Adjuster Note and agree with the contents. The patient remains a candidate to continue TMS treatment per protocol. Assessment and Plan (1) MDD (major depressive disorder), recurrent severe, without psychosis: Status: Acute (2) PTSD (post-traumatic stress disorder): Status: Acute Plan pt needs gradual inc in mt some difficulty with tolerability
--- NOTE | 2023-10-31 21:17 | HO.TMSDAILY2 ---
TMS Daily Progress Note Daily TMS Progress Note Date of Service: 10/31/23 Week #: 1 Treatment #(11-13): 3 PHQ-9 Pre-Treatment (11-10): 21 PHQ-9 Most Recent (11-10): 18 Reviewed: TMS Tech Note Reviewed Verification: I have reviewed the TMS Court Officer Note and agree with the contents. The patient remains a candidate to continue TMS treatment per protocol. Assessment and Plan (1) MDD (major depressive disorder), recurrent severe, without psychosis: Status: Acute (2) PTSD (post-traumatic stress disorder): Status: Acute Plan pt needs gradual inc in mt some difficulty with tolerability CHENG ongoing
--- NOTE | 2023-11-01 13:03 | P.PNPS_ITS ---
TMS Daily Progress Note Daily TMS Progress Note Date of Service: 11/05/23 Week #: 1 Treatment #(11-13): 4 PHQ-9 Pre-Treatment (11-10): 21 PHQ-9 Most Recent (11-10): 18 Reviewed: TMS Tech Note Reviewed Verification: I have reviewed the TMS Orthodontic Laboratory Technician Note and agree with the contents. The patient remains a candidate to continue TMS treatment per protocol.
--- NOTE | 2023-11-26 17:50 | P.PNPS_ITS ---
TMS Daily Progress Note Daily TMS Progress Note Date of Service: 11/02/23 Week #: 1 Treatment #(11-13): 5 PHQ-9 Pre-Treatment (11-10): 21 PHQ-9 Most Recent (11-10): 18 Reviewed: TMS Tech Note Reviewed Verification: I have reviewed the TMS Professor Of Marketing Note and agree with the contents. The patient remains a candidate to continue TMS treatment per protocol. Assessment and Plan (1) MDD (major depressive disorder), recurrent severe, without psychosis: Status: Acute (2) PTSD (post-traumatic stress disorder): Status: Acute Plan pt needing gradual in c tolerating tx
--- NOTE | 2023-11-26 17:52 | P.PNPS_ITS ---
TMS Daily Progress Note Daily TMS Progress Note Date of Service: 11/05/23 Week #: 2 Treatment #(11-13): 6 PHQ-9 Pre-Treatment (11-10): 21 PHQ-9 Most Recent (11-10): 18 Reviewed: TMS Tech Note Reviewed Verification: I have reviewed the TMS Twist Packer Note and agree with the contents. The patient remains a candidate to continue TMS treatment per protocol. Assessment and Plan (1) MDD (major depressive disorder), recurrent severe, without psychosis: Status: Acute (2) PTSD (post-traumatic stress disorder): Status: Acute Plan Continue treatment plan with gradual increase
--- NOTE | 2023-11-26 17:54 | P.PNPS_ITS ---
TMS Daily Progress Note Daily TMS Progress Note Date of Service: 11/05/23 Week #: 2 Treatment #(11-13): 6 PHQ-9 Pre-Treatment (11-10): 21 PHQ-9 Most Recent (11-10): 18 Reviewed: TMS Tech Note Reviewed Verification: I have reviewed the TMS Estimator Paperboard Boxes Note and agree with the contents. The patient remains a candidate to continue TMS treatment per protocol. Assessment and Plan (1) MDD (major depressive disorder), recurrent severe, without psychosis: Status: Acute (2) PTSD (post-traumatic stress disorder): Status: Acute Plan Continue treatment plan with gradual increase has some degree of ongoing anxiety
--- NOTE | 2023-11-27 10:41 | HO.TMSDAILY2 ---
TMS Daily Progress Note Daily TMS Progress Note Date of Service: 11/07/23 Week #: 2 Treatment #(11-13): 8 PHQ-9 Pre-Treatment (11-10): 21 PHQ-9 Most Recent (11-10): 15 Reviewed: TMS Tech Note Reviewed Verification: I have reviewed the TMS Intermodal Truck Driver Note and agree with the contents. The patient remains a candidate to continue TMS treatment per protocol. Assessment and Plan (1) MDD (major depressive disorder), recurrent severe, without psychosis: Status: Acute (2) PTSD (post-traumatic stress disorder): Status: Acute Plan Gradual increase in MT percentage Continue treatment plan with gradual increase has some degree of ongoing anxiety PHQ-9 is trending down
--- NOTE | 2023-11-27 10:45 | HO.TMSDAILY2 ---
TMS Daily Progress Note Daily TMS Progress Note Date of Service: 11/08/23 Week #: 2 Treatment #(11-13): 8 PHQ-9 Pre-Treatment (11-10): 21 PHQ-9 Most Recent (11-10): 15 Reviewed: TMS Tech Note Reviewed Verification: I have reviewed the TMS Postdoctoral Research Associate Note and agree with the contents. The patient remains a candidate to continue TMS treatment per protocol. Assessment and Plan (1) MDD (major depressive disorder), recurrent severe, without psychosis: Status: Acute (2) PTSD (post-traumatic stress disorder): Status: Acute Plan Gradual increase in MT percentage now 95 %Continue treatment plan with gradual increase has some degree of ongoing anxiety PHQ-9 is trending down
--- NOTE | 2023-11-27 10:51 | HO.TMSDAILY2 ---
TMS Daily Progress Note Daily TMS Progress Note Date of Service: 11/09/23 Week #: 2 Treatment #(11-13): 9 PHQ-9 Pre-Treatment (11-10): 21 PHQ-9 Most Recent (11-10): 15 Reviewed: TMS Tech Note Reviewed Verification: I have reviewed the TMS Floorwalker Note and agree with the contents. The patient remains a candidate to continue TMS treatment per protocol. Assessment and Plan (1) MDD (major depressive disorder), recurrent severe, without psychosis: Status: Acute (2) PTSD (post-traumatic stress disorder): Status: Acute Plan Appears brighter minor headache
--- NOTE | 2023-11-27 10:52 | HO.TMSDAILY2 ---
TMS Daily Progress Note Daily TMS Progress Note Date of Service: 11/14/23 Week #: 2 Treatment #(11-13): 10 PHQ-9 Pre-Treatment (11-10): 21 PHQ-9 Most Recent (11-10): 15 Reviewed: TMS Tech Note Reviewed Verification: I have reviewed the TMS Bladder Cleaner Note and agree with the contents. The patient remains a candidate to continue TMS treatment per protocol. Assessment and Plan (1) MDD (major depressive disorder), recurrent severe, without psychosis: Status: Acute (2) PTSD (post-traumatic stress disorder): Status: Acute Plan Missed a couple of sessions because cold tolerated treatment family often coming for support
--- NOTE | 2023-11-27 11:19 | P.PNPS_ITS ---
TMS Daily Progress Note Daily TMS Progress Note Date of Service: 11/19/23 Week #: 3 Treatment #(11-13): 12 PHQ-9 Pre-Treatment (11-10): 21 PHQ-9 Most Recent (11-10): 15 Reviewed: TMS Tech Note Reviewed Verification: I have reviewed the TMS Timber Setter Note and agree with the contents. The patient remains a candidate to continue TMS treatment per protocol. Assessment and Plan (1) MDD (major depressive disorder), recurrent severe, without psychosis: Status: Acute (2) PTSD (post-traumatic stress disorder): Status: Acute Plan Continue plan of care patient tolerating treatment no significant adverse effects noted no change noted yet to this point
--- NOTE | 2023-11-27 11:19 | P.PNPS_ITS ---
TMS Daily Progress Note Daily TMS Progress Note Date of Service: 11/15/23 Week #: 3 Treatment #(11-13): 11 PHQ-9 Pre-Treatment (11-10): 21 PHQ-9 Most Recent (11-10): 15 Reviewed: TMS Tech Note Reviewed Verification: I have reviewed the TMS Fisher Mussel Note and agree with the contents. The patient remains a candidate to continue TMS treatment per protocol. Assessment and Plan (1) MDD (major depressive disorder), recurrent severe, without psychosis: Status: Acute (2) PTSD (post-traumatic stress disorder): Status: Acute Plan Continue plan of care patient tolerating treatment no significant adverse effects noted
--- NOTE | 2023-11-27 11:20 | P.PNPS_ITS ---
TMS Daily Progress Note Daily TMS Progress Note Date of Service: 11/20/23 Week #: 3 Treatment #(11-13): 13 PHQ-9 Pre-Treatment (11-10): 21 PHQ-9 Most Recent (11-10): 13 Reviewed: TMS Tech Note Reviewed Verification: I have reviewed the TMS Medical Resident Note and agree with the contents. The patient remains a candidate to continue TMS treatment per protocol. Assessment and Plan (1) MDD (major depressive disorder), recurrent severe, without psychosis: Status: Acute (2) PTSD (post-traumatic stress disorder): Status: Acute Plan Patient starting to feel somewhat better feels something shifting for the better.
--- NOTE | 2023-11-27 13:07 | HO.TMSDAILY2 ---
TMS Daily Progress Note Daily TMS Progress Note Date of Service: 11/21/23 Week #: 3 Treatment #(11-13): 14 PHQ-9 Pre-Treatment (11-10): 21 PHQ-9 Most Recent (11-10): 13 Reviewed: TMS Tech Note Reviewed Verification: I have reviewed the TMS Sheep Shearer Note and agree with the contents. The patient remains a candidate to continue TMS treatment per protocol. Assessment and Plan (1) MDD (major depressive disorder), recurrent severe, without psychosis: Status: Acute (2) PTSD (post-traumatic stress disorder): Status: Acute Plan Patient starting to feel better
--- NOTE | 2023-11-27 13:08 | HO.TMSDAILY2 ---
TMS Daily Progress Note Daily TMS Progress Note Date of Service: 11/22/23 Week #: 3 Treatment #(11-13): 15 PHQ-9 Pre-Treatment (11-10): 21 PHQ-9 Most Recent (11-10): 13 Reviewed: TMS Tech Note Reviewed Verification: I have reviewed the TMS Coal Briquette Machine Operator Note and agree with the contents. The patient remains a candidate to continue TMS treatment per protocol. Assessment and Plan (1) MDD (major depressive disorder), recurrent severe, without psychosis: Status: Acute (2) PTSD (post-traumatic stress disorder): Status: Acute Plan Some pain noted with higher intensity but generally feeling better emotionally
== END 2023-11-23 14:56 | disposition admitted as inpatient to this hospital (09) ==
LOC: HO.PTMS 11:00
PROVIDERS: Visit Provider Psychiatry & Neurology Psychiatry
DX: F33.2 Major depressive disorder, recurrent severe without psychotic features (principal); F43.10 Post-traumatic stress disorder, unspecified
CPT/HCPCS: 90867; 90868; 99204

== ENCOUNTER 2023-11-26 10:07 | Inpatient (IN) | payer OTHER, SELFPAY ==
[2023-11-26] VITALS (7 sets, daily range): BP systolic 107–136; BP diastolic 49–97; PULSE 71–109; RESP 12–17; TEMP 36.4–36.7; O2SAT 95–98; BMI 27.4
--- NOTE | 2023-11-26 10:15 | ECG_ITS ---
Test Reason : OVERDOSE Blood Pressure : / mmHG Vent. Rate : 111 BPM Atrial Rate : 111 BPM P-R Int : 146 ms QRS Dur : 072 ms QT Int : 324 ms P-R-T Axes : 082 048 058 degrees QTc Int : 440 ms Sinus tachycardia Possible Left atrial enlargement Low voltage QRS Septal infarct , age undetermined Abnormal ECG When compared with ECG of 25-AUG-2023 15:32, Vent. rate has increased BY 47 BPM Septal infarct is now Present Referred By: Katy Guerrero Electronically Signed By:Angus Mcnally
[2023-11-26] MEDS: 0.9 % Sodium Chloride 1,000 ML 999 ML IV (10:29)
[2023-11-26] MEDS: Activated charcoaL 50 GM/240 ML ORAL.SUSP PO (10:29)
--- NOTE | 2023-11-26 10:34 | ED_ITS ---
HPI - Overdose General Chief Complaint: Psychiatric Symptoms Stated Complaint: SI/OD 31 1MG ATIVAN/20 25MG HYDROXIZINE 45MIN AGO Source: patient and old records reviewed Mode of arrival: EMS Limitations: no limitations History of Present Illness HPI Narrative: 48 yo female with hx of MDD, prior SI attempts, prior inpatient stays, PTSD, states she is currently a patient of Dr. Escalera and is undergoing TMS therapy. She states she has nothing to live for and wants to . 30 min prior to arrival she ingested 31 tabs of 1mg ativan, 15 tabs of 25mg hydroxyzine. She attempted to also ingest cymbalta but police stopped her. These medications are hers. She was brought in on a section 12. On arrival here she asked if we could just let her go so she could . EMS and police got involved after she texted Not iT messages to her daughter. complaint: intentional overdose Onset (ago): minute(s) (30) Intent: suicide attempt How Overdose Was Discovered: called family/friend Context: Intentional Overdose: other (states she has nothing to live for) Associated symptoms: depression Treatments Prior to Arrival: none Related Data Previous Rx's Medication Instructions Recorded duloxetine 60 mg capsule,delayed 120 mg (2 x 60 mg) PO DAILY 30 08/30/23 release days #60 caps hydroxyzine HCl 50 mg tablet 50 mg PO BEDTIME PRN insomnia 30 08/30/23 days #30 tabs lorazepam 1 mg tablet 1 mg PO DAILY PRN anxiety 14 days 08/30/23 #14 tabs lurasidone 20 mg tablet (Latuda) 20 mg PO DAILY 30 days #30 tabs 08/30/23 Allergies Allergy/AdvReac Type Severity Reaction Status Date / Time Sulfa (Sulfonamide Allergy Unknown SHORTNESS Verified 09/14/21 19:37 Antibiotics) OF BREATH [SULFA (SULFONAMIDE ANTIBIOTICS)] mirtazapine [From REMERON] AdvReac Unknown AGITATION Verified 09/14/21 19:37 quetiapine [From SEROQUEL] AdvReac Unknown AGITATION Verified 09/14/21 19:37 Review of Systems 2 Review of Systems: Constitutional : No Fever, No Chills ENT/Mouth : No Ear Pain, No Nasal Congestion, No sore throat Eyes: No Eye Pain, No Swelling, No Redness Cardiovascular : No Chest Pain, No SOB Respiratory : No Cough, No Sputum, No Dyspnea Gastrointestinal : No Nausea, No Vomiting, No Diarrhea, No Hematochezia, No Melena Genitourinary : No Dysuria, No Urinary Frequency, No Hematuria Musculoskeletal : No Myalgias Skin : No Skin Lesions, No rash Neuro : No Weakness, No Numbness, No Paresthesias, No Dizziness, No Headache Psych : positive Anxiety, positive Depression, positive SI no HI Heme/Lymph: No Lymphadenopathy Endocrine : No Polyuria, No Polydipsia All other systems reviewed and are negative PENDING SALE TO [facility] Past Medical History Attestation statement: The following information was validated with the patient. Source: old records reviewed Medical History Suicidal ideation Pneumothorax PTSD (post-traumatic stress disorder) Depression Surgical History No pertinent past surgical history Family History Family History Father Heart disease Social History Social History Household Members: None Household Members Other:: daughter and daughter's boyfriend Housing: Homeless Do you presently have visiting nurse or other home services: No Alcohol intake: current Alcohol intake frequency: holidays/special occasions only Alcohol type: beer and wine Patient Tobacco Use Status: Never used Tobacco Smoked in Last 30 Days: No e-Cigarette/Vaping Use: Never Used Second Hand Smoke Exposure: No Use of substances other than those prescribed or required for medical reasons: Yes Substance Use Type: Marijuana Substance Use Frequency: Weekly Last Used Substance: Days (ago) Any prior treatment program specific to substance use: No Advance Directives: No Advance Directives Information Provided: No service: No Current occupational status: unemployed Sexual orientation: Straight/Heterosexual Physical Exam 2 Vital Signs: Vital Signs: Last Vital Signs Temp 97.6 F 11/26/23 14:18 Pulse 75 11/26/23 14:18 Resp 13 11/26/23 14:18 BP 116/52 L 11/26/23 14:18 Pulse Ox 96 11/26/23 14:18 O2 Del Method Room Air 11/26/23 14:18 BMI result Body Mass Index 27.4 Appearance: Alert. Oriented X3. No acute distress. Sad appearing Eyes: Pupils equal, round and reactive to light. ENT: Pharynx normal. Neck: Normal inspection. Neck supple. CVS: Normal heart rate and rhythm. Pulses normal. Respiratory: No respiratory distress. Breath sounds normal. Abdomen: Soft and nontender. Skin: Skin warm and dry. Normal skin color. Normal skin turgor. Extremities: No lower extremity edema. No calf ttp Neuro: Oriented X 3. No motor deficit. No sensory deficit. no clonus no hyperreflexia CN 2-12 intact Course Course Course Narrative: Physician observation started at 1148am. Patient placed in physician observation because the patient needed more time for repeat EKG and CARE team assessment. At the time observation was started the patient's vitals were stable, patient is alert and oriented, Neuro: nonfocal, CV RRR, Lungs clear Reevaluation(s) Reevaluation #1: easily woken but verbal stimuli oriented when woken Medications Administered Discontinued Medications Generic Name Dose Route Start Last Admin Trade Name Freq PRN Reason Stop Dose Admin Charcoal 50 gm 11/26/23 10:14 11/26/23 10:29 Activated Charcoal 50 Gm/240 Ml Oral.Susp PO 11/26/23 10:15 50 gm ONCE ONE Administration Sodium Chloride 1,000 mls @ 999 mls/hr 11/26/23 10:15 11/26/23 10:29 Ns IV 11/26/23 11:15 999 mls/hr .Q1H1M VERO Administration Medical Decision Making Medical Decision Making [facility] Narrative: 48 yo female with hx of MDD, prior SI attempts, prior inpatient stays, PTSD, here with significant attempt and ingestion prior to arrival still asking to . She is on a section 12 given timing charcoal ordered on arrival which she is taking. IVF ordered, labs, EKG ordered. Will monitor and involve poison control to medically clear. Differential Diagnosis Differential Diagnoses: The differential diagnosis associated with the presentation includes SI attempt, depression Admission/Observation Consideration of admission/observation: Escalation of care including admission/observation considered observe and clear - will need CARE team assessment once medically cleared Lab Data [facility] Lab Attestation statement: I reviewed the patient's lab results. 11/26/23 10:53 11/26/23 10:53 Labs: Lab Results 11/26/23 Range/Units 10:53 WBC 8.6 (4.8-10.8) X10*3/uL RBC 4.74 (4.20-5.50) X10*6/uL Hgb 13.5 (12.0-16.0) g/dl Hct 40.4 (37.0-47.0) % MCV 85.2 (80.0-98.0) fL MCH 28.5 (27.0-33.0) pg MCHC 33.4 (31.0-35.0) g/dl RDW 12.7 (11.0-16.0) % Plt Count 240 (160-400) X10*3/uL MPV 9.7 (9.4-12.3) fL Immature Gran % (Auto) 0.2 (0.0-0.4) % Neut % (Auto) 73.4 H (45-73) % Lymph % (Auto) 19.3 L (20-40) % Barry % (Auto) 5.6 (2-11) % Eos % (Auto) 0.9 (0-4) % Baso % (Auto) 0.6 (0-2) % Lymph # (Auto) 1.7 (1.2-4.9) X10*3/uL Barry # (Auto) 0.5 (0.1-1.2) X10*3/uL Eos # (Auto) 0.1 (0.0-0.4) X10*3/uL Baso # (Auto) 0.1 (0.0-0.2) X10*3/uL Abs Immat Gran (auto) 0.02 (0.00-0.03) X10*3/uL Absolute Neuts (auto) 6.3 (2.0-8.3) x10*3/uL Absolute Nucleated RBC 0.000 (0.0-0.012) X10*3/uL Nucleated RBC % (auto) 0.0 (0.0-0.2) /100WBC Sodium 140 (135-145) mmol/L Potassium 4.3 (3.3-5.1) mmol/L Chloride 107 (96-108) mmol/L Carbon Dioxide 26 (22-29) mmol/L Anion Gap 11 L (12-20) BUN 12 (9-16) mg/dL Creatinine 0.76 (0.5-1.4) mg/dL Estim Creat Clear Calc 99.2 Estimated GFR > 60 Random Glucose 127 H (60-115) mg/dL Calcium 8.8 D (8.4-10.2) mg/dL Magnesium 2.1 (1.6-2.6) mg/dL Total Bilirubin 1.0 (0.0-1.0) mg/dL Direct Bilirubin 0.3 (0.0-0.5) mg/dL AST 14 (5-31) U/L ALT 10 (0-31) U/L Alkaline Phosphatase 81 (39-117) U/L Total Protein 6.7 (6.5-8.0) g/dL Albumin 3.9 (3.5-5.0) g/dL Salicylates < 5.0 L (15-30) mg/dL Acetaminophen < 3 (<30) mcg/mL Ethyl Alcohol < 10 mg/dL COVID-19 (JAMIE) Negative (Negative) COVID-19 Clin Com See Note Independent Interpretation I performed an independent interpretation of an: EKG Interpretation: Rate: 111 Rhythm: sinus tach [place]: normal Normal P waves. Normal SILVINO. Normal QRS complex. [address] ST T wave : normal no LORENA qTC: 440 prior studies: no acute ischemia The study has been interpreted contemporaneously by me. EKG#2 Rate: 81 Rhythm: NSR [place]: normal Normal P waves. Normal SILVINO. Normal QRS complex. 82 ST T wave : normal no LORENA qTC: 441 prior studies: no acute ischemia The study has been interpreted contemporaneously by me. EKG #3 Rate: 78 Rhythm: NSR [place]: normal Normal P waves. Normal SILVINO. Normal QRS complex. [address] ST T wave : normal no LORENA qTC: 444 prior studies: no acute ischemia The study has been interpreted contemporaneously by me. . Independent Historian Clinical information obtained from an independent historian. History obtained from or confirmed by: EMS External Record Review External record reviewed: Inpatient record Discharge Plan Discharge Clinical Impression: Suicide attempt Intentional overdose Qualifiers: Encounter type: initial encounter Qualified Code(s): T50.902A - Poisoning by unspecified drugs, medicaments and biological substances, intentional self-harm, initial encounter Patient Disposition: Still a Patient Prescriptions: No Action lurasidone [Latuda] 20 mg Tablet 20 mg PO DAILY 30 Days Qty: 30 0RF duloxetine 60 mg Capsule,Delayed Release(Dr/Ec) 120 mg PO DAILY 30 Days Qty: 60 0RF hydroxyzine HCl 50 mg Tablet 50 mg PO BEDTIME PRN (Reason: insomnia) 30 Days Qty: 30 0RF lorazepam 1 mg Tablet 1 mg PO DAILY PRN (Reason: anxiety) 14 Days Qty: 14 1RF Interventions: [place]-Suicide Risk Severity Scale Last Done: 11/26/23 10:39
--- NOTE | 2023-11-26 10:50 | MHC.EDTECH ---
PER CIRCULAR GANG SAW OPERATOR TONO, BELONGINGS PUT IN LOCKER 8 IN THE POD
[2023-11-26 11:02] LABS: MANUAL DIFF FLAG NO
[2023-11-26 11:03] LABS: Basophils Absolute Auto 0.1 X10*3/uL (0.0-0.2); Basophils Percent Auto 0.6 % (0-2); Eosinophils Absolute Auto 0.1 X10*3/uL (0.0-0.4); Eosinophils Percent Auto 0.9 % (0-4); Hematocrit 40.4 % (37.0-47.0); Hemoglobin 13.5 g/dl (12.0-16.0); Imm Gran Abs Auto 0.02 X10*3/uL (0.00-0.03); Imm Gran Pct Auto 0.2 % (0.0-0.4); Lymphocytes Absolute Auto 1.7 X10*3/uL (1.2-4.9); Lymphocytes Percent Auto 19.3 % (20-40); Mean Corpuscular HGB Conc 33.4 g/dl (31.0-35.0); Mean Corpuscular Hemoglobin 28.5 pg (27.0-33.0); Mean Corpuscular Volume 85.2 fL (80.0-98.0); Mean Platelet Volume 9.7 fL (9.4-12.3); Monocytes Absolute Auto 0.5 X10*3/uL (0.1-1.2); Monocytes Percent Auto 5.6 % (2-11); Neutrophils Absolute Auto 6.3 x10*3/uL (2.0-8.3); Neutrophils Percent Auto 73.4 % (45-73); Platelet Count 240 X10*3/uL (160-400); Red Blood Count 4.74 X10*6/uL (4.20-5.50); Red Cell Distribution Width 12.7 % (11.0-16.0); White Blood Count 8.6 X10*3/uL (4.8-10.8)
[2023-11-26 11:16] LABS: Ethanol < 10 mg/dL
--- NOTE | 2023-11-26 11:18 | PC.NURSE ---
Spoke with Posion control regarding this patient. They recommend EKG every 2 hours x 3 then MD to order as needed. Supportive care to be given to patient based on meds taken. gambling monitor is also required.
[2023-11-26 11:19] LABS: Alanine Aminotransferase 10 U/L (0-31); Albumin Level 3.9 g/dL (3.5-5.0); Alkaline Phosphatase 81 U/L (39-117); Anion Gap 11 (12-20); Aspartate Amino Transferase 14 U/L (5-31); Bilirubin Direct 0.3 mg/dL (0.0-0.5); Blood Urea Nitrogen 12 mg/dL (9-16); Calcium 8.8 mg/dL (8.4-10.2); Carbon Dioxide 26 mmol/L (22-29); Chloride 107 mmol/L (96-108); Creatinine Clr Calc Pharmacy 99.2; Estimated Glomerular Filt Rate > 60; Glucose Random 127 mg/dL (60-115); Magnesium 2.1 mg/dL (1.6-2.6); Potassium 4.3 mmol/L (3.3-5.1); Sodium 140 mmol/L (135-145); Total Protein 6.7 g/dL (6.5-8.0)
[2023-11-26 11:30] LABS: Acetaminophen LAB < 3 mcg/mL (<30); Salicylate < 5.0 mg/dL (15-30)
[2023-11-26 11:55] LABS: COVID-19 Test Negative (Negative); IDNOW Serial# 58CA691E
--- NOTE | 2023-11-26 12:02 | PC.NURSE ---
Patient did finish all of the charcoal with 1.5 hours.
--- NOTE | 2023-11-26 12:15 | ECG_ITS ---
Test Reason : OVERDOSE Blood Pressure : / mmHG Vent. Rate : 072 BPM Atrial Rate : 072 BPM P-R Int : 160 ms QRS Dur : 078 ms QT Int : 412 ms P-R-T Axes : 066 033 047 degrees QTc Int : 451 ms Normal sinus rhythm Normal ECG When compared with ECG of 26-NOV-2023 16:08, Premature atrial complexes are no longer Present Referred By: Generic ED Physician Electronically Signed By:Angus Mcnally
--- NOTE | 2023-11-26 14:15 | ECG_ITS ---
Test Reason : OVERDOSE Blood Pressure : / mmHG Vent. Rate : 078 BPM Atrial Rate : 078 BPM P-R Int : 150 ms QRS Dur : 082 ms QT Int : 390 ms P-R-T Axes : 070 047 055 degrees QTc Int : 444 ms Sinus rhythm with PACs Otherwise normal ECG When compared with ECG of 26-NOV-2023 10:40, Criteria for Septal infarct are no longer Present Referred By: Katy Guerrero Electronically Signed By:Angus Mcnally
--- NOTE | 2023-11-26 14:19 | MHC.EDTECH ---
EKG was done at 14:14 and review by
--- NOTE | 2023-11-26 16:15 | ECG_ITS ---
Test Reason : OD Blood Pressure : / mmHG Vent. Rate : 078 BPM Atrial Rate : 078 BPM P-R Int : 156 ms QRS Dur : 082 ms QT Int : 396 ms P-R-T Axes : 082 043 052 degrees QTc Int : 451 ms Sinus rhythm with Premature atrial complexes Otherwise normal ECG When compared with ECG of 26-NOV-2023 14:14, Premature atrial complexes are now Present Referred By: Katy Guerrero Electronically Signed By:Angus Mcnally
[2023-11-26 17:58] LABS: Amphetamine Screen Urine Not Detected (Not Detect); Barbiturates, Urine Not Detected (Not Detect); Benzodiazepines Screen Urine Not Detected (Not Detect); Cannabinoid Screen Urine POSITIVE (Not Detect); Cocaine Screen Urine Not Detected (Not Detect); Fentanyl, urine Not Detected (Not Detect); Opiate Screen Urine Not Detected (Not Detect); Phencyclidine Screen Urine Not Detected (Not Detect)
--- NOTE | 2023-11-26 18:11 | PC.NURSE ---
POSION CONTROL RECOMMENDS REPEAT EKG AT 1999. CONTINUE SUPPORTIVE CARE
--- NOTE | 2023-11-26 20:26 | PC.NURSE ---
pt resting comfortably in stretcher nad repositioning self. arousable to name. nsr on monitor 71 bpm. axox4 speaking full clear sentences. calm cooperative. 1;1 sitter at bedside. pt changed over to hospital gown as previously documented.
--- NOTE | 2023-11-26 20:29 | ECG_ITS ---
Test Reason : OVERDOSE Blood Pressure : / mmHG Vent. Rate : 081 BPM Atrial Rate : 081 BPM P-R Int : 152 ms QRS Dur : 082 ms QT Int : 380 ms P-R-T Axes : 079 040 059 degrees QTc Int : 441 ms Normal sinus rhythm Normal ECG When compared with ECG of 26-NOV-2023 10:40, Criteria for Septal infarct are no longer Present Referred By: Generic ED Physician Electronically Signed By:Angus Mcnally
[2023-11-26 21:09] LABS: Appearance Urine Clear; Color Urine Yellow; Glucose Urine UA Negative (Negative); Leukocyte Esterase Urine Negative (Negative); Nitrite Urine Negative (Negative); Urine Blood Negative (Negative); Urine Ketones Negative (Negative); Urine Protein Negative (Neg-Trace)
[2023-11-26 21:11] LABS: Bacteria Urine None Seen (None Seen); Hyaline Casts Urine 0-2 /LPF (0-2); RBC Urine 0-2 /HPF (0-2); WBC Urine 0-5 /HPF (0-5)
[2023-11-27 02:30] VITALS: BP 106/61; PULSE 72; RESP 14; O2SAT 97
[2023-11-27 10:28] VITALS: BP 137/80; PULSE 87; TEMP 36.6; O2SAT 97
--- NOTE | 2023-11-27 11:49 | PC.NURSE ---
continues to rest quietly in room, respirations even and unlabored.
[2023-11-27] MEDS: LORazepam 1 MG TABLET PO ×2 (12:39→19:35)
[2023-11-27] MEDS: DULoxetine HCl 60 MG CAPSULE.DR 120 MG PO (12:39)
--- NOTE | 2023-11-27 12:47 | PC.NURSE ---
patient medicated per the MAR, awaiting pharmacy for latuda. patient tearful, continuing to endorse SI stating that everyone would be fine without her.
[2023-11-27] MEDS: Lurasidone HCl 20 MG TABLET PO (13:01)
--- NOTE | 2023-11-27 13:27 | PHA.MEDREC ---
Pharmacy Consult ? Medication Reconciliation Pharmacy has reviewed the medication reconciliation completed by Joaquin. Taylor Pardo, AnabellD
[2023-11-27 14:55] VITALS: BP 119/60; PULSE 103; RESP 16; TEMP 36.7; O2SAT 98
--- NOTE | 2023-11-27 16:11 | PC.NURSE ---
Jovanna Diallo was admitted to M3 on CV from [facility] pod at 1449 for treatment of depression with suicidality. On arrival she states, I want to . It should be my right. Pt reports having overdosed on her prescribed medications and texting her family to say goodbye. She says they contacted police, she was brought to the ED and received charcoal. She is angry about having lived. She confirms continued ideation, plan and intent to harm self following discharge, denies plan to harm self on unit. She denied plan to harm others. On admission Jovanna is alert, fully oriented, pleasant and cooperative. Mood is depressed. Affect is irritable. She denies hallucinations and no s/s psychosis noted. Thought Process is organized. Appetite is reportedly poor with recent 4 lb weight loss. Sleep is reportedly poor, Focus is poor. Pt denies Substance Issues but smokes marijuana daily. She denies physical complaint. Jovanna is placed on q 15 minutes Safety Checks.
[2023-11-27 16:59] VITALS: BMI 27.2
[2023-11-27 19:53] VITALS: BP 128/72; PULSE 91; RESP 16; TEMP 36.9; O2SAT 97
[2023-11-28 07:50] VITALS: BP 120/68; PULSE 67; RESP 16; TEMP 36.6; O2SAT 95
[2023-11-28] MEDS: Lurasidone HCl 20 MG TABLET PO (08:41)
[2023-11-28] MEDS: DULoxetine HCl 60 MG CAPSULE.DR 120 MG PO (08:41)
[2023-11-28] MEDS: LORazepam 1 MG TABLET PO (13:06)
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
--- NOTE | 2023-11-28 17:29 | P.CONHOSP_ITS ---
History of Present Illness Data of Consult Service Date: 11/28/23 Requesting physician: Randolph Martinez Primary Care Provider: Mamta Guzmán NP HPI Reason for consult: ect risk evaluation 48-year-old female with history of PTSD, major depressive disorder admitted to Psychiatry with consult placed hospitalist service for ECT risk stratification. The patient has never undergone ECT has had discussion with psychiatric provider about procedure. She has no history of seizure disorder. No known history of cardiovascular disease, congestive heart failure, chronic pulmonary disease, history of stroke or other significant medical comorbidity. She denies any shortness of breath, lightheadedness, palpitations, visual changes, severe headache, or chest pain. She is able to ambulate for extended periods without any dyspnea on exertion, chest pain, lightheadedness. She is able to ascend a flight of stairs without difficulty. EKG performed 11/26 showed normal sinus rhythm, rate 72, no ST/T-wave abnormality. Hematology studies on admission unremarkable. Renal function normal, electrolyte levels normal. Hepatic function within normal limits. Review of Systems 2 Review of Systems: General: No fevers, malaise, unintentional weight loss HEENT: No blurred vision, diplopia. No sore throat, nasal congestion, rhinorrhea, sinus pain, ear pain Cardiovascular: No chest pain, palpitations, or leg edema Respiratory: No shortness of breath, wheezing, cough GI: No abdominal pain, nausea, vomiting, diarrhea, constipation, melena, hematochezia : No dysuria, hematuria, increased urinary frequency, decreased urinary output MSK: No myalgia, back pain Neuro: No headaches, weakness, paresthesias Skin: No rashes or lesions [facility] Medical History Suicidal ideation Pneumothorax PTSD (post-traumatic stress disorder) Depression Family History Father Heart disease Surgical History No pertinent past surgical history Social History Household Members: None Household Members Other:: daughter and daughter's boyfriend Housing: Homeless Do you presently have visiting nurse or other home services: No Alcohol intake: current Alcohol intake frequency: holidays/special occasions only Alcohol type: beer and wine Patient Tobacco Use Status: Never used Tobacco Smoked in Last 30 Days: No e-Cigarette/Vaping Use: Never Used Second Hand Smoke Exposure: No Use of substances other than those prescribed or required for medical reasons: Yes Substance Use Type: Marijuana Substance Use Frequency: Occasionally Last Used Substance: Just Prior to Admission Currently Displaying Signs/Symptoms of Drug Intoxication Withdrawal: No Any prior treatment program specific to substance use: No Have you been hit, kicked, punched, or otherwise hurt by someone within the past year? If so, by whom?: No Do you feel safe in your current relationship?: Yes Is there a partner from a previous relationship who is making you feel unsafe now?: No Are you made to feel afraid or neglected: No Advance Directives: No Advance Directives Information Provided: No Do you have thoughts of harming others: None Do you have a plan to hurt others: No Plan Recently lost weight without trying: Yes How much weight loss: 2-13 pounds Eating poorly because of decreased appetite: Yes Nutrition screen score: 4 Nutrition Risks: Anorexia Patient : No : No Poor oral hygiene: No service: No Current occupational status: unemployed Sexual orientation: Straight/Heterosexual Meds Allergies Allergy/AdvReac Type Severity Reaction Status Date / Time Sulfa (Sulfonamide Allergy Unknown SHORTNESS Verified 09/14/21 19:37 Antibiotics) OF BREATH [SULFA (SULFONAMIDE ANTIBIOTICS)] mirtazapine [From REMERON] AdvReac Unknown AGITATION Verified 09/14/21 19:37 quetiapine [From SEROQUEL] AdvReac Unknown AGITATION Verified 09/14/21 19:37 Active Medications: Current Medications Acetaminophen (Acetaminophen 325 Mg Tablet) 650 mg PO Q6H PRN PRN Reason: Headache/Pain Mild Scale (1-3) Al Hydroxide/Mg Hydroxide (Magnesium Hydrox/Alum Hydrox 30 Ml Oral.Susp) 30 ml PO Q6H PRN PRN Reason: Heartburn/Nausea Duloxetine HCl (Duloxetine Hcl 60 Mg Capsule.Dr) 120 mg PO DAILY [facility] Last Admin: 11/28/23 08:41 Dose: 120 mg Hydroxyzine HCl (Hydroxyzine Hcl 50 Mg Tablet) 50 mg PO BEDTIME PRN PRN Reason: insomnia Hydroxyzine HCl (Hydroxyzine Hcl 25 Mg Tablet) 25 mg PO Q4H PRN PRN Reason: moderate anxiety Lorazepam (Lorazepam 1 Mg Tablet) 1 mg PO BID PRN PRN Reason: anxiety Lurasidone HCl (Lurasidone Hcl 20 Mg Tablet) 20 mg PO DAILY [facility] Last Admin: 11/28/23 08:41 Dose: 20 mg Magnesium Hydroxide (Milk Of Magnesia 30 Ml Oral.Susp) 30 ml PO DAILY PRN PRN Reason: Constipation Trazodone HCl (Trazodone Hcl 50 Mg Tablet) 50 mg PO BEDTIME MRX1 PRN PRN Reason: Insomnia Physical Exam 2 Vital Signs and Narrative: Vital Signs: Last Vital Signs Temp 97.8 F 11/28/23 07:50 Pulse 67 11/28/23 07:50 Resp 16 11/28/23 07:50 BP 120/68 11/28/23 07:50 Pulse Ox 95 11/28/23 07:50 O2 Del Method Room Air 11/28/23 07:50 BMI result Body Mass Index 27.2 Constitutional - Awake and Alert, No apparent distress Eyes - PERRLA, EOMI Cardiovascular - S1S2, RRR, No edema Respiratory - Normal lung expansion, Normal respiratory effort, No respiratory distress, CTA bilaterally Gastrointestinal - NT / ND; +BS; No rebound or guarding Extremities - no calf tenderness bilaterally, no swelling Skin - Warm/Dry Neurological - Alert & oriented x3, poor eye contact, CN II-XII intact Psychological - flat affect, depressed mood Results Labs 11/26/23 10:53 11/26/23 10:53 Assessment and Plan (1) MDD (major depressive disorder), recurrent severe, without psychosis: Status: Acute Plan 48-year-old female with history of PTSD, major depressive disorder admitted to Psychiatry with consult placed hospitalist service for ECT risk stratification. #MDD with SI -plan per psychiatry -At this time, no medical contraindication exists that should preclude the patient from undergoing ECT therapy. Revised cardiac risk index score 0 Thank you for allowing me to participate in this consult. Signing off at this time. Please do not hesitate to call for further questions.
[2023-11-28] MEDS: hydrOXYzine HCL 50 MG TABLET PO (21:24)
[2023-11-28 21:30] VITALS: BP 126/70; PULSE 86; RESP 14; TEMP 36.6; O2SAT 97
[2023-11-29 07:44] VITALS: BP 119/56; PULSE 80; RESP 14; TEMP 36.9; O2SAT 96
[2023-11-29] MEDS: Lurasidone HCl 20 MG TABLET PO (08:35)
[2023-11-29] MEDS: DULoxetine HCl 60 MG CAPSULE.DR 120 MG PO (08:35)
[2023-11-29 10:42] VITALS: BMI 27.0
[2023-11-29] MEDS: LORazepam 1 MG TABLET PO (11:07)
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
--- NOTE | 2023-11-29 14:41 | P.PNPSI_ITS ---
Subjective Subjective Date of Service: 11/29/23 Reason For Visit: SA Interim History: calm, cooperative. c/o insomnia, asks to increase hydroxyzine to 75 mg at HS. will consider prazosin. will meet with michelle later today re ECT. per staff, anx 10 dep 7. +SI. mostly in bed. taking meds, not attending groups. slept more than 7 hours. drinking water only, not eating food. Mental Status Exam Mental Status Exam Narrative: Pt is alert and oriented; behavior is cooperative, calm; dressed in casual attire, well groomed, with good hygiene; mood very poor; affect constricted; appropriate eye contact; Speech is soft, but normal rate and prosody and not pressured;? no psychomotor retardation present; thought process is organized and goal directed; Thought content is lacking in psychotic Sx. +SI. no HI/AVH. Diagnostics Vital Signs (24Hr): Vital Signs - 24 hr 11/28/23 21:30 11/29/23 07:44 Temperature 97.9 F 98.4 F Pulse Rate 86 80 Respiratory Rate 14 14 Blood Pressure 126/70 119/56 L Pulse Oximetry 97 96 Oxygen Delivery Method Room Air Room Air BMI result Body Mass Index 27.0 Labs 11/26/23 10:53 11/26/23 10:53 Medications Medications Current Medications Acetaminophen (Acetaminophen 325 Mg Tablet) 650 mg PO Q6H PRN PRN Reason: Headache/Pain Mild Scale (1-3) Al Hydroxide/Mg Hydroxide (Magnesium Hydrox/Alum Hydrox 30 Ml Oral.Susp) 30 ml PO Q6H PRN PRN Reason: Heartburn/Nausea Duloxetine HCl (Duloxetine Hcl 60 Mg Capsule.Dr) 120 mg PO DAILY [facility] Last Admin: 11/29/23 08:35 Dose: 120 mg Hydroxyzine HCl (Hydroxyzine Hcl 25 Mg Tablet) 25 mg PO Q4H PRN PRN Reason: moderate anxiety Hydroxyzine HCl (Hydroxyzine Hcl 25 Mg Tablet) 75 mg PO BEDTIME PRN PRN Reason: insomnia Lorazepam (Lorazepam 1 Mg Tablet) 1 mg PO BID PRN PRN Reason: anxiety Last Admin: 11/29/23 11:07 Dose: 1 mg Lurasidone HCl (Lurasidone Hcl 20 Mg Tablet) 20 mg PO DAILY [facility] Last Admin: 11/29/23 08:35 Dose: 20 mg Magnesium Hydroxide (Milk Of Magnesia 30 Ml Oral.Susp) 30 ml PO DAILY PRN PRN Reason: Constipation Allergies Allergies Allergy/AdvReac Type Severity Reaction Status Date / Time Sulfa (Sulfonamide Allergy Unknown SHORTNESS Verified 09/14/21 19:37 Antibiotics) OF BREATH [SULFA (SULFONAMIDE ANTIBIOTICS)] mirtazapine [From REMERON] AdvReac Unknown AGITATION Verified 09/14/21 19:37 quetiapine [From SEROQUEL] AdvReac Unknown AGITATION Verified 09/14/21 19:37 Assessment & Plan Assessment & Plan (1) MDD (major depressive disorder), recurrent severe, without psychosis: Status: Acute Code(s): F33.2 - Major depressive disorder, recurrent severe without psychotic features Plan 11/28: continue home meds for now. medical clearance for ECT. michelle consult for ECT. increase ativan PRNs from 1 daily to 2 daily. add hydroxyzine 25 mg PRNs. 11/29: increase HS hydroxyzine from 50 mg to 75 mg for insomnia. medically cleared for ECT, accepted for tomorrow by michelle. T?C prazosin for nightmares and insomnia in PTSD. pt declines for now. Reason for continued inpatient stay Substantial Risk for: harm to self, inability to function and rapid decompensation Time Spent With Patient Time: Total time managing care of this patient today _35___ minutes.
[2023-11-29 20:29] VITALS: BP 133/63; PULSE 91; RESP 16; TEMP 36; O2SAT 97
[2023-11-29] MEDS: hydrOXYzine HCL 25 MG TABLET 75 MG PO (21:52)
[2023-11-30] VITALS (10 sets, daily range): BP systolic 112–173; BP diastolic 56–90; PULSE 68–121; RESP 12–20; TEMP 36.1–38.1; O2SAT 96–99
--- NOTE | 2023-11-30 08:42 | P.CONAN_ITS ---
[facility] Active Problems Active Problems: All Active Problems (Updated 11/28/23 @ 16:03 by Randolph Martinez MD) Suicidal ideation (Acute) Intentional overdose (Acute) Suicide attempt (Acute) Acute UTI (Acute) Medication monitoring encounter (Acute) MDD (major depressive disorder), recurrent severe, without psychosis (Acute) PTSD (post-traumatic stress disorder) (Acute) Past Medical History Medical History Suicidal ideation Pneumothorax PTSD (post-traumatic stress disorder) Depression Family History Family History Father Heart disease Family history of problems with anesthesia: No Surgical History Surgical History No pertinent past surgical history History of Problems with Anesthesia: No Social History Social History Household Members: None Household Members Other:: daughter and daughter's boyfriend Housing: Homeless Do you presently have visiting nurse or other home services: No Alcohol intake: current Alcohol intake frequency: holidays/special occasions only Alcohol type: beer and wine Patient Tobacco Use Status: Never used Tobacco Smoked in Last 30 Days: No e-Cigarette/Vaping Use: Never Used Second Hand Smoke Exposure: No Use of substances other than those prescribed or required for medical reasons: Yes Substance Use Type: Marijuana Substance Use Frequency: Occasionally Last Used Substance: Just Prior to Admission Currently Displaying Signs/Symptoms of Drug Intoxication Withdrawal: No Any prior treatment program specific to substance use: No Have you been hit, kicked, punched, or otherwise hurt by someone within the past year? If so, by whom?: No Do you feel safe in your current relationship?: Yes Is there a partner from a previous relationship who is making you feel unsafe now?: No Are you made to feel afraid or neglected: No Advance Directives: No Advance Directives Information Provided: No Do you have thoughts of harming others: None Do you have a plan to hurt others: No Plan Recently lost weight without trying: Yes How much weight loss: 2-13 pounds Eating poorly because of decreased appetite: Yes Nutrition screen score: 4 Nutrition Risks: Anorexia Patient : No : No Poor oral hygiene: No service: No Current occupational status: unemployed Sexual orientation: Straight/Heterosexual Meds Allergies Allergy/AdvReac Type Severity Reaction Status Date / Time Sulfa (Sulfonamide Allergy Unknown SHORTNESS Verified 09/14/21 19:37 Antibiotics) OF BREATH [SULFA (SULFONAMIDE ANTIBIOTICS)] mirtazapine [From REMERON] AdvReac Unknown AGITATION Verified 09/14/21 19:37 quetiapine [From SEROQUEL] AdvReac Unknown AGITATION Verified 09/14/21 19:37 Active Medications: Current Medications Acetaminophen (Acetaminophen 325 Mg Tablet) 650 mg PO Q6H PRN PRN Reason: Headache/Pain Mild Scale (1-3) Al Hydroxide/Mg Hydroxide (Magnesium Hydrox/Alum Hydrox 30 Ml Oral.Susp) 30 ml PO Q6H PRN PRN Reason: Heartburn/Nausea Duloxetine HCl (Duloxetine Hcl 60 Mg Capsule.Dr) 120 mg PO DAILY [facility] Last Admin: 11/29/23 08:35 Dose: 120 mg Hydroxyzine HCl (Hydroxyzine Hcl 25 Mg Tablet) 25 mg PO Q4H PRN PRN Reason: moderate anxiety Hydroxyzine HCl (Hydroxyzine Hcl 25 Mg Tablet) 75 mg PO BEDTIME PRN PRN Reason: insomnia Last Admin: 11/29/23 21:52 Dose: 75 mg Lorazepam (Lorazepam 1 Mg Tablet) 1 mg PO BID PRN PRN Reason: anxiety Last Admin: 11/29/23 11:07 Dose: 1 mg Lurasidone HCl (Lurasidone Hcl 20 Mg Tablet) 20 mg PO DAILY [facility] Last Admin: 11/29/23 08:35 Dose: 20 mg Magnesium Hydroxide (Milk Of Magnesia 30 Ml Oral.Susp) 30 ml PO DAILY PRN PRN Reason: Constipation Exam Height,Weight and Vital Signs: Height 5 ft 8 in Weight 80.649 kg Last Vital Signs Temp 98.1 F 11/30/23 07:25 Pulse 68 11/30/23 07:25 Resp 12 11/30/23 07:25 BP 112/56 L 11/30/23 07:25 Pulse Ox 98 11/30/23 07:25 O2 Del Method Room Air 11/30/23 07:25 Pertinent Lab Results Pertinent Lab Results: Laboratory Tests 11/26/23 11/26/23 10:53 17:23 WBC 8.6 RBC 4.74 Hgb 13.5 Hct 40.4 MCV 85.2 MCH 28.5 MCHC 33.4 RDW 12.7 Plt Count 240 MPV 9.7 Immature Gran % (Auto) 0.2 Neut % (Auto) 73.4 H Lymph % (Auto) 19.3 L [place] % (Auto) 5.6 Eos % (Auto) 0.9 Baso % (Auto) 0.6 Lymph # (Auto) 1.7 [place] # (Auto) 0.5 Eos # (Auto) 0.1 Baso # (Auto) 0.1 Abs Immat Gran (auto) 0.02 Absolute Neuts (auto) 6.3 Absolute Nucleated RBC 0.000 Nucleated RBC % (auto) 0.0 Sodium 140 Potassium 4.3 Chloride 107 Carbon Dioxide 26 Anion Gap 11 L BUN 12 Creatinine 0.76 Estim Creat Clear Calc 99.2 Estimated GFR > 60 Random Glucose 127 H Calcium 8.8 D Magnesium 2.1 Total Bilirubin 1.0 Direct Bilirubin 0.3 AST 14 ALT 10 Alkaline Phosphatase 81 Total Protein 6.7 Albumin 3.9 Urine Color Yellow Urine Appearance Clear Urine pH 6.0 Ur Specific Loyal 1.010 Urine Protein Negative Urine Glucose (UA) Negative Urine Ketones Negative Urine Blood Negative Urine Nitrite Negative Ur Leukocyte Esterase Negative Urine RBC 0-2 Urine WBC 0-5 Ur Squamous Epith Cells 6-10 Urine Bacteria None Seen Hyaline Casts 0-2 Salicylates < 5.0 L Urine Opiates Screen Not Detected Urine Fentanyl Screen Not Detected Acetaminophen < 3 Ur Barbiturates Screen Not Detected Ur Phencyclidine Scrn Not Detected Ur Amphetamines Screen Not Detected U Benzodiazepines Scrn Not Detected Urine Cocaine Screen Not Detected U Marijuana (THC) Screen POSITIVE H Ethyl Alcohol < 10 COVID-19 (JAMIE) Negative COVID-19 Clin Com See Note Airway Mallampati Class: II TM Dist: >3cm Neck ROM: Full Heart: rrr Lungs: cta Assessment and Plan Assessment Anesthesia Assessment: Anesthesia Plan Discussed and Chart Reviewed Final Anesthetic Review Family History of Problems with Anesthesia: No History of Problems with Anesthesia: No NPO: Yes ASA Class: III Final Preanesthetic Review: No Changes in Pt Med Stat, Meds/Allgs Chart Reviewed and Consent Obtained/Reviewed Patient Risk: Intermediate Procedure Risk: Intermediate Anesthetic Plan Anesthetic Plan: GA Disposition: Standard PACU
--- NOTE | 2023-11-30 10:33 | MHC.SHP ---
Pre-Procedural Eval Section A - 24 Hr Update-Section A only Date of Service: 11/30/23 Changes since office visit: Yes New Medical Problems, Yes Changes in Medication and Yes Patient answered all questions; No Cold of Flu in the past 2 weeks The patient has been examined within 24 hours of the surgical procedure. The History & Physical has been completed within 30 days and I have reviewed it.: Yes Section B - Complete if H&P > 30 days Chief Complaint: SA Allergies: Allergies Allergy/AdvReac Type Severity Reaction Status Date / Time Sulfa (Sulfonamide Allergy Unknown SHORTNESS Verified 09/14/21 19:37 Antibiotics) OF BREATH [SULFA (SULFONAMIDE ANTIBIOTICS)] mirtazapine [From REMERON] AdvReac Unknown AGITATION Verified 09/14/21 19:37 quetiapine [From SEROQUEL] AdvReac Unknown AGITATION Verified 09/14/21 19:37 Plan I have reviewed the history and physical and performed a pertinent physical examination on my patient. No changes have occurred unless specified. Time Spent With Patient Time: Total time managing care of this patient today ____ minutes.
[2023-11-30] MEDS: DULoxetine HCl 60 MG CAPSULE.DR 120 MG PO (11:56)
[2023-11-30] MEDS: Lurasidone HCl 20 MG TABLET PO (11:57)
[2023-11-30] MEDS: oxyCODONE HCl Immed Release 5 MG TABLET PO (16:33)
[2023-11-30] MEDS: LORazepam 1 MG TABLET PO (16:33)
[2023-11-30] MEDS: hydrOXYzine HCL 25 MG TABLET 75 MG PO (23:26)
[2023-12-01 07:40] VITALS: BP 93/52; PULSE 70; RESP 16; TEMP 36.3; O2SAT 98
[2023-12-01 09:05] VITALS: BP 112/58; PULSE 82; RESP 16; O2SAT 99
[2023-12-01] MEDS: DULoxetine HCl 60 MG CAPSULE.DR 120 MG PO (09:06)
[2023-12-01] MEDS: Lurasidone HCl 20 MG TABLET PO (09:06)
--- NOTE | 2023-12-01 11:26 | HO.PSYCHPN ---
Subjective Subjective Date of Service: 12/01/23 Reason For Visit: SA Subjective Notes: Conditional Voluntary Interim History: reports muscleaches after ECT. She reports eating better. Mood stable, not acutely depressed or suicidal. looking forward to continue ECT. Per nursing, more visible, oral intake improving. Review of Systems Review of Systems General: No fevers, malaise, unintentional weight loss HEENT: No blurred vision, diplopia. No sore throat, nasal congestion, rhinorrhea, sinus pain, ear pain Cardiovascular: No chest pain, palpitations, or leg edema Respiratory: No shortness of breath, wheezing, cough GI: No abdominal pain, nausea, vomiting, diarrhea, constipation, melena, hematochezia : No dysuria, hematuria, increased urinary frequency, decreased urinary output MSK: No myalgia, back pain Neuro: No headaches, weakness, paresthesias Skin: No rashes or lesions Mental Status Exam Mental Status Exam Narrative: Pt is alert and oriented; behavior is cooperative, calm; dressed in casual attire, well groomed, with good hygiene; mood very poor; affect constricted; appropriate eye contact; Speech is soft, but normal rate and prosody and not pressured;? no psychomotor retardation present; thought process is organized and goal directed; Thought content is lacking in psychotic Sx. +SI. no HI/AVH. Diagnostics Vital Signs (24Hr): Vital Signs - 24 hr 11/30/23 11:27 11/30/23 11:45 11/30/23 11:50 Temperature 98.1 F 98.1 F 98.1 F Pulse Rate 98 86 74 Respiratory Rate 17 18 16 Blood Pressure 173/78 H 142/68 H 143/69 H Pulse Oximetry 96 96 96 Oxygen Delivery Method Room Air Room Air 11/30/23 18:12 11/30/23 19:55 12/01/23 07:40 Temperature 97.0 F 97.2 F 97.3 F Pulse Rate 89 121 H 70 Respiratory Rate 16 18 16 Blood Pressure 115/56 L 124/60 93/52 L Pulse Oximetry 98 98 98 Oxygen Delivery Method Room Air Room Air Room Air 12/01/23 09:05 Temperature Pulse Rate 82 Respiratory Rate 16 Blood Pressure 112/58 L Pulse Oximetry 99 Oxygen Delivery Method Room Air BMI result Body Mass Index 27.0 Labs 11/26/23 10:53 11/26/23 10:53 Medications Medications Current Medications Acetaminophen (Acetaminophen 325 Mg Tablet) 650 mg PO Q6H PRN PRN Reason: Headache/Pain Mild Scale (1-3) Al Hydroxide/Mg Hydroxide (Magnesium Hydrox/Alum Hydrox 30 Ml Oral.Susp) 30 ml PO Q6H PRN PRN Reason: Heartburn/Nausea Duloxetine HCl (Duloxetine Hcl 60 Mg Capsule.) 120 mg PO DAILY [facility] Last Admin: 12/01/23 09:06 Dose: 120 mg Hydroxyzine HCl (Hydroxyzine Hcl 25 Mg Tablet) 25 mg PO Q4H PRN PRN Reason: moderate anxiety Hydroxyzine HCl (Hydroxyzine Hcl 25 Mg Tablet) 75 mg PO BEDTIME PRN PRN Reason: insomnia Last Admin: 11/30/23 23:26 Dose: 75 mg Lorazepam (Lorazepam 1 Mg Tablet) 1 mg PO BID PRN PRN Reason: anxiety Last Admin: 11/30/23 16:33 Dose: 1 mg Lurasidone HCl (Lurasidone Hcl 20 Mg Tablet) 20 mg PO DAILY [facility] Last Admin: 12/01/23 09:06 Dose: 20 mg Magnesium Hydroxide (Milk Of Magnesia 30 Ml Oral.Susp) 30 ml PO DAILY PRN PRN Reason: Constipation Allergies Allergies Allergy/AdvReac Type Severity Reaction Status Date / Time Sulfa (Sulfonamide Allergy Unknown SHORTNESS Verified 09/14/21 19:37 Antibiotics) OF BREATH [SULFA (SULFONAMIDE ANTIBIOTICS)] mirtazapine [From REMERON] AdvReac Unknown AGITATION Verified 09/14/21 19:37 quetiapine [From SEROQUEL] AdvReac Unknown AGITATION Verified 09/14/21 19:37 Assessment & Plan Assessment & Plan (1) MDD (major depressive disorder), recurrent severe, without psychosis: Status: Acute Code(s): F33.2 - Major depressive disorder, recurrent severe without psychotic features Plan 11/28: continue home meds for now. medical clearance for ECT. michelle consult for ECT. increase ativan PRNs from 1 daily to 2 daily. add hydroxyzine 25 mg PRNs. 11/29: increase HS hydroxyzine from 50 mg to 75 mg for insomnia. medically cleared for ECT, accepted for tomorrow by michelle. T?C prazosin for nightmares and insomnia in PTSD. pt declines for now. 12/01 continue tx. Reason for continued inpatient stay Substantial Risk for: inability to function Time Spent With Patient Time: Total time managing care of this patient today ____ minutes.
[2023-12-01 18:33] VITALS: BP 106/69; PULSE 77; RESP 16; TEMP 36.5; O2SAT 98
--- NOTE | 2023-12-01 22:03 | HO.ECTPROC ---
ECT Procedure Note Diagnosis/Treatment Date of Service: 12/01/23 Diagnosis: Major Depressive Disorder Current Treatment Number: 1 Treatment: Series Interval Clinical Notes: Patient is severely depressed withdrawn hopeless helpless despondent. Was able to give informed consent for ECT no medical contraindications. Initial treatment when quite well Time: Total time managing care of this patient today ____ minutes. ECT Settings Device: THYMATRON DGx Electrode Placement: Right Unilateral Program/Pulse Width: 0.25 Energy Percent: 70 Medications Administration General Anesthetic: Etomidate (14) Muscle Relaxant: Succinylcholine (100) Ancillary Medications Analgesics: Torodol - Pre ECT (15) Anti-emetics: Zofran - Pre ECT Miscillaneous Medications: Midazolam (2) Airway Management Airway Management: Bag Mask Ventilation Treatment Recommendations Notes: could decrease the stimulation Pt Tolerated Procedure w/o Issue: Yes
[2023-12-01] MEDS: hydrOXYzine HCL 25 MG TABLET 75 MG PO (22:08)
[2023-12-01] MEDS: Acetaminophen 325 MG TABLET 650 MG PO (22:09)
[2023-12-02 08:35] VITALS: BP 116/55; PULSE 71; RESP 16; TEMP 36.6; O2SAT 99
[2023-12-02] MEDS: DULoxetine HCl 60 MG CAPSULE.DR 120 MG PO (09:24)
[2023-12-02] MEDS: Lurasidone HCl 20 MG TABLET PO (09:24)
--- NOTE | 2023-12-02 15:37 | HO.PSYCHPN ---
Subjective Subjective Date of Service: 12/02/23 Reason For Visit: SA Subjective Notes: Conditional Voluntary Interim History: reports muscleaches after ECT. She reports eating better. Mood stable, not acutely depressed or suicidal. looking forward to continue ECT. Per nursing, more visible, oral intake improving. Review of Systems Review of Systems General: No fevers, malaise, unintentional weight loss HEENT: No blurred vision, diplopia. No sore throat, nasal congestion, rhinorrhea, sinus pain, ear pain Cardiovascular: No chest pain, palpitations, or leg edema Respiratory: No shortness of breath, wheezing, cough GI: No abdominal pain, nausea, vomiting, diarrhea, constipation, melena, hematochezia : No dysuria, hematuria, increased urinary frequency, decreased urinary output MSK: No myalgia, back pain Neuro: No headaches, weakness, paresthesias Skin: No rashes or lesions Mental Status Exam Mental Status Exam Narrative: Pt is alert and oriented; behavior is cooperative, calm; dressed in casual attire, well groomed, with good hygiene; mood very poor; affect constricted; appropriate eye contact; Speech is soft, but normal rate and prosody and not pressured;? no psychomotor retardation present; thought process is organized and goal directed; Thought content is lacking in psychotic Sx. +SI. no HI/AVH. Diagnostics Vital Signs (24Hr): Vital Signs - 24 hr 12/01/23 18:33 12/02/23 08:35 Temperature 97.7 F 97.9 F Pulse Rate 77 71 Respiratory Rate 16 16 Blood Pressure 106/69 116/55 L Pulse Oximetry 98 99 Oxygen Delivery Method Room Air Room Air BMI result Body Mass Index 27.0 Labs 11/26/23 10:53 11/26/23 10:53 Medications Medications Current Medications Acetaminophen (Acetaminophen 325 Mg Tablet) 650 mg PO Q6H PRN PRN Reason: Headache/Pain Mild Scale (1-3) Last Admin: 12/01/23 22:09 Dose: 650 mg Al Hydroxide/Mg Hydroxide (Magnesium Hydrox/Alum Hydrox 30 Ml Oral.Susp) 30 ml PO Q6H PRN PRN Reason: Heartburn/Nausea Duloxetine HCl (Duloxetine Hcl 60 Mg Capsule.Dr) 120 mg PO DAILY [facility] Last Admin: 12/02/23 09:24 Dose: 120 mg Hydroxyzine HCl (Hydroxyzine Hcl 25 Mg Tablet) 25 mg PO Q4H PRN PRN Reason: moderate anxiety Hydroxyzine HCl (Hydroxyzine Hcl 25 Mg Tablet) 75 mg PO BEDTIME PRN PRN Reason: insomnia Last Admin: 12/01/23 22:08 Dose: 75 mg Lorazepam (Lorazepam 1 Mg Tablet) 1 mg PO BID PRN PRN Reason: anxiety Last Admin: 11/30/23 16:33 Dose: 1 mg Lurasidone HCl (Lurasidone Hcl 20 Mg Tablet) 20 mg PO DAILY [facility] Last Admin: 12/02/23 09:24 Dose: 20 mg Magnesium Hydroxide (Milk Of Magnesia 30 Ml Oral.Susp) 30 ml PO DAILY PRN PRN Reason: Constipation Sumatriptan Succinate (Sumatriptan Succinate 50 Mg Tablet) 50 mg PO DAILY PRN PRN Reason: Migraine Headache Allergies Allergies Allergy/AdvReac Type Severity Reaction Status Date / Time Sulfa (Sulfonamide Allergy Unknown SHORTNESS Verified 09/14/21 19:37 Antibiotics) OF BREATH [SULFA (SULFONAMIDE ANTIBIOTICS)] mirtazapine [From REMERON] AdvReac Unknown AGITATION Verified 09/14/21 19:37 quetiapine [From SEROQUEL] AdvReac Unknown AGITATION Verified 09/14/21 19:37 Assessment & Plan Assessment & Plan (1) MDD (major depressive disorder), recurrent severe, without psychosis: Status: Acute Code(s): F33.2 - Major depressive disorder, recurrent severe without psychotic features Plan 11/28: continue home meds for now. medical clearance for ECT. michelle consult for ECT. increase ativan PRNs from 1 daily to 2 daily. add hydroxyzine 25 mg PRNs. 11/29: increase HS hydroxyzine from 50 mg to 75 mg for insomnia. medically cleared for ECT, accepted for tomorrow by michelle. T?C prazosin for nightmares and insomnia in PTSD. pt declines for now. 12/01 continue tx. 12/02 continue tx. Reason for continued inpatient stay Substantial Risk for: inability to function Time Spent With Patient Time: Total time managing care of this patient today ____ minutes.
[2023-12-02 19:40] VITALS: BP 118/58; PULSE 76; RESP 16; TEMP 36.6; O2SAT 99
[2023-12-02] MEDS: hydrOXYzine HCL 25 MG TABLET 75 MG PO (22:49)
[2023-12-03 08:05] VITALS: BP 121/58; PULSE 75; RESP 16; TEMP 36.2; O2SAT 98
[2023-12-03] MEDS: Lurasidone HCl 20 MG TABLET PO (08:32)
[2023-12-03] MEDS: DULoxetine HCl 60 MG CAPSULE.DR 120 MG PO (08:32)
[2023-12-03 19:40] VITALS: BP 119/74; PULSE 79; RESP 16; TEMP 36.4; O2SAT 99
--- NOTE | 2023-12-03 20:31 | HO.PSYCHPN ---
Subjective Subjective Date of Service: 12/03/23 Reason For Visit: SA Interim History: reports muscleaches after ECT. She reports eating better. Mood stable, not acutely depressed or suicidal. looking forward to continue ECT. Per nursing, more visible, oral intake improving. Review of Systems Review of Systems General: No fevers, malaise, unintentional weight loss HEENT: No blurred vision, diplopia. No sore throat, nasal congestion, rhinorrhea, sinus pain, ear pain Cardiovascular: No chest pain, palpitations, or leg edema Respiratory: No shortness of breath, wheezing, cough GI: No abdominal pain, nausea, vomiting, diarrhea, constipation, melena, hematochezia : No dysuria, hematuria, increased urinary frequency, decreased urinary output MSK: No myalgia, back pain Neuro: No headaches, weakness, paresthesias Skin: No rashes or lesions Mental Status Exam Mental Status Exam Narrative: Pt is alert and oriented; behavior is cooperative, calm; dressed in casual attire, well groomed, with good hygiene; mood very poor; affect constricted; appropriate eye contact; Speech is soft, but normal rate and prosody and not pressured;? no psychomotor retardation present; thought process is organized and goal directed; Thought content is lacking in psychotic Sx. +SI. no HI/AVH. Diagnostics Vital Signs (24Hr): Vital Signs - 24 hr 12/03/23 08:05 Temperature 97.2 F Pulse Rate 75 Respiratory Rate 16 Blood Pressure 121/58 L Pulse Oximetry 98 Oxygen Delivery Method Room Air BMI result Body Mass Index 27.0 Labs 11/26/23 10:53 11/26/23 10:53 Medications Medications Current Medications Acetaminophen (Acetaminophen 325 Mg Tablet) 650 mg PO Q6H PRN PRN Reason: Headache/Pain Mild Scale (1-3) Last Admin: 12/01/23 22:09 Dose: 650 mg Al Hydroxide/Mg Hydroxide (Magnesium Hydrox/Alum Hydrox 30 Ml Oral.Susp) 30 ml PO Q6H PRN PRN Reason: Heartburn/Nausea Duloxetine HCl (Duloxetine Hcl 60 Mg Capsule.Dr) 120 mg PO DAILY [facility] Last Admin: 12/03/23 08:32 Dose: 120 mg Hydroxyzine HCl (Hydroxyzine Hcl 25 Mg Tablet) 25 mg PO Q4H PRN PRN Reason: moderate anxiety Hydroxyzine HCl (Hydroxyzine Hcl 25 Mg Tablet) 75 mg PO BEDTIME PRN PRN Reason: insomnia Last Admin: 12/02/23 22:49 Dose: 75 mg Lorazepam (Lorazepam 1 Mg Tablet) 1 mg PO BID PRN PRN Reason: moderate anxiety Lurasidone HCl (Lurasidone Hcl 20 Mg Tablet) 20 mg PO DAILY [facility] Last Admin: 12/03/23 08:32 Dose: 20 mg Magnesium Hydroxide (Milk Of Magnesia 30 Ml Oral.Susp) 30 ml PO DAILY PRN PRN Reason: Constipation Sumatriptan Succinate (Sumatriptan Succinate 50 Mg Tablet) 50 mg PO DAILY PRN PRN Reason: Migraine Headache Allergies Allergies Allergy/AdvReac Type Severity Reaction Status Date / Time Sulfa (Sulfonamide Allergy Unknown SHORTNESS Verified 09/14/21 19:37 Antibiotics) OF BREATH [SULFA (SULFONAMIDE ANTIBIOTICS)] mirtazapine [From REMERON] AdvReac Unknown AGITATION Verified 09/14/21 19:37 quetiapine [From SEROQUEL] AdvReac Unknown AGITATION Verified 09/14/21 19:37 Assessment & Plan Assessment & Plan (1) MDD (major depressive disorder), recurrent severe, without psychosis: Status: Acute Code(s): F33.2 - Major depressive disorder, recurrent severe without psychotic features Plan 11/28: continue home meds for now. medical clearance for ECT. michelle consult for ECT. increase ativan PRNs from 1 daily to 2 daily. add hydroxyzine 25 mg PRNs. 11/29: increase HS hydroxyzine from 50 mg to 75 mg for insomnia. medically cleared for ECT, accepted for tomorrow by michelle. T?C prazosin for nightmares and insomnia in PTSD. pt declines for now. 12/01 continue tx. 12/02 continue tx. 12/03 continue tx. Reason for continued inpatient stay Substantial Risk for: harm to self and inability to function Time Spent With Patient Time: Total time managing care of this patient today ____ minutes.
[2023-12-03] MEDS: hydrOXYzine HCL 25 MG TABLET 75 MG PO (21:49)
[2023-12-04 07:26] VITALS: BP 126/60; PULSE 84; RESP 16; TEMP 36.5; O2SAT 99
[2023-12-04] MEDS: DULoxetine HCl 60 MG CAPSULE.DR 120 MG PO (08:31)
[2023-12-04] MEDS: Lurasidone HCl 20 MG TABLET PO (08:31)
--- NOTE | 2023-12-04 14:04 | P.PNPSI_ITS ---
Subjective Subjective Date of Service: 12/04/23 Reason For Visit: SA Interim History: calm, states not much has changed for her since admission. awaiting ECT for tomorrow. no requests or complaints. per staff, dep/anx 4-5. ruminating SI. blunted, withdrawn. less SI. social with select peers. slept about 7 hours. Mental Status Exam Mental Status Exam Narrative: Pt is alert and oriented; behavior is cooperative, calm; dressed in casual attire, well groomed, with good hygiene; mood not much different from when i came in; affect constricted; appropriate eye contact; Speech is soft, but normal rate and prosody and not pressured;? no psychomotor retardation present; thought process is organized and goal directed; Thought content is lacking in psychotic Sx. no SI/HI/AVH expressed. Diagnostics Vital Signs (24Hr): Vital Signs - 24 hr 12/03/23 19:40 12/04/23 07:26 Temperature 97.5 F 97.7 F Pulse Rate 79 84 Respiratory Rate 16 16 Blood Pressure 119/74 126/60 Pulse Oximetry 99 99 Oxygen Delivery Method Room Air Room Air BMI result Body Mass Index 27.0 Labs 11/26/23 10:53 11/26/23 10:53 Medications Medications Current Medications Acetaminophen (Acetaminophen 325 Mg Tablet) 650 mg PO Q6H PRN PRN Reason: Headache/Pain Mild Scale (1-3) Last Admin: 12/01/23 22:09 Dose: 650 mg Al Hydroxide/Mg Hydroxide (Magnesium Hydrox/Alum Hydrox 30 Ml Oral.Susp) 30 ml PO Q6H PRN PRN Reason: Heartburn/Nausea Duloxetine HCl (Duloxetine Hcl 60 Mg Capsule.Dr) 120 mg PO DAILY [facility] Last Admin: 12/04/23 08:31 Dose: 120 mg Hydroxyzine HCl (Hydroxyzine Hcl 25 Mg Tablet) 25 mg PO Q4H PRN PRN Reason: moderate anxiety Hydroxyzine HCl (Hydroxyzine Hcl 25 Mg Tablet) 75 mg PO BEDTIME PRN PRN Reason: insomnia Last Admin: 12/03/23 21:49 Dose: 75 mg Lorazepam (Lorazepam 1 Mg Tablet) 1 mg PO BID PRN PRN Reason: moderate anxiety Lurasidone HCl (Lurasidone Hcl 20 Mg Tablet) 20 mg PO DAILY [facility] Last Admin: 12/04/23 08:31 Dose: 20 mg Magnesium Hydroxide (Milk Of Magnesia 30 Ml Oral.Susp) 30 ml PO DAILY PRN PRN Reason: Constipation Sumatriptan Succinate (Sumatriptan Succinate 50 Mg Tablet) 50 mg PO DAILY PRN PRN Reason: Migraine Headache Allergies Allergies Allergy/AdvReac Type Severity Reaction Status Date / Time Sulfa (Sulfonamide Allergy Unknown SHORTNESS Verified 09/14/21 19:37 Antibiotics) OF BREATH [SULFA (SULFONAMIDE ANTIBIOTICS)] mirtazapine [From REMERON] AdvReac Unknown AGITATION Verified 09/14/21 19:37 quetiapine [From SEROQUEL] AdvReac Unknown AGITATION Verified 09/14/21 19:37 Assessment & Plan Assessment & Plan (1) MDD (major depressive disorder), recurrent severe, without psychosis: Status: Acute Code(s): F33.2 - Major depressive disorder, recurrent severe without psychotic features Plan 11/28: continue home meds for now. medical clearance for ECT. michelle consult for ECT. increase ativan PRNs from 1 daily to 2 daily. add hydroxyzine 25 mg PRNs. 11/29: increase HS hydroxyzine from 50 mg to 75 mg for insomnia. medically cleared for ECT, accepted for tomorrow by michelle. T?C prazosin for nightmares and insomnia in PTSD. pt declines for now. 12/01 continue tx. 12/02 continue tx. 12/03 continue tx. 12/04: stably depressed, suicidal. continue current mgmt. ECT #2 tomorrow. Reason for continued inpatient stay Substantial Risk for: harm to self, inability to function and rapid decompensation Time Spent With Patient Time: Total time managing care of this patient today __25__ minutes.
[2023-12-04 20:10] VITALS: BP 130/65; PULSE 74; RESP 16; TEMP 36.4; O2SAT 98
[2023-12-04] MEDS: hydrOXYzine HCL 25 MG TABLET 75 MG PO (21:40)
[2023-12-05] VITALS (10 sets, daily range): BP systolic 114–130; BP diastolic 32–78; PULSE 71–104; RESP 12–20; TEMP 36.1–36.3; O2SAT 94–100
--- NOTE | 2023-12-05 08:20 | MHC.SHP ---
Pre-Procedural Eval Section A - 24 Hr Update-Section A only Date of Service: 12/05/23 The patient is an INPATIENT: Yes Changes since office visit: Yes Patient answered all questions; No New Medical Problems and No Changes in Medication The patient has been examined within 24 hours of the surgical procedure. The History & Physical has been completed within 30 days and I have reviewed it.: Yes Section B - Complete if H&P > 30 days Chief Complaint: SA Present Medications: see Short Stay Collaborative assessment Allergies: Allergies Allergy/AdvReac Type Severity Reaction Status Date / Time Sulfa (Sulfonamide Allergy Unknown SHORTNESS Verified 09/14/21 19:37 Antibiotics) OF BREATH [SULFA (SULFONAMIDE ANTIBIOTICS)] mirtazapine [From REMERON] AdvReac Unknown AGITATION Verified 09/14/21 19:37 quetiapine [From SEROQUEL] AdvReac Unknown AGITATION Verified 09/14/21 19:37 Review of Systems Sugical H&P ROS: Negative: Cardiovascular and Respiratory Exam Surgical H&P Exam: Normal: Heart and Normal: Lungs Plan I have reviewed the history and physical and performed a pertinent physical examination on my patient. No changes have occurred unless specified. Time Spent With Patient Time: Total time managing care of this patient today ____ minutes.
--- NOTE | 2023-12-05 08:24 | HO.ECTPROC ---
ECT Procedure Note Diagnosis/Treatment Date of Service: 12/05/23 Diagnosis: Major Depressive Disorder Previous ECT Date: 11/30/23 Current Treatment Number: 2 Treatment: Series Interval Clinical Notes: Patient remains quite depressed tolerated first ect Time: Total time managing care of this patient today ____ minutes. ECT Settings Device: THYMATRON DGx Electrode Placement: Right Unilateral Program/Pulse Width: 0.25 Energy Percent: 60 Seizure Duration By EEG (in seconds): 42 Medications Administration General Anesthetic: Etomidate (14) Muscle Relaxant: Succinylcholine (100) Ancillary Medications Analgesics: Torodol - Pre ECT (15) Anti-emetics: Zofran - Pre ECT Miscillaneous Medications: Midazolam (2) Airway Management Airway Management: Bag Mask Ventilation Treatment Recommendations Electrode Placement: Right Unilateral Notes: try propofol post versed might be disinhibiting monitor response Pt Tolerated Procedure w/o Issue: Yes
--- NOTE | 2023-12-05 08:57 | HO.ANESPROP2 ---
[facility] Active Problems Active Problems: All Active Problems (Updated 11/28/23 @ 16:03 by Randolph Martinez MD) Suicidal ideation (Acute) Intentional overdose (Acute) Suicide attempt (Acute) Acute UTI (Acute) Medication monitoring encounter (Acute) MDD (major depressive disorder), recurrent severe, without psychosis (Acute) PTSD (post-traumatic stress disorder) (Acute) Past Medical History Medical History Suicidal ideation Pneumothorax PTSD (post-traumatic stress disorder) Depression Family History Family History Father Heart disease Family history of problems with anesthesia: No Surgical History Surgical History No pertinent past surgical history History of Problems with Anesthesia: No Social History Social History Household Members: None Household Members Other:: daughter and daughter's boyfriend Housing: Homeless Do you presently have visiting nurse or other home services: No Alcohol intake: current Alcohol intake frequency: holidays/special occasions only Alcohol type: beer and wine Patient Tobacco Use Status: Never used Tobacco Smoked in Last 30 Days: No e-Cigarette/Vaping Use: Never Used Second Hand Smoke Exposure: No Use of substances other than those prescribed or required for medical reasons: Yes Substance Use Type: Marijuana Substance Use Frequency: Occasionally Last Used Substance: Just Prior to Admission Currently Displaying Signs/Symptoms of Drug Intoxication Withdrawal: No Any prior treatment program specific to substance use: No Have you been hit, kicked, punched, or otherwise hurt by someone within the past year? If so, by whom?: No Do you feel safe in your current relationship?: Yes Is there a partner from a previous relationship who is making you feel unsafe now?: No Are you made to feel afraid or neglected: No Advance Directives: No Advance Directives Information Provided: No Do you have thoughts of harming others: None Do you have a plan to hurt others: No Plan Recently lost weight without trying: Yes How much weight loss: 2-13 pounds Eating poorly because of decreased appetite: Yes Nutrition screen score: 4 Nutrition Risks: Anorexia Patient : No : No Poor oral hygiene: No service: No Current occupational status: unemployed Sexual orientation: Straight/Heterosexual Meds Allergies Allergy/AdvReac Type Severity Reaction Status Date / Time Sulfa (Sulfonamide Allergy Unknown SHORTNESS Verified 09/14/21 19:37 Antibiotics) OF BREATH [SULFA (SULFONAMIDE ANTIBIOTICS)] mirtazapine [From REMERON] AdvReac Unknown AGITATION Verified 09/14/21 19:37 quetiapine [From SEROQUEL] AdvReac Unknown AGITATION Verified 09/14/21 19:37 Active Medications: Current Medications Acetaminophen (Acetaminophen 325 Mg Tablet) 650 mg PO Q6H PRN PRN Reason: Headache/Pain Mild Scale (1-3) Last Admin: 12/01/23 22:09 Dose: 650 mg Al Hydroxide/Mg Hydroxide (Magnesium Hydrox/Alum Hydrox 30 Ml Oral.Susp) 30 ml PO Q6H PRN PRN Reason: Heartburn/Nausea Duloxetine HCl (Duloxetine Hcl 60 Mg Capsule.Dr) 120 mg PO DAILY ON LICENSE OF [facility] Last Admin: 12/04/23 08:31 Dose: 120 mg Hydroxyzine HCl (Hydroxyzine Hcl 25 Mg Tablet) 25 mg PO Q4H PRN PRN Reason: moderate anxiety Hydroxyzine HCl (Hydroxyzine Hcl 25 Mg Tablet) 75 mg PO BEDTIME PRN PRN Reason: insomnia Last Admin: 12/04/23 21:40 Dose: 75 mg Lorazepam (Lorazepam 1 Mg Tablet) 1 mg PO BID PRN PRN Reason: moderate anxiety Lorazepam (Lorazepam 2 Mg/Ml Vial) 1 mg IVPUSH ONCE ONE Stop: 12/05/23 08:57 Lurasidone HCl (Lurasidone Hcl 20 Mg Tablet) 20 mg PO DAILY ON LICENSE OF [facility] Last Admin: 12/04/23 08:31 Dose: 20 mg Magnesium Hydroxide (Milk Of Magnesia 30 Ml Oral.Susp) 30 ml PO DAILY PRN PRN Reason: Constipation Sumatriptan Succinate (Sumatriptan Succinate 50 Mg Tablet) 50 mg PO DAILY PRN PRN Reason: Migraine Headache Exam Height,Weight and Vital Signs: Height 5 ft 8 in Weight 80.649 kg Last Vital Signs Temp 97.3 F 12/05/23 06:26 Pulse 73 12/05/23 06:26 Resp 12 12/05/23 06:26 BP 127/53 L 12/05/23 06:26 Pulse Ox 100 12/05/23 06:26 O2 Del Method Room Air 12/05/23 06:26 O2 Flow Rate 2 11/30/23 11:12 Pertinent Lab Results Pertinent Lab Results: Laboratory Tests 11/26/23 11/26/23 10:53 17:23 WBC 8.6 RBC 4.74 Hgb 13.5 Hct 40.4 MCV 85.2 MCH 28.5 MCHC 33.4 RDW 12.7 Plt Count 240 MPV 9.7 Immature Gran % (Auto) 0.2 Neut % (Auto) 73.4 H Lymph % (Auto) 19.3 L [place] % (Auto) 5.6 Eos % (Auto) 0.9 Baso % (Auto) 0.6 Lymph # (Auto) 1.7 [place] # (Auto) 0.5 Eos # (Auto) 0.1 Baso # (Auto) 0.1 Abs Immat Gran (auto) 0.02 Absolute Neuts (auto) 6.3 Absolute Nucleated RBC 0.000 Nucleated RBC % (auto) 0.0 Sodium 140 Potassium 4.3 Chloride 107 Carbon Dioxide 26 Anion Gap 11 L BUN 12 Creatinine 0.76 Estim Creat Clear Calc 99.2 Estimated GFR > 60 Random Glucose 127 H Calcium 8.8 D Magnesium 2.1 Total Bilirubin 1.0 Direct Bilirubin 0.3 AST 14 ALT 10 Alkaline Phosphatase 81 Total Protein 6.7 Albumin 3.9 Urine Color Yellow Urine Appearance Clear Urine pH 6.0 Ur Specific [place] 1.010 Urine Protein Negative Urine Glucose (UA) Negative Urine Ketones Negative Urine Blood Negative Urine Nitrite Negative Ur Leukocyte Esterase Negative Urine RBC 0-2 Urine WBC 0-5 Ur Squamous Epith Cells 6-10 Urine Bacteria None Seen Hyaline Casts 0-2 Salicylates < 5.0 L Urine Opiates Screen Not Detected Urine Fentanyl Screen Not Detected Acetaminophen < 3 Ur Barbiturates Screen Not Detected Ur Phencyclidine Scrn Not Detected Ur Amphetamines Screen Not Detected U Benzodiazepines Scrn Not Detected Urine Cocaine Screen Not Detected U Marijuana (THC) Screen POSITIVE H Ethyl Alcohol < 10 COVID-19 (JAMIE) Negative COVID-19 Clin Com See Note Airway Mallampati Class: II TM Dist: >3cm Neck ROM: Full Assessment and Plan Assessment Anesthesia Assessment: Anesthesia Plan Discussed and Chart Reviewed Final Anesthetic Review Family History of Problems with Anesthesia: No History of Problems with Anesthesia: No ASA Class: II Final Preanesthetic Review: No Changes in Pt Med Stat, Meds/Allgs Chart Reviewed, Consent Obtained/Reviewed and Anes Risks/Benef Reviewed Patient Risk: Low Procedure Risk: Intermediate Anesthetic Plan Anesthetic Plan: GA Disposition: Standard PACU
[2023-12-05] MEDS: LORazepam 2 MG/ML VIAL 1 MG IVPUSH (09:00)
[2023-12-05] MEDS: DULoxetine HCl 60 MG CAPSULE.DR 120 MG PO (10:31)
[2023-12-05] MEDS: Lurasidone HCl 20 MG TABLET PO (10:32)
[2023-12-05] MEDS: Acetaminophen 325 MG TABLET 650 MG PO (10:32)
--- NOTE | 2023-12-05 14:32 | P.PNPSI_ITS ---
Subjective Subjective Date of Service: 12/05/23 Reason For Visit: SA Interim History: in bed, says she is tired, ECT went well, no change in presentation. per staff, dep 8 anx 10. +SI. safe on unit. Mental Status Exam Mental Status Exam Narrative: Pt is alert and oriented; behavior is cooperative, calm; dressed in casual attire, well groomed, with good hygiene; mood depressed; affect constricted; appropriate eye contact; Speech is soft, but normal rate and prosody and not pressured;? no psychomotor retardation present; thought process is organized and goal directed; Thought content is lacking in psychotic Sx. no SI/HI/AVH expressed; +SI yesterday per RN report. Diagnostics Vital Signs (24Hr): Vital Signs - 24 hr 12/04/23 20:10 12/05/23 05:58 12/05/23 06:26 Temperature 97.6 F 97.1 F 97.3 F Pulse Rate 74 71 73 Respiratory Rate 16 16 12 Blood Pressure 130/65 122/58 L 127/53 L Pulse Oximetry 98 99 100 Oxygen Delivery Method Room Air Room Air Oxygen Flow Rate 12/05/23 08:50 12/05/23 08:55 12/05/23 09:00 Temperature Pulse Rate 101 H 100 104 H Respiratory Rate 19 20 20 Blood Pressure 120/32 L 119/32 L 130/68 Pulse Oximetry 99 96 96 Oxygen Delivery Method Nasal Cannula with ETCO2 Room Air Nasal Cannula with ETCO2 Oxygen Flow Rate 3 3 12/05/23 09:05 12/05/23 09:20 12/05/23 09:35 Temperature 97.3 F Pulse Rate 102 H 101 H 82 Respiratory Rate 19 19 16 Blood Pressure 125/78 114/61 118/76 Pulse Oximetry 94 95 97 Oxygen Delivery Method Nasal Cannula with ETCO2 Room Air Room Air Oxygen Flow Rate 3 12/05/23 10:15 Temperature 97.0 F Pulse Rate 72 Respiratory Rate 15 Blood Pressure 120/57 L Pulse Oximetry 99 Oxygen Delivery Method Room Air Oxygen Flow Rate BMI result Body Mass Index 27.0 Labs 11/26/23 10:53 11/26/23 10:53 Medications Medications Current Medications Acetaminophen (Acetaminophen 325 Mg Tablet) 650 mg PO Q6H PRN PRN Reason: Headache/Pain Mild Scale (1-3) Last Admin: 12/05/23 10:32 Dose: 650 mg Al Hydroxide/Mg Hydroxide (Magnesium Hydrox/Alum Hydrox 30 Ml Oral.Susp) 30 ml PO Q6H PRN PRN Reason: Heartburn/Nausea Duloxetine HCl (Duloxetine Hcl 60 Mg Capsule.Dr) 120 mg PO DAILY [facility] Last Admin: 12/05/23 10:31 Dose: 120 mg Hydroxyzine HCl (Hydroxyzine Hcl 25 Mg Tablet) 25 mg PO Q4H PRN PRN Reason: moderate anxiety Hydroxyzine HCl (Hydroxyzine Hcl 25 Mg Tablet) 75 mg PO BEDTIME PRN PRN Reason: insomnia Last Admin: 12/04/23 21:40 Dose: 75 mg Lorazepam (Lorazepam 1 Mg Tablet) 1 mg PO BID PRN PRN Reason: moderate anxiety Lurasidone HCl (Lurasidone Hcl 20 Mg Tablet) 20 mg PO DAILY [facility] Last Admin: 12/05/23 10:32 Dose: 20 mg Magnesium Hydroxide (Milk Of Magnesia 30 Ml Oral.Susp) 30 ml PO DAILY PRN PRN Reason: Constipation Sumatriptan Succinate (Sumatriptan Succinate 50 Mg Tablet) 50 mg PO DAILY PRN PRN Reason: Migraine Headache Allergies Allergies Allergy/AdvReac Type Severity Reaction Status Date / Time Sulfa (Sulfonamide Allergy Unknown SHORTNESS Verified 09/14/21 19:37 Antibiotics) OF BREATH [SULFA (SULFONAMIDE ANTIBIOTICS)] mirtazapine [From REMERON] AdvReac Unknown AGITATION Verified 09/14/21 19:37 quetiapine [From SEROQUEL] AdvReac Unknown AGITATION Verified 09/14/21 19:37 Assessment & Plan Assessment & Plan (1) MDD (major depressive disorder), recurrent severe, without psychosis: Status: Acute Code(s): F33.2 - Major depressive disorder, recurrent severe without psychotic features Plan 11/28: continue home meds for now. medical clearance for ECT. michelle consult for ECT. increase ativan PRNs from 1 daily to 2 daily. add hydroxyzine 25 mg PRNs. 11/29: increase HS hydroxyzine from 50 mg to 75 mg for insomnia. medically cleared for ECT, accepted for tomorrow by michelle. T?C prazosin for nightmares and insomnia in PTSD. pt declines for now. 12/01 continue tx. 12/02 continue tx. 12/03 continue tx. 12/04: stably depressed, suicidal. continue current mgmt. ECT #2 tomorrow. 12/05: ECT #2 completed without incident. no change in presentation. continue current mgmt. Reason for continued inpatient stay Substantial Risk for: harm to self, inability to function and rapid decompensation Time Spent With Patient Time: Total time managing care of this patient today __25__ minutes.
[2023-12-06 08:07] VITALS: BP 108/68; PULSE 85; RESP 14; TEMP 37; O2SAT 99
[2023-12-06] MEDS: DULoxetine HCl 60 MG CAPSULE.DR 120 MG PO (08:30)
[2023-12-06] MEDS: Lurasidone HCl 20 MG TABLET PO (08:30)
[2023-12-06 13:58] VITALS: BMI 27.1
--- NOTE | 2023-12-06 16:24 | HO.PSYCHPN ---
Subjective Subjective Date of Service: 12/06/23 Reason For Visit: SI Subjective Notes: Conditional Voluntary Interim History: Patient depressed withdrawn tolerating ECT without significant difficulty agreeable to discontinuing Latuda and a trial of Abilify Mental Status Exam Mental Status Exam Patient Appearance: Well Grooomed Patient Orientation: Person, Place, Time and Situation Level of Consciousness: Awake and Appropriate Patient Behavior: Passive Mood Description: Depressed and Blunted Affect Description: Appropriate and Constricted Patient Cognition Impaired: No Ability to Follow Directions: Good Speech Pattern: Clear Memory Description: Intact Hallucinations: None Delusions: Not Present Thought Process: Intact and Goal Oriented Thought Content: positive for Goal Oriented, positive for Preoccupation, positive for Suicidal Ideation (passive) and negative for Homicidal Ideation Depressive Symptoms: Increased Anxiety, Increased Irritability, Hopelessness, Increased Fatigue, Loss of Energy and Difficulty Concentrating Judgement: Good Diagnostics Vital Signs (24Hr): Vital Signs - 24 hr 12/05/23 19:40 12/06/23 08:07 Temperature 97.3 F 98.6 F Pulse Rate 77 85 Respiratory Rate 16 14 Blood Pressure 120/57 L 108/68 Pulse Oximetry 97 99 Oxygen Delivery Method Room Air Room Air BMI result Body Mass Index 27.1 Labs 11/26/23 10:53 11/26/23 10:53 Medications Medications Current Medications Acetaminophen (Acetaminophen 325 Mg Tablet) 650 mg PO Q6H PRN PRN Reason: Headache/Pain Mild Scale (1-3) Last Admin: 12/05/23 10:32 Dose: 650 mg Al Hydroxide/Mg Hydroxide (Magnesium Hydrox/Alum Hydrox 30 Ml Oral.Susp) 30 ml PO Q6H PRN PRN Reason: Heartburn/Nausea Aripiprazole (Aripiprazole 2 Mg Tablet) 2 mg PO DAILY [facility] Duloxetine HCl (Duloxetine Hcl 60 Mg Capsule.Dr) 120 mg PO DAILY [facility] Last Admin: 12/06/23 08:30 Dose: 120 mg Hydroxyzine HCl (Hydroxyzine Hcl 25 Mg Tablet) 25 mg PO Q4H PRN PRN Reason: moderate anxiety Hydroxyzine HCl (Hydroxyzine Hcl 25 Mg Tablet) 75 mg PO BEDTIME PRN PRN Reason: insomnia Last Admin: 12/04/23 21:40 Dose: 75 mg Lorazepam (Lorazepam 1 Mg Tablet) 1 mg PO BID PRN PRN Reason: moderate anxiety Magnesium Hydroxide (Milk Of Magnesia 30 Ml Oral.Susp) 30 ml PO DAILY PRN PRN Reason: Constipation Sumatriptan Succinate (Sumatriptan Succinate 50 Mg Tablet) 50 mg PO DAILY PRN PRN Reason: Migraine Headache Allergies Allergies Allergy/AdvReac Type Severity Reaction Status Date / Time Sulfa (Sulfonamide Allergy Unknown SHORTNESS Verified 09/14/21 19:37 Antibiotics) OF BREATH [SULFA (SULFONAMIDE ANTIBIOTICS)] mirtazapine [From REMERON] AdvReac Unknown AGITATION Verified 09/14/21 19:37 quetiapine [From SEROQUEL] AdvReac Unknown AGITATION Verified 09/14/21 19:37 Assessment & Plan Assessment & Plan (1) MDD (major depressive disorder), recurrent severe, without psychosis: Status: Acute Code(s): F33.2 - Major depressive disorder, recurrent severe without psychotic features Plan 11/28: continue home meds for now. medical clearance for ECT. michelle consult for ECT. increase ativan PRNs from 1 daily to 2 daily. add hydroxyzine 25 mg PRNs. 11/29: increase HS hydroxyzine from 50 mg to 75 mg for insomnia. medically cleared for ECT, accepted for tomorrow by michelle. T?C prazosin for nightmares and insomnia in PTSD. pt declines for now. 12/01 continue tx. 12/02 continue tx. 12/03 continue tx. 12/04: stably depressed, suicidal. continue current mgmt. ECT #2 tomorrow. 12/05: ECT #2 completed without incident. no change in presentation. continue current mgmt. 12/06 Continue ECT start Abilify discontinue Latuda Reason for continued inpatient stay Substantial Risk for: harm to self, inability to function and rapid decompensation Time Spent With Patient Time: Total time managing care of this patient today ____ minutes.
[2023-12-06 20:10] VITALS: BP 125/60; PULSE 86; RESP 16; TEMP 36.6; O2SAT 99
[2023-12-06] MEDS: hydrOXYzine HCL 25 MG TABLET 75 MG PO (22:00)
[2023-12-07] VITALS (9 sets, daily range): BP systolic 122–156; BP diastolic 53–83; PULSE 63–104; RESP 12–18; TEMP 36.1–36.8; O2SAT 94–99
--- NOTE | 2023-12-07 07:26 | P.CONAN_ITS ---
HPI - Anesthesia Eval Consult details Narrative: 48 yo female patient for ECT PMFSH Active Problems Active Problems: All Active Problems (Updated 11/28/23 @ 07:26 by Mara Ga MD, MD) Suicidal ideation (Acute) Intentional overdose (Acute) Suicide attempt (Acute) Medication monitoring encounter (Acute) MDD (major depressive disorder), recurrent severe, without psychosis (Acute) PTSD (post-traumatic stress disorder) (Acute) Past Medical History Medical History Suicidal ideation Pneumothorax PTSD (post-traumatic stress disorder) Depression Family History Family History Father Heart disease Family history of problems with anesthesia: No Surgical History Surgical History No pertinent past surgical history History of Problems with Anesthesia: No Social History Social History Household Members: None Household Members Other:: daughter and daughter's boyfriend Housing: Homeless Do you presently have visiting nurse or other home services: No Alcohol intake: current Alcohol intake frequency: holidays/special occasions only Alcohol type: beer and wine Patient Tobacco Use Status: Never used Tobacco Smoked in Last 30 Days: No e-Cigarette/Vaping Use: Never Used Second Hand Smoke Exposure: No Use of substances other than those prescribed or required for medical reasons: Yes Substance Use Type: Marijuana Substance Use Frequency: Occasionally Last Used Substance: Just Prior to Admission Currently Displaying Signs/Symptoms of Drug Intoxication Withdrawal: No Any prior treatment program specific to substance use: No Have you been hit, kicked, punched, or otherwise hurt by someone within the past year? If so, by whom?: No Do you feel safe in your current relationship?: Yes Is there a partner from a previous relationship who is making you feel unsafe now?: No Are you made to feel afraid or neglected: No Advance Directives: No Advance Directives Information Provided: No Do you have thoughts of harming others: None Do you have a plan to hurt others: No Plan Recently lost weight without trying: Yes How much weight loss: 2-13 pounds Eating poorly because of decreased appetite: Yes Nutrition screen score: 4 Nutrition Risks: Anorexia Patient : No : No Poor oral hygiene: No service: No Current occupational status: unemployed Sexual orientation: Straight/Heterosexual Meds Allergies Allergy/AdvReac Type Severity Reaction Status Date / Time Sulfa (Sulfonamide Allergy Unknown SHORTNESS Verified 09/14/21 19:37 Antibiotics) OF BREATH [SULFA (SULFONAMIDE ANTIBIOTICS)] mirtazapine [From REMERON] AdvReac Unknown AGITATION Verified 09/14/21 19:37 quetiapine [From SEROQUEL] AdvReac Unknown AGITATION Verified 09/14/21 19:37 Active Medications: Current Medications Acetaminophen (Acetaminophen 325 Mg Tablet) 650 mg PO Q6H PRN PRN Reason: Headache/Pain Mild Scale (1-3) Last Admin: 12/05/23 10:32 Dose: 650 mg Al Hydroxide/Mg Hydroxide (Magnesium Hydrox/Alum Hydrox 30 Ml Oral.Susp) 30 ml PO Q6H PRN PRN Reason: Heartburn/Nausea Aripiprazole (Aripiprazole 2 Mg Tablet) 2 mg PO DAILY [facility] Duloxetine HCl (Duloxetine Hcl 60 Mg Capsule.Dr) 120 mg PO DAILY [facility] Last Admin: 12/06/23 08:30 Dose: 120 mg Hydroxyzine HCl (Hydroxyzine Hcl 25 Mg Tablet) 25 mg PO Q4H PRN PRN Reason: moderate anxiety Hydroxyzine HCl (Hydroxyzine Hcl 25 Mg Tablet) 75 mg PO BEDTIME PRN PRN Reason: insomnia Last Admin: 12/06/23 22:00 Dose: 75 mg Lorazepam (Lorazepam 1 Mg Tablet) 1 mg PO BID PRN PRN Reason: moderate anxiety Magnesium Hydroxide (Milk Of Magnesia 30 Ml Oral.Susp) 30 ml PO DAILY PRN PRN Reason: Constipation Sumatriptan Succinate (Sumatriptan Succinate 50 Mg Tablet) 50 mg PO DAILY PRN PRN Reason: Migraine Headache Exam Height,Weight and Vital Signs: Height 5 ft 8 in Weight 80.921 kg Last Vital Signs Temp 97.0 F 12/07/23 06:54 Pulse 63 12/07/23 06:54 Resp 18 12/07/23 06:54 BP 132/74 12/07/23 06:54 Pulse Ox 98 12/07/23 06:54 O2 Del Method Room Air 12/07/23 06:16 O2 Flow Rate 3 12/05/23 09:05 Pertinent Lab Results Pertinent Lab Results: Laboratory Tests 11/26/23 11/26/23 10:53 17:23 WBC 8.6 RBC 4.74 Hgb 13.5 Hct 40.4 MCV 85.2 MCH 28.5 MCHC 33.4 RDW 12.7 Plt Count 240 MPV 9.7 Immature Gran % (Auto) 0.2 Neut % (Auto) 73.4 H Lymph % (Auto) 19.3 L [place] % (Auto) 5.6 Eos % (Auto) 0.9 Baso % (Auto) 0.6 Lymph # (Auto) 1.7 [place] # (Auto) 0.5 Eos # (Auto) 0.1 Baso # (Auto) 0.1 Abs Immat Gran (auto) 0.02 Absolute Neuts (auto) 6.3 Absolute Nucleated RBC 0.000 Nucleated RBC % (auto) 0.0 Sodium 140 Potassium 4.3 Chloride 107 Carbon Dioxide 26 Anion Gap 11 L BUN 12 Creatinine 0.76 Estim Creat Clear Calc 99.2 Estimated GFR > 60 Random Glucose 127 H Calcium 8.8 D Magnesium 2.1 Total Bilirubin 1.0 Direct Bilirubin 0.3 AST 14 ALT 10 Alkaline Phosphatase 81 Total Protein 6.7 Albumin 3.9 Urine Color Yellow Urine Appearance Clear Urine pH 6.0 Ur Specific [place] 1.010 Urine Protein Negative Urine Glucose (UA) Negative Urine Ketones Negative Urine Blood Negative Urine Nitrite Negative Ur Leukocyte Esterase Negative Urine RBC 0-2 Urine WBC 0-5 Ur Squamous Epith Cells 6-10 Urine Bacteria None Seen Hyaline Casts 0-2 Salicylates < 5.0 L Urine Opiates Screen Not Detected Urine Fentanyl Screen Not Detected Acetaminophen < 3 Ur Barbiturates Screen Not Detected Ur Phencyclidine Scrn Not Detected Ur Amphetamines Screen Not Detected U Benzodiazepines Scrn Not Detected Urine Cocaine Screen Not Detected U Marijuana (THC) Screen POSITIVE H Ethyl Alcohol < 10 COVID-19 (JAMIE) Negative COVID-19 Clin Com See Note Airway Mallampati Class: III TM Dist: >3cm Neck ROM: Full Loose/Missing/Broken Teeth: No (Denies broken, loose, missing teeth) Heart: RRR Lungs: CTAB Assessment and Plan Assessment Anesthesia Assessment: Anesthesia Plan Discussed and Chart Reviewed Final Anesthetic Review Family History of Problems with Anesthesia: No History of Problems with Anesthesia: No NPO: Yes ASA Class: III Final Preanesthetic Review: No Changes in Pt Med Stat, Meds/Allgs Chart Reviewed, Consent Obtained/Reviewed and Anes Risks/Benef Reviewed Patient Risk: Intermediate Procedure Risk: Intermediate Anesthetic Plan Anesthetic Plan: GA Disposition: Standard PACU and Inp. Admit - Standard Bed
--- NOTE | 2023-12-07 07:45 | MHC.SHP ---
Pre-Procedural Eval Section A - 24 Hr Update-Section A only Date of Service: 12/07/23 Changes since office visit: Yes Changes in Medication and Yes Patient answered all questions; No Cold of Flu in the past 2 weeks and No New Medical Problems The patient has been examined within 24 hours of the surgical procedure. The History & Physical has been completed within 30 days and I have reviewed it.: Yes Section B - Complete if H&P > 30 days Chief Complaint: SI Allergies: Allergies Allergy/AdvReac Type Severity Reaction Status Date / Time Sulfa (Sulfonamide Allergy Unknown SHORTNESS Verified 09/14/21 19:37 Antibiotics) OF BREATH [SULFA (SULFONAMIDE ANTIBIOTICS)] mirtazapine [From REMERON] AdvReac Unknown AGITATION Verified 09/14/21 19:37 quetiapine [From SEROQUEL] AdvReac Unknown AGITATION Verified 09/14/21 19:37 Review of Systems Sugical H&P ROS: Negative: Cardiovascular, Respiratory and Neurological Exam Surgical H&P Exam: Normal: Heart and Normal: Lungs Plan Diagnosis/Plan: Unchanged I have reviewed the history and physical and performed a pertinent physical examination on my patient. No changes have occurred unless specified. Time Spent With Patient Time: Total time managing care of this patient today ____ minutes.
--- NOTE | 2023-12-07 07:46 | HO.ECTPROC ---
ECT Procedure Note Diagnosis/Treatment Date of Service: 12/07/23 Diagnosis: Major Depressive Disorder Previous ECT Date: 11/30/23 Current Treatment Number: 3 Treatment: Series Interval Clinical Notes: Patient remains depressed ruminating isolative tolerating ect Time: Total time managing care of this patient today ____ minutes. ECT Settings Device: THYMATRON DGx Electrode Placement: Right Unilateral Program/Pulse Width: 0.25 Energy Percent: 70 Seizure Duration By EEG (in seconds): 33 Medications Administration General Anesthetic: Etomidate (14) Muscle Relaxant: Succinylcholine (100) Ancillary Medications Analgesics: Torodol - Pre ECT (15) Anti-emetics: Zofran - Pre ECT Miscillaneous Medications: Propofol (30) Airway Management Airway Management: Bag Mask Ventilation Treatment Recommendations Electrode Placement: Right Unilateral Program/Pulse Width: 0.50 Notes: prop 30 given post lorazepam 1 mg post has post ect weepiness change to 0.5 program cont ect inc pw consider bf Pt Tolerated Procedure w/o Issue: Yes
[2023-12-07] MEDS: LORazepam 2 MG/ML VIAL 1 MG IVPUSH ×2 (08:10→08:15)
[2023-12-07] MEDS: DULoxetine HCl 60 MG CAPSULE.DR 120 MG PO (10:08)
[2023-12-07] MEDS: ARIPiprazole 2 MG TABLET PO (10:08)
[2023-12-07] MEDS: hydrOXYzine HCL 25 MG TABLET 75 MG PO (21:11)
[2023-12-08 07:55] VITALS: BP 116/59; PULSE 74; RESP 16; TEMP 36.7; O2SAT 96
[2023-12-08] MEDS: DULoxetine HCl 60 MG CAPSULE.DR 120 MG PO (08:11)
[2023-12-08] MEDS: ARIPiprazole 2 MG TABLET PO (08:11)
--- NOTE | 2023-12-08 11:58 | P.PNPSI_ITS ---
Subjective Subjective Date of Service: 12/08/23 Reason For Visit: SI Subjective Notes: Conditional Voluntary Interim History: The nursing staff reported no changes in her mental status she had been med compliant reports passive suicidal ideation she has been going on for 1 group. She is scheduled for ECT. She slept 8 hours. On interview the patient denies new symptoms. Mental Status Exam Mental Status Exam Patient Appearance: Appropriate Patient Orientation: Person and Situation Level of Consciousness: Awake Patient Behavior: Guarded and Passive Mood Description: Withdrawn Affect Description: Constricted Patient Cognition Impaired: Yes Ability to Follow Directions: Fair Speech Pattern: Clear Hallucinations: None Delusions: Not Present Thought Process: Distracted and Slowed Thinking Thought Content: positive for [place] Judgement: Fair Diagnostics Vital Signs (24Hr): Vital Signs - 24 hr 12/07/23 19:55 12/08/23 07:55 Temperature 97.7 F 98.0 F Pulse Rate 90 74 Respiratory Rate 16 16 Blood Pressure 128/75 116/59 L Pulse Oximetry 97 96 Oxygen Delivery Method Room Air Room Air BMI result Body Mass Index 27.1 Labs 11/26/23 10:53 11/26/23 10:53 Medications Medications Current Medications Acetaminophen (Acetaminophen 325 Mg Tablet) 650 mg PO Q6H PRN PRN Reason: Headache/Pain Mild Scale (1-3) Last Admin: 12/05/23 10:32 Dose: 650 mg Acetaminophen (Acetaminophen 325 Mg Tablet) 650 mg PO ONCE PRN PRN Reason: Pain, Mild (Pain Scale 1-3) Al Hydroxide/Mg Hydroxide (Magnesium Hydrox/Alum Hydrox 30 Ml Oral.Susp) 30 ml PO Q6H PRN PRN Reason: Heartburn/Nausea Aripiprazole (Aripiprazole 2 Mg Tablet) 2 mg PO DAILY [facility] Last Admin: 12/08/23 08:11 Dose: 2 mg Duloxetine HCl (Duloxetine Hcl 60 Mg Capsule.Dr) 120 mg PO DAILY [facility] Last Admin: 12/08/23 08:11 Dose: 120 mg Hydroxyzine HCl (Hydroxyzine Hcl 25 Mg Tablet) 25 mg PO Q4H PRN PRN Reason: moderate anxiety Hydroxyzine HCl (Hydroxyzine Hcl 25 Mg Tablet) 75 mg PO BEDTIME PRN PRN Reason: insomnia Last Admin: 12/07/23 21:11 Dose: 75 mg Lorazepam (Lorazepam 1 Mg Tablet) 1 mg PO BID PRN PRN Reason: moderate anxiety Lorazepam (Lorazepam 2 Mg/Ml Vial) 1 mg IVPUSH ONCE PRN PRN Reason: anxiety/restlessness Last Admin: 12/07/23 08:10 Dose: 1 mg Magnesium Hydroxide (Milk Of Magnesia 30 Ml Oral.Susp) 30 ml PO DAILY PRN PRN Reason: Constipation Ondansetron HCl (Ondansetron Hcl 4 Mg/2 Ml Vial) 4 mg IVPUSH ONCE PRN PRN Reason: Nausea and Vomiting Sumatriptan Succinate (Sumatriptan Succinate 50 Mg Tablet) 50 mg PO DAILY PRN PRN Reason: Migraine Headache Allergies Allergies Allergy/AdvReac Type Severity Reaction Status Date / Time Sulfa (Sulfonamide Allergy Unknown SHORTNESS Verified 09/14/21 19:37 Antibiotics) OF BREATH [SULFA (SULFONAMIDE ANTIBIOTICS)] mirtazapine [From REMERON] AdvReac Unknown AGITATION Verified 09/14/21 19:37 quetiapine [From SEROQUEL] AdvReac Unknown AGITATION Verified 09/14/21 19:37 Assessment & Plan Assessment & Plan (1) MDD (major depressive disorder), recurrent severe, without psychosis: Status: Acute Code(s): F33.2 - Major depressive disorder, recurrent severe without psychotic features Plan 11/28: continue home meds for now. medical clearance for ECT. michelle consult for ECT. increase ativan PRNs from 1 daily to 2 daily. add hydroxyzine 25 mg PRNs. 11/29: increase HS hydroxyzine from 50 mg to 75 mg for insomnia. medically cleared for ECT, accepted for tomorrow by michelle. T?C prazosin for nightmares and insomnia in PTSD. pt declines for now. 12/01 continue tx. 12/02 continue tx. 12/03 continue tx. 12/04: stably depressed, suicidal. continue current mgmt. ECT #2 tomorrow. 12/05: ECT #2 completed without incident. no change in presentation. continue current mgmt. 12/06 Continue ECT start Abilify discontinue Latuda 12/07 keep same treatment Reason for continued inpatient stay Substantial Risk for: inability to function, rapid decompensation and med/psych decompensation Time Spent With Patient Time: Total time managing care of this patient today ___20_ minutes.
[2023-12-08 19:55] VITALS: BP 115/77; PULSE 96; RESP 16; TEMP 36.6; O2SAT 98
[2023-12-08] MEDS: hydrOXYzine HCL 25 MG TABLET 75 MG PO (21:29)
[2023-12-09 08:05] VITALS: BP 116/57; PULSE 69; RESP 14; TEMP 36.5; O2SAT 98
[2023-12-09] MEDS: DULoxetine HCl 60 MG CAPSULE.DR 120 MG PO (08:48)
[2023-12-09] MEDS: ARIPiprazole 2 MG TABLET PO (08:48)
--- NOTE | 2023-12-09 14:47 | P.PNPSI_ITS ---
Subjective Subjective Date of Service: 12/09/23 Reason For Visit: SI Subjective Notes: Conditional Voluntary Interim History: The nursing staff reported the patient had been most in the bed with intrusive thoughts withdrawn but she was watching TV in the afternoon. She slept 8 hours. On interview the patient denies new symptoms compliant with treatment; content with current treatment. Mental Status Exam Mental Status Exam Patient Appearance: Appropriate Patient Orientation: Person, Place, Time and Situation Level of Consciousness: Awake and Appropriate Patient Behavior: Guarded and Passive Mood Description: Withdrawn Affect Description: Constricted Patient Cognition Impaired: Yes Ability to Follow Directions: Good Speech Pattern: Clear Hallucinations: None Delusions: Not Present Thought Process: Linear Thought Content: positive for [place] and positive for Poverty of Content Judgement: Fair Diagnostics Vital Signs (24Hr): Vital Signs - 24 hr 12/08/23 19:55 12/09/23 08:05 Temperature 97.9 F 97.7 F Pulse Rate 96 69 Respiratory Rate 16 14 Blood Pressure 115/77 116/57 L Pulse Oximetry 98 98 Oxygen Delivery Method Room Air Room Air BMI result Body Mass Index 27.1 Labs 11/26/23 10:53 11/26/23 10:53 Medications Medications Current Medications Acetaminophen (Acetaminophen 325 Mg Tablet) 650 mg PO Q6H PRN PRN Reason: Headache/Pain Mild Scale (1-3) Last Admin: 12/05/23 10:32 Dose: 650 mg Acetaminophen (Acetaminophen 325 Mg Tablet) 650 mg PO ONCE PRN PRN Reason: Pain, Mild (Pain Scale 1-3) Al Hydroxide/Mg Hydroxide (Magnesium Hydrox/Alum Hydrox 30 Ml Oral.Susp) 30 ml PO Q6H PRN PRN Reason: Heartburn/Nausea Aripiprazole (Aripiprazole 2 Mg Tablet) 2 mg PO DAILY [facility] Last Admin: 12/09/23 08:48 Dose: 2 mg Duloxetine HCl (Duloxetine Hcl 60 Mg Capsule.Dr) 120 mg PO DAILY [facility] Last Admin: 12/09/23 08:48 Dose: 120 mg Hydroxyzine HCl (Hydroxyzine Hcl 25 Mg Tablet) 25 mg PO Q4H PRN PRN Reason: moderate anxiety Hydroxyzine HCl (Hydroxyzine Hcl 25 Mg Tablet) 75 mg PO BEDTIME PRN PRN Reason: insomnia Last Admin: 12/08/23 21:29 Dose: 75 mg Lorazepam (Lorazepam 1 Mg Tablet) 1 mg PO BID PRN PRN Reason: moderate anxiety Lorazepam (Lorazepam 2 Mg/Ml Vial) 1 mg IVPUSH ONCE PRN PRN Reason: anxiety/restlessness Last Admin: 12/07/23 08:10 Dose: 1 mg Magnesium Hydroxide (Milk Of Magnesia 30 Ml Oral.Susp) 30 ml PO DAILY PRN PRN Reason: Constipation Ondansetron HCl (Ondansetron Hcl 4 Mg/2 Ml Vial) 4 mg IVPUSH ONCE PRN PRN Reason: Nausea and Vomiting Sumatriptan Succinate (Sumatriptan Succinate 50 Mg Tablet) 50 mg PO DAILY PRN PRN Reason: Migraine Headache Allergies Allergies Allergy/AdvReac Type Severity Reaction Status Date / Time Sulfa (Sulfonamide Allergy Unknown SHORTNESS Verified 09/14/21 19:37 Antibiotics) OF BREATH [SULFA (SULFONAMIDE ANTIBIOTICS)] mirtazapine [From REMERON] AdvReac Unknown AGITATION Verified 09/14/21 19:37 quetiapine [From SEROQUEL] AdvReac Unknown AGITATION Verified 09/14/21 19:37 Assessment & Plan Assessment & Plan (1) MDD (major depressive disorder), recurrent severe, without psychosis: Status: Acute Code(s): F33.2 - Major depressive disorder, recurrent severe without psychotic features Plan 11/28: continue home meds for now. medical clearance for ECT. michelle consult for ECT. increase ativan PRNs from 1 daily to 2 daily. add hydroxyzine 25 mg PRNs. 11/29: increase HS hydroxyzine from 50 mg to 75 mg for insomnia. medically cleared for ECT, accepted for tomorrow by michelle. T?C prazosin for nightmares and insomnia in PTSD. pt declines for now. 12/01 continue tx. 12/02 continue tx. 12/03 continue tx. 12/04: stably depressed, suicidal. continue current mgmt. ECT #2 tomorrow. 12/05: ECT #2 completed without incident. no change in presentation. continue current mgmt. 12/06 Continue ECT start Abilify discontinue Latuda 12/08 keep same treatment 12/09 keep same treatment, ECT tomorrow Reason for continued inpatient stay Substantial Risk for: inability to function, rapid decompensation and med/psych decompensation Time Spent With Patient Time: Total time managing care of this patient today __20__ minutes.
[2023-12-09 19:50] VITALS: BP 134/62; PULSE 75; TEMP 36.3; O2SAT 100
[2023-12-09] MEDS: hydrOXYzine HCL 25 MG TABLET 75 MG PO (22:08)
[2023-12-10] VITALS (8 sets, daily range): BP systolic 107–156; BP diastolic 39–92; PULSE 74–123; RESP 12–18; TEMP 36.1–37.6; O2SAT 96–100
--- NOTE | 2023-12-10 06:55 | HO.ANESPROP2 ---
[facility] Active Problems Active Problems: All Active Problems (Updated 11/28/23 @ 16:03 by Randolph Martinez MD) Suicidal ideation (Acute) Intentional overdose (Acute) Suicide attempt (Acute) Acute UTI (Acute) Medication monitoring encounter (Acute) MDD (major depressive disorder), recurrent severe, without psychosis (Acute) PTSD (post-traumatic stress disorder) (Acute) Past Medical History Medical History Suicidal ideation Pneumothorax PTSD (post-traumatic stress disorder) Depression Family History Family History Father Heart disease Family history of problems with anesthesia: No Surgical History Surgical History No pertinent past surgical history History of Problems with Anesthesia: No Social History Social History Household Members: None Household Members Other:: daughter and daughter's boyfriend Housing: Homeless Do you presently have visiting nurse or other home services: No Alcohol intake: current Alcohol intake frequency: holidays/special occasions only Alcohol type: beer and wine Patient Tobacco Use Status: Never used Tobacco Smoked in Last 30 Days: No e-Cigarette/Vaping Use: Never Used Second Hand Smoke Exposure: No Use of substances other than those prescribed or required for medical reasons: Yes Substance Use Type: Marijuana Substance Use Frequency: Occasionally Last Used Substance: Just Prior to Admission Currently Displaying Signs/Symptoms of Drug Intoxication Withdrawal: No Any prior treatment program specific to substance use: No Have you been hit, kicked, punched, or otherwise hurt by someone within the past year? If so, by whom?: No Do you feel safe in your current relationship?: Yes Is there a partner from a previous relationship who is making you feel unsafe now?: No Are you made to feel afraid or neglected: No Advance Directives: No Advance Directives Information Provided: No Do you have thoughts of harming others: None Do you have a plan to hurt others: No Plan Recently lost weight without trying: Yes How much weight loss: 2-13 pounds Eating poorly because of decreased appetite: Yes Nutrition screen score: 4 Nutrition Risks: Anorexia Patient : No : No Poor oral hygiene: No service: No Current occupational status: unemployed Sexual orientation: Straight/Heterosexual Meds Allergies Allergy/AdvReac Type Severity Reaction Status Date / Time Sulfa (Sulfonamide Allergy Unknown SHORTNESS Verified 09/14/21 19:37 Antibiotics) OF BREATH [SULFA (SULFONAMIDE ANTIBIOTICS)] mirtazapine [From REMERON] AdvReac Unknown AGITATION Verified 09/14/21 19:37 quetiapine [From SEROQUEL] AdvReac Unknown AGITATION Verified 09/14/21 19:37 Active Medications: Current Medications Acetaminophen (Acetaminophen 325 Mg Tablet) 650 mg PO Q6H PRN PRN Reason: Headache/Pain Mild Scale (1-3) Last Admin: 12/05/23 10:32 Dose: 650 mg Acetaminophen (Acetaminophen 325 Mg Tablet) 650 mg PO ONCE PRN PRN Reason: Pain, Mild (Pain Scale 1-3) Al Hydroxide/Mg Hydroxide (Magnesium Hydrox/Alum Hydrox 30 Ml Oral.Susp) 30 ml PO Q6H PRN PRN Reason: Heartburn/Nausea Aripiprazole (Aripiprazole 2 Mg Tablet) 2 mg PO DAILY [facility] Last Admin: 12/09/23 08:48 Dose: 2 mg Duloxetine HCl (Duloxetine Hcl 60 Mg Capsule.Dr) 120 mg PO DAILY [facility] Last Admin: 12/09/23 08:48 Dose: 120 mg Hydroxyzine HCl (Hydroxyzine Hcl 25 Mg Tablet) 25 mg PO Q4H PRN PRN Reason: moderate anxiety Hydroxyzine HCl (Hydroxyzine Hcl 25 Mg Tablet) 75 mg PO BEDTIME PRN PRN Reason: insomnia Last Admin: 12/09/23 22:08 Dose: 75 mg Lorazepam (Lorazepam 1 Mg Tablet) 1 mg PO BID PRN PRN Reason: moderate anxiety Lorazepam (Lorazepam 2 Mg/Ml Vial) 1 mg IVPUSH ONCE PRN PRN Reason: anxiety/restlessness Last Admin: 12/07/23 08:10 Dose: 1 mg Magnesium Hydroxide (Milk Of Magnesia 30 Ml Oral.Susp) 30 ml PO DAILY PRN PRN Reason: Constipation Ondansetron HCl (Ondansetron Hcl 4 Mg/2 Ml Vial) 4 mg IVPUSH ONCE PRN PRN Reason: Nausea and Vomiting Sumatriptan Succinate (Sumatriptan Succinate 50 Mg Tablet) 50 mg PO DAILY PRN PRN Reason: Migraine Headache Exam Height,Weight and Vital Signs: Height 5 ft 8 in Weight 80.921 kg Last Vital Signs Temp 97.5 F 12/10/23 06:37 Pulse 74 12/10/23 06:37 Resp 12 12/10/23 06:37 BP 127/59 L 12/10/23 06:37 Pulse Ox 100 12/10/23 06:37 O2 Del Method Room Air 12/10/23 06:37 O2 Flow Rate 2 12/07/23 08:10 Pertinent Lab Results Pertinent Lab Results: Laboratory Tests 11/26/23 11/26/23 10:53 17:23 WBC 8.6 RBC 4.74 Hgb 13.5 Hct 40.4 MCV 85.2 MCH 28.5 MCHC 33.4 RDW 12.7 Plt Count 240 MPV 9.7 Immature Gran % (Auto) 0.2 Neut % (Auto) 73.4 H Lymph % (Auto) 19.3 L [place] % (Auto) 5.6 Eos % (Auto) 0.9 Baso % (Auto) 0.6 Lymph # (Auto) 1.7 [place] # (Auto) 0.5 Eos # (Auto) 0.1 Baso # (Auto) 0.1 Abs Immat Gran (auto) 0.02 Absolute Neuts (auto) 6.3 Absolute Nucleated RBC 0.000 Nucleated RBC % (auto) 0.0 Sodium 140 Potassium 4.3 Chloride 107 Carbon Dioxide 26 Anion Gap 11 L BUN 12 Creatinine 0.76 Estim Creat Clear Calc 99.2 Estimated GFR > 60 Random Glucose 127 H Calcium 8.8 D Magnesium 2.1 Total Bilirubin 1.0 Direct Bilirubin 0.3 AST 14 ALT 10 Alkaline Phosphatase 81 Total Protein 6.7 Albumin 3.9 Urine Color Yellow Urine Appearance Clear Urine pH 6.0 Ur Specific [place] 1.010 Urine Protein Negative Urine Glucose (UA) Negative Urine Ketones Negative Urine Blood Negative Urine Nitrite Negative Ur Leukocyte Esterase Negative Urine RBC 0-2 Urine WBC 0-5 Ur Squamous Epith Cells 6-10 Urine Bacteria None Seen Hyaline Casts 0-2 Salicylates < 5.0 L Urine Opiates Screen Not Detected Urine Fentanyl Screen Not Detected Acetaminophen < 3 Ur Barbiturates Screen Not Detected Ur Phencyclidine Scrn Not Detected Ur Amphetamines Screen Not Detected U Benzodiazepines Scrn Not Detected Urine Cocaine Screen Not Detected U Marijuana (THC) Screen POSITIVE H Ethyl Alcohol < 10 COVID-19 (JAMIE) Negative COVID-19 Clin Com See Note Airway Mallampati Class: II TM Dist: >3cm Neck ROM: Full Heart: rrr Lungs: cta Assessment and Plan Assessment Anesthesia Assessment: Anesthesia Plan Discussed and Chart Reviewed Final Anesthetic Review Family History of Problems with Anesthesia: No History of Problems with Anesthesia: No NPO: Yes ASA Class: III Final Preanesthetic Review: No Changes in Pt Med Stat, Meds/Allgs Chart Reviewed and Consent Obtained/Reviewed Patient Risk: Intermediate Procedure Risk: Intermediate Anesthetic Plan Anesthetic Plan: GA Disposition: Standard PACU
--- NOTE | 2023-12-10 07:08 | MHC.SHP ---
Pre-Procedural Eval Section A - 24 Hr Update-Section A only Date of Service: 12/10/23 The patient is an INPATIENT: Yes Changes since office visit: No Cold of Flu in the past 2 weeks, No New Medical Problems, No Changes in Medication and No Patient answered all questions The patient has been examined within 24 hours of the surgical procedure. The History & Physical has been completed within 30 days and I have reviewed it.: Yes Section B - Complete if H&P > 30 days Chief Complaint: SI Allergies: Allergies Allergy/AdvReac Type Severity Reaction Status Date / Time Sulfa (Sulfonamide Allergy Unknown SHORTNESS Verified 09/14/21 19:37 Antibiotics) OF BREATH [SULFA (SULFONAMIDE ANTIBIOTICS)] mirtazapine [From REMERON] AdvReac Unknown AGITATION Verified 09/14/21 19:37 quetiapine [From SEROQUEL] AdvReac Unknown AGITATION Verified 09/14/21 19:37 Plan I have reviewed the history and physical and performed a pertinent physical examination on my patient. No changes have occurred unless specified. Time Spent With Patient Time: Total time managing care of this patient today ____ minutes.
--- NOTE | 2023-12-10 07:44 | HO.ECTPROC ---
ECT Procedure Note Diagnosis/Treatment Date of Service: 12/10/23 Diagnosis: Major Depressive Disorder Previous ECT Date: 12/07/23 Current Treatment Number: 4 Treatment: Series Interval Clinical Notes: The patient reported still some dysphoria, no major changes on her mental status. She adamantly denies any side effects wtih the previous ECT but the staff reported that when she woke up, she started crying and needed Ativan 1 IVP and later another 1 mg but she pulled out her IV line. After the last ECT, Dr. Escalera proposed the possibliity of changing the setting to Bifrontal or Bitemporal and change the frequency to 0.5. I offered the patient the change of settings and she agreed to change to bitemporal. She is fully aware of the risks, beneifits and possible side effects. ECT done with bitemporal setting, no complications, she had a very short seizure of 18s motor and 24 s on EEG. She was not 100% paralized. She had Propofol after ECT and Ativan 2 mg IVP as per last procedure to prevent agitation. She woke slightly restless but later OK. Time: Total time managing care of this patient today __30__ minutes. ECT Settings Device: THYMATRON DGx Electrode Placement: Bitemporal Program/Pulse Width: 0.50 Energy Percent: 70 Seizure Duration By EEG (in seconds): 24 By Motor Observation (in seconds): 18 Medications Administration General Anesthetic: Etomidate (14) Muscle Relaxant: Succinylcholine (100) Ancillary Medications Analgesics: Torodol - Pre ECT Anti-emetics: Zofran - Pre ECT Miscillaneous Medications: Propofol and Other (Ativan 2 mg IVP after procedure) Airway Management Airway Management: Bag Mask Ventilation Treatment Recommendations No Changes Recommended: No change Notes: Probably, we should change to Brevital instead of Etomidate since she was not 100% relaxed. Pt Tolerated Procedure w/o Issue: Yes
[2023-12-10] MEDS: LORazepam 2 MG/ML VIAL IVPUSH (08:26)
[2023-12-10] MEDS: ARIPiprazole 2 MG TABLET PO (09:18)
[2023-12-10] MEDS: DULoxetine HCl 60 MG CAPSULE.DR 120 MG PO (09:18)
--- NOTE | 2023-12-10 19:23 | HO.PSYCHPN ---
Subjective Subjective Date of Service: 12/10/23 Reason For Visit: SI Subjective Notes: Conditional Voluntary Medical Problems Affecting Mental Status: No Interim History: Pt seen in f/u mood depressed tolerating ect perhaps some improvement no cognitive issues tolerating abilify 2 mg Mental Status Exam Mental Status Exam Patient Appearance: Appropriate Patient Orientation: Person, Place, Time and Situation Level of Consciousness: Awake and Appropriate Patient Behavior: Guarded and Passive Mood Description: Withdrawn Affect Description: Constricted Patient Cognition Impaired: Yes Ability to Follow Directions: Good Speech Pattern: Clear Memory Description: Intact Hallucinations: None Delusions: Not Present Thought Process: Linear Thought Content: positive for [place], positive for Poverty of Content and negative for Homicidal Ideation Depressive Symptoms: Thoughts of /Suicide Judgement: Fair Diagnostics Vital Signs (24Hr): Vital Signs - 24 hr 12/09/23 19:50 12/10/23 06:37 12/10/23 08:06 Temperature 97.4 F 97.5 F 99.7 F Pulse Rate 75 74 91 Respiratory Rate 12 16 Blood Pressure 134/62 127/59 L 146/78 H Pulse Oximetry 100 100 98 Oxygen Delivery Method Room Air Room Air Nasal Cannula with ETCO2 Oxygen Flow Rate 2 12/10/23 08:11 12/10/23 08:16 12/10/23 08:21 Temperature Pulse Rate 114 H 123 H 110 H Respiratory Rate 14 16 16 Blood Pressure 156/81 H 122/92 H 107/39 L Pulse Oximetry 97 96 97 Oxygen Delivery Method Nasal Cannula with ETCO2 Nasal Cannula with ETCO2 Nasal Cannula with ETCO2 Oxygen Flow Rate 2 2 2 12/10/23 08:36 12/10/23 09:04 Temperature 97.0 F Pulse Rate 101 H 101 H Respiratory Rate 15 18 Blood Pressure 122/64 122/73 Pulse Oximetry 96 97 Oxygen Delivery Method Room Air Oxygen Flow Rate BMI result Body Mass Index 27.1 Labs 11/26/23 10:53 11/26/23 10:53 Medications Medications Current Medications Acetaminophen (Acetaminophen 325 Mg Tablet) 650 mg PO Q6H PRN PRN Reason: Headache/Pain Mild Scale (1-3) Last Admin: 12/05/23 10:32 Dose: 650 mg Acetaminophen (Acetaminophen 325 Mg Tablet) 650 mg PO ONCE PRN PRN Reason: Pain, Mild (Pain Scale 1-3) Al Hydroxide/Mg Hydroxide (Magnesium Hydrox/Alum Hydrox 30 Ml Oral.Susp) 30 ml PO Q6H PRN PRN Reason: Heartburn/Nausea Aripiprazole (Aripiprazole 2 Mg Tablet) 2 mg PO DAILY [facility] Last Admin: 12/10/23 09:18 Dose: 2 mg Duloxetine HCl (Duloxetine Hcl 60 Mg Capsule.Dr) 120 mg PO DAILY [facility] Last Admin: 12/10/23 09:18 Dose: 120 mg Hydroxyzine HCl (Hydroxyzine Hcl 25 Mg Tablet) 25 mg PO Q4H PRN PRN Reason: moderate anxiety Hydroxyzine HCl (Hydroxyzine Hcl 25 Mg Tablet) 75 mg PO BEDTIME PRN PRN Reason: insomnia Last Admin: 12/09/23 22:08 Dose: 75 mg Lorazepam (Lorazepam 1 Mg Tablet) 1 mg PO BID PRN PRN Reason: moderate anxiety Lorazepam (Lorazepam 2 Mg/Ml Vial) 1 mg IVPUSH ONCE PRN PRN Reason: anxiety/restlessness Last Admin: 12/07/23 08:10 Dose: 1 mg Magnesium Hydroxide (Milk Of Magnesia 30 Ml Oral.Susp) 30 ml PO DAILY PRN PRN Reason: Constipation Ondansetron HCl (Ondansetron Hcl 4 Mg/2 Ml Vial) 4 mg IVPUSH ONCE PRN PRN Reason: Nausea and Vomiting Sumatriptan Succinate (Sumatriptan Succinate 50 Mg Tablet) 50 mg PO DAILY PRN PRN Reason: Migraine Headache Allergies Allergies Allergy/AdvReac Type Severity Reaction Status Date / Time Sulfa (Sulfonamide Allergy Unknown SHORTNESS Verified 09/14/21 19:37 Antibiotics) OF BREATH [SULFA (SULFONAMIDE ANTIBIOTICS)] mirtazapine [From REMERON] AdvReac Unknown AGITATION Verified 09/14/21 19:37 quetiapine [From SEROQUEL] AdvReac Unknown AGITATION Verified 09/14/21 19:37 Assessment & Plan Assessment & Plan (1) MDD (major depressive disorder), recurrent severe, without psychosis: Status: Acute Code(s): F33.2 - Major depressive disorder, recurrent severe without psychotic features Plan 11/28: continue home meds for now. medical clearance for ECT. michelle consult for ECT. increase ativan PRNs from 1 daily to 2 daily. add hydroxyzine 25 mg PRNs. 11/29: increase HS hydroxyzine from 50 mg to 75 mg for insomnia. medically cleared for ECT, accepted for tomorrow by michelle. T?C prazosin for nightmares and insomnia in PTSD. pt declines for now. 12/01 continue tx. 12/02 continue tx. 12/03 continue tx. 12/04: stably depressed, suicidal. continue current mgmt. ECT #2 tomorrow. 12/05: ECT #2 completed without incident. no change in presentation. continue current mgmt. 12/06 Continue ECT start Abilify discontinue Latuda 12/08 keep same treatment 12/09 keep same treatment, ECT tomorrow 12/10/23 Cont ect inc abilify 5 mg Reason for continued inpatient stay Substantial Risk for: harm to self, inability to function and rapid decompensation Time Spent With Patient Time: Total time managing care of this patient today ____ minutes.
[2023-12-11 06:00] VITALS: BP 126/60; PULSE 77; RESP 18; TEMP 36.8; O2SAT 97
[2023-12-11] MEDS: DULoxetine HCl 60 MG CAPSULE.DR 120 MG PO (08:25)
[2023-12-11] MEDS: ARIPiprazole 5 MG TABLET PO (08:25)
--- NOTE | 2023-12-11 13:33 | HO.PSYCHPN ---
Subjective Subjective Date of Service: 12/11/23 Reason For Visit: SI Interim History: calm, cooperative. feels ECT is helping. looking forward to Tx #5 tomorrow. per staff, dep 8 anx 5. ECT yesterday. + meds. feels ECT helpful. i feel a curtain is lifting. some laughing and smiling. slept about 7 hours. Mental Status Exam Mental Status Exam Narrative: Pt is alert and oriented; behavior is cooperative, calm; dressed in casual attire, well groomed, with good hygiene; mood improving; affect constricted; appropriate eye contact; Speech is soft, but normal rate and prosody and not pressured;? no psychomotor retardation present; thought process is organized and goal directed; Thought content is lacking in psychotic Sx. no SI/HI/AVH expressed. Diagnostics Vital Signs (24Hr): Vital Signs - 24 hr 12/10/23 20:20 12/11/23 06:00 Temperature 97.7 F 98.2 F Pulse Rate 83 77 Respiratory Rate 16 18 Blood Pressure 108/60 126/60 Pulse Oximetry 97 97 Oxygen Delivery Method Room Air Room Air BMI result Body Mass Index 27.1 Labs 11/26/23 10:53 11/26/23 10:53 Medications Medications Current Medications Acetaminophen (Acetaminophen 325 Mg Tablet) 650 mg PO Q6H PRN PRN Reason: Headache/Pain Mild Scale (1-3) Last Admin: 12/05/23 10:32 Dose: 650 mg Acetaminophen (Acetaminophen 325 Mg Tablet) 650 mg PO ONCE PRN PRN Reason: Pain, Mild (Pain Scale 1-3) Al Hydroxide/Mg Hydroxide (Magnesium Hydrox/Alum Hydrox 30 Ml Oral.Susp) 30 ml PO Q6H PRN PRN Reason: Heartburn/Nausea Aripiprazole (Aripiprazole 5 Mg Tablet) 5 mg PO DAILY [facility] Last Admin: 12/11/23 08:25 Dose: 5 mg Duloxetine HCl (Duloxetine Hcl 60 Mg Capsule.Dr) 120 mg PO DAILY [facility] Last Admin: 12/11/23 08:25 Dose: 120 mg Hydroxyzine HCl (Hydroxyzine Hcl 25 Mg Tablet) 25 mg PO Q4H PRN PRN Reason: moderate anxiety Hydroxyzine HCl (Hydroxyzine Hcl 25 Mg Tablet) 75 mg PO BEDTIME PRN PRN Reason: insomnia Last Admin: 12/09/23 22:08 Dose: 75 mg Lorazepam (Lorazepam 1 Mg Tablet) 1 mg PO BID PRN PRN Reason: moderate anxiety Lorazepam (Lorazepam 2 Mg/Ml Vial) 1 mg IVPUSH ONCE PRN PRN Reason: anxiety/restlessness Last Admin: 12/07/23 08:10 Dose: 1 mg Magnesium Hydroxide (Milk Of Magnesia 30 Ml Oral.Susp) 30 ml PO DAILY PRN PRN Reason: Constipation Ondansetron HCl (Ondansetron Hcl 4 Mg/2 Ml Vial) 4 mg IVPUSH ONCE PRN PRN Reason: Nausea and Vomiting Sumatriptan Succinate (Sumatriptan Succinate 50 Mg Tablet) 50 mg PO DAILY PRN PRN Reason: Migraine Headache Allergies Allergies Allergy/AdvReac Type Severity Reaction Status Date / Time Sulfa (Sulfonamide Allergy Unknown SHORTNESS Verified 09/14/21 19:37 Antibiotics) OF BREATH [SULFA (SULFONAMIDE ANTIBIOTICS)] mirtazapine [From REMERON] AdvReac Unknown AGITATION Verified 09/14/21 19:37 quetiapine [From SEROQUEL] AdvReac Unknown AGITATION Verified 09/14/21 19:37 Assessment & Plan Assessment & Plan (1) MDD (major depressive disorder), recurrent severe, without psychosis: Status: Acute Code(s): F33.2 - Major depressive disorder, recurrent severe without psychotic features Plan 11/28: continue home meds for now. medical clearance for ECT. michelle consult for ECT. increase ativan PRNs from 1 daily to 2 daily. add hydroxyzine 25 mg PRNs. 11/29: increase HS hydroxyzine from 50 mg to 75 mg for insomnia. medically cleared for ECT, accepted for tomorrow by michelle. T?C prazosin for nightmares and insomnia in PTSD. pt declines for now. 12/01 continue tx. 12/02 continue tx. 12/03 continue tx. 12/04: stably depressed, suicidal. continue current mgmt. ECT #2 tomorrow. 12/05: ECT #2 completed without incident. no change in presentation. continue current mgmt. 12/06 Continue ECT start Abilify discontinue Latuda 12/08 keep same treatment 12/09 keep same treatment, ECT tomorrow 12/10/23: Cont ect inc abilify 5 mg 12/11: mood improving with ECT. Tx #5 tomorrow. continue current mgmt. Reason for continued inpatient stay Substantial Risk for: harm to self, inability to function and rapid decompensation Time Spent With Patient Time: Total time managing care of this patient today __25__ minutes.
[2023-12-11] MEDS: Acetaminophen 325 MG TABLET 650 MG PO (15:58)
[2023-12-11 19:50] VITALS: BP 123/59; PULSE 92; RESP 16; TEMP 36.4; O2SAT 99
[2023-12-11] MEDS: hydrOXYzine HCL 25 MG TABLET 75 MG PO (22:00)
[2023-12-12] VITALS (10 sets, daily range): BP systolic 103–202; BP diastolic 54–102; PULSE 74–126; RESP 15–18; TEMP 36.1–36.6; O2SAT 95–99
--- NOTE | 2023-12-12 06:49 | HO.ANESPROP2 ---
[facility] Active Problems Active Problems: All Active Problems (Updated 11/28/23 @ 16:03 by Randolph Martinez MD) Suicidal ideation (Acute) Intentional overdose (Acute) Suicide attempt (Acute) Acute UTI (Acute) Medication monitoring encounter (Acute) MDD (major depressive disorder), recurrent severe, without psychosis (Acute) PTSD (post-traumatic stress disorder) (Acute) Past Medical History Medical History Suicidal ideation Pneumothorax PTSD (post-traumatic stress disorder) Depression Family History Family History Father Heart disease Family history of problems with anesthesia: No Surgical History Surgical History No pertinent past surgical history History of Problems with Anesthesia: No Social History Social History Household Members: None Household Members Other:: daughter and daughter's boyfriend Housing: Homeless Do you presently have visiting nurse or other home services: No Alcohol intake: current Alcohol intake frequency: holidays/special occasions only Alcohol type: beer and wine Patient Tobacco Use Status: Never used Tobacco Smoked in Last 30 Days: No e-Cigarette/Vaping Use: Never Used Second Hand Smoke Exposure: No Use of substances other than those prescribed or required for medical reasons: Yes Substance Use Type: Marijuana Substance Use Frequency: Occasionally Last Used Substance: Just Prior to Admission Currently Displaying Signs/Symptoms of Drug Intoxication Withdrawal: No Any prior treatment program specific to substance use: No Have you been hit, kicked, punched, or otherwise hurt by someone within the past year? If so, by whom?: No Do you feel safe in your current relationship?: Yes Is there a partner from a previous relationship who is making you feel unsafe now?: No Are you made to feel afraid or neglected: No Advance Directives: No Advance Directives Information Provided: No Do you have thoughts of harming others: None Do you have a plan to hurt others: No Plan Recently lost weight without trying: Yes How much weight loss: 2-13 pounds Eating poorly because of decreased appetite: Yes Nutrition screen score: 4 Nutrition Risks: Anorexia Patient : No : No Poor oral hygiene: No service: No Current occupational status: unemployed Sexual orientation: Straight/Heterosexual Meds Allergies Allergy/AdvReac Type Severity Reaction Status Date / Time Sulfa (Sulfonamide Allergy Unknown SHORTNESS Verified 09/14/21 19:37 Antibiotics) OF BREATH [SULFA (SULFONAMIDE ANTIBIOTICS)] mirtazapine [From REMERON] AdvReac Unknown AGITATION Verified 09/14/21 19:37 quetiapine [From SEROQUEL] AdvReac Unknown AGITATION Verified 09/14/21 19:37 Active Medications: Current Medications Acetaminophen (Acetaminophen 325 Mg Tablet) 650 mg PO Q6H PRN PRN Reason: Headache/Pain Mild Scale (1-3) Last Admin: 12/11/23 15:58 Dose: 650 mg Acetaminophen (Acetaminophen 325 Mg Tablet) 650 mg PO ONCE PRN PRN Reason: Pain, Mild (Pain Scale 1-3) Al Hydroxide/Mg Hydroxide (Magnesium Hydrox/Alum Hydrox 30 Ml Oral.Susp) 30 ml PO Q6H PRN PRN Reason: Heartburn/Nausea Aripiprazole (Aripiprazole 5 Mg Tablet) 5 mg PO DAILY [facility] Last Admin: 12/11/23 08:25 Dose: 5 mg Duloxetine HCl (Duloxetine Hcl 60 Mg Capsule.Dr) 120 mg PO DAILY [facility] Last Admin: 12/11/23 08:25 Dose: 120 mg Hydroxyzine HCl (Hydroxyzine Hcl 25 Mg Tablet) 25 mg PO Q4H PRN PRN Reason: moderate anxiety Hydroxyzine HCl (Hydroxyzine Hcl 25 Mg Tablet) 75 mg PO BEDTIME PRN PRN Reason: insomnia Last Admin: 12/11/23 22:00 Dose: 75 mg Lactated Ringer's (Lr) 1,000 mls @ 50 mls/hr IVCONT .Q20H [facility] Lorazepam (Lorazepam 1 Mg Tablet) 1 mg PO BID PRN PRN Reason: moderate anxiety Lorazepam (Lorazepam 2 Mg/Ml Vial) 1 mg IVPUSH ONCE PRN PRN Reason: anxiety/restlessness Last Admin: 12/07/23 08:10 Dose: 1 mg Magnesium Hydroxide (Milk Of Magnesia 30 Ml Oral.Susp) 30 ml PO DAILY PRN PRN Reason: Constipation Ondansetron HCl (Ondansetron Hcl 4 Mg/2 Ml Vial) 4 mg IVPUSH ONCE PRN PRN Reason: Nausea and Vomiting Sumatriptan Succinate (Sumatriptan Succinate 50 Mg Tablet) 50 mg PO DAILY PRN PRN Reason: Migraine Headache Exam Height,Weight and Vital Signs: Height 5 ft 8 in Weight 80.921 kg Last Vital Signs Temp 97.7 F 12/12/23 06:42 Pulse 82 12/12/23 06:42 Resp 16 12/12/23 06:42 BP 149/64 H 12/12/23 06:42 Pulse Ox 97 12/12/23 06:42 O2 Del Method Room Air 12/12/23 06:42 O2 Flow Rate 2 12/10/23 08:21 Pertinent Lab Results Pertinent Lab Results: Laboratory Tests 11/26/23 11/26/23 10:53 17:23 WBC 8.6 RBC 4.74 Hgb 13.5 Hct 40.4 MCV 85.2 MCH 28.5 MCHC 33.4 RDW 12.7 Plt Count 240 MPV 9.7 Immature Gran % (Auto) 0.2 Neut % (Auto) 73.4 H Lymph % (Auto) 19.3 L [place] % (Auto) 5.6 Eos % (Auto) 0.9 Baso % (Auto) 0.6 Lymph # (Auto) 1.7 [place] # (Auto) 0.5 Eos # (Auto) 0.1 Baso # (Auto) 0.1 Abs Immat Gran (auto) 0.02 Absolute Neuts (auto) 6.3 Absolute Nucleated RBC 0.000 Nucleated RBC % (auto) 0.0 Sodium 140 Potassium 4.3 Chloride 107 Carbon Dioxide 26 Anion Gap 11 L BUN 12 Creatinine 0.76 Estim Creat Clear Calc 99.2 Estimated GFR > 60 Random Glucose 127 H Calcium 8.8 D Magnesium 2.1 Total Bilirubin 1.0 Direct Bilirubin 0.3 AST 14 ALT 10 Alkaline Phosphatase 81 Total Protein 6.7 Albumin 3.9 Urine Color Yellow Urine Appearance Clear Urine pH 6.0 Ur Specific [place] 1.010 Urine Protein Negative Urine Glucose (UA) Negative Urine Ketones Negative Urine Blood Negative Urine Nitrite Negative Ur Leukocyte Esterase Negative Urine RBC 0-2 Urine WBC 0-5 Ur Squamous Epith Cells 6-10 Urine Bacteria None Seen Hyaline Casts 0-2 Salicylates < 5.0 L Urine Opiates Screen Not Detected Urine Fentanyl Screen Not Detected Acetaminophen < 3 Ur Barbiturates Screen Not Detected Ur Phencyclidine Scrn Not Detected Ur Amphetamines Screen Not Detected U Benzodiazepines Scrn Not Detected Urine Cocaine Screen Not Detected U Marijuana (THC) Screen POSITIVE H Ethyl Alcohol < 10 COVID-19 (JAMIE) Negative COVID-19 Clin Com See Note Airway Mallampati Class: II TM Dist: >3cm Neck ROM: Full Heart: rrr Lungs: cta Assessment and Plan Assessment Anesthesia Assessment: Anesthesia Plan Discussed Final Anesthetic Review Family History of Problems with Anesthesia: No History of Problems with Anesthesia: No NPO: Yes ASA Class: III Final Preanesthetic Review: No Changes in Pt Med Stat, Meds/Allgs Chart Reviewed and Consent Obtained/Reviewed Patient Risk: Intermediate Procedure Risk: Intermediate Anesthetic Plan Anesthetic Plan: GA Disposition: Standard PACU
--- NOTE | 2023-12-12 08:15 | MHC.SHP ---
Pre-Procedural Eval Section A - 24 Hr Update-Section A only Date of Service: 12/12/23 The patient is an INPATIENT: Yes Changes since office visit: No Cold of Flu in the past 2 weeks, No New Medical Problems, No Changes in Medication and No Patient answered all questions The patient has been examined within 24 hours of the surgical procedure. The History & Physical has been completed within 30 days and I have reviewed it.: Yes Section B - Complete if H&P > 30 days Chief Complaint: SI Allergies: Allergies Allergy/AdvReac Type Severity Reaction Status Date / Time Sulfa (Sulfonamide Allergy Unknown SHORTNESS Verified 09/14/21 19:37 Antibiotics) OF BREATH [SULFA (SULFONAMIDE ANTIBIOTICS)] mirtazapine [From REMERON] AdvReac Unknown AGITATION Verified 09/14/21 19:37 quetiapine [From SEROQUEL] AdvReac Unknown AGITATION Verified 09/14/21 19:37 Review of Systems Sugical H&P ROS: Negative: Cardiovascular, Respiratory and Neurological Exam Surgical H&P Exam: Normal: Heart and Normal: Lungs Plan Diagnosis/Plan: Unchanged I have reviewed the history and physical and performed a pertinent physical examination on my patient. No changes have occurred unless specified. Time Spent With Patient Time: Total time managing care of this patient today ____ minutes.
--- NOTE | 2023-12-12 08:23 | HO.ECTPROC ---
ECT Procedure Note Diagnosis/Treatment Date of Service: 12/12/23 Diagnosis: Major Depressive Disorder Previous ECT Date: 12/10/23 Current Treatment Number: 5 Treatment: Series Time: Total time managing care of this patient today ____ minutes. ECT Settings Device: THYMATRON DGx Electrode Placement: Bitemporal Program/Pulse Width: 0.50 Energy Percent: 100 Seizure Duration By EEG (in seconds): 27 Medications Administration General Anesthetic: Etomidate (14) Muscle Relaxant: Succinylcholine (100) Ancillary Medications Analgesics: Torodol - Pre ECT Anti-emetics: Zofran - Pre ECT Miscillaneous Medications: Midazolam (2) Airway Management Airway Management: Bag Mask Ventilation Treatment Recommendations No Changes Recommended: No change Pt Tolerated Procedure w/o Issue: Yes
[2023-12-12] MEDS: LORazepam 2 MG/ML VIAL IVPUSH (08:28)
[2023-12-12] MEDS: DULoxetine HCl 60 MG CAPSULE.DR 120 MG PO (09:35)
[2023-12-12] MEDS: ARIPiprazole 5 MG TABLET PO (09:35)
--- NOTE | 2023-12-12 14:52 | P.PNPSI_ITS ---
Subjective Subjective Date of Service: 12/12/23 Reason For Visit: SI Interim History: calm, cooperative. no complaints or requests. tired, just back from ECT. per staff, dep 5. no groups. more visible. ECT this morning. sleeping with medication. slept about 8 hours overnight. Mental Status Exam Mental Status Exam Narrative: Pt is alert and oriented; behavior is cooperative, calm; dressed in casual attire, well groomed, with good hygiene; mood improving; affect constricted; appropriate eye contact; Speech is soft, but normal rate and prosody and not pressured;? no psychomotor retardation present; thought process is organized and goal directed; Thought content is lacking in psychotic Sx. no SI/HI/AVH expressed. Diagnostics Vital Signs (24Hr): Vital Signs - 24 hr 12/11/23 19:50 12/12/23 05:53 12/12/23 06:42 Temperature 97.5 F 98 F 97.7 F Pulse Rate 92 82 82 Respiratory Rate 16 16 16 Blood Pressure 123/59 L 112/54 L 149/64 H Pulse Oximetry 99 97 97 Oxygen Delivery Method Room Air Room Air Oxygen Flow Rate 12/12/23 08:41 12/12/23 08:46 12/12/23 08:51 Temperature 97.8 F Pulse Rate 126 H 76 74 Respiratory Rate 16 16 18 Blood Pressure 202/102 H 131/73 122/69 Pulse Oximetry 96 99 97 Oxygen Delivery Method Nasal Cannula with ETCO2 Room Air Room Air Oxygen Flow Rate 2 12/12/23 08:56 12/12/23 09:13 12/12/23 09:29 Temperature 97.0 F 97.0 F Pulse Rate 105 H 97 104 H Respiratory Rate 18 18 15 Blood Pressure 117/56 L 114/69 119/75 Pulse Oximetry 97 95 95 Oxygen Delivery Method Room Air Room Air Room Air Oxygen Flow Rate 12/12/23 09:31 Temperature 97.0 F Pulse Rate 104 H Respiratory Rate 15 Blood Pressure 119/75 Pulse Oximetry 95 Oxygen Delivery Method Oxygen Flow Rate BMI result Body Mass Index 27.1 Labs 11/26/23 10:53 11/26/23 10:53 Medications Medications Current Medications Acetaminophen (Acetaminophen 325 Mg Tablet) 650 mg PO Q6H PRN PRN Reason: Headache/Pain Mild Scale (1-3) Last Admin: 12/11/23 15:58 Dose: 650 mg Al Hydroxide/Mg Hydroxide (Magnesium Hydrox/Alum Hydrox 30 Ml Oral.Susp) 30 ml PO Q6H PRN PRN Reason: Heartburn/Nausea Aripiprazole (Aripiprazole 5 Mg Tablet) 5 mg PO DAILY [facility] Last Admin: 12/12/23 09:35 Dose: 5 mg Duloxetine HCl (Duloxetine Hcl 60 Mg Capsule.Dr) 120 mg PO DAILY [facility] Last Admin: 12/12/23 09:35 Dose: 120 mg Hydroxyzine HCl (Hydroxyzine Hcl 25 Mg Tablet) 25 mg PO Q4H PRN PRN Reason: moderate anxiety Hydroxyzine HCl (Hydroxyzine Hcl 25 Mg Tablet) 75 mg PO BEDTIME PRN PRN Reason: insomnia Last Admin: 12/11/23 22:00 Dose: 75 mg Magnesium Hydroxide (Milk Of Magnesia 30 Ml Oral.Susp) 30 ml PO DAILY PRN PRN Reason: Constipation Ondansetron HCl (Ondansetron Hcl 4 Mg/2 Ml Vial) 4 mg IVPUSH ONCE PRN PRN Reason: Nausea and Vomiting Sumatriptan Succinate (Sumatriptan Succinate 50 Mg Tablet) 50 mg PO DAILY PRN PRN Reason: Migraine Headache Allergies Allergies Allergy/AdvReac Type Severity Reaction Status Date / Time Sulfa (Sulfonamide Allergy Unknown SHORTNESS Verified 09/14/21 19:37 Antibiotics) OF BREATH [SULFA (SULFONAMIDE ANTIBIOTICS)] mirtazapine [From REMERON] AdvReac Unknown AGITATION Verified 09/14/21 19:37 quetiapine [From SEROQUEL] AdvReac Unknown AGITATION Verified 09/14/21 19:37 Assessment & Plan Assessment & Plan (1) MDD (major depressive disorder), recurrent severe, without psychosis: Status: Acute Code(s): F33.2 - Major depressive disorder, recurrent severe without psychotic features Plan 11/28: continue home meds for now. medical clearance for ECT. michelle consult for ECT. increase ativan PRNs from 1 daily to 2 daily. add hydroxyzine 25 mg PRNs. 11/29: increase HS hydroxyzine from 50 mg to 75 mg for insomnia. medically cleared for ECT, accepted for tomorrow by michelle. T?C prazosin for nightmares and insomnia in PTSD. pt declines for now. 12/01 continue tx. 12/02 continue tx. 12/03 continue tx. 12/04: stably depressed, suicidal. continue current mgmt. ECT #2 tomorrow. 12/05: ECT #2 completed without incident. no change in presentation. continue current mgmt. 12/06 Continue ECT start Abilify discontinue Latuda 12/08 keep same treatment 12/09 keep same treatment, ECT tomorrow 12/10/23: Cont ect inc abilify 5 mg 12/11: mood improving with ECT. Tx #5 tomorrow. continue current mgmt. 12/12: ECT #5 successful. gradual improvement. continue current mgmt. Reason for continued inpatient stay Substantial Risk for: harm to self, inability to function and rapid decompensation Time Spent With Patient Time: Total time managing care of this patient today __25__ minutes.
[2023-12-12] MEDS: hydrOXYzine HCL 25 MG TABLET 75 MG PO (22:07)
[2023-12-13 07:23] VITALS: BP 114/56; PULSE 83; RESP 14; TEMP 36.3; O2SAT 99
[2023-12-13] MEDS: DULoxetine HCl 60 MG CAPSULE.DR 120 MG PO (08:03)
[2023-12-13] MEDS: ARIPiprazole 5 MG TABLET PO (08:04)
[2023-12-13 14:12] VITALS: BMI 27.5
--- NOTE | 2023-12-13 14:41 | HO.PSYCHPN ---
Subjective Subjective Date of Service: 12/13/23 Reason For Visit: SI Interim History: calm, cooperative. in bed. c/o feeling tired. later observed in milieu smiling. per staff, in bed all day yesterday. slept about 8 hours overnight. Mental Status Exam Mental Status Exam Narrative: Pt is alert and oriented; behavior is cooperative, calm; dressed in casual attire, well groomed, with good hygiene; mood improving; affect flexible; appropriate eye contact; Speech is soft, but normal rate and prosody and not pressured;? no psychomotor retardation present; thought process is organized and goal directed; Thought content is lacking in psychotic Sx. no SI/HI/AVH expressed. Diagnostics Vital Signs (24Hr): Vital Signs - 24 hr 12/12/23 19:55 12/13/23 07:23 Temperature 98 F 97.3 F Pulse Rate 86 83 Respiratory Rate 16 14 Blood Pressure 103/66 114/56 L Pulse Oximetry 98 99 Oxygen Delivery Method Room Air Room Air BMI result Body Mass Index 27.5 Labs 11/26/23 10:53 11/26/23 10:53 Medications Medications Current Medications Acetaminophen (Acetaminophen 325 Mg Tablet) 650 mg PO Q6H PRN PRN Reason: Headache/Pain Mild Scale (1-3) Last Admin: 12/11/23 15:58 Dose: 650 mg Al Hydroxide/Mg Hydroxide (Magnesium Hydrox/Alum Hydrox 30 Ml Oral.Susp) 30 ml PO Q6H PRN PRN Reason: Heartburn/Nausea Aripiprazole (Aripiprazole 5 Mg Tablet) 5 mg PO DAILY [facility] Last Admin: 12/13/23 08:04 Dose: 5 mg Duloxetine HCl (Duloxetine Hcl 60 Mg Capsule.Dr) 120 mg PO DAILY [facility] Last Admin: 12/13/23 08:03 Dose: 120 mg Hydroxyzine HCl (Hydroxyzine Hcl 25 Mg Tablet) 25 mg PO Q4H PRN PRN Reason: moderate anxiety Hydroxyzine HCl (Hydroxyzine Hcl 25 Mg Tablet) 75 mg PO BEDTIME PRN PRN Reason: insomnia Last Admin: 12/12/23 22:07 Dose: 75 mg Magnesium Hydroxide (Milk Of Magnesia 30 Ml Oral.Susp) 30 ml PO DAILY PRN PRN Reason: Constipation Ondansetron HCl (Ondansetron Hcl 4 Mg/2 Ml Vial) 4 mg IVPUSH ONCE PRN PRN Reason: Nausea and Vomiting Sumatriptan Succinate (Sumatriptan Succinate 50 Mg Tablet) 50 mg PO DAILY PRN PRN Reason: Migraine Headache Allergies Allergies Allergy/AdvReac Type Severity Reaction Status Date / Time Sulfa (Sulfonamide Allergy Unknown SHORTNESS Verified 09/14/21 19:37 Antibiotics) OF BREATH [SULFA (SULFONAMIDE ANTIBIOTICS)] mirtazapine [From REMERON] AdvReac Unknown AGITATION Verified 09/14/21 19:37 quetiapine [From SEROQUEL] AdvReac Unknown AGITATION Verified 09/14/21 19:37 Assessment & Plan Assessment & Plan (1) MDD (major depressive disorder), recurrent severe, without psychosis: Status: Acute Code(s): F33.2 - Major depressive disorder, recurrent severe without psychotic features Plan 11/28: continue home meds for now. medical clearance for ECT. michelle consult for ECT. increase ativan PRNs from 1 daily to 2 daily. add hydroxyzine 25 mg PRNs. 11/29: increase HS hydroxyzine from 50 mg to 75 mg for insomnia. medically cleared for ECT, accepted for tomorrow by michelle. T?C prazosin for nightmares and insomnia in PTSD. pt declines for now. 12/01 continue tx. 12/02 continue tx. 12/03 continue tx. 12/04: stably depressed, suicidal. continue current mgmt. ECT #2 tomorrow. 12/05: ECT #2 completed without incident. no change in presentation. continue current mgmt. 12/06 Continue ECT start Abilify discontinue Latuda 12/08 keep same treatment 12/09 keep same treatment, ECT tomorrow 12/10/23: Cont ect inc abilify 5 mg 12/11: mood improving with ECT. Tx #5 tomorrow. continue current mgmt. 12/12: ECT #5 successful. gradual improvement. continue current mgmt. : observed smiling in milieu. continue current mgmt. ECT #6 tomorrow. currently planning for 8 ECTs. Reason for continued inpatient stay Substantial Risk for: harm to self, inability to function and rapid decompensation Time Spent With Patient Time: Total time managing care of this patient today __25__ minutes.
[2023-12-13 20:05] VITALS: BP 128/82; PULSE 93; RESP 16; TEMP 36.6; O2SAT 96
[2023-12-13] MEDS: hydrOXYzine HCL 25 MG TABLET 75 MG PO (22:19)
[2023-12-14] VITALS (9 sets, daily range): BP systolic 95–151; BP diastolic 54–110; PULSE 75–117; RESP 16–24; TEMP 35.7–36.4; O2SAT 95–100
--- NOTE | 2023-12-14 13:30 | HO.ANESPROP2 ---
HPI - Anesthesia Eval Consult details Narrative: 48 yo female patient for ECT PMFSH Active Problems Active Problems: All Active Problems (Updated 12/14/23 @ 13:31 by Mara Ga MD) Suicidal ideation (Acute) Intentional overdose (Acute) Suicide attempt (Acute) Acute UTI (Acute) Medication monitoring encounter (Acute) MDD (major depressive disorder), recurrent severe, without psychosis (Acute) PTSD (post-traumatic stress disorder) (Acute) Past Medical History Medical History Suicidal ideation Pneumothorax PTSD (post-traumatic stress disorder) Depression Family History Family History Father Heart disease Family history of problems with anesthesia: No Surgical History Surgical History No pertinent past surgical history History of Problems with Anesthesia: No Social History Social History Household Members: None Household Members Other:: daughter and daughter's boyfriend Housing: Homeless Do you presently have visiting nurse or other home services: No Alcohol intake: current Alcohol intake frequency: holidays/special occasions only Alcohol type: beer and wine Patient Tobacco Use Status: Never used Tobacco Smoked in Last 30 Days: No e-Cigarette/Vaping Use: Never Used Second Hand Smoke Exposure: No Use of substances other than those prescribed or required for medical reasons: Yes Substance Use Type: Marijuana Substance Use Frequency: Occasionally Last Used Substance: Just Prior to Admission Currently Displaying Signs/Symptoms of Drug Intoxication Withdrawal: No Any prior treatment program specific to substance use: No Have you been hit, kicked, punched, or otherwise hurt by someone within the past year? If so, by whom?: No Do you feel safe in your current relationship?: Yes Is there a partner from a previous relationship who is making you feel unsafe now?: No Are you made to feel afraid or neglected: No Advance Directives: No Advance Directives Information Provided: No Do you have thoughts of harming others: None Do you have a plan to hurt others: No Plan Recently lost weight without trying: Yes How much weight loss: 2-13 pounds Eating poorly because of decreased appetite: Yes Nutrition screen score: 4 Nutrition Risks: Anorexia Patient : No : No Poor oral hygiene: No service: No Current occupational status: unemployed Sexual orientation: Straight/Heterosexual Meds Allergies Allergy/AdvReac Type Severity Reaction Status Date / Time Sulfa (Sulfonamide Allergy Unknown SHORTNESS Verified 09/14/21 19:37 Antibiotics) OF BREATH [SULFA (SULFONAMIDE ANTIBIOTICS)] mirtazapine [From REMERON] AdvReac Unknown AGITATION Verified 09/14/21 19:37 quetiapine [From SEROQUEL] AdvReac Unknown AGITATION Verified 09/14/21 19:37 Active Medications: Current Medications Acetaminophen (Acetaminophen 325 Mg Tablet) 650 mg PO Q6H PRN PRN Reason: Headache/Pain Mild Scale (1-3) Last Admin: 12/11/23 15:58 Dose: 650 mg Al Hydroxide/Mg Hydroxide (Magnesium Hydrox/Alum Hydrox 30 Ml Oral.Susp) 30 ml PO Q6H PRN PRN Reason: Heartburn/Nausea Aripiprazole (Aripiprazole 5 Mg Tablet) 5 mg PO DAILY [facility] Last Admin: 12/13/23 08:04 Dose: 5 mg Duloxetine HCl (Duloxetine Hcl 60 Mg Capsule.Dr) 120 mg PO DAILY [facility] Last Admin: 12/13/23 08:03 Dose: 120 mg Hydroxyzine HCl (Hydroxyzine Hcl 25 Mg Tablet) 25 mg PO Q4H PRN PRN Reason: moderate anxiety Hydroxyzine HCl (Hydroxyzine Hcl 25 Mg Tablet) 75 mg PO BEDTIME PRN PRN Reason: insomnia Last Admin: 12/13/23 22:19 Dose: 75 mg Magnesium Hydroxide (Milk Of Magnesia 30 Ml Oral.Susp) 30 ml PO DAILY PRN PRN Reason: Constipation Ondansetron HCl (Ondansetron Hcl 4 Mg/2 Ml Vial) 4 mg IVPUSH ONCE PRN PRN Reason: Nausea and Vomiting Sumatriptan Succinate (Sumatriptan Succinate 50 Mg Tablet) 50 mg PO DAILY PRN PRN Reason: Migraine Headache Exam Height,Weight and Vital Signs: Height 5 ft 8 in Weight 82.1 kg Last Vital Signs Temp 97.3 F 12/14/23 12:08 Pulse 90 12/14/23 12:08 Resp 24 H 12/14/23 12:08 BP 118/65 12/14/23 12:08 Pulse Ox 99 12/14/23 12:08 O2 Del Method Room Air 12/14/23 07:35 O2 Flow Rate 2 12/12/23 08:41 Pertinent Lab Results Pertinent Lab Results: Laboratory Tests 11/26/23 11/26/23 10:53 17:23 WBC 8.6 RBC 4.74 Hgb 13.5 Hct 40.4 MCV 85.2 MCH 28.5 MCHC 33.4 RDW 12.7 Plt Count 240 MPV 9.7 Immature Gran % (Auto) 0.2 Neut % (Auto) 73.4 H Lymph % (Auto) 19.3 L [place] % (Auto) 5.6 Eos % (Auto) 0.9 Baso % (Auto) 0.6 Lymph # (Auto) 1.7 [place] # (Auto) 0.5 Eos # (Auto) 0.1 Baso # (Auto) 0.1 Abs Immat Gran (auto) 0.02 Absolute Neuts (auto) 6.3 Absolute Nucleated RBC 0.000 Nucleated RBC % (auto) 0.0 Sodium 140 Potassium 4.3 Chloride 107 Carbon Dioxide 26 Anion Gap 11 L BUN 12 Creatinine 0.76 Estim Creat Clear Calc 99.2 Estimated GFR > 60 Random Glucose 127 H Calcium 8.8 D Magnesium 2.1 Total Bilirubin 1.0 Direct Bilirubin 0.3 AST 14 ALT 10 Alkaline Phosphatase 81 Total Protein 6.7 Albumin 3.9 Urine Color Yellow Urine Appearance Clear Urine pH 6.0 Ur Specific [place] 1.010 Urine Protein Negative Urine Glucose (UA) Negative Urine Ketones Negative Urine Blood Negative Urine Nitrite Negative Ur Leukocyte Esterase Negative Urine RBC 0-2 Urine WBC 0-5 Ur Squamous Epith Cells 6-10 Urine Bacteria None Seen Hyaline Casts 0-2 Salicylates < 5.0 L Urine Opiates Screen Not Detected Urine Fentanyl Screen Not Detected Acetaminophen < 3 Ur Barbiturates Screen Not Detected Ur Phencyclidine Scrn Not Detected Ur Amphetamines Screen Not Detected U Benzodiazepines Scrn Not Detected Urine Cocaine Screen Not Detected U Marijuana (THC) Screen POSITIVE H Ethyl Alcohol < 10 COVID-19 (JAMIE) Negative COVID-19 Clin Com See Note Airway Mallampati Class: III TM Dist: >3cm Neck ROM: Full Loose/Missing/Broken Teeth: No (Denies broken, loose, missing teeth) Heart: RRR Lungs: CTAB Assessment and Plan Assessment Anesthesia Assessment: Anesthesia Plan Discussed and Chart Reviewed Final Anesthetic Review Family History of Problems with Anesthesia: No History of Problems with Anesthesia: No NPO: Yes ASA Class: III Final Preanesthetic Review: No Changes in Pt Med Stat, Meds/Allgs Chart Reviewed, Consent Obtained/Reviewed and Anes Risks/Benef Reviewed Patient Risk: Intermediate Procedure Risk: Intermediate Assessment/Block/Sedation in SS: Assess/Block/Sedation-SS Anesthetic Plan Anesthetic Plan: GA Disposition: Standard PACU
--- NOTE | 2023-12-14 13:58 | MHC.SHP ---
Pre-Procedural Eval Section A - 24 Hr Update-Section A only Date of Service: 12/14/23 The patient is an INPATIENT: Yes Changes since office visit: Yes Patient answered all questions; No Cold of Flu in the past 2 weeks, No New Medical Problems and No Changes in Medication The patient has been examined within 24 hours of the surgical procedure. The History & Physical has been completed within 30 days and I have reviewed it.: Yes Section B - Complete if H&P > 30 days Chief Complaint: SI Allergies: Allergies Allergy/AdvReac Type Severity Reaction Status Date / Time Sulfa (Sulfonamide Allergy Unknown SHORTNESS Verified 09/14/21 19:37 Antibiotics) OF BREATH [SULFA (SULFONAMIDE ANTIBIOTICS)] mirtazapine [From REMERON] AdvReac Unknown AGITATION Verified 09/14/21 19:37 quetiapine [From SEROQUEL] AdvReac Unknown AGITATION Verified 09/14/21 19:37 Plan Diagnosis/Plan: Unchanged I have reviewed the history and physical and performed a pertinent physical examination on my patient. No changes have occurred unless specified. Time Spent With Patient Time: Total time managing care of this patient today ____ minutes.
--- NOTE | 2023-12-14 14:10 | HO.PSYCHPN ---
Subjective Subjective Date of Service: 12/14/23 Reason For Visit: SI Interim History: smiling and laughing, feels ECT has been helpful. over all, i think i feel OK. another session this afternoon. per staff, had atarax last night and slept in sensory room due to disruption from new roommate's CPAP. Mental Status Exam Mental Status Exam Narrative: Pt is alert and oriented; behavior is cooperative, calm; dressed in casual attire, well groomed, with good hygiene; mood improving; affect flexible and full range; appropriate eye contact; Speech is soft, but normal rate and prosody and not pressured;? no psychomotor retardation present; thought process is organized and goal directed; Thought content is lacking in psychotic Sx. no SI/HI/AVH expressed. Diagnostics Vital Signs (24Hr): Vital Signs - 24 hr 12/13/23 20:05 12/14/23 07:35 12/14/23 12:08 Temperature 97.8 F 97.4 F 97.3 F Pulse Rate 93 79 90 Respiratory Rate 16 16 24 H Blood Pressure 128/82 121/64 118/65 Pulse Oximetry 96 97 99 Oxygen Delivery Method Room Air Room Air BMI result Body Mass Index 27.5 Labs 11/26/23 10:53 11/26/23 10:53 Medications Medications Current Medications Acetaminophen (Acetaminophen 325 Mg Tablet) 650 mg PO Q6H PRN PRN Reason: Headache/Pain Mild Scale (1-3) Last Admin: 12/11/23 15:58 Dose: 650 mg Acetaminophen (Acetaminophen 325 Mg Tablet) 650 mg PO ONCE PRN PRN Reason: Pain, Mild (Pain Scale 1-3) Al Hydroxide/Mg Hydroxide (Magnesium Hydrox/Alum Hydrox 30 Ml Oral.Susp) 30 ml PO Q6H PRN PRN Reason: Heartburn/Nausea Aripiprazole (Aripiprazole 5 Mg Tablet) 5 mg PO DAILY [facility] Last Admin: 12/13/23 08:04 Dose: 5 mg Duloxetine HCl (Duloxetine Hcl 60 Mg Capsule.Dr) 120 mg PO DAILY [facility] Last Admin: 12/13/23 08:03 Dose: 120 mg Hydroxyzine HCl (Hydroxyzine Hcl 25 Mg Tablet) 25 mg PO Q4H PRN PRN Reason: moderate anxiety Hydroxyzine HCl (Hydroxyzine Hcl 25 Mg Tablet) 75 mg PO BEDTIME PRN PRN Reason: insomnia Last Admin: 12/13/23 22:19 Dose: 75 mg Lactated Ringer's (Lr) 1,000 mls @ 100 mls/hr IVCONT .Q10H VERO Magnesium Hydroxide (Milk Of Magnesia 30 Ml Oral.Susp) 30 ml PO DAILY PRN PRN Reason: Constipation Ondansetron HCl (Ondansetron Hcl 4 Mg/2 Ml Vial) 4 mg IVPUSH ONCE PRN PRN Reason: Nausea and Vomiting Ondansetron HCl (Ondansetron Hcl 4 Mg/2 Ml Vial) 4 mg IVPUSH ONCE PRN PRN Reason: Nausea and Vomiting Sumatriptan Succinate (Sumatriptan Succinate 50 Mg Tablet) 50 mg PO DAILY PRN PRN Reason: Migraine Headache Allergies Allergies Allergy/AdvReac Type Severity Reaction Status Date / Time Sulfa (Sulfonamide Allergy Unknown SHORTNESS Verified 09/14/21 19:37 Antibiotics) OF BREATH [SULFA (SULFONAMIDE ANTIBIOTICS)] mirtazapine [From REMERON] AdvReac Unknown AGITATION Verified 09/14/21 19:37 quetiapine [From SEROQUEL] AdvReac Unknown AGITATION Verified 09/14/21 19:37 Assessment & Plan Assessment & Plan (1) MDD (major depressive disorder), recurrent severe, without psychosis: Status: Acute Code(s): F33.2 - Major depressive disorder, recurrent severe without psychotic features Plan 11/28: continue home meds for now. medical clearance for ECT. michelle consult for ECT. increase ativan PRNs from 1 daily to 2 daily. add hydroxyzine 25 mg PRNs. 11/29: increase HS hydroxyzine from 50 mg to 75 mg for insomnia. medically cleared for ECT, accepted for tomorrow by michelle. T?C prazosin for nightmares and insomnia in PTSD. pt declines for now. 12/01 continue tx. 12/02 continue tx. 12/03 continue tx. 12/04: stably depressed, suicidal. continue current mgmt. ECT #2 tomorrow. 12/05: ECT #2 completed without incident. no change in presentation. continue current mgmt. 12/06 Continue ECT start Abilify discontinue Latuda 12/08 keep same treatment 12/09 keep same treatment, ECT tomorrow 12/10/23: Cont ect inc abilify 5 mg 2/27: mood improving with ECT. Tx #5 tomorrow. continue current mgmt. 12/12: ECT #5 successful. gradual improvement. continue current mgmt. : observed smiling in milieu. continue current mgmt. ECT #6 tomorrow. currently planning for 8 ECTs. 12/13: laughing and smiling today. mood much improved. ECT #6 today. continue current mgmt. ECT #7 sunday. Reason for continued inpatient stay Substantial Risk for: inability to function and rapid decompensation Time Spent With Patient Time: Total time managing care of this patient today _25___ minutes.
--- NOTE | 2023-12-14 14:18 | HO.ECTPROC ---
ECT Procedure Note Diagnosis/Treatment Date of Service: 12/14/23 Diagnosis: Major Depressive Disorder Previous ECT Date: 12/12/23 Current Treatment Number: 6 Treatment: Series Interval Clinical Notes: Patient has shown improvement tolerating ECT well seems improved with ECT and Abilify Time: Total time managing care of this patient today ____ minutes. ECT Settings Device: THYMATRON DGx Electrode Placement: Bitemporal Program/Pulse Width: 0.50 Energy Percent: 100 Seizure Duration By EEG (in seconds): 35 Medications Administration General Anesthetic: Etomidate Muscle Relaxant: Succinylcholine Ancillary Medications Anti-emetics: Zofran - Pre ECT Miscillaneous Medications: Haldol (2.5 mg) and Other (lorazepam 1 mg ivp) Airway Management Airway Management: Bag Mask Ventilation Treatment Recommendations No Changes Recommended: No change Pt Tolerated Procedure w/o Issue: Yes
[2023-12-14] MEDS: Haloperidol Lactate 5 MG/ML VIAL 2.5 MG IVPUSH (14:25)
[2023-12-14] MEDS: LORazepam 2 MG/ML VIAL 1 MG IVPUSH (14:28)
[2023-12-14] MEDS: ARIPiprazole 5 MG TABLET PO (15:24)
[2023-12-14] MEDS: DULoxetine HCl 60 MG CAPSULE.DR 120 MG PO (15:24)
[2023-12-15 08:06] VITALS: BP 119/56; PULSE 78; RESP 14; TEMP 37; O2SAT 97
[2023-12-15] MEDS: ARIPiprazole 5 MG TABLET PO (08:50)
[2023-12-15] MEDS: DULoxetine HCl 60 MG CAPSULE.DR 120 MG PO (08:50)
--- NOTE | 2023-12-15 17:55 | HO.PSYCHPN ---
Subjective Subjective Date of Service: 12/15/23 Reason For Visit: SI Interim History: calm, cooperative. ECT went well yesterday, planning for another on sunday. no complaints or requests. per staff, no concerns. ECT went well yesterday. Mental Status Exam Mental Status Exam Narrative: Pt is alert and oriented; behavior is cooperative, calm; dressed in casual attire, well groomed, with good hygiene; mood improving; affect flexible and full range; appropriate eye contact; Speech is soft, but normal rate and prosody and not pressured;? no psychomotor retardation present; thought process is organized and goal directed; Thought content is lacking in psychotic Sx. no SI/HI/AVH expressed. Diagnostics Vital Signs (24Hr): Vital Signs - 24 hr 12/14/23 20:00 12/15/23 08:06 Temperature 96.3 F L 98.6 F Pulse Rate 105 H 78 Respiratory Rate 18 14 Blood Pressure 115/59 L 119/56 L Pulse Oximetry 97 97 Oxygen Delivery Method Room Air Room Air BMI result Body Mass Index 27.5 Labs 11/26/23 10:53 11/26/23 10:53 Medications Medications Current Medications Acetaminophen (Acetaminophen 325 Mg Tablet) 650 mg PO Q6H PRN PRN Reason: Headache/Pain Mild Scale (1-3) Last Admin: 12/11/23 15:58 Dose: 650 mg Acetaminophen (Acetaminophen 325 Mg Tablet) 650 mg PO ONCE PRN PRN Reason: Pain, Mild (Pain Scale 1-3) Al Hydroxide/Mg Hydroxide (Magnesium Hydrox/Alum Hydrox 30 Ml Oral.Susp) 30 ml PO Q6H PRN PRN Reason: Heartburn/Nausea Aripiprazole (Aripiprazole 5 Mg Tablet) 5 mg PO DAILY [facility] Last Admin: 12/15/23 08:50 Dose: 5 mg Duloxetine HCl (Duloxetine Hcl 60 Mg Capsule.Dr) 120 mg PO DAILY [facility] Last Admin: 12/15/23 08:50 Dose: 120 mg Hydroxyzine HCl (Hydroxyzine Hcl 25 Mg Tablet) 25 mg PO Q4H PRN PRN Reason: moderate anxiety Hydroxyzine HCl (Hydroxyzine Hcl 25 Mg Tablet) 75 mg PO BEDTIME PRN PRN Reason: insomnia Last Admin: 12/13/23 22:19 Dose: 75 mg Lorazepam (Lorazepam 2 Mg/Ml Vial) 1 mg IVPUSH ONCE PRN PRN Reason: anxiety/restlessness Magnesium Hydroxide (Milk Of Magnesia 30 Ml Oral.Susp) 30 ml PO DAILY PRN PRN Reason: Constipation Ondansetron HCl (Ondansetron Hcl 4 Mg/2 Ml Vial) 4 mg IVPUSH ONCE PRN PRN Reason: Nausea and Vomiting Ondansetron HCl (Ondansetron Hcl 4 Mg/2 Ml Vial) 4 mg IVPUSH ONCE PRN PRN Reason: Nausea and Vomiting Sumatriptan Succinate (Sumatriptan Succinate 50 Mg Tablet) 50 mg PO DAILY PRN PRN Reason: Migraine Headache Allergies Allergies Allergy/AdvReac Type Severity Reaction Status Date / Time Sulfa (Sulfonamide Allergy Unknown SHORTNESS Verified 09/14/21 19:37 Antibiotics) OF BREATH [SULFA (SULFONAMIDE ANTIBIOTICS)] mirtazapine [From REMERON] AdvReac Unknown AGITATION Verified 09/14/21 19:37 quetiapine [From SEROQUEL] AdvReac Unknown AGITATION Verified 09/14/21 19:37 Assessment & Plan Assessment & Plan (1) MDD (major depressive disorder), recurrent severe, without psychosis: Status: Acute Code(s): F33.2 - Major depressive disorder, recurrent severe without psychotic features Plan 11/28: continue home meds for now. medical clearance for ECT. michelle consult for ECT. increase ativan PRNs from 1 daily to 2 daily. add hydroxyzine 25 mg PRNs. 11/29: increase HS hydroxyzine from 50 mg to 75 mg for insomnia. medically cleared for ECT, accepted for tomorrow by michelle. T?C prazosin for nightmares and insomnia in PTSD. pt declines for now. 12/01 continue tx. 12/02 continue tx. 12/03 continue tx. 12/04: stably depressed, suicidal. continue current mgmt. ECT #2 tomorrow. 12/05: ECT #2 completed without incident. no change in presentation. continue current mgmt. 12/06 Continue ECT start Abilify discontinue Latuda 12/08 keep same treatment 12/09 keep same treatment, ECT tomorrow 12/10/23: Cont ect inc abilify 5 mg 12/11: mood improving with ECT. Tx #5 tomorrow. continue current mgmt. 12/12: ECT #5 successful. gradual improvement. continue current mgmt. : observed smiling in milieu. continue current mgmt. ECT #6 tomorrow. currently planning for 8 ECTs. 12/13: laughing and smiling today. mood much improved. ECT #6 today. continue current mgmt. ECT #7 sunday. 12/14: calm, cooperative. continues improved. Reason for continued inpatient stay Substantial Risk for: inability to function and rapid decompensation Time Spent With Patient Time: Total time managing care of this patient today ____ minutes.
[2023-12-15 20:30] VITALS: BP 120/63; PULSE 90; RESP 16; TEMP 36.3; O2SAT 96
[2023-12-15] MEDS: hydrOXYzine HCL 25 MG TABLET 75 MG PO (21:12)
[2023-12-16 08:46] VITALS: BP 116/61; PULSE 76; RESP 16; TEMP 36.5; O2SAT 96
[2023-12-16] MEDS: ARIPiprazole 5 MG TABLET PO (08:48)
[2023-12-16] MEDS: DULoxetine HCl 60 MG CAPSULE.DR 120 MG PO (08:48)
--- NOTE | 2023-12-16 16:36 | HO.PSYCHPN ---
Subjective Subjective Date of Service: 12/16/23 Reason For Visit: SI Interim History: calm, cooperative. reports she is feeling pretty good. wondering if her memories will return. no other complaints or requests. per staff, dep 8 anx 9. ambivalent re ECT helpfulness. up watching TV eves. taking meds. Mental Status Exam Mental Status Exam Narrative: Pt is alert and oriented; behavior is cooperative, calm; dressed in casual attire, well groomed, with good hygiene; mood pretty good; affect flexible and full range; appropriate eye contact; Speech is soft, but normal rate and prosody and not pressured;? no psychomotor retardation present; thought process is organized and goal directed; Thought content is lacking in psychotic Sx. no SI/HI/AVH expressed. Diagnostics Vital Signs (24Hr): Vital Signs - 24 hr 12/15/23 20:30 12/16/23 08:46 Temperature 97.3 F 97.7 F Pulse Rate 90 76 Respiratory Rate 16 16 Blood Pressure 120/63 116/61 Pulse Oximetry 96 96 Oxygen Delivery Method Room Air Room Air BMI result Body Mass Index 27.5 Labs 11/26/23 10:53 11/26/23 10:53 Medications Medications Current Medications Acetaminophen (Acetaminophen 325 Mg Tablet) 650 mg PO Q6H PRN PRN Reason: Headache/Pain Mild Scale (1-3) Last Admin: 12/11/23 15:58 Dose: 650 mg Acetaminophen (Acetaminophen 325 Mg Tablet) 650 mg PO ONCE PRN PRN Reason: Pain, Mild (Pain Scale 1-3) Al Hydroxide/Mg Hydroxide (Magnesium Hydrox/Alum Hydrox 30 Ml Oral.Susp) 30 ml PO Q6H PRN PRN Reason: Heartburn/Nausea Aripiprazole (Aripiprazole 5 Mg Tablet) 5 mg PO DAILY [facility] Last Admin: 12/16/23 08:48 Dose: 5 mg Duloxetine HCl (Duloxetine Hcl 60 Mg Capsule.Dr) 120 mg PO DAILY [facility] Last Admin: 12/16/23 08:48 Dose: 120 mg Hydroxyzine HCl (Hydroxyzine Hcl 25 Mg Tablet) 25 mg PO Q4H PRN PRN Reason: moderate anxiety Hydroxyzine HCl (Hydroxyzine Hcl 25 Mg Tablet) 75 mg PO BEDTIME PRN PRN Reason: insomnia Last Admin: 12/15/23 21:12 Dose: 75 mg Lorazepam (Lorazepam 2 Mg/Ml Vial) 1 mg IVPUSH ONCE PRN PRN Reason: anxiety/restlessness Magnesium Hydroxide (Milk Of Magnesia 30 Ml Oral.Susp) 30 ml PO DAILY PRN PRN Reason: Constipation Ondansetron HCl (Ondansetron Hcl 4 Mg/2 Ml Vial) 4 mg IVPUSH ONCE PRN PRN Reason: Nausea and Vomiting Ondansetron HCl (Ondansetron Hcl 4 Mg/2 Ml Vial) 4 mg IVPUSH ONCE PRN PRN Reason: Nausea and Vomiting Sumatriptan Succinate (Sumatriptan Succinate 50 Mg Tablet) 50 mg PO DAILY PRN PRN Reason: Migraine Headache Allergies Allergies Allergy/AdvReac Type Severity Reaction Status Date / Time Sulfa (Sulfonamide Allergy Unknown SHORTNESS Verified 09/14/21 19:37 Antibiotics) OF BREATH [SULFA (SULFONAMIDE ANTIBIOTICS)] mirtazapine [From REMERON] AdvReac Unknown AGITATION Verified 09/14/21 19:37 quetiapine [From SEROQUEL] AdvReac Unknown AGITATION Verified 09/14/21 19:37 Assessment & Plan Assessment & Plan (1) MDD (major depressive disorder), recurrent severe, without psychosis: Status: Acute Code(s): F33.2 - Major depressive disorder, recurrent severe without psychotic features Plan 11/28: continue home meds for now. medical clearance for ECT. michelle consult for ECT. increase ativan PRNs from 1 daily to 2 daily. add hydroxyzine 25 mg PRNs. 11/29: increase HS hydroxyzine from 50 mg to 75 mg for insomnia. medically cleared for ECT, accepted for tomorrow by michelle. T?C prazosin for nightmares and insomnia in PTSD. pt declines for now. 12/01 continue tx. 12/02 continue tx. 12/03 continue tx. 12/04: stably depressed, suicidal. continue current mgmt. ECT #2 tomorrow. 12/05: ECT #2 completed without incident. no change in presentation. continue current mgmt. 12/06 Continue ECT start Abilify discontinue Latuda 12/08 keep same treatment 12/09 keep same treatment, ECT tomorrow 12/10/23: Cont ect inc abilify 5 mg 12/11: mood improving with ECT. Tx #5 tomorrow. continue current mgmt. 12/12: ECT #5 successful. gradual improvement. continue current mgmt. : observed smiling in milieu. continue current mgmt. ECT #6 tomorrow. currently planning for 8 ECTs. 12/13: laughing and smiling today. mood much improved. ECT #6 today. continue current mgmt. ECT #7 sunday. 12/14: calm, cooperative. continues improved. 12/15: mood pretty good. full range of affect. ECT #7 tomorrow. Reason for continued inpatient stay Substantial Risk for: inability to function and rapid decompensation Time Spent With Patient Time: Total time managing care of this patient today ____ minutes.
[2023-12-16] MEDS: hydrOXYzine HCL 25 MG TABLET 75 MG PO (21:48)
[2023-12-16 21:49] VITALS: BP 130/59; PULSE 74; RESP 14; TEMP 36.5; O2SAT 100
[2023-12-17] VITALS (9 sets, daily range): BP systolic 106–145; BP diastolic 54–90; PULSE 73–108; RESP 14–17; TEMP 36.3–36.4; O2SAT 95–99
--- NOTE | 2023-12-17 06:46 | HO.ANESPROP2 ---
[facility] Active Problems Active Problems: All Active Problems (Updated 11/28/23 @ 16:03 by Randolph Martinez MD) Suicidal ideation (Acute) Intentional overdose (Acute) Suicide attempt (Acute) Acute UTI (Acute) Medication monitoring encounter (Acute) MDD (major depressive disorder), recurrent severe, without psychosis (Acute) PTSD (post-traumatic stress disorder) (Acute) Past Medical History Medical History Suicidal ideation Pneumothorax PTSD (post-traumatic stress disorder) Depression Family History Family History Father Heart disease Family history of problems with anesthesia: No Surgical History Surgical History No pertinent past surgical history History of Problems with Anesthesia: No Social History Social History Household Members: None Household Members Other:: daughter and daughter's boyfriend Housing: Homeless Do you presently have visiting nurse or other home services: No Alcohol intake: current Alcohol intake frequency: holidays/special occasions only Alcohol type: beer and wine Patient Tobacco Use Status: Never used Tobacco Smoked in Last 30 Days: No e-Cigarette/Vaping Use: Never Used Second Hand Smoke Exposure: No Use of substances other than those prescribed or required for medical reasons: Yes Substance Use Type: Marijuana Substance Use Frequency: Occasionally Last Used Substance: Just Prior to Admission Currently Displaying Signs/Symptoms of Drug Intoxication Withdrawal: No Any prior treatment program specific to substance use: No Have you been hit, kicked, punched, or otherwise hurt by someone within the past year? If so, by whom?: No Do you feel safe in your current relationship?: Yes Is there a partner from a previous relationship who is making you feel unsafe now?: No Are you made to feel afraid or neglected: No Advance Directives: No Advance Directives Information Provided: No Do you have thoughts of harming others: None Do you have a plan to hurt others: No Plan Recently lost weight without trying: Yes How much weight loss: 2-13 pounds Eating poorly because of decreased appetite: Yes Nutrition screen score: 4 Nutrition Risks: Anorexia Patient : No : No Poor oral hygiene: No service: No Current occupational status: unemployed Sexual orientation: Straight/Heterosexual Meds Allergies Allergy/AdvReac Type Severity Reaction Status Date / Time Sulfa (Sulfonamide Allergy Unknown SHORTNESS Verified 09/14/21 19:37 Antibiotics) OF BREATH [SULFA (SULFONAMIDE ANTIBIOTICS)] mirtazapine [From REMERON] AdvReac Unknown AGITATION Verified 09/14/21 19:37 quetiapine [From SEROQUEL] AdvReac Unknown AGITATION Verified 09/14/21 19:37 Active Medications: Current Medications Acetaminophen (Acetaminophen 325 Mg Tablet) 650 mg PO Q6H PRN PRN Reason: Headache/Pain Mild Scale (1-3) Last Admin: 12/11/23 15:58 Dose: 650 mg Acetaminophen (Acetaminophen 325 Mg Tablet) 650 mg PO ONCE PRN PRN Reason: Pain, Mild (Pain Scale 1-3) Al Hydroxide/Mg Hydroxide (Magnesium Hydrox/Alum Hydrox 30 Ml Oral.Susp) 30 ml PO Q6H PRN PRN Reason: Heartburn/Nausea Aripiprazole (Aripiprazole 5 Mg Tablet) 5 mg PO DAILY [facility] Last Admin: 12/16/23 08:48 Dose: 5 mg Duloxetine HCl (Duloxetine Hcl 60 Mg Capsule.Dr) 120 mg PO DAILY [facility] Last Admin: 12/16/23 08:48 Dose: 120 mg Hydroxyzine HCl (Hydroxyzine Hcl 25 Mg Tablet) 25 mg PO Q4H PRN PRN Reason: moderate anxiety Hydroxyzine HCl (Hydroxyzine Hcl 25 Mg Tablet) 75 mg PO BEDTIME PRN PRN Reason: insomnia Last Admin: 12/16/23 21:48 Dose: 75 mg Lactated Ringer's (Lr) 1,000 mls @ 50 mls/hr IVCONT .Q20H [facility] Lorazepam (Lorazepam 2 Mg/Ml Vial) 1 mg IVPUSH ONCE PRN PRN Reason: anxiety/restlessness Magnesium Hydroxide (Milk Of Magnesia 30 Ml Oral.Susp) 30 ml PO DAILY PRN PRN Reason: Constipation Ondansetron HCl (Ondansetron Hcl 4 Mg/2 Ml Vial) 4 mg IVPUSH ONCE PRN PRN Reason: Nausea and Vomiting Ondansetron HCl (Ondansetron Hcl 4 Mg/2 Ml Vial) 4 mg IVPUSH ONCE PRN PRN Reason: Nausea and Vomiting Sumatriptan Succinate (Sumatriptan Succinate 50 Mg Tablet) 50 mg PO DAILY PRN PRN Reason: Migraine Headache Exam Height,Weight and Vital Signs: Height 5 ft 8 in Weight 82.1 kg Last Vital Signs Temp 97.6 F 12/17/23 06:26 Pulse 78 12/17/23 06:26 Resp 16 12/17/23 06:26 BP 125/70 12/17/23 06:26 Pulse Ox 99 12/17/23 06:26 O2 Del Method Room Air 12/17/23 06:26 O2 Flow Rate 2 12/14/23 14:24 Pertinent Lab Results Pertinent Lab Results: Laboratory Tests 11/26/23 11/26/23 10:53 17:23 WBC 8.6 RBC 4.74 Hgb 13.5 Hct 40.4 MCV 85.2 MCH 28.5 MCHC 33.4 RDW 12.7 Plt Count 240 MPV 9.7 Immature Gran % (Auto) 0.2 Neut % (Auto) 73.4 H Lymph % (Auto) 19.3 L Stanton % (Auto) 5.6 Eos % (Auto) 0.9 Baso % (Auto) 0.6 Lymph # (Auto) 1.7 Stanton # (Auto) 0.5 Eos # (Auto) 0.1 Baso # (Auto) 0.1 Abs Immat Gran (auto) 0.02 Absolute Neuts (auto) 6.3 Absolute Nucleated RBC 0.000 Nucleated RBC % (auto) 0.0 Sodium 140 Potassium 4.3 Chloride 107 Carbon Dioxide 26 Anion Gap 11 L BUN 12 Creatinine 0.76 Estim Creat Clear Calc 99.2 Estimated GFR > 60 Random Glucose 127 H Calcium 8.8 D Magnesium 2.1 Total Bilirubin 1.0 Direct Bilirubin 0.3 AST 14 ALT 10 Alkaline Phosphatase 81 Total Protein 6.7 Albumin 3.9 Urine Color Yellow Urine Appearance Clear Urine pH 6.0 Ur Specific Morral 1.010 Urine Protein Negative Urine Glucose (UA) Negative Urine Ketones Negative Urine Blood Negative Urine Nitrite Negative Ur Leukocyte Esterase Negative Urine RBC 0-2 Urine WBC 0-5 Ur Squamous Epith Cells 6-10 Urine Bacteria None Seen Hyaline Casts 0-2 Salicylates < 5.0 L Urine Opiates Screen Not Detected Urine Fentanyl Screen Not Detected Acetaminophen < 3 Ur Barbiturates Screen Not Detected Ur Phencyclidine Scrn Not Detected Ur Amphetamines Screen Not Detected U Benzodiazepines Scrn Not Detected Urine Cocaine Screen Not Detected U Marijuana (THC) Screen POSITIVE H Ethyl Alcohol < 10 COVID-19 (JAMIE) Negative COVID-19 Clin Com See Note Airway Mallampati Class: II TM Dist: >3cm Neck ROM: Full Heart: rrr Lungs: cta Assessment and Plan Assessment Anesthesia Assessment: Anesthesia Plan Discussed and Chart Reviewed Final Anesthetic Review Family History of Problems with Anesthesia: No History of Problems with Anesthesia: No NPO: Yes ASA Class: III Final Preanesthetic Review: No Changes in Pt Med Stat, Meds/Allgs Chart Reviewed and Consent Obtained/Reviewed Patient Risk: Intermediate Procedure Risk: Intermediate Anesthetic Plan Anesthetic Plan: GA Disposition: Standard PACU
--- NOTE | 2023-12-17 07:01 | MHC.SHP ---
Pre-Procedural Eval Section A - 24 Hr Update-Section A only Date of Service: 12/17/23 The patient is an INPATIENT: Yes Changes since office visit: No Cold of Flu in the past 2 weeks, No New Medical Problems, No Changes in Medication and No Patient answered all questions The patient has been examined within 24 hours of the surgical procedure. The History & Physical has been completed within 30 days and I have reviewed it.: Yes Section B - Complete if H&P > 30 days Chief Complaint: SI Allergies: Allergies Allergy/AdvReac Type Severity Reaction Status Date / Time Sulfa (Sulfonamide Allergy Unknown SHORTNESS Verified 09/14/21 19:37 Antibiotics) OF BREATH [SULFA (SULFONAMIDE ANTIBIOTICS)] mirtazapine [From REMERON] AdvReac Unknown AGITATION Verified 09/14/21 19:37 quetiapine [From SEROQUEL] AdvReac Unknown AGITATION Verified 09/14/21 19:37 Plan I have reviewed the history and physical and performed a pertinent physical examination on my patient. No changes have occurred unless specified. Time Spent With Patient Time: Total time managing care of this patient today ____ minutes.
--- NOTE | 2023-12-17 07:02 | HO.ECTPROC ---
ECT Procedure Note Diagnosis/Treatment Date of Service: 12/17/23 Diagnosis: Major Depressive Disorder Previous ECT Date: 12/14/23 Current Treatment Number: 7 Treatment: Series Interval Clinical Notes: The patienbt reported improvement of mood but still she looks dypshoric but her affect is wider in range. Denies side effects with the change of technique but the staff has noticed that she wakes up crying and needs Ativan, on the last ECT, she needed Haldol in addition to the Ativan. The patient can not remember that she was crying or upset, she has been crying when she wakes up since the first ECT. ECT done bitemporal, no complications, woke up well but needed as usual Haldol and Ativan ordered as standard now. Time: Total time managing care of this patient today ____ minutes. ECT Settings Device: THYMATRON DGx Electrode Placement: Bitemporal Program/Pulse Width: 0.50 Energy Percent: 100 Seizure Duration By EEG (in seconds): 22 By Motor Observation (in seconds): 17 Medications Administration General Anesthetic: Etomidate (16) Muscle Relaxant: Succinylcholine (100) Ancillary Medications Analgesics: Torodol - Pre ECT Anti-emetics: Zofran - Pre ECT Airway Management Airway Management: Bag Mask Ventilation Treatment Recommendations No Changes Recommended: No change Pt Tolerated Procedure w/o Issue: Yes
[2023-12-17] MEDS: LORazepam 2 MG/ML VIAL 1 MG IVPUSH (07:33)
[2023-12-17] MEDS: Haloperidol Lactate 5 MG/ML VIAL 2.5 MG IVPUSH (07:33)
[2023-12-17] MEDS: ARIPiprazole 5 MG TABLET PO (08:53)
[2023-12-17] MEDS: DULoxetine HCl 60 MG CAPSULE.DR 120 MG PO (08:53)
[2023-12-17] MEDS: LORazepam 1 MG TABLET PO (10:44)
--- NOTE | 2023-12-17 14:15 | P.PNPSI_ITS ---
Subjective Subjective Date of Service: 12/17/23 Reason For Visit: SI Interim History: seen shortly after her return from ECT. crying in bed, saying she is confused and doesn't know where she is. MD oriented her, she began to calm a bit. ativan 1 mg x 1 NOW was ordered. otherwise medically stable post-ECT. per staff, denied dep/anx yesterday. multiple visitors. Mental Status Exam Mental Status Exam Narrative: crying in bed, disoriented, wearing hospital gown. cooperative, responsive to reassurance. Diagnostics Vital Signs (24Hr): Vital Signs - 24 hr 12/16/23 21:49 12/17/23 05:59 12/17/23 06:26 Temperature 97.7 F 97.3 F 97.6 F Pulse Rate 74 73 78 Respiratory Rate 14 14 16 Blood Pressure 130/59 L 106/60 125/70 Pulse Oximetry 100 98 99 Oxygen Delivery Method Room Air Room Air Oxygen Flow Rate 12/17/23 07:32 12/17/23 07:37 12/17/23 07:42 Temperature 97.6 F Pulse Rate 85 108 H 107 H Respiratory Rate 16 17 17 Blood Pressure 114/85 145/77 H 142/70 H Pulse Oximetry 97 98 98 Oxygen Delivery Method Nasal Cannula with ETCO2 Nasal Cannula with ETCO2 Nasal Cannula with ETCO2 Oxygen Flow Rate 2 2 2 12/17/23 07:47 12/17/23 08:02 12/17/23 08:15 Temperature 97.6 F 97.6 F Pulse Rate 99 96 91 Respiratory Rate 16 16 16 Blood Pressure 129/90 H 138/54 L 125/57 L Pulse Oximetry 95 95 96 Oxygen Delivery Method Nasal Cannula with ETCO2 Room Air Oxygen Flow Rate 2 BMI result Body Mass Index 27.5 Labs 11/26/23 10:53 11/26/23 10:53 Medications Medications Current Medications Acetaminophen (Acetaminophen 325 Mg Tablet) 650 mg PO Q6H PRN PRN Reason: Headache/Pain Mild Scale (1-3) Last Admin: 12/11/23 15:58 Dose: 650 mg Acetaminophen (Acetaminophen 325 Mg Tablet) 650 mg PO ONCE PRN PRN Reason: Pain, Mild (Pain Scale 1-3) Al Hydroxide/Mg Hydroxide (Magnesium Hydrox/Alum Hydrox 30 Ml Oral.Susp) 30 ml PO Q6H PRN PRN Reason: Heartburn/Nausea Aripiprazole (Aripiprazole 5 Mg Tablet) 5 mg PO DAILY [facility] Last Admin: 12/17/23 08:53 Dose: 5 mg Duloxetine HCl (Duloxetine Hcl 60 Mg Capsule.Dr) 120 mg PO DAILY [facility] Last Admin: 12/17/23 08:53 Dose: 120 mg Hydroxyzine HCl (Hydroxyzine Hcl 25 Mg Tablet) 25 mg PO Q4H PRN PRN Reason: moderate anxiety Hydroxyzine HCl (Hydroxyzine Hcl 25 Mg Tablet) 75 mg PO BEDTIME PRN PRN Reason: insomnia Last Admin: 12/16/23 21:48 Dose: 75 mg Lorazepam (Lorazepam 2 Mg/Ml Vial) 1 mg IVPUSH ONCE PRN PRN Reason: anxiety/restlessness Last Admin: 12/17/23 07:33 Dose: 1 mg Magnesium Hydroxide (Milk Of Magnesia 30 Ml Oral.Susp) 30 ml PO DAILY PRN PRN Reason: Constipation Ondansetron HCl (Ondansetron Hcl 4 Mg/2 Ml Vial) 4 mg IVPUSH ONCE PRN PRN Reason: Nausea and Vomiting Ondansetron HCl (Ondansetron Hcl 4 Mg/2 Ml Vial) 4 mg IVPUSH ONCE PRN PRN Reason: Nausea and Vomiting Sumatriptan Succinate (Sumatriptan Succinate 50 Mg Tablet) 50 mg PO DAILY PRN PRN Reason: Migraine Headache Allergies Allergies Allergy/AdvReac Type Severity Reaction Status Date / Time Sulfa (Sulfonamide Allergy Unknown SHORTNESS Verified 09/14/21 19:37 Antibiotics) OF BREATH [SULFA (SULFONAMIDE ANTIBIOTICS)] mirtazapine [From REMERON] AdvReac Unknown AGITATION Verified 09/14/21 19:37 quetiapine [From SEROQUEL] AdvReac Unknown AGITATION Verified 09/14/21 19:37 Assessment & Plan Assessment & Plan (1) MDD (major depressive disorder), recurrent severe, without psychosis: Status: Acute Code(s): F33.2 - Major depressive disorder, recurrent severe without psychotic features Plan 11/28: continue home meds for now. medical clearance for ECT. michelle consult for ECT. increase ativan PRNs from 1 daily to 2 daily. add hydroxyzine 25 mg PRNs. 11/29: increase HS hydroxyzine from 50 mg to 75 mg for insomnia. medically cleared for ECT, accepted for tomorrow by michelle. T?C prazosin for nightmares and insomnia in PTSD. pt declines for now. 12/01 continue tx. 12/02 continue tx. 12/03 continue tx. 12/04: stably depressed, suicidal. continue current mgmt. ECT #2 tomorrow. 12/05: ECT #2 completed without incident. no change in presentation. continue current mgmt. 12/06 Continue ECT start Abilify discontinue Latuda 12/08 keep same treatment 12/09 keep same treatment, ECT tomorrow 12/10/23: Cont ect inc abilify 5 mg 12/11: mood improving with ECT. Tx #5 tomorrow. continue current mgmt. 12/12: ECT #5 successful. gradual improvement. continue current mgmt. : observed smiling in milieu. continue current mgmt. ECT #6 tomorrow. currently planning for 8 ECTs. 12/13: laughing and smiling today. mood much improved. ECT #6 today. continue current mgmt. ECT #7 sunday. 12/14: calm, cooperative. continues improved. 12/15: mood pretty good. full range of affect. ECT #7 tomorrow. 12/16: ECT #7 completed uneventfully today. continue current mgmt. Reason for continued inpatient stay Substantial Risk for: inability to function and rapid decompensation Time Spent With Patient Time: Total time managing care of this patient today ____ minutes.
[2023-12-17] MEDS: hydrOXYzine HCL 25 MG TABLET 75 MG PO (21:35)
[2023-12-18 08:14] VITALS: BP 104/53; PULSE 80; RESP 18; TEMP 35.7; O2SAT 97
[2023-12-18] MEDS: DULoxetine HCl 60 MG CAPSULE.DR 120 MG PO (08:33)
[2023-12-18] MEDS: ARIPiprazole 5 MG TABLET PO (08:33)
--- NOTE | 2023-12-18 15:11 | P.PNPSI_ITS ---
Subjective Subjective Date of Service: 12/18/23 Reason For Visit: SI Interim History: calm, cooperative. recalls the events of yesterday morning. improved mood continues. interested in respite. per staff, post-ECT confusion yesterday. anxiety. ativan helpful. came out eves. denies dep/anx. taking meds. slept about 8 hours. awaiting respite bed. Mental Status Exam Mental Status Exam Narrative: Pt is alert and oriented; behavior is cooperative, calm; dressed in casual attire, well groomed, with good hygiene; mood good; affect flexible and full range; appropriate eye contact; Speech is soft, but normal rate and prosody and not pressured;? no psychomotor retardation present; thought process is organized and goal directed; Thought content is lacking in psychotic Sx. no SI/HI/AVH expressed. Diagnostics Vital Signs (24Hr): Vital Signs - 24 hr 12/17/23 20:30 12/18/23 08:14 Temperature 97.3 F 96.3 F L Pulse Rate 100 80 Respiratory Rate 16 18 Blood Pressure 111/60 104/53 L Pulse Oximetry 96 97 Oxygen Delivery Method Room Air Room Air BMI result Body Mass Index 27.5 Labs 11/26/23 10:53 11/26/23 10:53 Medications Medications Current Medications Acetaminophen (Acetaminophen 325 Mg Tablet) 650 mg PO Q6H PRN PRN Reason: Headache/Pain Mild Scale (1-3) Last Admin: 12/11/23 15:58 Dose: 650 mg Acetaminophen (Acetaminophen 325 Mg Tablet) 650 mg PO ONCE PRN PRN Reason: Pain, Mild (Pain Scale 1-3) Al Hydroxide/Mg Hydroxide (Magnesium Hydrox/Alum Hydrox 30 Ml Oral.Susp) 30 ml PO Q6H PRN PRN Reason: Heartburn/Nausea Aripiprazole (Aripiprazole 5 Mg Tablet) 5 mg PO DAILY [facility] Last Admin: 12/18/23 08:33 Dose: 5 mg Duloxetine HCl (Duloxetine Hcl 60 Mg Capsule.Dr) 120 mg PO DAILY [facility] Last Admin: 12/18/23 08:33 Dose: 120 mg Hydroxyzine HCl (Hydroxyzine Hcl 25 Mg Tablet) 25 mg PO Q4H PRN PRN Reason: moderate anxiety Hydroxyzine HCl (Hydroxyzine Hcl 25 Mg Tablet) 75 mg PO BEDTIME PRN PRN Reason: insomnia Last Admin: 12/17/23 21:35 Dose: 75 mg Lorazepam (Lorazepam 2 Mg/Ml Vial) 1 mg IVPUSH ONCE PRN PRN Reason: anxiety/restlessness Last Admin: 12/17/23 07:33 Dose: 1 mg Magnesium Hydroxide (Milk Of Magnesia 30 Ml Oral.Susp) 30 ml PO DAILY PRN PRN Reason: Constipation Ondansetron HCl (Ondansetron Hcl 4 Mg/2 Ml Vial) 4 mg IVPUSH ONCE PRN PRN Reason: Nausea and Vomiting Ondansetron HCl (Ondansetron Hcl 4 Mg/2 Ml Vial) 4 mg IVPUSH ONCE PRN PRN Reason: Nausea and Vomiting Sumatriptan Succinate (Sumatriptan Succinate 50 Mg Tablet) 50 mg PO DAILY PRN PRN Reason: Migraine Headache Allergies Allergies Allergy/AdvReac Type Severity Reaction Status Date / Time Sulfa (Sulfonamide Allergy Unknown SHORTNESS Verified 09/14/21 19:37 Antibiotics) OF BREATH [SULFA (SULFONAMIDE ANTIBIOTICS)] mirtazapine [From REMERON] AdvReac Unknown AGITATION Verified 09/14/21 19:37 quetiapine [From SEROQUEL] AdvReac Unknown AGITATION Verified 09/14/21 19:37 Assessment & Plan Assessment & Plan (1) MDD (major depressive disorder), recurrent severe, without psychosis: Status: Acute Code(s): F33.2 - Major depressive disorder, recurrent severe without psychotic features Plan 11/28: continue home meds for now. medical clearance for ECT. michelle consult for ECT. increase ativan PRNs from 1 daily to 2 daily. add hydroxyzine 25 mg PRNs. 11/29: increase HS hydroxyzine from 50 mg to 75 mg for insomnia. medically cleared for ECT, accepted for tomorrow by michelle. T?C prazosin for nightmares and insomnia in PTSD. pt declines for now. 12/01 continue tx. 12/02 continue tx. 12/03 continue tx. 12/04: stably depressed, suicidal. continue current mgmt. ECT #2 tomorrow. 12/05: ECT #2 completed without incident. no change in presentation. continue current mgmt. 12/06 Continue ECT start Abilify discontinue Latuda 12/08 keep same treatment 12/09 keep same treatment, ECT tomorrow 12/10/23: Cont ect inc abilify 5 mg 12/11: mood improving with ECT. Tx #5 tomorrow. continue current mgmt. 12/12: ECT #5 successful. gradual improvement. continue current mgmt. : observed smiling in milieu. continue current mgmt. ECT #6 tomorrow. currently planning for 8 ECTs. 12/13: laughing and smiling today. mood much improved. ECT #6 today. continue current mgmt. ECT #7 sunday. 12/14: calm, cooperative. continues improved. 12/15: mood pretty good. full range of affect. ECT #7 tomorrow. 12/16: ECT #7 completed uneventfully today. continue current mgmt. 12/17: gains maintained. scheduled for ECT #8 tomorrow, final ECT, then to respite bed. Reason for continued inpatient stay Substantial Risk for: inability to function and rapid decompensation Time Spent With Patient Time: Total time managing care of this patient today __25__ minutes.
[2023-12-18 19:49] VITALS: BP 128/77; PULSE 97; RESP 16; TEMP 35.8; O2SAT 100
[2023-12-19] VITALS (11 sets, daily range): BP systolic 108–155; BP diastolic 40–90; PULSE 80–111; RESP 12–18; TEMP 35.6–36.4; O2SAT 96–100
[2023-12-19] MEDS: Lactated Ringers 1,000 ML 50 ML IVCONT (06:45)
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
--- NOTE | 2023-12-19 07:10 | MHC.SHP ---
Pre-Procedural Eval Section A - 24 Hr Update-Section A only Date of Service: 12/19/23 The patient is an INPATIENT: Yes Changes since office visit: No Cold of Flu in the past 2 weeks, No New Medical Problems, No Changes in Medication and No Patient answered all questions The patient has been examined within 24 hours of the surgical procedure. The History & Physical has been completed within 30 days and I have reviewed it.: Yes Section B - Complete if H&P > 30 days Chief Complaint: SI Allergies: Allergies Allergy/AdvReac Type Severity Reaction Status Date / Time Sulfa (Sulfonamide Allergy Unknown SHORTNESS Verified 09/14/21 19:37 Antibiotics) OF BREATH [SULFA (SULFONAMIDE ANTIBIOTICS)] mirtazapine [From REMERON] AdvReac Unknown AGITATION Verified 09/14/21 19:37 quetiapine [From SEROQUEL] AdvReac Unknown AGITATION Verified 09/14/21 19:37 Plan I have reviewed the history and physical and performed a pertinent physical examination on my patient. No changes have occurred unless specified. Time Spent With Patient Time: Total time managing care of this patient today ____ minutes.
--- NOTE | 2023-12-19 07:32 | HO.ECTPROC ---
ECT Procedure Note Diagnosis/Treatment Date of Service: 12/19/23 Diagnosis: Major Depressive Disorder Previous ECT Date: 12/17/23 Current Treatment Number: 8 Treatment: Series Interval Clinical Notes: The patient reported that she is feeling much better, less dysphoric than before. Her affect is brighter and very responsive. She denies side effects with the previous ECT. She can't remember that she was crying when she awakes, we usually give her Ativan 1 and Haldol 2.5 mg after the procedure with good response. ECT done as usual, no complications, as usual, we ordered Ativan 1 and Haldol 2.5 after the procedure. Time: Total time managing care of this patient today ____ minutes. ECT Settings Device: THYMATRON DGx Electrode Placement: Bitemporal Program/Pulse Width: 0.50 Energy Percent: 100 Seizure Duration By EEG (in seconds): 17 By Motor Observation (in seconds): 12 Medications Administration General Anesthetic: Etomidate (14) Muscle Relaxant: Succinylcholine (100) Ancillary Medications Analgesics: Torodol - Pre ECT Anti-emetics: Zofran - Pre ECT Miscillaneous Medications: Haldol (2.5 ivp) and Other (Ativan 1 mg IVP) Airway Management Airway Management: Bag Mask Ventilation Treatment Recommendations No Changes Recommended: No change Pt Tolerated Procedure w/o Issue: Yes
[2023-12-19] MEDS: Haloperidol Lactate 5 MG/ML VIAL 2.5 MG IVPUSH (07:51)
[2023-12-19] MEDS: LORazepam 2 MG/ML VIAL 1 MG IVPUSH (07:52)
[2023-12-19] MEDS: DULoxetine HCl 60 MG CAPSULE.DR 120 MG PO (09:52)
[2023-12-19] MEDS: ARIPiprazole 5 MG TABLET PO (09:53)
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
[2023-12-19 15:11] LABS: COVID-19 Test Negative (Negative); IDNOW Serial# 08D9AD1C
[2023-12-20 08:38] VITALS: BP 115/53; PULSE 69; RESP 18; TEMP 36.8; O2SAT 98
[2023-12-20] MEDS: ARIPiprazole 5 MG TABLET PO (08:44)
[2023-12-20] MEDS: DULoxetine HCl 60 MG CAPSULE.DR 120 MG PO (08:44)
== END 2023-12-20 10:25 | DRG 751 ==
LOC: HO.ED 11-27 05:58 → HO.PADLT16 11-27 14:16
PROVIDERS: Psychiatry & Neurology Psychiatry; Admitting Provider Psychiatry & Neurology Psychiatry; Emergency Provider Emergency Medicine; PCP Nurse Practitioner Family; Visit Provider Psychiatry & Neurology Psychiatry
PROC: (CPT 90870; principal; 2023-11-30 17:00)
PROC: GZB4ZZZ Other Electroconvulsive Therapy (ICD-10-PCS; CPT 90870; principal; 2023-12-05 09:00)
DX: F33.2 Major depressive disorder, recurrent severe without psychotic features (principal); F43.12 Post-traumatic stress disorder, chronic; T42.4X2A Poisoning by benzodiazepines, intentional self-harm, initial encounter; Z91.51 Personal history of suicidal behavior; T43.592A Poisoning by other antipsychotics and neuroleptics, intentional self-harm, initial encounter; Z62.810 Personal history of physical and sexual abuse in childhood; Z59.02 Unsheltered homelessness; Z20.822 Contact with and (suspected) exposure to COVID-19; Z79.899 Other long term (current) drug therapy
CPT/HCPCS: 36415; 80048; 80076; 80143; 80179; 80307; 81001; 83735; 85025; 87635; 90870; 93005; 99285; J0330; J1596; J1630; J1805; J1885; J2060; J2250; J2405; J2704; J7120; S9485

== ENCOUNTER → 2023-11-26 10:15 | Outpatient (BNV) | payer OTHER, SELFPAY | PROVIDERS: Emergency Provider Emergency Medicine; PCP Nurse Practitioner Family; Visit Provider Internal Medicine Cardiovascular Disease | DX: R00.0 Tachycardia, unspecified (principal); T50.902A Poisoning by unspecified drugs, medicaments and biological substances, intentional self-harm, initial encounter; I49.1 Atrial premature depolarization | CPT/HCPCS: 93010 ==

== ENCOUNTER → 2023-11-27 14:12 | Outpatient (BNV) | payer OTHER, SELFPAY | PROVIDERS: Admitting Provider Psychiatry & Neurology Psychiatry; Emergency Provider Emergency Medicine; PCP Nurse Practitioner Family; Visit Provider Physician Assistant | DX: Z02.2 Encounter for examination for admission to residential institution (principal) | CPT/HCPCS: 99429 ==

== ENCOUNTER → 2023-11-27 14:12 | Outpatient (BNV) | payer OTHER, SELFPAY | PROVIDERS: Admitting Provider Psychiatry & Neurology Psychiatry; Emergency Provider Emergency Medicine; PCP Nurse Practitioner Family; Visit Provider Psychiatry & Neurology Psychiatry | DX: F33.2 Major depressive disorder, recurrent severe without psychotic features (principal); F43.10 Post-traumatic stress disorder, unspecified; T14.91XA Suicide attempt, initial encounter | CPT/HCPCS: 90870; 99232; 99499 ==

== ENCOUNTER → 2023-11-27 14:12 | Outpatient (BNV) | payer OTHER, SELFPAY | PROVIDERS: Admitting Provider Psychiatry & Neurology Psychiatry; Emergency Provider Emergency Medicine; PCP Nurse Practitioner Family; Visit Provider Psychiatry & Neurology Psychiatry | DX: F33.2 Major depressive disorder, recurrent severe without psychotic features (principal) | CPT/HCPCS: 90870; 99231; 99232; 99233 ==

== ENCOUNTER 2023-12-25 11:06 | Emergency (ER) | payer OTHER, SELFPAY ==
--- NOTE | ~2023-12-25 | CT_ITS ---
EXAMINATION: CT HEAD WITHOUT CONTRAST CLINICAL INFORMATION: Dizziness and tingling to extremities x3 days. COMPARISON: CT head dated 05/27/2018. TECHNIQUE: Contiguous axial imaging was performed from the skull base to vertex without intravenous administration of contrast. This CT examination was performed using dose optimization techniques as appropriate, variously including the following: *Automated exposure control *Adjustment of mA and/or kV according to patient size (this includes techniques or standardized protocols for targeted exams where dose is matched to indication/reason for exam; i.e. extremities or head) *Use of iterative reconstruction technique DLP: 612 mGy-cm FINDINGS: There is no intracranial hemorrhage. There is no evidence of acute/subacute cerebral or cerebellar infarction. There is no midline shift, mass effect, or extra-axial fluid collection. Ventricles are normal in size and configuration. The calvarium is intact. The visualized paranasal sinuses are well aerated. The mastoid air cells are clear. The orbits are symmetric and within normal limits. CT/CT head/brain wo IV con IMPRESSION: No acute intracranial pathology.
[2023-12-25 11:25] VITALS: BP 145/77; PULSE 78; RESP 16; TEMP 36.6; O2SAT 97; BMI 26.1
--- NOTE | 2023-12-25 11:29 | ECG_ITS ---
Test Reason : SYNCOPE Blood Pressure : / mmHG Vent. Rate : 074 BPM Atrial Rate : 074 BPM P-R Int : 146 ms QRS Dur : 080 ms QT Int : 376 ms P-R-T Axes : 083 057 069 degrees QTc Int : 417 ms Normal sinus rhythm Possible Left atrial enlargement Borderline ECG When compared with ECG of 26-NOV-2023 20:47, No significant change was found Referred By: Jackson Leong Electronically Signed By:VIJAY VELA MD
--- NOTE | 2023-12-25 11:31 | ED_ITS ---
HPI - General Adult General Chief complaint: Dizziness Stated complaint: Fainting, memory issues Time Seen by Provider: 12/25/23 21:07 Source: patient, RN notes reviewed and old records reviewed Mode of arrival: ambulatory Limitations: no limitations History of Present Illness HPI narrative: [age] old female presents for evaluation of memory issues and dizziness worse with standing. Patient reports that the memory issues started after she started ECT treatment Her last treatment was 1 week ago She has a history of dizziness with standing but she feels as though these symptoms have been exacerbated since she started the ECT treatment She thinks he may be related to POTS syndrome but has no known diagnosis of this Patient denies any headache. She states that she occasionally gets headaches when standing as well as tingling in her legs She does not get chest pain with this Denies any blurry vision, nausea vomiting Currently she is not experiencing any symptoms Related Data Previous Rx's Medication Instructions Recorded aripiprazole 5 mg tablet (Abilify) 5 mg PO DAILY 30 days #30 tabs 12/19/23 duloxetine 60 mg capsule,delayed 120 mg (2 x 60 mg) PO DAILY 30 12/19/23 release days #60 caps hydroxyzine HCl 25 mg tablet 25 mg PO DAILY PRN moderate 12/19/23 anxiety 30 days #30 tabs lorazepam 1 mg tablet 1 mg PO DAILY PRN anxiety 14 days 12/19/23 #14 tabs meclizine 25 mg tablet 25 mg PO QID PRN dizziness #20 tabs 12/25/23 Allergies Allergy/AdvReac Type Severity Reaction Status Date / Time Sulfa (Sulfonamide Allergy Unknown SHORTNESS Verified 09/14/21 19:37 Antibiotics) OF BREATH [SULFA (SULFONAMIDE ANTIBIOTICS)] mirtazapine [From REMERON] AdvReac Unknown AGITATION Verified 09/14/21 19:37 quetiapine [From SEROQUEL] AdvReac Unknown AGITATION Verified 09/14/21 19:37 Review of Systems 2 Constitutional: Constitutional: Denies body ache(s), Denies chills, Denies fever(s), Denies frequent falls and Reports headache(s) Eyes: Eyes: Denies blurry vision ENT: Reports headache(s) and Denies sore throat Cardiovascular: Cardiovascular: Denies chest pain, Denies chest pain at rest, Reports rapid heart rate, Reports lightheadedness and Denies dyspnea Respiratory: Respiratory: Denies cough and Denies dyspnea Gastrointestinal: Gastrointestinal: Denies abdominal pain, Denies nausea and Denies vomiting Musculoskeletal: Musculoskeletal: Denies back pain, Reports numbness and Reports tingling Integumentary/Breasts: Skin/Breast: Denies rash Neurologic: Denies frequent falls, Reports headache(s), Reports memory loss, Reports numbness and Reports tingling Psychiatric: Psychiatric: Reports memory loss PMFSH Past Medical History Medical History Suicidal ideation Pneumothorax PTSD (post-traumatic stress disorder) Depression Surgical History No pertinent past surgical history Family History Family History Father Heart disease Social History Social History Household Members: None Household Members Other:: daughter and daughter's boyfriend Housing: Homeless Do you presently have visiting nurse or other home services: No Alcohol intake: current Alcohol intake frequency: holidays/special occasions only Alcohol type: beer and wine Patient Tobacco Use Status: Never used Tobacco e-Cigarette/Vaping Use: Never Used Second Hand Smoke Exposure: No Substance Use Type: Marijuana Advance Directives: No Advance Directives Information Provided: No service: No Current occupational status: unemployed Sexual orientation: Straight/Heterosexual Physical Exam ED Vital Signs: Vital Signs - 24 hr 12/25/23 20:22 12/25/23 20:55 12/25/23 21:35 Temperature 97.5 F 98.3 F Pulse Rate 82 84 72 Respiratory Rate 18 16 Blood Pressure 139/70 144/84 H 136/70 Pulse Oximetry 98 98 Oxygen Delivery Method Room Air Room Air 12/25/23 21:36 12/25/23 21:36 Temperature Pulse Rate 90 99 Respiratory Rate Blood Pressure 150/76 H 140/75 H Pulse Oximetry Oxygen Delivery Method BMI result Body Mass Index 26.1 Const General: healthy appearing, comfortable, no acute distress, alert and awake Nutritional Appearance: well nourished Orientation/consciousness: patient oriented x3 HENMT Head: Yes normocephalic and Yes atraumatic Eyes Eyelids: Yes eyelids normal Conjunctivae: conjunctivae normal Sclerae: sclerae normal Corneas: corneas normal Pupils: Equal, round and reactive pupils present EOM: EOMs intact bilaterally Neck Neck: Yes full ROM Resp Effort & Inspection: normal respiratory effort, able to speak in complete sentences, no audible wheezes and not labored Auscultation: clear to auscultation bilaterally Cardio Rate: regular rate Rhythm: regular rhythm GI Inspection: No distended Palpation (GI): Soft to palpation, not firm, nontender, no guarding and not rigid Auscultation: normoactive bowel sounds Skin General skin exam: no rashes or lesions noted and elasticity normal Neuro General: patient oriented x3 Cranial nerves: Yes CN's II-XII intact bilaterally, Yes Equal, round and reactive pupils present and Yes Bilaterally intact EOM present Cognition (Neuro): normal cognition Extrem Other: Moving all extremities well without any obvious deformities Course Course Course Narrative: RME; 48-year-old female states since having ECT procedure last week she has had memory loss and 3 episodes of syncope. Patient denies any slurred speech, facial droop, loss of vision, or paralysis. Patient last had symptoms 2 days ago. Patient presently asymptomatic. EKG labs CT urine ordered. Medications Administered Discontinued Medications Generic Name Dose Route Start Last Admin Trade Name Freq PRN Reason Stop Dose Admin Meclizine HCl 25 mg 12/25/23 21:46 12/25/23 22:34 Meclizine Hcl 25 Mg Tablet PO 12/25/23 21:47 25 mg ONCE ONE Administration Medical Decision Making Medical Decision Making [facility] Narrative: 48-year-old female presents for evaluation of memory loss and positional dizziness. Her symptoms are most likely related to adverse reaction to the ECT treatment. Her workup was largely unremarkable including CT scan of the brain, labs, EKG was nonischemic. She had orthostatic vital signs obtained which did show tachycardia from supine to standing position however she did not become hypotensive. Will treat with meclizine for potential vertigo. Considered IV fluids the patient is not nauseous or vomiting, she can hydrate orally. Renal function is normal and she has not tachycardic at rest, she has not clinically dehydrated. Differential Diagnosis Differential Diagnoses: The differential diagnosis associated with the presentation includes Pots syndrome Adverse reaction to ECT Dizziness Vertigo DAX Dehydration Lab Data [facility] Lab Attestation statement: I reviewed the patient's lab results. No leukocytosis, no anemia. Normal platelet count. No electrolyte abnormalities. Normal renal function. Troponin undetectable 12/25/23 11:53 12/25/23 11:53 Labs: Lab Results 12/25/23 12/25/23 Range/Units 11:53 15:34 WBC 8.3 (4.8-10.8) X10*3/uL RBC 5.02 (4.20-5.50) X10*6/uL Hgb 14.2 (12.0-16.0) g/dl Hct 41.4 (37.0-47.0) % MCV 82.5 (80.0-98.0) fL MCH 28.3 (27.0-33.0) pg MCHC 34.3 (31.0-35.0) g/dl RDW 12.3 (11.0-16.0) % Plt Count 326 D (160-400) X10*3/uL MPV 9.9 (9.4-12.3) fL Immature Gran % (Auto) 0.1 (0.0-0.4) % Neut % (Auto) 62.6 (45-73) % Lymph % (Auto) 25.8 (20-40) % Leslie % (Auto) 8.2 (2-11) % Eos % (Auto) 2.2 (0-4) % Baso % (Auto) 1.1 (0-2) % Lymph # (Auto) 2.1 (1.2-4.9) X10*3/uL Leslie # (Auto) 0.7 (0.1-1.2) X10*3/uL Eos # (Auto) 0.2 (0.0-0.4) X10*3/uL Baso # (Auto) 0.1 (0.0-0.2) X10*3/uL Abs Immat Gran (auto) 0.01 (0.00-0.03) X10*3/uL Absolute Neuts (auto) 5.2 (2.0-8.3) x10*3/uL Absolute Nucleated RBC 0.000 (0.0-0.012) X10*3/uL Nucleated RBC % (auto) 0.0 (0.0-0.2) /100WBC PT 12.7 (11.1-13.3) SEC INR 1.0 (0.9-1.1) APTT 33.0 (26.0-36.8) SEC Sodium 141 (135-145) mmol/L Potassium 4.5 (3.3-5.1) mmol/L Chloride 107 (96-108) mmol/L Carbon Dioxide 28 (22-29) mmol/L Anion Gap 11 L (12-20) BUN 11 (9-16) mg/dL Creatinine 0.89 (0.5-1.4) mg/dL Estim Creat Clear Calc 85.7 Estimated GFR > 60 Random Glucose 111 (60-115) mg/dL Calcium 9.9 D (8.4-10.2) mg/dL Total Bilirubin 0.9 (0.0-1.0) mg/dL AST 18 (5-31) U/L ALT 16 (0-31) U/L Alkaline Phosphatase 89 (39-117) U/L Troponin I High Sens < 2.7 (<3.5-17.0) ng/L Total Protein 7.1 (6.5-8.0) g/dL Albumin 4.2 (3.5-5.0) g/dL Beta HCG, Quant < 2 mIU/mL Urine Color Yellow Urine Appearance Clear Urine pH 6.0 (5.0-9.0) Ur Specific [place] <= 1.005 (1.005-1.025) Urine Protein Negative (Neg-Trace) mg/dL Urine Glucose (UA) Negative (Negative) mg/dL Urine Ketones Trace (Negative) mg/dL Urine Blood Negative (Negative) Urine Nitrite Negative (Negative) Ur Leukocyte Esterase Negative (Negative) Independent Interpretation I performed an independent interpretation of an: EKG (Normal sinus rhythm with a rate of [address] segment elevations or depressions.) and CT Scan Interpretation: No obvious intracranial hemorrhage, mass effect or midline shift Radiology Impression Discussion of test interpretation with radiology: I have reviewed the radiologist's reading. (No acute intracranial pathology) Prescription Management I considered prescription management with: Other (Antihistamine) Discharge Plan Discharge Clinical Impression: Dizziness Patient Disposition: Home, Self-Care Instructions: Vertigo (ED), Dizziness (ED) Additional Instructions: Your workup in the ER today was reassuring This includes your blood work, EKG, CT scan of your brain. Your symptoms may be related to vertigo This may be a side effect of the ECT treatment You may take meclizine as directed Follow-up with your primary doctor You my also follow up with cardiology, Dr Huggins at the number provided Prescriptions: New meclizine 25 mg tablet 25 mg PO QID PRN (Reason: dizziness) Qty: 20 0RF No Action hydroxyzine HCl 25 mg Tablet 25 mg PO DAILY PRN (Reason: moderate anxiety) 30 Days Qty: 30 0RF aripiprazole [Abilify] 5 mg Tablet 5 mg PO DAILY 30 Days Qty: 30 0RF lorazepam 1 mg Tablet 1 mg PO DAILY PRN (Reason: anxiety) 14 Days Qty: 14 1RF duloxetine 60 mg Capsule,Delayed Release(Dr/Ec) 120 mg PO DAILY 30 Days Qty: 60 0RF Referrals: Wesley Huggins MD [Physician] - (? POTS) Interventions: ED Discharge Assessment Last Done: 12/25/23 22:36 Discharge Date/Time: 12/25/23 22:38
[2023-12-25 12:00] LABS: MANUAL DIFF FLAG NO
[2023-12-25 12:01] LABS: Basophils Absolute Auto 0.1 X10*3/uL (0.0-0.2); Basophils Percent Auto 1.1 % (0-2); Eosinophils Absolute Auto 0.2 X10*3/uL (0.0-0.4); Eosinophils Percent Auto 2.2 % (0-4); Hematocrit 41.4 % (37.0-47.0); Hemoglobin 14.2 g/dl (12.0-16.0); Imm Gran Abs Auto 0.01 X10*3/uL (0.00-0.03); Imm Gran Pct Auto 0.1 % (0.0-0.4); Lymphocytes Absolute Auto 2.1 X10*3/uL (1.2-4.9); Lymphocytes Percent Auto 25.8 % (20-40); Mean Corpuscular HGB Conc 34.3 g/dl (31.0-35.0); Mean Corpuscular Hemoglobin 28.3 pg (27.0-33.0); Mean Corpuscular Volume 82.5 fL (80.0-98.0); Mean Platelet Volume 9.9 fL (9.4-12.3); Monocytes Absolute Auto 0.7 X10*3/uL (0.1-1.2); Monocytes Percent Auto 8.2 % (2-11); Neutrophils Absolute Auto 5.2 x10*3/uL (2.0-8.3); Neutrophils Percent Auto 62.6 % (45-73); Platelet Count 326 X10*3/uL (160-400); Red Blood Count 5.02 X10*6/uL (4.20-5.50); Red Cell Distribution Width 12.3 % (11.0-16.0); White Blood Count 8.3 X10*3/uL (4.8-10.8)
[2023-12-25 12:09] LABS: Prothrombin Time 12.7 SEC (11.1-13.3)
[2023-12-25 12:19] LABS: Alanine Aminotransferase 16 U/L (0-31); Albumin Level 4.2 g/dL (3.5-5.0); Alkaline Phosphatase 89 U/L (39-117); Anion Gap 11 (12-20); Aspartate Amino Transferase 18 U/L (5-31); Bilirubin Total 0.9 mg/dL (0.0-1.0); Blood Urea Nitrogen 11 mg/dL (9-16); Calcium 9.9 mg/dL (8.4-10.2); Carbon Dioxide 28 mmol/L (22-29); Chloride 107 mmol/L (96-108); Creatinine Clr Calc Pharmacy 85.7; Estimated Glomerular Filt Rate > 60; Glucose Random 111 mg/dL (60-115); Potassium 4.5 mmol/L (3.3-5.1); Sodium 141 mmol/L (135-145); Total Protein 7.1 g/dL (6.5-8.0)
[2023-12-25 12:22] LABS: HCG Quantitative < 2 mIU/mL
[2023-12-25 12:23] LABS: Troponin-I High Sensitivity < 2.7 ng/L (<3.5-17.0)
[2023-12-25 15:43] LABS: Appearance Urine Clear; Color Urine Yellow; Glucose Urine UA Negative (Negative); Leukocyte Esterase Urine Negative (Negative); Nitrite Urine Negative (Negative); Specific Gravity - Urine <= 1.005 (1.005-1.025); Urine Blood Negative (Negative); Urine Ketones Trace mg/dL (Negative); Urine Protein Negative (Neg-Trace)
[2023-12-25 20:22] VITALS: BP 139/70; PULSE 82; RESP 18; TEMP 36.4; O2SAT 98
[2023-12-25 20:55] VITALS: BP 144/84; PULSE 84; RESP 16; TEMP 36.8; O2SAT 98
[2023-12-25 21:35] VITALS: BP 136/70; PULSE 72
[2023-12-25 21:36] VITALS: BP 140/75; BP 150/76; PULSE 90; PULSE 99
[2023-12-25] MEDS: Meclizine HCl 25 MG TABLET PO (22:34)
== END 2023-12-25 22:38 | disposition home or self-care (01) ==
PROVIDERS: Physician Assistant; Emergency Provider Emergency Medicine; PCP Nurse Practitioner Family
DX: R42 Dizziness and giddiness (principal); R55 Syncope and collapse; R20.2 Paresthesia of skin; Z79.899 Other long term (current) drug therapy
CPT/HCPCS: 36415; 70450; 80053; 81003; 84484; 84702; 85025; 85610; 85730; 93005; 99284; 99285

== ENCOUNTER → 2023-12-25 11:29 | Outpatient (BNV) | payer OTHER, SELFPAY | PROVIDERS: PCP Nurse Practitioner Family; Visit Provider Internal Medicine Cardiovascular Disease | DX: R55 Syncope and collapse (principal); R94.31 Abnormal electrocardiogram [ECG] [EKG] | CPT/HCPCS: 93010 ==

== ENCOUNTER 2024-01-11 14:16 | Outpatient (AMB) | payer OTHER, SELFPAY ==
--- NOTE | 2024-01-11 14:57 | A.OFFVIS_ITS ---
Intake Vital Signs 01/11/24 14:59 01/11/24 15:35 01/11/24 15:35 01/11/24 15:36 Height 5 ft 9 in Weight 178 lb 9.191 oz BMI 26.4 BP 130/72 133/65 125/63 127/83 Blood Pressure Location Lt brachial Lt brachial Lt brachial Lt brachial Position Sitting Supine Sitting Standing Pulse 78 66 70 104 H Pulse Source Pulse Oximeter Pulse Oximeter Pulse Oximeter Intake Visit Reasons: [employer] [facility] [place]/ [place]igo ? Pots Intake Note: [employer] OV FOLLOW UP [place] [facility] [place] PT FEELS GOOD Accompanied by: GUEST SERVICE AIDE Allergies Sulfa (Sulfonamide Antibiotics) [SULFA (SULFONAMIDE ANTIBIOTICS)] Allergy (Unknown, Verified 09/14/21 19:37) SHORTNESS OF BREATH mirtazapine [From REMERON] Adverse Reaction (Unknown, Verified 09/14/21 19:37) AGITATION quetiapine [From SEROQUEL] Adverse Reaction (Unknown, Verified 09/14/21 19:37) AGITATION Medication List - Last Reconciled 01/11/24 by Lovely Navarro NP aripiprazole (Abilify) 5 mg PO DAILY 30 days duloxetine 120 mg (2 x 60 mg) PO DAILY 30 days hydroxyzine HCl 25 mg PO DAILY PRN 30 days lorazepam 1 mg PO DAILY PRN meclizine 25 mg PO QID PRN HPI HPI Comments History of Present Illness Details 49-year-old female presents today for a follow-up after being in the emergency room. She reports she has been having memory issues and dizziness upon standing since her treatment of ECT (12/01/23-12/19/23) Patient thinks she may have postural orthostatic tachycardia syndrome. She reports she also has fatigue, some blurred vision, mild dizziness, headache, increase in pressure in head, numbness all over body, and feels as if she may pass out. She states she has not passed out though. Denies chest pain, palpitations, shortness of breath, nausea, or vomiting. She denies any recent illness and lives a sedentary lifestyle. She drinks about 4 cups of coffee a day and has been alcohol and marijuana free for 2 months. [facility] Medical History Suicidal ideation Pneumothorax PTSD (post-traumatic stress disorder) Depression Surgical History No pertinent past surgical history Family History Father Heart disease Social History Household Members: None Household Members Other:: daughter and daughter's boyfriend Housing: Homeless Do you presently have visiting nurse or other home services: No Alcohol intake: current Alcohol intake frequency: holidays/special occasions only Alcohol type: beer and wine Patient Tobacco Use Status: Never used Tobacco e-Cigarette/Vaping Use: Never Used Second Hand Smoke Exposure: No Substance Use Type: Marijuana service: No Current occupational status: unemployed Sexual orientation: Straight/Heterosexual Review of Systems Const Denies weakness ENT Denies dizziness Card Denies chest pain, Denies chest pain with activity, Denies syncope, Denies rapid heart rate, Denies pedal edema, Denies edema, Denies leg edema, Denies lightheadedness, Denies palpitations, Denies dyspnea, Denies dyspnea on exertion and Denies orthopnea Resp Denies cough, Denies dyspnea and Denies dyspnea on exertion GI Denies hematochezia and Denies change in stool character Musc Denies abnormal gait, Denies muscle cramps, Denies muscle weakness, Denies numbness, Denies radiating pain into limb and Denies tingling Neuro Denies abnormal gait, Denies dizziness, Denies syncope, Denies numbness, Denies tingling and Denies weakness Endo Denies palpitations Physical Exam Vital Signs: Last Vital Signs Pulse 104 H 01/11/24 15:36 BP 127/83 01/11/24 15:36 BMI result Body Mass Index 26.4 Const General: healthy appearing and no acute distress Orientation/consciousness: patient oriented x3 HEENT Head: Yes normal to inspection Eyes General: appearance normal, both eyes and all related structures Neck Neck: Yes normal visual inspection Chest Chest palpation & inspection: normal inspection of the chest Resp Effort & Inspection: normal respiratory effort Auscultation: clear to auscultation bilaterally Cardio Jugular venous distension: no JVD Palpation: normal PMI Rate: regular rate Rhythm: regular rhythm Heart sounds: S1 normal heart sound present, S2 normal heart sound present, no click, no gallops, no murmurs and no rubs GI Inspection: Yes normal to inspection Palpation (GI): Soft to palpation Skin General skin exam: no rashes or lesions noted Neuro General: patient oriented x3 Extrem General: Yes normal to inspection Psych Appearance: grossly normal Assessment & Plan Assessment & Plan (1) Dizziness: Code(s): R42 - Dizziness and giddiness Plan Postural symptoms since starting ECT in November 2023. Orthostatic vital show increase in heart rate (66 laying bpm, sitting 70bpm, standing 104 bpm). Postural dizziness reported with standing. Will get echocardiogram to assess for structural changes, holter to assess for arrhythmias and average heart rate, and stress test to assess for heart rate and blood pressure response to exercise. Discussed the importance of reducing caffeine products and adequate hydration. Change positions slowly. Orders: Orders CA echo stress exercise 01/11/24 R42 - Dizziness and giddiness ECG 3 day holter monitor 01/11/24 R42 - Dizziness and giddiness CA echo transthoracic complete 01/11/24 R42 - Dizziness and giddiness Coding Level of Care Code Est Pt Level 3 (79018) Diagnoses Dizziness R42
[2024-01-11 14:59] VITALS: BP 130/72; PULSE 78; BMI 26.4
[2024-01-11 15:35] VITALS: BP 125/63; BP 133/65; PULSE 66; PULSE 70
[2024-01-11 15:36] VITALS: BP 127/83; PULSE 104
== END 2024-01-11 15:42 | disposition home or self-care (01) ==
PROVIDERS: PCP Nurse Practitioner Family; Visit Provider Nurse Practitioner
DX: R42 Dizziness and giddiness (principal)
CPT/HCPCS: 99213

== ENCOUNTER → 2024-01-11 14:16 | Outpatient (BNVA) | payer OTHER, SELFPAY | PROVIDERS: PCP Nurse Practitioner Family; Visit Provider Nurse Practitioner ==

== ENCOUNTER → 2024-01-22 12:46 | Outpatient (REF) | payer OTHER, SELFPAY ==
--- NOTE | 2024-01-22 12:49 | HM_ITS ---
Conclusion: 1. Patient was monitored for total period of 2 days 2. Baseline was normal sinus rhythm with average heart of 80 beats per minute 3. No significant pauses noted 4. Occasional PACs noted 5. No patient reported events MTDD
== END ==
LOC: HO.CARD 12:46
PROVIDERS: PCP Nurse Practitioner Family; Visit Provider Nurse Practitioner
DX: R42 Dizziness and giddiness (principal)
CPT/HCPCS: 93242

== ENCOUNTER → 2024-01-22 12:49 | Outpatient (BNV) | payer OTHER, SELFPAY | PROVIDERS: PCP Nurse Practitioner Family; Visit Provider Internal Medicine Cardiovascular Disease | DX: I49.1 Atrial premature depolarization (principal) | CPT/HCPCS: 93227; 93244 ==